=== PATIENT | male | born 1980 | race Caucasian/White ===

== ENCOUNTER 2021-04-24 08:12 | Outpatient (REF) | payer OTHER, SELFPAY ==
[2021-04-24 10:02] LABS: MANUAL DIFF FLAG NO
[2021-04-24 10:06] LABS: Basophils Percent Auto 0.6 % (0-2); Eosinophils Absolute Auto 0.1 X10*3/uL (0.0-0.4); Eosinophils Percent Auto 2.6 % (0-4); Hemoglobin 12.5 g/dl (14.0-18.0); Imm Gran Abs Auto 0.01 X10*3/uL (0.00-0.03); Imm Gran Pct Auto 0.2 % (0.0-0.4); Lymphocytes Absolute Auto 2.3 X10*3/uL (1.2-4.9); Lymphocytes Percent Auto 43.2 % (20-40); Mean Corpuscular HGB Conc 32.1 g/dl (31.0-36.0); Mean Corpuscular Hemoglobin 30.9 pg (27.0-33.0); Mean Corpuscular Volume 96.3 fL (80.0-98.0); Monocytes Absolute Auto 0.6 X10*3/uL (0.1-1.2); Monocytes Percent Auto 11.5 % (2-11); Neutrophils Absolute Auto 2.3 x10*3/uL (2.0-8.3); Neutrophils Percent Auto 41.9 % (45-73); Platelet Count 243 X10*3/uL (160-400); Red Blood Count 4.05 X10*6/uL (4.60-5.80); White Blood Count 5.4 X10*3/uL (4.8-10.8)
[2021-04-24 10:18] LABS: Alanine Aminotransferase 51 U/L (0-40); Albumin Level 4.5 g/dL (3.5-5.0); Alkaline Phosphatase 104 U/L (39-117); Anion Gap 15 (12-20); Aspartate Amino Transferase 96 U/L (5-37); Bilirubin Total 0.5 mg/dL (0.0-1.0); Blood Urea Nitrogen 12 mg/dL (9-16); Calcium 9.6 mg/dL (8.4-10.2); Carbon Dioxide 32 mmol/L (22-29); Chloride 97 mmol/L (96-108); Cholesterol 324 mg/dL; Estimated Glomerular Filt Rate > 60; Glucose Fasting 105 mg/dL (60-99); HDL Cholesterol 129 mg/dL; LDL Cholesterol Calculated 180 mg/dl; Sodium 140 mmol/L (135-145); Total Protein 7.4 g/dL (6.5-8.0); Triglycerides 75 mg/dL
== END 2021-04-24 08:13 | disposition home or self-care (01) ==
LOC: HO.10HDL 08:12
PROVIDERS: Visit Provider Internal Medicine
DX: G47.00 Insomnia, unspecified (principal); Z72.0 Tobacco use; Z82.5 Family history of asthma and other chronic lower respiratory diseases
CPT/HCPCS: 36415; 80053; 80061; 85025

== ENCOUNTER 2021-05-12 07:59 | Outpatient (REF) | payer OTHER, SELFPAY ==
[2021-05-12 10:56] LABS: HBsAGNum1 0.26 S/CO (0.00-0.99); Hepatitis B Surface Antigen Negative (Negative); ~HepC Num1 0.08 S/CO (0.00-0.79); ~Hepatitis C Antibody Nonreactive (Nonreactive)
[2021-05-12 10:59] LABS: HBS Num1 2.83 mIU/mL (0-7.99); ~Hepatitis B Surface Antibody NONREACTIVE (Nonreactive)
== END 2021-05-12 08:00 | disposition home or self-care (01) ==
LOC: HO.10HDL 07:59
PROVIDERS: Visit Provider Internal Medicine
DX: R79.89 Other specified abnormal findings of blood chemistry (principal)
CPT/HCPCS: 36415; 86706; 86803; 87340

== ENCOUNTER 2022-05-31 08:07 | Outpatient (REF) | payer OTHER, SELFPAY ==
[2022-05-31 10:40] LABS: MANUAL DIFF FLAG NO
[2022-05-31 10:44] LABS: Basophils Absolute Auto 0.1 X10*3/uL (0.0-0.2); Basophils Percent Auto 0.9 % (0-2); Eosinophils Absolute Auto 0.1 X10*3/uL (0.0-0.4); Hemoglobin 12.6 g/dl (14.0-18.0); Imm Gran Abs Auto 0.02 X10*3/uL (0.00-0.03); Imm Gran Pct Auto 0.4 % (0.0-0.4); Lymphocytes Absolute Auto 1.7 X10*3/uL (1.2-4.9); Lymphocytes Percent Auto 30.6 % (20-40); Mean Corpuscular HGB Conc 33.2 g/dl (31.0-36.0); Mean Corpuscular Hemoglobin 31.8 pg (27.0-33.0); Mean Platelet Volume 10.1 fL (9.4-12.4); Monocytes Absolute Auto 0.6 X10*3/uL (0.1-1.2); Monocytes Percent Auto 10.7 % (2-11); Neutrophils Absolute Auto 3.1 x10*3/uL (2.0-8.3); Neutrophils Percent Auto 55.4 % (45-73); Platelet Count 240 X10*3/uL (160-400); Red Blood Count 3.96 X10*6/uL (4.60-5.80); Red Cell Distribution Width 12.8 % (11.0-16.0); White Blood Count 5.5 X10*3/uL (4.8-10.8)
[2022-05-31 11:07] LABS: Alanine Aminotransferase 49 U/L (0-40); Albumin Level 4.4 g/dL (3.5-5.0); Alkaline Phosphatase 126 U/L (39-117); Anion Gap 12 (12-20); Aspartate Amino Transferase 85 U/L (5-37); Bilirubin Total 0.6 mg/dL (0.0-1.0); Blood Urea Nitrogen 12 mg/dL (9-16); Calcium 9.5 mg/dL (8.4-10.2); Carbon Dioxide 35 mmol/L (22-29); Chloride 97 mmol/L (96-108); Cholesterol 315 mg/dL; Estimated Glomerular Filt Rate > 60; Glucose Fasting 180 mg/dL (60-99); Potassium 4.2 mmol/L (3.3-5.1); Sodium 140 mmol/L (135-145); Total Protein 7.2 g/dL (6.5-8.0)
[2022-05-31 11:29] LABS: Vitamin B12 711 pg/mL (200-900)
== END 2022-05-31 08:08 | disposition home or self-care (01) ==
LOC: HO.10HDL 08:07
PROVIDERS: Visit Provider Internal Medicine
DX: Z00.00 Encounter for general adult medical examination without abnormal findings (principal)
CPT/HCPCS: 36415; 80053; 82465; 82607; 85025

== ENCOUNTER 2022-06-09 09:09 | Outpatient (REF) | payer OTHER, SELFPAY ==
[2022-06-09 11:12] LABS: Estimated Average Glucose 111 mg/dL; Hemoglobin A1c % 5.5 %
[2022-06-09 11:57] LABS: Alanine Aminotransferase 56 U/L (0-40); Albumin Level 4.5 g/dL (3.5-5.0); Alkaline Phosphatase 121 U/L (39-117); Anion Gap 15 (12-20); Aspartate Amino Transferase 111 U/L (5-37); Bilirubin Total 0.6 mg/dL (0.0-1.0); Blood Urea Nitrogen 11 mg/dL (9-16); Calcium 9.5 mg/dL (8.4-10.2); Carbon Dioxide 34 mmol/L (22-29); Chloride 97 mmol/L (96-108); Cholesterol 313 mg/dL; Estimated Glomerular Filt Rate > 60; Glucose Fasting 112 mg/dL (60-99); HDL Cholesterol 119 mg/dL; LDL Cholesterol Calculated 178 mg/dl; Potassium 4.2 mmol/L (3.3-5.1); Sodium 142 mmol/L (135-145); Total Protein 7.2 g/dL (6.5-8.0); Triglycerides 84 mg/dL
== END 2022-06-09 09:10 | disposition home or self-care (01) ==
LOC: HO.10HDL 09:09
PROVIDERS: Visit Provider Internal Medicine
DX: E78.00 Pure hypercholesterolemia, unspecified (principal); R73.9 Hyperglycemia, unspecified
CPT/HCPCS: 36415; 80053; 80061; 83036

== ENCOUNTER 2022-07-01 08:16 | Outpatient (REF) | payer OTHER, SELFPAY ==
--- NOTE | ~2022-07-01 | US_ITS ---
EXAMINATION: US ABDOMEN COMPLETE CLINICAL INFORMATION: Elevated liver enzymes. COMPARISON: None available. TECHNIQUE: Real-time imaging of the abdominal viscera. Technically difficult study secondary to body habitus. FINDINGS: PANCREAS: Largely obscured by overlapping bowel gas. ABDOMINAL AORTA: The proximal, mid, and distal segments are normal in caliber. INFERIOR VENA CAVA: Visualized portions are normal. LIVER: The liver is normal in size. The liver contour is normal. There is diffuse increased liver parenchymal echogenicity. No focal hepatic lesion. There is no intrahepatic biliary duct dilatation seen. GALLBLADDER: Normal. The gallbladder is physiologically distended without evidence of stones, sludge, polyps, wall thickening or pericholecystic fluid. COMMON BILE DUCT: Normal in caliber measuring 0.7 cm in diameter. RIGHT KIDNEY: Normal. No hydronephrosis. No renal calculi or focal parenchymal lesions. The kidney measures 10.8 cm in maximum dimension. LEFT KIDNEY: Normal. No hydronephrosis. No renal calculi or focal parenchymal lesions. The kidney measures 10.1 cm in maximum dimension. SPLEEN: Normal. The spleen measures 8.9 cm in maximum dimension. FREE FLUID: None. US/US abdomen complete IMPRESSION: 1. There is generalized increase in hepatic echotexture, consistent with fatty infiltration or hepatocellular disease. Please correlate clinically. No focal hepatic mass or intrahepatic biliary dilatation is seen. 2. Technically limited ultrasound examination of the pancreas.
== END 2022-07-01 08:17 | disposition home or self-care (01) ==
LOC: HO.US 08:16
PROVIDERS: PCP Internal Medicine; Visit Provider Internal Medicine
DX: R74.01 Elevation of levels of liver transaminase levels (principal)
CPT/HCPCS: 76700

== ENCOUNTER 2022-10-07 08:05 | Outpatient (REF) | payer OTHER, SELFPAY | END 2022-10-07 08:06 | disposition home or self-care (01) | LOC: HO.10HDL 08:05 | PROVIDERS: Visit Provider Internal Medicine | DX: I10 Essential (primary) hypertension (principal); R73.03 Prediabetes; R79.89 Other specified abnormal findings of blood chemistry | CPT/HCPCS: 36415; 80053; 83036; 85025 ==

== ENCOUNTER 2023-05-05 08:29 | Outpatient (REF) | payer OTHER, SELFPAY ==
[2023-05-05 14:17] LABS: MANUAL DIFF FLAG NO
[2023-05-05 14:20] LABS: Basophils Percent Auto 0.5 % (0-2); Eosinophils Absolute Auto 0.1 X10*3/uL (0.0-0.4); Eosinophils Percent Auto 2.3 % (0-4); Hematocrit 36.6 % (42.0-52.0); Hemoglobin 11.9 g/dl (14.0-18.0); Imm Gran Abs Auto 0.01 X10*3/uL (0.00-0.03); Imm Gran Pct Auto 0.3 % (0.0-0.4); Lymphocytes Absolute Auto 1.4 X10*3/uL (1.2-4.9); Lymphocytes Percent Auto 36.7 % (20-40); Mean Corpuscular HGB Conc 32.5 g/dl (31.0-36.0); Mean Corpuscular Hemoglobin 31.6 pg (27.0-33.0); Mean Corpuscular Volume 97.1 fL (80.0-98.0); Mean Platelet Volume 10.5 fL (9.4-12.4); Monocytes Absolute Auto 0.6 X10*3/uL (0.1-1.2); Monocytes Percent Auto 15.6 % (2-11); Neutrophils Absolute Auto 1.7 x10*3/uL (2.0-8.3); Neutrophils Percent Auto 44.6 % (45-73); Platelet Count 196 X10*3/uL (160-400); Red Blood Count 3.77 X10*6/uL (4.60-5.80); Red Cell Distribution Width 12.8 % (11.0-16.0); White Blood Count 3.9 X10*3/uL (4.8-10.8)
[2023-05-05 14:38] LABS: Alanine Aminotransferase 106 U/L (0-40); Albumin Level 4.4 g/dL (3.5-5.0); Alkaline Phosphatase 100 U/L (39-117); Anion Gap 14 (12-20); Aspartate Amino Transferase 140 U/L (5-37); Bilirubin Total 0.5 mg/dL (0.0-1.0); Blood Urea Nitrogen 12 mg/dL (9-16); Calcium 9.5 mg/dL (8.4-10.2); Carbon Dioxide 33 mmol/L (22-29); Chloride 98 mmol/L (96-108); Cholesterol 317 mg/dL (<200); Estimated Average Glucose 108 mg/dL; Estimated Glomerular Filt Rate > 60; Glucose Fasting 95 mg/dL (60-99); HDL Cholesterol 154 mg/dL (>40); Hemoglobin A1c % 5.4 % (<6.0); LDL Cholesterol Calculated 151 mg/dL (<100); Potassium 3.9 mmol/L (3.3-5.1); Sodium 141 mmol/L (135-145); Total Protein 7.6 g/dL (6.5-8.0); Triglycerides 63 mg/dL (<150)
[2023-05-05 14:43] LABS: Creatinine Urine 132.62 mg/dL; Microalbum/Creatinine Ratio Ur 12.8 ug/mg cr (<30)
== END 2023-05-05 08:30 | disposition home or self-care (01) ==
LOC: HO.CHCLDS 08:29
PROVIDERS: Visit Provider Internal Medicine
DX: I10 Essential (primary) hypertension (principal); E78.00 Pure hypercholesterolemia, unspecified; R73.03 Prediabetes; R79.89 Other specified abnormal findings of blood chemistry
CPT/HCPCS: 36415; 80053; 80061; 82043; 82570; 83036; 85025

== ENCOUNTER 2023-09-05 08:42 | Outpatient (REF) | payer OTHER, SELFPAY ==
[2023-09-05 14:53] LABS: MANUAL DIFF FLAG NO
[2023-09-05 14:57] LABS: Basophils Percent Auto 0.4 % (0-2); Eosinophils Absolute Auto 0.1 X10*3/uL (0.0-0.4); Eosinophils Percent Auto 2.2 % (0-4); Hemoglobin 11.5 g/dl (14.0-18.0); Imm Gran Abs Auto 0.01 X10*3/uL (0.00-0.03); Imm Gran Pct Auto 0.2 % (0.0-0.4); Lymphocytes Absolute Auto 1.4 X10*3/uL (1.2-4.9); Lymphocytes Percent Auto 31.5 % (20-40); Mean Corpuscular HGB Conc 33.8 g/dl (31.0-36.0); Mean Corpuscular Volume 97.4 fL (80.0-98.0); Mean Platelet Volume 9.9 fL (9.4-12.4); Monocytes Absolute Auto 0.5 X10*3/uL (0.1-1.2); Monocytes Percent Auto 11.5 % (2-11); Neutrophils Absolute Auto 2.4 x10*3/uL (2.0-8.3); Neutrophils Percent Auto 54.2 % (45-73); Platelet Count 247 X10*3/uL (160-400); Red Blood Count 3.49 X10*6/uL (4.60-5.80); Red Cell Distribution Width 13.2 % (11.0-16.0); White Blood Count 4.5 X10*3/uL (4.8-10.8)
[2023-09-05 15:18] LABS: Alanine Aminotransferase 20 U/L (0-40); Albumin Level 4.1 g/dL (3.5-5.0); Alkaline Phosphatase 87 U/L (39-117); Anion Gap 12 (12-20); Aspartate Amino Transferase 33 U/L (5-37); Bilirubin Total 0.4 mg/dL (0.0-1.0); Blood Urea Nitrogen 14 mg/dL (9-16); Calcium 9.5 mg/dL (8.4-10.2); Carbon Dioxide 33 mmol/L (22-29); Chloride 99 mmol/L (96-108); Estimated Glomerular Filt Rate > 60; Glucose Random 91 mg/dL (60-115); Potassium 4.1 mmol/L (3.3-5.1); Sodium 140 mmol/L (135-145); Total Protein 6.9 g/dL (6.5-8.0)
== END 2023-09-05 08:43 | disposition home or self-care (01) ==
LOC: HO.CHCLDS 08:42
PROVIDERS: Visit Provider Internal Medicine
DX: D64.9 Anemia, unspecified (principal); R79.89 Other specified abnormal findings of blood chemistry
CPT/HCPCS: 36415; 80053; 85025

== ENCOUNTER 2023-12-26 08:38 | Outpatient (REF) | payer OTHER, SELFPAY ==
[2023-12-26 15:21] LABS: MANUAL DIFF FLAG NO
[2023-12-26 15:28] LABS: Basophils Percent Auto 0.6 % (0-2); Eosinophils Absolute Auto 0.1 X10*3/uL (0.0-0.4); Hematocrit 34.4 % (42.0-52.0); Hemoglobin 11.4 g/dl (14.0-18.0); Imm Gran Abs Auto 0.02 X10*3/uL (0.00-0.03); Imm Gran Pct Auto 0.4 % (0.0-0.4); Lymphocytes Absolute Auto 1.8 X10*3/uL (1.2-4.9); Lymphocytes Percent Auto 36.5 % (20-40); Mean Corpuscular HGB Conc 33.1 g/dl (31.0-36.0); Mean Corpuscular Hemoglobin 31.6 pg (27.0-33.0); Mean Corpuscular Volume 95.3 fL (80.0-98.0); Mean Platelet Volume 10.3 fL (9.4-12.4); Monocytes Absolute Auto 0.4 X10*3/uL (0.1-1.2); Monocytes Percent Auto 8.4 % (2-11); Neutrophils Absolute Auto 2.6 x10*3/uL (2.0-8.3); Neutrophils Percent Auto 52.1 % (45-73); Platelet Count 331 X10*3/uL (160-400); Red Blood Count 3.61 X10*6/uL (4.60-5.80); Red Cell Distribution Width 13.4 % (11.0-16.0)
[2023-12-26 15:56] LABS: Alanine Aminotransferase 18 U/L (0-40); Albumin Level 4.1 g/dL (3.5-5.0); Alkaline Phosphatase 85 U/L (39-117); Anion Gap 14 (12-20); Aspartate Amino Transferase 33 U/L (5-37); Bilirubin Total 0.3 mg/dL (0.0-1.0); Blood Urea Nitrogen 14 mg/dL (9-16); Carbon Dioxide 28 mmol/L (22-29); Chloride 100 mmol/L (96-108); Cholesterol 231 mg/dL (<200); Estimated Glomerular Filt Rate > 60; Glucose Fasting 151 mg/dL (60-99); HDL Cholesterol 80 mg/dL (>40); LDL Cholesterol Calculated 119 mg/dL (<100); Potassium 3.4 mmol/L (3.3-5.1); Sodium 139 mmol/L (135-145); Total Protein 6.9 g/dL (6.5-8.0); Triglycerides 161 mg/dL (<150)
== END 2023-12-26 08:39 | disposition home or self-care (01) ==
LOC: HO.CHCLDS 08:38
PROVIDERS: Visit Provider Internal Medicine
DX: E78.00 Pure hypercholesterolemia, unspecified (principal); R79.89 Other specified abnormal findings of blood chemistry; D64.9 Anemia, unspecified
CPT/HCPCS: 36415; 80053; 80061; 85025

== ENCOUNTER 2024-05-30 02:55 | Emergency (ER) | payer OTHER, SELFPAY ==
[2024-05-30 02:59] VITALS: BP 140/100; PULSE 100; O2SAT 90
[2024-05-30 03:05] VITALS: BP 128/84; PULSE 100; RESP 18; TEMP 37.3; O2SAT 97
[2024-05-30 03:08] VITALS: BP 128/84; PULSE 100; RESP 20; TEMP 37.3; O2SAT 97; BMI 21.4
--- OUTSIDE RECORDS SUMMARY | 2024-05-30 03:34 | XMS_ITS | Continuity of Care Document ---
Author Organization [facility] ter Address [address] [place] [id number] Care Team Providers Care Child Protective Investigator Name Role Phone Chemo Zafar MD Primary Care Physician [phone] [id number] Date[facility]s): 05/16/24 - 05/16/[address] [address]- Discharge Disposition: A-D/C Walkout Attending Physician: Not on Staff, Attending MD Admitting Physician: Not on Staff, Admitting MD Referring Physician: Not on Staff, Referring MD Encounter Type: Disch ES Allergies, Adverse Reactions, Alerts No Known Allergies Immunizations Given and Recorded Vaccine Date Status Refusal Reason tetanus/diphtheria/pertussis, acel(Tdap) 1 12/07/21 Given 1Result Comment: [facility] [id number] Medications chlordiazePOXIDE 25 mg oral capsule See Instructions, PRN for anxiety, Taper with 25mg tablets (Maximum 300mg in 24 hours): ; Day 1-2: 1-2 tablets up to 4 times a day as needed for withdrawal symptoms; Day 3-4: 1 tablet up to 4 times aday; Day 5-6: 1 tablet up to 2 times a day; Day 7-8: 1 tablet at night,PRN:for anxiety, # 40 capsule, 0 Refills, Acute 05/22/24 12:00:00 PM EST, 05/15/24 5:15:00 AM EST, Capsule, [facility]/pharmacy #[id number], Partial fill upon patient request if the prescription is for a schedule II opioid drug., 178, cm, 05/14/24 2:45:00 EST, Height, 68, kg, 05/14/24 2:45:00 EST, Dry Weight Start Date: 05/15/24 Stop Date: 05/22/24 Status: Ordered Quantity: 40.0 Unit: capsule Repeat number: 1 chlordiazePOXIDE 25 mg oral capsule See Instructions, Taper with 25mg tablets (Maximum 300mg in 24 hours): ; Day 1- 2: 1-2 tablets up to4 times a day as needed for withdrawal symptoms; Day 3-4: 1 tablet up to 4 times a day; Day 5-6: 1 tablet up to 2 times a day; Day 7-8: 1 tablet at night, # 40 capsule, 0 Refills, Acute 05/22/24 12:01:00 AM EST, 05/15/24 10:11:00 AM EST, Capsule, [facility]/pharmacy #[id number], Partial fill upon patient request if the prescription is for a schedule II opioid drug., 178, cm, 05/14/24 2:45:00 EST, Height, 68, kg, 05/14/24 2:45:00 EST, Dry Weight Start Date: 05/15/24 Stop Date: 05/22/24 Status: Ordered Quantity: 40.0 Unit: capsule Repeat number: 1 chlordiazePOXIDE 25 mg oral capsule See Instructions, Taper??with 25mg tablets??(Maximum 300mg in 24 hours):?? Day 1-2: 1-2 tablets up to 4 times a day as needed for withdrawal symptoms Day 3-4: 1 tablet up to 4 times a day Day 5-6: 1 tablet up to 2 times a day Day 7-8: 1 tablet at night, # 40 tablet, 0 Refills, Acute 05/22/24 12:01:00 AM EST, 05/15/24 10:13:00 AM EST, Capsule, Partial fill upon patient request if the prescription isfor a schedule II opioid drug. Start Date: 05/15/24 Stop Date: 05/22/24 Status: Ordered Quantity: 40.0 Unit: tablet Repeat number: 1 chlordiazePOXIDE 25 mg oral capsule See Instructions, Taper??with 25mg tablets??(Maximum 300mg in 24 hours):?? Day 1-2: 1-2 tablets up to 4 times a day as needed for withdrawal symptoms Day 3-4: 1 tablet up to 4 times a day Day 5-6: 1 tablet up to 2 times a day Day 7-8: 1 tablet at night, # 40 each, 0 Refills, Acute 05/22/24 12:01:00 AM EST, 05/15/24 10:26:00 AM EST, Capsule, Partial fill upon patient request if the prescription is for a schedule II opioid drug. Start Date: 05/15/24 Stop Date: 05/22/24 Status: Ordered Quantity: 40.0 Unit: each Repeat number: 1 chlordiazePOXIDE 25 mg oral capsule See Instructions, Taper??with 25mg tablets??(Maximum 300mg in 24 hours) as needed for withdrawal symptoms:?? Day 1-2: 1-2 tablets up to 4 times a day Day 3-4: 1 tablet up to 4 times a day Day 5-6: 1 tablet up to 2 times a day Day 7-8: 1 tablet at night, # 40 each, 0 Refills, Acute 05/22/24 12:01:00 AM EST, 05/15/24 10:28:00 AM EST, Capsule, Partial fill upon patient request if the prescription is for a schedule II opioid drug. Start Date: 05/15/24 Stop Date: 05/22/24 Status: Ordered Quantity: 40.0 Unit: each Repeat number: 1 chlordiazePOXIDE 25 mg oral capsule 2 capsule = 50 mg, By Mouth, 4 times a day, PRN for anxiety, for 8 days, Taper with 25mg tablets (Maximum 300mg in 24 hours): ; Day 1-2: 1-2 tablets up to 4 times a day as needed for withdrawal symptoms; Day 3-4: 1 tablet up to 4 times a day; Day 5-6: 1 tablet up to 2 times a day; Day 7-8: 1 tabletat night, # 40 capsule, 0 Refills, Acute 05/23/24 10:35:00 AM EST, 05/15/24 10:35:00 AM EST, Capsule,[facility]/pharmacy #[id number], Partial fill upon patient request if the prescription is for a schedule II opioid drug., 178, cm, 05/14/24 2:45:00 EST, Height, 68, kg, 05/14/24 2:45:00 EST, Dry Weight Start Date: 05/15/24 Stop Date: 05/23/24 Status: Ordered Quantity: 40.0 Unit: capsule Repeat number: 1 Methadone By Mouth, 0 Refills, Maintenance, 06/06/16 9:22:59 PM EST Start Date: 06/06/16 Status: Ordered Repeat number: 1 Vital Signs Most recent to oldest [Reference Range]: 1 2 3 Height 178 cm (05/16/24 10:24 AM) Weight 67.5 kg (05/16/24 10:24 AM) Oxygen Saturation [94-100 %] 100 % (05/16/24 11:49 AM) 96 % (05/16/24 10:24 AM) Pulse Rate [55-90 bpm] 97 bpm *H* (05/16/24 11:49 AM) 102 bpm *H* (05/16/24 10:26 AM) 102 bpm *H* (05/16/24 10:24 AM) Body Mass Index [18.5-24.99 kg/m2] 21.3 kg/m2 (05/16/24 10:24 AM) Blood Pressure [90-138/55-84 mm Hg] 116/82mm Hg (05/16/24 11:49 AM) 137/92mm Hg (05/16/24 10:26 AM) 137/92mm Hg (05/16/24 10:24 AM) Respiratory Rate [16-30 br/min] 17 br/min (05/16/24 11:49 AM) 18 br/min (05/16/24 10:26 AM) 18 br/min (05/16/24 10:24 AM) Temperature [96.8-100.4 DegF] 97.9 DegF (05/16/24 11:49 AM) 97.8 DegF (05/16/24:26 AM) 97.8 DegF (05/16/24 10:24 AM) Mode of Delivery (Oxygen) Room air (05/16/24 11:49 AM) Room air (05/16/24 10:24 AM) Blood pressure sites Arm, right (05/16/24 11:49 AM) Arm, left (05/16/24 10:24 AM) Temperature Route Oral (05/16/24 11:49 AM) Oral (05/16/24 10:26 AM) Oral (05/16/24 10:24 AM) Dry Weight 67.5 kg (05/16/24 10:24 AM) Weight Obtained Via Patient/family state d (05/16/24 10:24 AM) Dry Weight Obtained Via Patient/family s tated (05/16/24 10:24 AM) Patient Care team information Care Team Personnel Name: Chemo Zafar MD Position: S Outreach Member Role: PCP Address: [address] [place] [address] [place] [address]- Telecom: Care Team Related Persons Name: MARGARET BLUE Insurance Providers Guarantor name: NA Health Plan Information #: 1 Payer: [employer] Member Number: [id number] Policy Number: NA Group Number: NA Health Plan Information #: 2 Payer: [employer] Member Number: [id number] Policy Number: NA Group Number: NA
--- OUTSIDE RECORDS SUMMARY | 2024-05-30 03:35 | XMS_ITS | Encounter Summary ---
Author Organization [facility] Address [address] [place] [id number] Care Team Providers Care Cigarette Carton Sealer Name Role Phone Alfredo Carias MD Primary Care Provider [phone] Reason for Visit * Reason Comments Alcohol Intoxication * Auth/Cert (Routine) Specialty Diagnoses / Procedures Referred By Contac t Referred To Contact Diagnoses Alcohol withdrawal (CMS/HCC) Acute urinary retention Acute pancreatitis, unspecified complication status, unspecified pancreatitis type Procedures . Luis Miguel Wells MD [address] [place] [address] Phone: tel: fax: [facility] [address] [place] [phone] Phone: tel: Referral ID Status Reason Start Date Expiration Date Visits Re quested Visits Authorized [id number] 1 1 Encounter Details Date Type Department Care Team (Latest Contact Info) Description 05/20/2024 12:27 PM EST - 05/25/2024 11:24 AM EST Hospital Encounter [facility] [address] [place] [phone] Luis Miguel Wells MD [address] [place] [address] Shubham Rojo MD [address] [place] [address] Acute pancreatitis, unspecified complication status, unspecified pancreatitis type (Primary Dx); Acute urinary retention Discharge Disposition: Left Against Medical Advice Social History Tobacco Use Types Packs/Day Years Used Date Smoking Tobacco: Every Day Cigarettes 0.5 0.2 Started: 2024 Smokeless Tobacco: Never Tobacco Cessation:Ready to Q uit: No; Counseling Given: Yes Interpersonal Safety Answer Date Record ed Physical Abuse 05/21/2024 Verbal Abuse 05/21/2024 Sex and Gender Information Value Date Recorded Sex Assigned at Male 05/20/2024 12:30 PM EST Legal Sex Male 4:44 AM EST Gender Identity Male 05/20/2024 12:30 PM EST Sexual Orientation Straight 05/20/2024 12 :30 PM EST documented as of this encounter Last Filed Vital Signs Vital Sign Reading Time Taken Comments Blood Pressure 127/88 05/25/2024 7:58 AM EST Pulse 89 05/25/2024 7:58 AM EST Temperature 36.9 ??C (98.4 ??F) 05/25/2024 7:58 AM ES T Respiratory Rate 16 05/25/2024 7:58 AM EST Oxygen Saturation 100% 05/25/2024 7:58 AM EST Inhaled Oxygen Concentration - - Weight 71 kg (156 lb 8 oz) 05/21/2024 6:00 AM ES T Height 155.4 cm (5' 1.2 ) 05/20/2024 12:39 PM ES T Body Mass Index 29.38 05/20/2024 12:39 PM EST documented in this encounter Functional Status * Are you deaf or do you have serious difficulty hearing? Answer Date of Assessment Author No 05/20/2024 5:49 PM EST Mead RN * Are you blind or do you have serious difficulty seeing, even when wearing glasses? Answer Date of Assessment Author No 05/20/2024 5:49 PM EST Mead RN * Do you have serious difficulty walking or climbing stairs? Answer Date of Assessment Author No 05/20/2024 5:49 PM EST Mead RN * Do you have serious difficulty dressing or bathing? Answer Date of Assessment Author No 05/20/2024 5:49 PM EST Mead RN * Because of a physical, mental, or emotional condition, do you have serious difficulty doing errandsalone such as visiting the doctor? Answer Date of Assessment Author No 05/20/2024 5:49 PM Hernadez RN documented as of this encounter Mental Status * Because of a physical, mental, or emotional condition, do you have serious difficulty concentrating, remembering, or making decisions? (5 years old or older) Answer Entry Date Author No 05/20/2024 5:49 PM Hernadez RN documented in this encounter Medications at Time of Discharge tamsulosin (FLOMAX) 0.4 mg 24 hr capsule Take 1 capsule (0.4 mg total) by mouth 1 (one) time each day for 10 days. Capsules should be taken 30 minutes following the same meal each day. 10 each 05/25/2024 5 documented as of this encounter Ordered Prescriptions Prescription Sig Dispense Quantity Refills Last Filled Start Date End Date tamsulosin (FLOMAX) 0.4 mg 24 hr capsule Take 1 capsule (0.4 mg total) by mouth 1 (one) time each day for 10 days. Capsules should be taken 30 minutes following the same meal each day. 10 each 05/25/2024 5 documented in this encounter Discharge Disposition Disposition Code Departure Means Destination Comment s Left Against Medical Advice documented in this encounter Progress Notes * Clay Chowdhury RN - 05/25/2024 11:17 AM EST Patient: Zack Constantino Birthdate: 1980 Date: 05/25/2024 Time: 11:18 AM EST Leaving the Hospital Against Medical Advice Chart #:[id number] Patient leaving AMA with FC in place, Yessy AGUILERA aware. Cameron MIRZA provided espinal care education, patient refusing leg bag. [facility] number provided to patient and instructed patient to call today fora f/u appt / void trial. Tamulosin script sent to his pharmacy. Patient signed out AMA and was escorted off unit. * Shanna Aguilera DO - 05/25/2024 10:46 AM EST Images from the original note were not included. Zack Proillard 1980 [id number] Author: Shanna Aguilera DO DOS: 05/25/2024 Requesting Service: Hospitalist Service Chief Complaint: Alcohol withdrawal (CMS/HCC) Reason for Consultation: Opioid use disorder and Alcohol use disorder Source of History: Patient and chart Subjective History of Present Illness: Zack Constantino is a 44 y.o. male with a history of alcohol use disorder admitted for managementof alcohol withdrawal. Last 24 hours, covering provider was called to bedside due to patient wanting to leave patient directed discharge. The virtual monitor revealed his mother providing him with alcohol overnight and being allowed mother to stay with patient for 1 hour/day and had to leave her belongings outside the room. Later the in the evening patient requested methadone and informed the team that he had been on it in the past. This morning he states he wants to go home and no longer wants a bed at [facility]. He states he has been on methadone for a history of opiate use disorder. He reports using intranasal heroin about 1 bundleper day in his 30s. He was introduced to opioids via friends. In his 20's he was drinking heavily on weekends. He has not used opioids in the last 5 years, but in the past 5 years his alcohol use has been worsening and increasing to daily use as noted previously. Allergies: No Known Allergies Home Medications: Prior to Admission medications Not on File Past Medical History: Past Medical History: Diagnosis Date Alcohol abuse with withdrawal (CMS/HCC) Alcohol related seizure (CMS/HCC) Anxiety Depression Tobacco use disorder 2024 current Transaminitis Past Surgical History: History reviewed. No pertinent surgical history. Family History: No family history on file. Social History: Social History Tobacco Use Smoking Status Every Day Current packs/day: 0.50 Average packs/day: 0.5 packs/day for 0.1 years (0.1 ttl pk-yrs) Types: Cigarettes Start date: 2024 Smokeless Tobacco Never Social History Substance and Sexual Activity Alcohol Use None Social History Substance and Sexual Activity Drug Use Not on file Objective Last Recorded Vitals: Blood pressure 127/88, pulse 89, temperature 36.9 ??C (98.4 ??F), temperature source Temporal, resp. rate 16, height 1.554 m (61.2 ), weight 71 kg (156 lb 8 oz), SpO2 100%. Physical Exam Gen: restless appearing HEENT: pupils normal, OP clear Musc: normal ROM Neuro: Alert and oriented, Pysch: +anxious mood Labs: Lab Results Component Value Date GLUCOSE 113 (H) 05/25/2024 CALCIUM 8.5 05/25/2024 NA 138 05/25/2024 K 3.7 05/25/2024 CO2 25 05/25/2024 CL 104 05/25/2024 BUN 8 05/25/2024 CREATININE 0.61 (L) 05/25/2024 Lab Results Component Value Date WBC 4.2 (L) 05/24/2024 HGB 10.6 (L) 05/24/2024 HCT 31.6 (L) 05/24/2024 MCV 94.0 05/24/2024 PLT 115 (L) 05/24/2024 Imaging: XR Chest 1 View Narrative: HISTORY: The patient is a 44-year-old male with fever. FINDINGS: Sitting AP portable radiograph of the chest, without previous for comparison, demonstrates old healed fractures of the left posterior fifth and sixth ribs and of the right posterior fifth, sixth, eighth, and ninth ribs. The cardiac and mediastinal contours are within normal limits. The lungs and costophrenic angles are clear. Impression: No acute pulmonary disease. Old healed bilateral rib fractures. Code 15139 -------- FINAL REPORT -------- Dictated By: Benji Springer Dictated Date: 05/22/2024 08:24 ET Assigned Physician: Benji Springer Reviewed and Electronically Signed By: Benji Springer Signed Date: 05/22/2024 08:26 ET Workstation ID: [id number] Transcribed By: Self Edit Transcribed Date: 05/22/2024 08:24 ET Meds: cefTRIAXone, 2 g, intravenous, q24h famotidine, 20 mg, oral, BID folic acid, 1 mg, oral, Daily magnesium oxide, 400 mg, oral, Nightly metroNIDAZOLE, 500 mg, intravenous, q8h multivitamin, 1 each, oral, Daily [Held by provider] naltrexone, 50 mg, oral, Daily tamsulosin, 0.4 mg, oral, Daily thiamine, 100 mg, oral, Daily traZODone, 50 mg, oral, Nightly PRN medications: acetaminophen, dextrose 50%, dextrose 50%, dextrose, dextrose, diphenhydrAMINE, glucagon injection, LORazepam, LORazepam OR LORazepam OR LORazepam, melatonin, ondansetron (ZOFRAN-ODT) disintegrating tablet OR ondansetron Assessment and Plan Zack Constantino is a 44 y.o. male with a history of alcohol and opioid use disorder admitted to the hospital for alcohol withdrawal. Alcohol use disorder Patient's was observed bringing the patient alcohol overnight He had been loaded with IM phenobarbital twice over 48 hours and the PO taper was discontinued due to a rash. Referrals for [facility] have been placed and has been accepted by [facility] -patient declines this bed Discussed the treatment of substance use disorders and encouraged patient to engage in a program ofrecovery. Patient made aware of risks and expressed understanding of risks. Unfortunately, it appears that patient is precontemplative at this time Patient was given oral naltrexone but now would like to start methadone for OUD As patient is self directing discharge advised patient that he can follow-up with his outpatient provider for JAYDEN. Injectable naltrexone would be indicated for AUD and OUD. Continue thiamine, folate and multivitamin. Opioid Use Disorder In remission Patient was given oral naltrexone but now would like to start methadone for OUD As patient is self directing discharge advised patient that he can follow-up with his outpatient provider/[facility] for MOUD. Injectable naltrexone would be indicated for AUD and OUD. Patient left prior to Narcan Rx Med to bed could be provided. Thank you for the interesting consultation. Please reach out with any questions or concerns. Principal Problem: Alcohol withdrawal ([facility]) Active Problems: Transaminitis Provider Attestation Electronically signed by Shanna Aguilera DO * Robert Saldaña - 05/25/2024 10:18 AM EST Images from the original note were not included. Business Representative Note Zack Constantino 1980 [id number] Author: Robert Saldaña DOS: 05/25/2024 Zack Constantino is a 44 y.o. male with a history of EtOH misuse. Mr. Constantino has decided to discharge to his Mothers home and not go to [facility]. I instructed Mr. Constantino on how to Self-Present to [facility] Programs going forward, if that is the route he wants to go. I also made sure Mr. Constantino has my information and information on support resources in and around the community. Referrals: None Required at this time Harm Reduction: None required at this time SIGNATURES: Robert Saldaña - Certified Business Representative * Robert Saldaña - 05/25/2024 8:37 AM EST Images from the original note were not included. Business Representative Note Zack Constantino 1980 [id number] Author: Robert Saldaña DOS: 05/25/2024 Zack Constantino is a 44 year old male with a history of EtOH misuse. [facility] Direct Nursing Line: SIGNATURES: Robert Saldaña - Certified Business Representative * Noa Wilson RN - 05/24/2024 11:56 PM EST Goals: To follow detox plan and control ETOH comsumption Identify possible barriers to meeting goals/advancing plan of care: ETOH abuse Stability of the patient: Moderately Stable - Low risk of patient condition declining or worsening End of Shift Summary: Patient is Aox4, VSS, Patient given night/sleep medications. Avensure in place and actively monitoring patient. Bed in lowest position, call segal in reach and bed alarm on. * Desi Brizuela NP - 05/24/2024 7:31 PM EST I was asked to speak with patient and patient's mother who was at bedside as patient wanted to leave AMA In short, patient was admitted for alcohol intoxication with high risk of withdrawal, alcoholic pancreatitis and acute urinary retention. Since admission patient was found to have norovirus and he continued to have issues with urinary retention. Patient was also found to be bacteremic as blood cultures obtained after a febrile episode were positive for anaerobic gram-negative bacilli. Patient has a virtual monitor at bedside as he was attempting to pull out his espinal catheter the other night. Apparently mother was caught attempting to give an alcoholic nip to patient during this hospitalization today. - Patient and mother were informed that alcohol and/or other substances are not allowed in the hospital - Mother reports that I will not do this again, I will be okay if I need to be searched so I can come back, he so anxious - Patient is reporting that he will not stay in the hospital if mother cannot visit. - Conversations were had with the housekeeper/laundry assistant nurse manager customer, primary RN and nurse manager customer and the decision was made to allow mother to come and visit however she can only visit 1 hour per day and she cannot bring her belongings in the room. If there are any further instances mother will be trespassedfor coming to the building. I did update patient regarding the new plan and mother visiting only 1 hour and he is agreeable to stay - Patient is asking for Methadone I am crawling out of my skin , he reports he was taking 90 mg before but cannot tell me where he was getting this from - I will give him Methadone 20mg o was going to order methadone for patient however he is prescribed naltrexone. - Addiction medicine reconsulted - He is on CIWA scale for now with Ativan protocol, the phenobarb taper was stopped due to the possibility of it being a phenobarb reaction * Sera Stafford MD - 05/24/2024 2:17 PM EST Zack Constantino is here for { Alcohol Intoxication Subjective Feels well, denies any complaints, rahs has improved. Review of Systems Review of Systems Constitutional: Negative. HENT: Negative. Respiratory: Negative. Cardiovascular: Negative. Gastrointestinal: Negative. Genitourinary: Negative. Musculoskeletal: Negative. Skin: Positive for rash. Neurological: Negative. Physical Examination: Vitals: Visit Vitals BP (!) 132/95 (BP Location: Right arm) Pulse 90 Temp 37.2 ??C (99 ??F) (Temporal) Resp 17 Physical Exam Vitals reviewed. Constitutional: Appearance: Normal appearance. HENT: Head: Normocephalic and atraumatic. Eyes: General: No scleral icterus. Cardiovascular: Rate and Rhythm: Normal rate and regular rhythm. Heart sounds: No murmur heard. No friction rub. No gallop. Pulmonary: Effort: Pulmonary effort is normal. No respiratory distress. Breath sounds: Normal breath sounds. No stridor. No wheezing, rhonchi or rales. Chest: Chest wall: No tenderness. Abdominal: General: Abdomen is flat. Bowel sounds are normal. There is no distension. Palpations: Abdomen is soft. There is no mass. Tenderness: There is no abdominal tenderness. There is no right CVA tenderness, left CVA tenderness, guarding or rebound. Hernia: No hernia is present. Skin: Findings: Erythema and rash present. No bruising. Comments: Rash on chest appears to have resolved, hyperemia on LE still present Neurological: General: No focal deficit present. Mental Status: He is alert and oriented to person, place, and time. Objective Recent Lab Results: Lab Results Component Value Date WBC 4.2 (L) 05/24/2024 RBC 3.40 (L) 05/24/2024 HGB 10.6 (L) 05/24/2024 HCT 31.6 (L) 05/24/2024 MCV 94.0 05/24/2024 MCHC 33.5 05/24/2024 RDW 14.2 05/24/2024 PLT 115 (L) 05/24/2024 MPV 10.6 05/24/2024 NRBC 0.0 05/24/2024 DIFF Lab Results Component Value Date LYMPHOPCT 12.3 05/24/2024 NEUTROABS 2.65 05/24/2024 LYMPHSABS 0.52 (L) 05/24/2024 MONOABS 0.72 05/24/2024 EOSABS 0.25 05/24/2024 BASOSABS 0.03 05/24/2024 IMMGRANABS 0.05 (H) 05/24/2024 RETIC No results found for: RETIC , RETICCTPCT Lab Results Component Value Date BLOODCX Culture in progress 05/21/2024 BLOODCX No growth at 2 days 05/21/2024 Recent Results (from the past week) Respiratory virus panel molecular study Collection Time: 05/21/24 10:17 AM Specimen: Nasopharynx; Swab Result Value Ref Range Adenovirus Detection by PCR Not Detected Not Detected Influenza A PCR Not Detected Not Detected Influenza B PCR Not Detected Not Detected Coronavirus 229E Not Detected Not Detected Coronavirus HKU1 Not Detected Not Detected Coronavirus OC43 Not Detected Not Detected Coronavirus NL63 Not Detected Not Detected Parainfluenza Virus 1 Not Detected Not Detected Parainfluenza Virus 2 Not Detected Not Detected Parainfluenza Virus 3 Not Detected Not Detected Parainfluenza Virus 4 Not Detected Not Detected RSV PCR Not Detected Not Detected Human Metapneumovirus A and B Not Detected Not Detected Rhinovirus/Enterovirus Not Detected Not Detected Bordetella pertussis Not Detected Not Detected Bordetella parapertussis Not Detected Not Detected Mycoplasma pneumo by PCR Not Detected Not Detected Chlamydia pneumoniae Not Detected Not Detected SARS COV-2 Not Detected Not Detected Culture blood Collection Time: 05/21/24 9:33 PM Specimen: Blood, Venous Result Value Ref Range Culture, Blood Culture in progress Gram Stain Result Anaerobic bottle Gram negative bacilli (AA) Culture blood Collection Time: 05/21/24 9:33 PM Specimen: Blood, Venous Result Value Ref Range Culture, Blood No growth at 2 days Gastrointestinal pathogens molecular study Collection Time: 05/24/24 8:54 AM Specimen: Rectum; Stool Result Value Ref Range Campylobacter Detection by PCR Not Detected Not Detected Plesiomonas shigelloides Detection by PCR Not Detected Not Detected Salmonella Detection by PCR Not Detected Not Detected Vibrio Detection by PCR Not Detected Not Detected Vibrio cholerae Detection by PCR Not Detected Not Detected Yersinia enterocolitica Detection by PCR Not Detected Not Detected Enteroaggregative E coli EAEC Detection by PCR Not Detected Not Detected Enteropathogenic E coli EPEC Detection Not Detected Not Detected Enterotoxigenic E coli ETEC LTST Detection Not Detected Not Detected Shiga-like toxin producing E coli STEC STX1 STX2 Det Not Detected Not Detected Shigella Enteroinvasive E coli EIEC Detection Not Detected Not Detected Cryptosporidium Detection by PCR Not Detected Not Detected Cyclospora cayetanensis Detection by PCR Not Detected Not Detected Entamoeba histolytica Detection by PCR Not Detected Not Detected Giardia lamblia Detection by PCR Not Detected Not Detected Adenovirus F 40 41 Detection by PCR Not Detected Not Detected Astrovirus Detection by PCR Not Detected Not Detected Norovirus GI GII Detection by PCR Detected (A) Not Detected Sapovirus Detection by PCR Not Detected Not Detected Rotavirus A Detection by PCR Not Detected Not Detected Recent Imaging Findings: XR Chest 1 View Result Date: 05/22/2024 Narrative: HISTORY: The patient is a 44-year-old male with fever. FINDINGS: Sitting AP portable radiograph of the chest, without previous for comparison, demonstrates old healed fractures of the leftposterior fifth and sixth ribs and of the right posterior fifth, sixth, eighth, and ninth ribs. Thecardiac and mediastinal contours are within normal limits. The lungs and costophrenic angles are clear. Impression: No acute pulmonary disease. Old healed bilateral rib fractures. Code 14798 -------- FINAL REPORT -------- Dictated By: Benji Springer Dictated Date: 05/22/2024 08:24 ET Assigned Physician: Benji Springer Reviewed and Electronically Signed By: Benji Springer Signed Date: 05/22/2024 08:26ET Workstation ID: [id number] Transcribed By: Self Edit Transcribed Date: 05/22/2024 08:[address] Abdomen Pelvis w Contrast Result Date: 05/20/2024 Narrative: INDICATION: Nausea/vomiting Exam: Contrast-enhanced CT abdomen and pelvis with multiplanar reformats. Comparison: None. Findings: CT abdomen: Lung bases reveal minimal bilateral dependent atelectasis. Liver reveals diffuse hypoattenuation/steatosis. No focal lesions or ductal dilatation are appreciated. Gallbladder appears unremarkable. Spleen appears unremarkable. Pancreas reveals multifocal calcifications primarily involving the pancreatic head, suggesting history of chronic pancreatitis. There appears to be trace stranding in the pancreatico duodenal groove (3; 69-76), raising concern for mild interstitial pancreatitis (?groove pancreatitis?). Pancreatic tail revealsa long segment of mild ductal dilatation with multiple small intraductal cystic appearing collections or lesions, with small individual cysts measuring up to 12 mm (measured on 3; 50), with segment of ductal dilatation and intraductal cysts extending over transverse distance of 5 cm (3; 55-49). Find ings suggest likely intraductal IPMN. Consider follow-up CT in 6 months, based on size criteria. Noother pancreatic lesions. Adrenal glands appear unremarkable. Kidneys reveal mild bilateral fullness of the collecting systems and ureters without urolithiasis, likely related to markedly distended urinary bladder. Urinary bladder measures up to 18.7 cm craniocaudad dimension (measured on 601; 66).No free intraperitoneal fluid or retroperitoneal masses or adenopathy. Abdominal aorta is normal caliber. There is however some trace fluid within right pericolic gutter common nonspecific. Bowel loops reveal no abnormal wall thickening or distention. CT pelvis: Distended urinary bladder as described above. Prostate gland and seminal vesicles are unremarkable. No pelvic masses, fluid or adenopathy. Osseous structures reveal no destructive osseous lesions. Impression: Impression: 1. Findings described above raising the possibility of mild interstitial pancreatitis, consider correlation with serum lipase. 2. Pancreatic ductal dilatation with intraluminal cystic foci described above. Consider six-month follow-up CT. 3. Mild fullness of the bilateral renal collecting systems and ureters is likely related to markedly distended urinary bladder. No urolithiasis appreciated. This document has been electronically signed by: Mariano Preston MD on 05/20/2024 16:39:41 Assessment/Plan: Zack Constantino is a 44 y.o. male who has a past medical history of Alcohol abuse with withdrawal ([facility]), Alcohol related seizure (CMS/HCC), Anxiety, Depression, Tobacco use disorder (2024), and Transaminitis.. The patient was admitted to the hospital on 05/20/2024 for alcohol withdrawal. The patient was also found to have acute on chronic pancreatitis. Over the course of his admission, he was noted to have erythematous rash on his lower extremities and so ID was consulted. He had a fever spike last on midnight on the 18. Has remained afebrile since then. He states that the rashes on his lower extremities as well as chest, states it is occasionally itchy. He states this is never happe zachery to him before.. The ID service has been consulted for management during this patient's hospitalstay. 1. Fever 2/2 GNR bacteremia in a patient with pancreatitis 2. Concern for febrile exanthem 3. Norovirus As been afebrile for over 48 hours Tested positive for Norovirus, it can cause a post viral inflammatory rash Blood C/S growing a GNR in anaerobic bottle, await ID Adding Flagyl and CTX Lyme neg, negative HIV negative, hepatitis negative, syphilis neg Should observe for improvement, if persists should consult with dermatology as outpatient for vasculitic causes of rashes Recommendations: Please start pt on CTX 2 g Q24 plus Flagyl (I have added CTX) Await ID of organism Observe rash, if worsens should consider Bx and OP Derm referral Isolation: contact Sean Miguel personally spent 35 minutes in this encounter. This included performing a detailed chart review, reviewing and independently interpreting labs ordered by other providers, performing a history and physical, counseling this patient/family, discussing the case with the primary team , coordinating his /her/their plan of care and performing complex medical decision making and placing orders. Please note that this note has been completed with the help of voice recognition dictation software, as such there may be certain words that may be substituted or written in error error based on the voice-recognition tool, please contact me to clarify if any confusion * WILLY Gomes - 05/24/2024 11:56 AM EST To whom it may concern, Zack Constantino was taught how to self-manage espinal catheter prior to discharge and was provided 1month worth of all supplies needed for catheter management. Thank you, Yessy Luna PA-C * Shanna Aguilera DO - 05/24/2024 11:36 AM EST Images from the original note were not included. Zack Constantino 1980 [id number] Author: Shanna Aguilera DO DOS: 05/24/2024 Requesting Service: Hospitalist Service Chief Complaint: Alcohol withdrawal ([facility]) Reason for Consultation: Alcohol use disorder Source of History: Patient and chart Subjective History of Present Illness: Zack Constantino is a 44 y.o. male with a history of alcohol use disorder admitted for managementof alcohol withdrawal. Patient reports that his rash has improved and is no longer itchy. Last 24 hours he was seen by urology for urinary retention. He has a Espinal catheter with a recommended voiding trial in 48 hours from 05/23 and is on tamsulosin. He still has a goal of going to a CSS when he isdischarged. public speaking coach and case management are working with him on his plan. Allergies: No Known Allergies Home Medications: Prior to Admission medications Not on File Past Medical History: Past Medical History: Diagnosis Date Alcohol abuse with withdrawal (CMS/HCC) Alcohol related seizure (CMS/HCC) Anxiety Depression Tobacco use disorder 2024 current Transaminitis Past Surgical History: History reviewed. No pertinent surgical history. Family History: No family history on file. Social History: Social History Tobacco Use Smoking Status Every Day Current packs/day: 0.50 Average packs/day: 0.5 packs/day for 0.1 years (0.1 ttl pk-yrs) Types: Cigarettes Start date: 2024 Smokeless Tobacco Never Social History Substance and Sexual Activity Alcohol Use None Social History Substance and Sexual Activity Drug Use Not on file Objective ROS: as above Last Recorded Vitals: Blood pressure (!) 132/95, pulse 90, temperature 37.2 ??C (99 ??F), temperature source Temporal, resp. rate 17, height 1.554 m (61.2 ), weight 71 kg (156 lb 8 oz), SpO2 100%. Physical Exam Gen: NAD HEENT: pupils normal, OP clear CV: RRR Pulm: CTA Musc: normal ROM Skin: No rashes or lesions Neuro: Alert and oriented, No tremor Pysch: +anxious mood Labs: Lab Results Component Value Date GLUCOSE 99 05/24/2024 CALCIUM 8.5 05/24/2024 NA 136 05/24/2024 K 3.9 05/24/2024 CO2 27 05/24/2024 CL 102 05/24/2024 BUN 7 05/24/2024 CREATININE 0.64 (L) 05/24/2024 Lab Results Component Value Date WBC 4.2 (L) 05/24/2024 HGB 10.6 (L) 05/24/2024 HCT 31.6 (L) 05/24/2024 MCV 94.0 05/24/2024 PLT 115 (L) 05/24/2024 Imaging: XR Chest 1 View Narrative: HISTORY: The patient is a 44-year-old male with fever. FINDINGS: Sitting AP portable radiograph of the chest, without previous for comparison, demonstrates old healed fractures of the left posterior fifth and sixth ribs and of the right posterior fifth, sixth, eighth, and ninth ribs. The cardiac and mediastinal contours are within normal limits. The lungs and costophrenic angles are clear. Impression: No acute pulmonary disease. Old healed bilateral rib fractures. Code 81862 -------- FINAL REPORT -------- Dictated By: Benji Springer Dictated Date: 05/22/2024 08:24 ET Assigned Physician: Benji Springer Reviewed and Electronically Signed By: Benji Springer Signed Date: 05/22/2024 08:26 ET Workstation ID: [id number] Transcribed By: Self Edit Transcribed Date: 05/22/2024 08:24 ET Meds: famotidine, 20 mg, oral, BID folic acid, 1 mg, oral, Daily magnesium oxide, 400 mg, oral, Nightly multivitamin, 1 each, oral, Daily tamsulosin, 0.4 mg, oral, Daily thiamine, 100 mg, oral, Daily PRN medications: acetaminophen, dextrose 50%, dextrose 50%, dextrose, dextrose, diphenhydrAMINE, glucagon injection, LORazepam, melatonin, ondansetron (ZOFRAN- ODT) disintegrating tablet OR ondansetron Assessment and Plan Zack Constantino is a 44 y.o. male with a history of alcohol use disorder readmitted to the hospital for alcohol withdrawal. Alcohol use disorder Symptoms improved after two loading doses of IM phenobarbital. No longer on a PO taper. Referrals for CSS have been placed and has been accepted by [facility] Continue thiamine, folate and multivitamin. Reviewed medications for alcohol use disorder (JAYDEN) Would like to start oral oral naltrexone Recommend 50 mg p.o. naltrexone daily with prescription to continue as outpatient public speaking coach and team will continue to follow and engage with patient. Thank you for the interesting consultation. Please reach out with any questions or concerns. Principal Problem: Alcohol withdrawal ([facility]) Active Problems: Transaminitis Provider Attestation Electronically signed by Shanna Aguilera DO * Robert Saldaña - 05/24/2024 11:17 AM EST Images from the original note were not included. Business Representative Note Zack Constantino 1980 [id number] Author: Robert Saldaña DOS: 05/24/2024 Zack Constantino is a 44 y.o. male with a history of EtOH Mr. Constantino has been accepted to [facility] at either their [place] or [place] location. His medical team and social work team are communicating with [facility] now and [facility] will provide transportation to their program. Referrals: [facility] Harm Reduction: None required at this time SIGNATURES: Robert Saldaña - Certified Business Representative * Robert Saldñaa - 05/24/2024 8:58 AM EST Images from the original note were not included. Business Representative Note Zack Constantino 1980 [id number] Author: Robert Saldaña DOS: 05/24/2024 Zcak Constantino is a 44 y.o. male with a history of EtOH misuse. Due to having a catheter still in place, [facility] has filled the bed that would have been for Mr. Constantino. Because of this, I explained to him how to proceed with the wait-lists and bed searches for all of there other programs I sent his referral to. If it should be that Mr. Constantino getsdischarged with a catheter still in place and/or before a bed is available at a [facility], I have asked Inspector Agricultural Commodities Elva Payne to consult and explain what a medical respite is and wether or not is the best option. Mr. Estrella Mother, Majo, also stated that he can go to her house for a little while until a bed at a [facility] opens up. Referrals: CSS Harm Reduction: None required at this time SIGNATURES: Robert Saldaña - Certified Business Representative * Robert Saldaña - 05/24/2024 7:49 AM EST Images from the original note were not included. Business Representative Note Zack Constantino 1980 [id number] Author: Robert Saldaña DOS: 05/24/2024 Zack Constantino is a 44 y.o. male with a history of EtOH misuse. Mr. Constantino is in the process of being reviewed by [facility], [facility]. He and I completed his referral and I submitted it 2 days ago on 05/22/24. Mr. Constantino then completed his phone intake withMoraima Abdullahi, [facility] [employer], yesterday, 05/23/24. All that is left, is for me to send documentation that Mr. Constantino does not need to use a straight catheter any longer and he will be accepted by [facility]. I have reached out to his medical team to see if Mr. Constantino no longer needs a cath and to ask if they could provide me the correct documentation. I will send to Moraima Abdullahi, [facility] [employer] [facility], once the medical team is able to provide such documentation. Referrals: [facility] Harm Reduction: None required at this time SIGNATURES: Robert Saldaña - Certified Business Representative * Noa Wilson RN - 05/24/2024 3:59 AM EST Goals: Manage withdrawal symptoms Identify possible barriers to meeting goals/advancing plan of care: compliance with ETOH consumption Stability of the patient: Moderately Stable - Low risk of patient condition declining or worsening End of Shift Summary: Patient is Aox4, VSS, Patient has been in bed for the night. Given night medications as scheduled. Patient is Anevsure in place for monitoring. Patient is having adequate urine output into espinal- documented in chart. Bed in lowest position, call segal in reach and bed alarm on. * CARRIE Sher - 05/23/2024 5:31 PM EST Medical record reviewed. Per flag football coach anticipate bed availability at the [facility] 05-24-24.Assigned social and political studies professor to assist as needed. ICC updated on proposed plan. * Robert Saldaña - 05/23/2024 10:02 AM EST Images from the original note were not included. Business Representative Note Zack Constantino 1980 [id number] Author: Robert Saldaña DOS: 05/23/2024 Zack Constantino is a 44 y.o. male with a history of EtOH misuse. [facility], [facility], has requested all of Mr. Constantino's updated notes, labs and meds and are looking to have a bed available for him tomorrow 05/24/2024. The educational psychology professor at [facility], Moraima Abdullahi, requested that I give Mr. Constantino her personal contact information so they can communicate directly going forward. I did just that. [facility] - [facility], [employer]: Moraima Abdullahi - Referrals: [facility] Harm Reduction: None required at this time SIGNATURES: Robert Saldaña - Certified Business Representative * Shanna Aguilera DO - 05/23/2024 9:29 AM EST Images from the original note were not included. Zack Constantino 1980 [id number] Author: Shanna Aguilera DO DOS: 05/23/2024 Requesting Service: Hospitalist Service Chief Complaint: Alcohol withdrawal (CMS/HCC) Reason for Consultation: Alcohol use disorder Source of History: Patient and chart Subjective History of Present Illness: Zack Constantino is a 44 y.o. male with a history of alcohol use disorder admitted for managementof alcohol withdrawal. He initially presented on 05/18/2024 and had a patient directed discharge at that time. He returned within 24 hours of receiving phenobarbital loading and received another course of phenobarbital loading this admission on 05/20/2024. In the last 24 hours he reported a rash. He states the rash is itchy at times and located over his trunk and lower extremities is unchanged fromprior exam. He hoping to go to a [facility] after he is medically discharged. Allergies: No Known Allergies Home Medications: Prior to Admission medications Not on File Past Medical History: Past Medical History: Diagnosis Date Alcohol abuse with withdrawal (CMS/HCC) Alcohol related seizure (CMS/HCC) Anxiety Depression Tobacco use disorder 2024 current Transaminitis Past Surgical History: History reviewed. No pertinent surgical history. Family History: No family history on file. Social History: Social History Tobacco Use Smoking Status Every Day Current packs/day: 0.50 Average packs/day: 0.5 packs/day for 0.1 years (0.1 ttl pk-yrs) Types: Cigarettes Start date: 2024 Smokeless Tobacco Never Social History Substance and Sexual Activity Alcohol Use None Social History Substance and Sexual Activity Drug Use Not on file Objective Review of Systems Constitutional: Negative for chills and fever. Genitourinary: Positive for difficulty urinating. Skin: Positive for rash. Neurological: Negative for tremors. Last Recorded Vitals: Blood pressure 126/85, pulse 93, temperature 37.1 ??C (98.8 ??F), resp. rate 16, height 1.554 m (61.2 ), weight 71 kg (156 lb 8 oz), SpO2 100%. Physical Exam Eyes: Extraocular Movements: Extraocular movements intact. Pupils: Pupils are equal, round, and reactive to light. Cardiovascular: Heart sounds: Normal heart sounds. Pulmonary: Breath sounds: Normal breath sounds. Musculoskeletal: Cervical back: Normal range of motion. Skin: Findings: Rash present. Comments: Erythematous maculopapular rash over torso and bilateral lower extremities. Neurological: Mental Status: He is alert. Psychiatric: Mood and Affect: Mood is anxious. Labs: Lab Results Component Value Date GLUCOSE 126 (H) 05/23/2024 CALCIUM 8.4 (L) 05/23/2024 NA 136 05/23/2024 K 3.2 (L) 05/23/2024 CO2 27 05/23/2024 CL 102 05/23/2024 BUN 4 (L) 05/23/2024 CREATININE 0.59 (L) 05/23/2024 Lab Results Component Value Date WBC 4.2 (L) 05/22/2024 HGB 10.7 (L) 05/22/2024 HCT 31.9 (L) 05/22/2024 MCV 92.2 05/22/2024 PLT 61 (L) 05/22/2024 Imaging: XR Chest 1 View Narrative: HISTORY: The patient is a 44-year-old male with fever. FINDINGS: Sitting AP portable radiograph of the chest, without previous for comparison, demonstrates old healed fractures of the left posterior fifth and sixth ribs and of the right posterior fifth, sixth, eighth, and ninth ribs. The cardiac and mediastinal contours are within normal limits. The lungs and costophrenic angles are clear. Impression: No acute pulmonary disease. Old healed bilateral rib fractures. Code 82213 -------- FINAL REPORT -------- Dictated By: Benji Springer Dictated Date: 05/22/2024 08:24 ET Assigned Physician: Benji Springer Reviewed and Electronically Signed By: Benji Springer Signed Date: 05/22/2024 08:26 ET Workstation ID: [id number] Transcribed By: Self Edit Transcribed Date: 05/22/2024 08:24 ET Meds: docusate sodium, 100 mg, oral, BID famotidine, 20 mg, oral, BID folic acid, 1 mg, oral, Daily magnesium sulfate, 2 g, intravenous, Once multivitamin, 1 each, oral, Daily PHENobarbitaL, 16.2 mg, oral, BID potassium chloride oral extended release, 20 mEq, oral, Once tamsulosin, 0.4 mg, oral, Daily thiamine, 100 mg, oral, Daily PRN medications: acetaminophen, dextrose 50%, dextrose 50%, dextrose, dextrose, diphenhydrAMINE, glucagon injection, LORazepam Assessment and Plan Zack Constantino is a 44 y.o. male with a history of alcohol use disorder readmitted to the hospital for alcohol withdrawal. Alcohol use disorder Patient has already received 2 loading doses of IM phenobarbital between the previous 2 admissions Given phenobarbital can cause a delayed delayed hypersensitivity reaction it would be reasonable todiscontinue the oral phenobarbital taper at this time Referrals for CSS have been placed and the team will follow-up on these referrals Continue thiamine, folate and multivitamin. Discussed treatment of alcohol use disorder and reviewed medications for alcohol use disorder (JAYDEN)-patient will consider options public speaking coach and team will continue to follow and engage with patient. Thank you for the interesting consultation. Please reach out with any questions or concerns. Principal Problem: Alcohol withdrawal ([facility]) Active Problems: Transaminitis Provider Attestation Electronically signed by Shanna Aguilera DO * Sher Baker RN - 05/23/2024 3:09 AM EST Goals: Identify possible barriers to meeting goals/advancing plan of care: . Stability of the patient: Moderately Stable - Low risk of patient condition declining or worsening End of Shift Summary: Pt A&O x4, Avyas placed in pt room for safety. Pt arrived to unit attempting to get out of bed with IUC and IV tubing being tugged on because pt was too far from devices. Pt. Educated about remaining in bed and using call segal, bed alarm remained active. Pt attempted to get out of bed two more times. Pt then stating he has 10/10 pain to his penis and wants espinal removed. This keno writer / runner educated pt multiple times of importance of the IUC and why it needs to remain in place at this time also offered pain medication. Pt refused only wanting espinal removed. Pt then began to self remove espinal causing bleeding. Provider was notified and approval to remove espinal was given. Pt up to the bathroom multiple times to attempt to urinate. Twice the pt had attempted to use toiletwater as his urine. When ask what was in the urinal pt confirmed it was toilet water. Education monty bladder scan was completed with a PVR of 241. Pt currently insisting on getting another espinal, educated there is no need at this time. Call segal within reach, Avasure remains in place care on going. * CARRIE Lester - 05/22/2024 1:35 PM EST Patient continues to require acute level hospital care. Barriers include ID consult, recurrent fevers. MARCEL: 05/23/24. marketing services coordinator will remain available to assess, support, and provide advocacy as indicated. * Robert Saldaña - 05/22/2024 12:08 PM EST Images from the original note were not included. Business Representative Note Zack Constantino 1980 [id number] Author: Robert Saldaña DOS: 05/22/2024 Zack Constantino is a 44 y.o. male with a history of EtOH misuse. I brought Mr. Constantino the list of CSS programs I sent his referral to and instructed on how to beplaced on/remain on the wiatlist. Referrals: [facility] Harm Reduction: None required at this time SIGNATURES: Robert Saldaña - Certified Business Representative * Cheng Ironuma - 05/22/2024 10:46 AM EST SPIRITUAL CARE Date/Time:05/22/24 at 10:46 AM EST Type of Visit: Initial Visit and Quality Officer Rounding Reason for Visit: Spiritual/Emotional Support and Spiritual Assessment Time Spent: 15 Minutes Location: Sacramental Encounters: Sacrament of Sick-Anointing: Anointed Spiritual Distress Assessment: Spiritual Distress Assessment at beginning of visit Meaning - Overall Life Balance: No evidence of unmet spiritual need Transcendence: No evidence of unmet spiritual need Values - Acknowledgement: No evidence of unmet spiritual need Values - Control: No evidence of unmet spiritual need Psycho-Social Identity: No evidence of unmet spiritual need SDAT Beginning of Visit Average Score: 0 Spiritual Distress Assessment at end of visit Meaning - Overall Life Balance: No evidence of unmet spiritual need Transcendence: No evidence of unmet spiritual need Values - Acknowledgement: No evidence of unmet spiritual need Values - Control: No evidence of unmet spiritual need Psycho-Social Identity: No evidence of unmet spiritual need SDAT End of Visit Average Score: 0 Spiritual Assessment/Distress Spiritual Care Assessment: Assessment: Zack, was awake, alert and resting in bed at the time of visit. Shared how fall happened at home. Awaiting mom's visit. Voiced being well cared for by caregivers. Happy with the progress and improvement. Gi church is Christianity, voiced desire to receive anointing of the sick. Prayed for recovery and good health. Thankful for the visit and support. Intervention: NE Spiritual Care Interventions : provided support, explored hope, listened empathically, and provided prayer Outcomes: expressed gratitude and expressed peace Plan of Care: Visit as needed *Reference: Spiritual Distress Assessment Tool: The SDAT is a clinical tool used by chaplains to identify unmet spiritual and emotional needs that can impact Goals of Care in the following categories: Spiritual Distress Assessment Legend Spiritual Needs Related Questions Meaning Are you having difficulties coping with what is happening to your now? Does your hospitalization have any repercussions on the way you live usually? Transcendence Do you have a particular church, gi, or spirituality? Is your church/spirituality/gi challenged by what is happening to you now? Values Do you think that the health professionals caring for you know you well enough? Do you feel that you are participating in the decisions made about your care? Psycho-Social Identity Do you have any worries or difficulties regarding your family or other persons close to you? Do you feel lonely? Do you have links to your gi community? SCALE 0= no evidence of unmet spiritual needs 1= some evidence of unmet spiritual needs 2= substantial evidence of unmet spiritual needs 3= evidence of severe unmet spiritual needs * Robert Saldaña - 05/22/2024 10:46 AM EST Images from the original note were not included. Business Representative Note Zack Constantino 1980 [id number] Author: Robert Saldaña DOS: 05/22/2024 Zack Constantino is a 44 y.o. male with a history of EtOH misuse. I utilized active listening and motivational interviewing during this initial contact to help establish a positive working rapport and to begin to build trust. I found Mr. Constantino to be engaging and forthright. He and I went over a bit of his usage history as well as his housing situation. (Mr. Constantino lives with his Mother, Majo, who was in the room with us, being very supportive and contributing where appropriate) Mr. Constantino asked about MAT's and CSS placement. I asked WILLY Nixon if he could consult about MAT's and I am submitting CSS referrals now. I will be utilizing the [facility] CSS list and will bring Mr. Constantino the names and numbers of all the places I send his referral to. I have instructed on how to call to be placed/remain on the wait list. If we are not able so get Mr. Constantino to a CSS directly from [facility], his Mother has agreed for him to go home to her house until a bed opens up. Referrals: CSS Harm Reduction: None required at this time SIGNATURES: Robert Saldaña - Certified Business Representative * CARRIE Lester - 05/21/2024 3:08 PM EST Admission: 05/21/24 1503 Initial Transition Plan Initial Transition Plan Home Back up Transition Plan Back up Transition plan Home Health Care Discharge Planning Living Arrangements Family members Type of Residence Private residence (2 level home with 3 [facility]) Assistive Devices None Support Systems Parent Medication Coverage Has Med Coverage Under Insurance Plan Yes Medication Affordability No concerns related to payment for meds Discharge Barriers Barriers to Discharge Plan Medically complex placement (diet advance, pheno taper, IV electrolytes, IVF, CIWA) Transportation Transportation at discharge Family MARCEL: 05/22/24 * Valorie Valladares RN - 05/20/2024 10:45 PM EST ED RN HANDOFF (All [place] Below Must Be Completed) Reason/Diagnosis for Admission: Alcohol withdrawal/ pancreatitis Type of Admission: [] Medsurg, [x] Telemetry Already in a Hospital Bed: [] Yes / [] No Room Considerations/Precautions (ex: fever, diarrhea, or any infectious concerns): [] Yes / [x] No Senior It Engineer: [x] Yes / [] No If YES, Cardiac Rhythm: [] NSR, [] SB, [x] ST, [] A-FIB, [] A-Flutter, [] Pacemaker, [] 1st Degree HB, [] 2nd Degree HB, [] 3rd Degree HB Reason for Senior It Engineer: VS: Visit Vitals BP 122/72 (BP Location: Left arm, Patient Position: Sitting) Pulse 103 Temp 36.7 ??C (98.1 ??F) (Oral) Resp 23 Ht 1.554 m (61.2 ) Wt 68 kg (150 lb) SpO2 96% BMI 28.16 kg/m?? BSA 1.67 m?? Current Mental Status: A/O x [x]4, []3, []2, []1 Current Ambulation Status: independent IV Access: [x] Yes / [] No Field IV present: [] Yes / [x] No Hx of Violence: [] Yes / [x] No / [] Unknown Fall Risk:[] Yes / [x] No Yellow Bracelet Applied [] Yes / [x] No Yellow Socks Applied [] Yes / [x] No Patient Belongings inventoried and BL completed: [x] Yes / [] No Patient belongings stored in the security closet: [] Yes (If Yes please supply Security bag #): [x] No Patient Medications stored in Pharmacy: [] Yes (If Yes please supply Medication Security bag #): [x] No ED Summary of Care: Pt to ED for c/o alcohol withdrawal, last drink around 0200 05/20. Hx alcohol withdrawal seizures. Lipase 1600s, Alcohol level 462. On CT pt was also found to have urinary retention of 1.5L, espinal placed. Phenobarb IM scheduled for midnight. Ice chips only. Submitted by and Phone Extension: REBECCA [id number] * WILLY Paulino - 05/20/2024 5:47 PM EST ED Course as of 05/20/24 2303 Sun May 20, 2024 1444 Patient's lipase elevated at 1643. LFTs up as well. Alcohol is 462, patient now admits to drinking vodka. He is quite unreliable. Abdomen and pelvis CT ordered. Patient signed out to Devon Lang PA-C at change of shift. [JH] 1510 Received patient in signout from previous provider pending CT abdomen pelvis, completion of workup, patient presents with EtOH level 462, was feeling nauseous and thought he might be withdrawingfrom alcohol initially lipase of 1643, abdominal pain. [YB] 1741 CT shows findings suggestive of interstitial pancreatitis when correlated with lipase of 1643,suspect patient does have pancreatitis. He has a CIWA of 2 currently, he is tremulous, history of withdrawal with seizure. He also has urinary retention unable to urinate with 1.5 L in the bladder, Espinal catheter was placed. UA is pending. Patient will be admitted to medical service at this time for acute pancreatitis, acute urinary retention, he is on withdrawal precautions, while he has no abdominal pain, he is not a reliable patient at this time due to his intoxication. [YB] ED Course User Index [JH] WILLY Bob [YB] WILLY Paulino Clinical Impressions as of 05/20/24 2303 Acute pancreatitis, unspecified complication status, unspecified pancreatitis type Acute urinary retention Data Unavailable No diagnosis found. Procedures Zack Proillard Cosigned by Daniel Zepeda MD at 05/20/2024 11:39 PM EST * Patty Quintero RN - 05/20/2024 12:37 PM EST Last drink 10 hours ago Patty Quintero RN 05/20/24 1237 * Patty Quintero RN - 05/20/2024 12:28 PM EST BIBA from home with complaints of alcohol withdrawals. Pt stated last drink was 6 days ago. Pt is very tremulous according to ems. documented in this encounter H&P Notes * Desi Brizuela NP - 05/20/2024 6:07 PM EST Images from the original note were not included. .. [facility] HISTORY [facility] PHYSICAL Please contact author [Desi Brizuela NP] via [employer]. Patient: Zack Constantino Admission Date/Time: 05/20/2024 12:27 PM : 1980 [44 y.o.] Patient's PCP: Alfredo Carias MD Attending Provider: Luis Miguel Guerrero* CHIEF COMPLAINT I came in because I thought I was withdrawing, but I feel better now HISTORY OF PRESENT ILLNESS This is a 44-year-old male with a past medical history significant for anxiety and depression, alcohol abuse and alcohol withdrawal seizures who presents to the emergency department today for an evaluation of nausea and concerns of withdrawing from alcohol. Patient reports that he started to feel tremulous. Patient is stating that his last alcoholic drink was yesterday. Patient reports that he normally drinks 10-12 nips of vodka daily. Of note, patient was admitted to this facility on 05/18/2024however left AMA. At current time, patient is pleasantly intoxicated, he is looking for his lost cat. CT abdomen pelvis with contrast:1. Findings described above raising the possibility of mild interstitial initial laboratory results: pancreatitis, consider correlation with serum lipase. 2. Pancreatic ductal dilatation with intraluminal cystic foci described above. Consider six-month follow-up CT. 3. Mild fullness of the bilateral renal collecting systems and ureters is likely related to markedly distended urinary bladder. No urolithiasis appreciated. CMP reveals random glucose 117, creatinine 0.6, transaminitis noted, AST/ALT 271/103, alk phos 140,lipase 1643, magnesium 1.8, H&H 12.5/36.2, ethanol level on arrival 462. Drug tox positive for barbiturates and benzodiazepines. In the emergency department the above was performed, af oley catheter was placed and patient received 4 mg IV ondansetron and 1L NS. The decision was made to admit patient for medical management Review of Systems A complete 10 point review of systems has been performed and if not noted in HPI is otherwise negative. MEDICAL HISTORY Past Medical History Past Medical History: Diagnosis Date ??? Alcohol abuse with withdrawal (CMS/HCC) ??? Alcohol related seizure (CMS/HCC) ??? Transaminitis Past Surgical History History reviewed. No pertinent surgical history. Social History Family History family history is not on file. Allergies has No Known Allergies. Home Medications No current facility-administered medications on file prior to encounter. No current outpatient medications on file prior to encounter. OBJECTIVE Vitals Visit Vitals BP 131/70 Pulse 81 Temp 36.7 ??C (98.1 ??F) (Oral) Resp 25 Temp (24hrs), Av.8 ??C (98.2 ??F), Min:36.7 ??C (98.1 ??F), Max:36.8 ??C (98.2 ??F) Body mass index is 28.16 kg/m??. No results found for: PTWT , PTHT Physical Examination General: Appears stated age, no respiratory distress, sleepy however easily arousable to verbal stimuli Skin: Clean, dry and intact, no open wounds or sores, bruises or abrasions Cardiac: Tachycardic, S1-S2 noted, no murmurs, rubs, gallops or clicks, no JVD or interstitial edema, no carotid bruits Respiratory: Lung sounds are CTAB, no expiratory wheezes, rales or rhonchi, no accessory respiratory muscles noted or evidence of nasal flaring. Abdomen: Soft, nontender, nondistended, bowel sounds active in all 4 quadrants, no abdominal guarding or Saxena sign. Extremities: No peripheral or pedal edema noted. No swelling, redness or tenderness noted to bilateral lower legs. Neuro: Alert and oriented x3, no motor or sensory deficits Psychiatric: Calm, cooperative, without agitation or restlessness. LAB RESULTS (most recent) HEMATOLOGY Lab Results Component Value Date WBC 4.1 (L) 05/20/2024 HGB 12.5 (L) 05/20/2024 HCT 36.2 (L) 05/20/2024 MCV 91.4 05/20/2024 PLT 55 (L) 05/20/2024 CHEMISTRY Lab Results Component Value Date GLUCOSE 117 (H) 05/20/2024 NA 138 05/20/2024 K 3.9 05/20/2024 CO2 29 05/20/2024 CL 100 05/20/2024 BUN 6 05/20/2024 CREATININE 0.60 (L) 05/20/2024 EGFR 124 05/20/2024 CALCIUM 8.4 (L) 05/20/2024 MG 1.8 (L) 05/20/2024 ANIONGAP 9 05/20/[address] Abdomen Pelvis w Contrast Final Result Impression: 1. Findings described above raising the possibility of mild interstitial pancreatitis, consider correlation with serum lipase. 2. Pancreatic ductal dilatation with intraluminal cystic foci described above. Consider six-month follow-up CT. 3. Mild fullness of the bilateral renal collecting systems and ureters is likely related to markedly distended urinary bladder. No urolithiasis appreciated. This document has been electronically signed by: Mariano Preston MD on 05/20/2024 16:39:41 ASSESSMENT & PLAN ACUTE MEDICAL ISSUES: Alcohol abuse with intoxication History of alcohol withdrawal seizures - Patient's alcohol level 462, patient is still currently intoxicated, he does carry a history of alcohol withdrawal seizures in the past. - Seizure precautions placed for now along with CIWA scale - Will start phenobarbital protocol at midnight - Thiamine, folic acid and multivitamin ordered - Consider addiction medicine consult Alcoholic pancreatitis - Patient is a limited historian secondary to intoxication however he is currently denying abdominal pain, lipase on admission was 1643 - IV fluids. N.p.o. for now except medications, ice chips and sips of water, if no vomitting will advance Transaminitis - Patient was noted to have elevated LFTs, AST/ALT 271/103, alk phos 140 - Secondary to longstanding alcohol abuse. Receiving IV fluids. Trend LFTs. Hypomagnesemia - Magnesium level 1.8. Will be replaced. Recheck in AM. Acute urinary retention - Patient was retaining urine in the ED and had a bladder scan of over 1 L. A Espinal catheter was placed, reportedly on initial insertion there was a large blood clot however after that urine was clear without further clots. - UA pending. OTHER: DVT Prophylaxis - Intermittent sequential boots for now. CODE STATUS: Full code Emergency contact is patient's mother Nirmala Constantino, Case and plan discussed with Dr. Luis Miguel Wells Please note that 75 minutes or greater was spent on performing a medically appropriate history and physical examination, review of laboratory and radiology data requiring a high level of medical decision making. Cosigned by Luis Miguel Wells MD at 05/22/2024 3:14 PM EST Associated attestation - Luis Miguel Wells MD - 05/22/2024 3:14 PM EST This is a split/shared visit with Desi Brizuela NP. I personally performed the medical decision making (MDM) for the care of this patient as documentedbelow 44 years old male with history of alcohol withdrawal presents to the hospital intoxicated requesting withdrawals. -On admission patient's alcohol level was high at 462. Lipase elevated however no significant abdominal pain. -Patient to be started on alcohol withdrawal treatment with phenobarbital, folate thiamine multivitamin IV fluid hydration addiction medicine consult. Luis Miguel Wells MD 05/22/24 3:12 PM EST documented in this encounter Consult Notes * Sera Stafford MD - 05/23/2024 11:46 AM ESTAssociated Order(s): IP CONSULT TO INFECTIOUS DISEASES Infectious Diseases Consult 05/23/24 No ref. provider found Alfredo Carias MD Reason for Consultation: Rash Source of history: chart review and the patient History Of Present Illness (includes Chief Complaint): Zack Constantino is a 44 y.o. male who has a past medical history of Alcohol abuse with withdrawal (CMS/HCC), Alcohol related seizure (CMS/HCC), Anxiety, Depression, Tobacco use disorder (2024), and Transaminitis.. The patient was admitted to the hospital on 05/20/2024 for alcohol withdrawal. The patient was also found to have acute on chronic pancreatitis. Over the course of his admission, he was noted to have erythematous rash on his lower extremities and so ID was consulted. He had a fever spike last on midnight on the . Has remained afebrile since then. He states that the rashes on his lower extremities as well as chest, states it is occasionally itchy. He states this is never happe zachery to him before.. The ID service has been consulted for management during this patient's hospitalstay. Past Medical History: Past Medical History: Diagnosis Date Alcohol abuse with withdrawal (CMS/HCC) Alcohol related seizure (CMS/HCC) Anxiety Depression Tobacco use disorder 2024 current Transaminitis Surgical History: History reviewed. No pertinent surgical history. Family History: No family history on file. Social History: Social History Tobacco Use Smoking status: Every Day Current packs/day: 0.50 Average packs/day: 0.5 packs/day for 0.1 years (0.1 ttl pk-yrs) Types: Cigarettes Start date: 2024 Smokeless tobacco: Never Allergies: Patient has no known allergies. Home Medications: Prior to Admission medications Not on File Current Medications: Current Facility-Administered Medications: acetaminophen (TYLENOL) tablet 650 mg, 650 mg, oral, q6h PRN, WILLY Casas, 650 mg at 05/22/242111 dextrose (D50W) 50% injection 12.5 g, 12.5 g, intravenous, q15 min PRN, Yessy Luna, PA dextrose (D50W) 50% injection 25 g, 25 g, intravenous, q15 min PRN, Yessy Luna, PA dextrose 15 gram/60 mL oral solution 15 g, 15 g, oral, q15 min PRN, Yessy L Isamart, PA dextrose 15 gram/60 mL oral solution 30 g, 30 g, oral, q15 min PRN, Yessy Luna PA diphenhydrAMINE (BENADRYL) injection 25 mg, 25 mg, intravenous, q6h PRN, Yessybao Luna, PA, 25 mg at 05/22/242116 docusate sodium (COLACE) capsule 100 mg, 100 mg, oral, BID, Yessy Caroline Pennt, PA, 100 mg at 05/23/24852 famotidine (PEPCID) tablet 20 mg, 20 mg, oral, BID, Yessy Caroline Luna, PA, 20 mg at 05/23/24852 folic acid (FOLVITE) tablet 1 mg, 1 mg, oral, Daily, Desi Brizuela, IRENE, 1 mg at 05/23/24852 Glucagon HCl (rDNA) injection 1 mg, 1 mg, intramuscular, Once PRN, WILLY Gomes LORazepam (ATIVAN) injection 2 mg, 2 mg, intravenous, q15 min PRN, Desi Brizuela NP multivitamin tablet 1 tablet, 1 each, oral, Daily, Desi Brizuela NP, 1 tablet at 05/23/24 08 tamsulosin (FLOMAX) 24 hr capsule 0.4 mg, 0.4 mg, oral, Daily, WILLY Gomes, 0.4 mg at 05/23/24 08 thiamine (VITAMIN B-1) tablet 100 mg, 100 mg, oral, Daily, Desi Brizuela NP, 100 mg at 05/23/24 0853 PRN medications: acetaminophen, dextrose 50%, dextrose 50%, dextrose, dextrose, diphenhydrAMINE, glucagon injection, LORazepam ROS: Review of Systems Constitutional: Negative. HENT: Negative. Respiratory: Negative. Cardiovascular: Negative. Gastrointestinal: Negative. Genitourinary: Negative. Musculoskeletal: Negative. Skin: Positive for rash. Neurological: Negative. Vital signs for last 24 hours: Temp: 37.1 ??C (98.8 ??F) (05/23 905) Heart Rate: 93 (05/23 812) Resp: 16 (05/23 812) BP: 126/85 (05/23 812) Intake/Output this shift: No intake/output data recorded. Physicial Exam Physical Exam Vitals reviewed. Constitutional: Appearance: Normal appearance. HENT: Head: Normocephalic and atraumatic. Eyes: General: No scleral icterus. Cardiovascular: Rate and Rhythm: Normal rate and regular rhythm. Heart sounds: No murmur heard. No friction rub. No gallop. Pulmonary: Effort: Pulmonary effort is normal. No respiratory distress. Breath sounds: Normal breath sounds. No stridor. No wheezing, rhonchi or rales. Chest: Chest wall: No tenderness. Abdominal: General: Abdomen is flat. There is no distension. Palpations: Abdomen is soft. There is no mass. Tenderness: There is no abdominal tenderness. There is no right CVA tenderness, left CVA tenderness, guarding or rebound. Hernia: No hernia is present. Skin: General: Skin is warm and dry. Findings: Erythema present. Comments: Symmetrical erythematous patch on bilateral lower extremities from above the thigh to below the knee Not raised Coalescing rash erythematous on the abdomen and chest Neurological: Mental Status: He is alert. Results: Lab No results displayed because visit has over 200 results. Lab Results Component Value Date BLOODCX No growth at 24 hours 05/21/2024 BLOODCX No growth at 24 hours 05/21/2024 Recent Results (from the past week) Respiratory virus panel molecular study Collection Time: 05/21/24 10:17 AM Specimen: Nasopharynx; Swab Result Value Ref Range Adenovirus Detection by PCR Not Detected Not Detected Influenza A PCR Not Detected Not Detected Influenza B PCR Not Detected Not Detected Coronavirus 229E Not Detected Not Detected Coronavirus HKU1 Not Detected Not Detected Coronavirus OC43 Not Detected Not Detected Coronavirus NL63 Not Detected Not Detected Parainfluenza Virus 1 Not Detected Not Detected Parainfluenza Virus 2 Not Detected Not Detected Parainfluenza Virus 3 Not Detected Not Detected Parainfluenza Virus 4 Not Detected Not Detected RSV PCR Not Detected Not Detected Human Metapneumovirus A and B Not Detected Not Detected Rhinovirus/Enterovirus Not Detected Not Detected Bordetella pertussis Not Detected Not Detected Bordetella parapertussis Not Detected Not Detected Mycoplasma pneumo by PCR Not Detected Not Detected Chlamydia pneumoniae Not Detected Not Detected SARS COV-2 Not Detected Not Detected Culture blood Collection Time: 05/21/24 9:33 PM Specimen: Blood, Venous Result Value Ref Range Culture, Blood No growth at 24 hours Culture blood Collection Time: 05/21/24 9:33 PM Specimen: Blood, Venous Result Value Ref Range Culture, Blood No growth at 24 hours Radiology: XR Chest 1 View Narrative: HISTORY: The patient is a 44-year-old male with fever. FINDINGS: Sitting AP portable radiograph of the chest, without previous for comparison, demonstrates old healed fractures of the left posterior fifth and sixth ribs and of the right posterior fifth, sixth, eighth, and ninth ribs. The cardiac and mediastinal contours are within normal limits. The lungs and costophrenic angles are clear. Impression: No acute pulmonary disease. Old healed bilateral rib fractures. Code 46775 -------- FINAL REPORT -------- Dictated By: Benji Springer Dictated Date: 05/22/2024 08:24 ET Assigned Physician: Benji Springer Reviewed and Electronically Signed By: Benji Springer Signed Date: 05/22/2024 08:26 ET Workstation ID: [id number] Transcribed By: Self Edit Transcribed Date: 05/22/2024 08:24 ET Assessment/Plan Zack Constantino is a 44 y.o. male who has a past medical history of Alcohol abuse with withdrawal (CMS/HCC), Alcohol related seizure (CMS/HCC), Anxiety, Depression, Tobacco use disorder (2024), and Transaminitis.. The patient was admitted to the hospital on 05/20/2024 for alcohol withdrawal. The patient was also found to have acute on chronic pancreatitis. Over the course of his admission, he was noted to have erythematous rash on his lower extremities and so ID was consulted. He had a fever spike last on midnight on the . Has remained afebrile since then. He states that the rashes on his lower extremities as well as chest, states it is occasionally itchy. He states this is never happe zachery to him before.. The ID service has been consulted for management during this patient's hospitalstay. 1. Fever in a patient with pancreatitis 2. Concern for febrile exanthem The fevers most likely explained by his acute pancreatitis He has not had a fever in over 24 hours, cultures are negative, he is not on any antibiotics The rash looks like hyperemia and large erythematous patches symmetrically over the lower extremities, I am not familiar with any viral exanthem the cause of the rash like this Lyme antibody checked, negative HIV negative, hepatitis negative Should observe for improvement, if persists should consult with dermatology as outpatient for vasculitic causes of rashes If this is some sort of unknown viral exanthem, treatment is largely supportive however this does not look like any rash that I have seen caused by the typical suspects I am also ordering a treponemal antibody Recommendations: Await treponemal antibody If rash persists, should get a biopsy to evaluate for underlying cause, could also benefit from outpatient dermatology referral I personally spent 75 minutes in this encounter. This included performing a detailed chart review, reviewing and independently interpreting labs and other tests ordered by other providers, performinga history and physical, counseling the patient/family, discussing the case with primary team , performing complex medical decision making, coordinating his/her/their plan of care and placing orders Communication: Thank you for the consult. Please do not hesitate to contact me via [employer] with issues or questions Please note that this note has been completed with the help of voice recognition dictation software, as such there may be certain words that may be substituted or written in error error based on the voice-recognition tool, please contact me to clarify if any confusion Sera Stafford MD * Marty Musa MD - 05/23/2024 10:50 AM ESTAssociated Order(s): IP CONSULT TO UROLOGY Urology Consultation Patient Name: Zack Constantino Patient Date: 05/23/24 Service: Urology Staffing Attending: Marty Musa MD Assessment / Plan Principal Problem: Alcohol withdrawal (CMS/HCC) Active Problems: Transaminitis Zack Constantino is a 44 y.o. male admitted on 05/20/2024 for SABINE with urinary retention. I recommend leaving espinal for at least 48hours given high volume retention. I recommend starting tamsulosin 0.4mg qd. - void trial in 48 hours - start tamsulosin 0.4mg qd Marty Musa MD [facility] [phone] Subjective CC: Patient Active Problem List Diagnosis Alcohol withdrawal (CMS/HCC) Transaminitis HPI Zack Constantino is a 44 y.o. male admitted on 05/20/2024 for alcohol withdrawal syndrome. CT showed a distended bladder with mild bl hydro. Patient also had symptoms of retention with urge to urinate with inability to void. Bladder scan read >1000cc. Patient denies any prior history of retention or urinary difficulties. Has never seen a urologist before. The espinal was removed and he again went into retention. Straight cath was attempted but was unsuccessful. So Espinal was replaced. There was a report of attempt of self- removal although patient does not recall. Unable to straight cath. I was able to place an 18Fr coude without any difficulty. Light yellow urine return. Review of Systems SEE HPI for additional pertinent findings. REVIEW OF SYSTEMS: CONST: Negative for fever, body aches and chills. HENT: Negative for neck pain/stiffness, headache, congestion, sore throat, swelling. EYES: Negative for discharge/pain or vision changes. RESP: Negative for cough/hemoptysis and shortness of breath. CV: Negative chest pain, difficulty breathing, palpitations. ABD: Negative pain, nausea, vomiting. : Negative increase frequency, dysuria, blood in urine or stool. MUSC: Negative for muscle aches, edema. SKIN: Negative rash, lesions/sores. NEURO: Negative headache, dizziness, weakness. Past Medical History Past Medical History: Diagnosis Date Alcohol abuse with withdrawal (CMS/HCC) Alcohol related seizure (CMS/HCC) Anxiety Depression Tobacco use disorder 2024 current Transaminitis Past Surgical History History reviewed. No pertinent surgical history. Family History No family history on file. Social History Social History Socioeconomic History Marital status: Single Spouse name: Not on file Number of children: Not on file Years of education: Not on file Highest education level: Not on file Occupational History Not on file Tobacco Use Smoking status: Every Day Current packs/day: 0.50 Average packs/day: 0.5 packs/day for 0.1 years (0.1 ttl pk-yrs) Types: Cigarettes Start date: 2024 Smokeless tobacco: Never Substance and Sexual Activity Alcohol use: Not on file Drug use: Not on file Sexual activity: Not on file Other Topics Concern Not on file Social History Narrative Not on file Objective Vitals Visit Vitals BP 126/85 Pulse 93 Temp 37.1 ??C (98.8 ??F) Resp 16 Ht 1.554 m (61.2 ) Wt 71 kg (156 lb 8 oz) SpO2 100% BMI 29.38 kg/m?? Smoking Status Every Day BSA 1.71 m?? Physical Exam General: No acute distress. Alert and oriented. HEENT: Normocephalic and atraumatic. Lungs: No labored breathing Cardiac: No LE edema Abdominal: Soft. Nontender. Nondistended. No suprapubic tenderness. No hernias noted. Genitourinary: No flank pain, bladder non-distended. Musculoskeletal: No gross deformities, no acute musculoskeletal pain on assessment and examination. Neurologic: All four extremities grossly intact without deficits. Psychiatric: Appropriate affect. I&O Intake/Output Summary (Last 24 hours) at 05/23/2024 1050 Last data filed at 05/23/2024 0600 Gross per 24 hour Intake -- Output 1600 ml Net -1600 ml Laboratory Studies Lab Results Component Value Date WBC 4.2 (L) 05/22/2024 HGB 10.7 (L) 05/22/2024 HCT 31.9 (L) 05/22/2024 MCV 92.2 05/22/2024 PLT 61 (L) 05/22/2024 Lab Results Component Value Date CREATININE 0.59 (L) 05/23/2024 Urinalysis Results from last 7 days Lab Units 05/20/24 1739 WBC UR HPF /HPF 0.4 SPEC GRAV U 1.015 PH U pH 6.5 BACTERIA UR HPF /HPF Negative BILIRUBIN U Negative NITRITE U Negative LEUKOCYTES U Negative UROBILINOGEN U mg/dL 1.0 KETONES U mg/dL Negative PROTEIN U mg/dL Negative Urine Culture No results found for: URINECX Imaging and Other Studies Imaging was independently reviewed by me. XR Chest 1 View Narrative: HISTORY: The patient is a 44-year-old male with fever. FINDINGS: Sitting AP portable radiograph of the chest, without previous for comparison, demonstrates old healed fractures of the left posterior fifth and sixth ribs and of the right posterior fifth, sixth, eighth, and ninth ribs. The cardiac and mediastinal contours are within normal limits. The lungs and costophrenic angles are clear. Impression: No acute pulmonary disease. Old healed bilateral rib fractures. Code 49506 -------- FINAL REPORT -------- Dictated By: Benji Springer Dictated Date: 05/22/2024 08:24 ET Assigned Physician: Benji Springer Reviewed and Electronically Signed By: Benji Springer Signed Date: 05/22/2024 08:26 ET Workstation ID: [id number] Transcribed By: Self Edit Transcribed Date: 05/22/2024 08:24 ET Medications docusate sodium, 100 mg, oral, BID famotidine, 20 mg, oral, BID folic acid, 1 mg, oral, Daily magnesium sulfate, 2 g, intravenous, Once multivitamin, 1 each, oral, Daily PHENobarbitaL, 16.2 mg, oral, BID potassium chloride oral extended release, 20 mEq, oral, Once tamsulosin, 0.4 mg, oral, Daily thiamine, 100 mg, oral, Daily PRN medications: acetaminophen, dextrose 50%, dextrose 50%, dextrose, dextrose, diphenhydrAMINE, glucagon injection, LORazepam All medications personally reviewed. Allergies No Known Allergies Marty Musa MD 05/23/2024 10:50 AM EST * WILLY Tay - 05/22/2024 11:59 AM ESTAssociated Order(s): IP CONSULT TO ADDICTION MEDICINE Images from the original note were not included. Zack Constantino 1980 [id number] Author: WILLY Tay DOS: 05/22/2024 Requesting Service: Hospitalist Service Chief Complaint: Alcohol withdrawal (CMS/HCC) Reason for Consultation: Alcohol use disorder Source of History: Patient and chart Subjective History of Present Illness: Zack Constantino is a 44 y.o. 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 History of withdrawal syndrome includes remote history of seizure No history of DTs or ICU level of care Has self presented to detox at [facility] on several occasions Most recent presentation however there is no bed availability and he returned back to the communityto continue drinking alcohol Motivated for abstinence from alcohol, would like to engage in recovery services Had the plan to leave the hospital, had to [facility] and then transition to [facility] 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 No pertinent surgical history. Family History: No family history on file. Social History: Social History Tobacco Use Smoking Status Every Day Current packs/day: 0.50 Average packs/day: 0.5 packs/day for 0.1 years (0.1 ttl pk-yrs) Types: Cigarettes Start date: 2024 Smokeless Tobacco Never Social History Substance and Sexual Activity Alcohol Use None Social History Substance and Sexual Activity Drug Use Not on file Review of Systems: As stated in HPI Objective Last Recorded Vitals: Blood pressure 101/72, pulse 85, temperature 37.2 ??C (98.9 ??F), temperature source Temporal, resp. rate 17, height 1.554 m (61.2 ), weight 71 kg (156 lb 8 oz), SpO2 98%. Physical Exam Sitting upright in bed Appears comfortable overall Subtle resting tremor identified Normal cardiac rate on telemetry monitoring No increased work of breathing Alert and oriented Conversive appropriately Imaging: XR Chest 1 View Narrative: HISTORY: The patient is a 44-year-old male with fever. FINDINGS: Sitting AP portable radiograph of the chest, without previous for comparison, demonstrates old healed fractures of the left posterior fifth and sixth ribs and of the right posterior fifth, sixth, eighth, and ninth ribs. The cardiac and mediastinal contours are within normal limits. The lungs and costophrenic angles are clear. Impression: No acute pulmonary disease. Old healed bilateral rib fractures. Code 95687 -------- FINAL REPORT -------- Dictated By: Benji Springer Dictated Date: 05/22/2024 08:24 ET Assigned Physician: Benji Springer Reviewed and Electronically Signed By: Benji Springer Signed Date: 05/22/2024 08:26 ET Workstation ID: [id number] Transcribed By: Self Edit Transcribed Date: 05/22/2024 08:24 ET Meds: docusate sodium, 100 mg, oral, BID famotidine, 20 mg, oral, BID folic acid, 1 mg, oral, Daily insulin lispro, 1-6 Units, subcutaneous, TID AC multivitamin, 1 each, oral, Daily PHENobarbitaL, 48.6 mg, oral, BID Followed by [START ON 05/23/2024] PHENobarbitaL, 16.2 mg, oral, BID sodium phosphate, 60 mmol, intravenous, Once thiamine, 100 mg, oral, Daily sodium chloride, 125 mL/hr, Last Rate: 125 mL/hr (05/22/24 0621) PRN medications: acetaminophen, dextrose 50%, dextrose 50%, dextrose, dextrose, diphenhydrAMINE, glucagon injection, LORazepam Assessment and Plan Zack Constantino is a 44 y.o. male with a history of alcohol use disorder among others presentingto the hospital for acute alcohol withdrawal syndrome Initially seen on 05/18/2024, ultimate left and patient directed discharge (AMA) at that time Returns in the last 24 hours and has received phenobarbital loading Ordered for 12 mg/kg ideal body weight Has tolerated phenobarbital loading historically well Very subtle resting tremor, otherwise no gross signs or symptoms to suggest persistent severe acutealcohol withdrawal syndrome Alcohol level significantly elevated at 462 on 05/20/2024 at 12:53 PM Transaminitis in the classic 2-1 AST to ALT ratio Motivated for abstinence from alcohol Was interested in attending [facility] detox center however will not be a candidate after completing phenobarbital loading here Wanted to attend [facility] however to transition to [facility] and remain engaged in recovery services/housing Will meet with flag football coach today, referrals will be placed for CSS Briefly discussed medications for abstinence, recognizes the use of acamprosate Reach out to us with any questions or concerns We will continue to follow closely Principal Problem: Alcohol withdrawal (CMS/[facility]) Active Problems: Transaminitis Provider Attestation documented in this encounter Plan of Treatment Not on file documented as of this encounter Procedures Procedure Name Priority Date/Time Associated Diagnosis Comments POCT GLUCOSE BLOOD Routine 05/25/2024 7: 59 AM EST PHOSPHORUS Routine 05/25/2024 6:36 AM EST MAGNESIUM Routine 05/25/2024 6:36 AM EST COMPREHENSIVE METABOLIC PANEL Routine 05/25/2024 6:36 AM EST EXTRA TUBES Routine 05/25/2024 6:33 AM EST LAVENDER - EDTA Routine 05/25/2024 6:33 AM EST ECG 12-LEAD Routine 05/24/2024 4:48 PM EST POCT GLUCOSE BLOOD Routine 05/24/2024 4: 20 PM EST POCT GLUCOSE BLOOD Routine 05/24/2024 11 :35 AM EST GASTROINTESTINAL PATHOGENS BY PCR Routine 05/24/2024 8:54 AM EST POCT GLUCOSE BLOOD Routine 05/24/2024 8: 12 AM EST MAGNESIUM Routine 05/24/2024 5:31 AM EST COMPREHENSIVE METABOLIC PANEL Routine 05/24/2024 5:31 AM EST CBC WITH AUTO DIFFERENTIAL Routine 05/24/2024 5:30 AM EST CBC AND DIFFERENTIAL Routine 05/24/2024 5:30 AM EST POCT GLUCOSE BLOOD Routine 05/23/2024 8: 55 PM EST POCT GLUCOSE BLOOD Routine 05/23/2024 4: 11 PM EST POCT GLUCOSE BLOOD Routine 05/23/2024 11 :13 AM EST POCT GLUCOSE BLOOD Routine 05/23/2024 8: 14 AM EST TREPONEMA PALLIDUM ANTIBODY WITH REFLEX TO RPR AND PARTICLE AGGLUTINATION Add-On 05/23/2024 5:46 AM EST BORRELIA BURGDORFERI ANTIBODY Add-On 05/23/2024 5:46 AM EST PHOSPHORUS Routine 05/23/2024 5:46 AM EST MAGNESIUM Routine 05/23/2024 5:46 AM EST COMPREHENSIVE METABOLIC PANEL Routine 05/23/2024 5:46 AM EST EXTRA TUBES Routine 05/23/2024 5:45 AM EST LAVENDER - EDTA Routine 05/23/2024 5:45 AM EST POCT GLUCOSE BLOOD Routine 05/22/2024 8: 15 PM EST POCT GLUCOSE BLOOD Routine 05/22/2024 3: 25 PM EST ECG 12-LEAD Routine 05/22/2024 1:37 PM EST POCT GLUCOSE BLOOD Routine 05/22/2024 11 :25 AM EST POCT GLUCOSE BLOOD Routine 05/22/2024 7: 53 AM EST XR CHEST 1 VIEW STAT 05/22/2024 7:38 AM EST HIV 1, 2 ANTIBODY, P24 ANTIGEN WITH REFLEX TO DIFFERENTIATION Add-On 05/22/2024 5:59 AM EST HEPATITIS PANEL, ACUTE WITH REFLEX TO CONFIRMATION Add-On 05/22/2024 5:59 AM EST CBC WITH AUTO DIFFERENTIAL Routine 05/22/2024 5:59 AM EST SEDIMENTATION RATE Add-On 05/22/2024 5: 59 AM EST CBC AND DIFFERENTIAL Routine 05/22/2024 5:59 AM EST PHOSPHORUS Routine 05/22/2024 5:59 AM EST MAGNESIUM Routine 05/22/2024 5:59 AM EST HEPATIC FUNCTION PANEL Routine 5:59 AM EST BASIC METABOLIC PANEL Routine 05/22/2024 5:59 AM EST ECG ANNOTATED 05/22/2024 POCT GLUCOSE BLOOD Routine 05/21/2024 10 :19 PM EST BLOOD CULTURE PATHOGENS BY PCR Routine 05/21/2024 9:33 PM EST CULTURE BLOOD STAT 05/21/2024 9:33 PM EST CULTURE BLOOD STAT 05/21/2024 9:33 PM EST LACTATE STAT 05/21/2024 9:33 PM EST POCT GLUCOSE BLOOD Routine 05/21/2024 8: 18 PM EST POTASSIUM Routine 05/21/2024 6:58 PM EST POCT GLUCOSE BLOOD Routine 05/21/2024 5: 03 PM EST ECG 12-LEAD Routine 05/21/2024 3:16 PM EST POTASSIUM Routine 05/21/2024 1:02 PM EST RESPIRATORY VIRUS PANEL MOLECULAR STUDY Routine 05/21/2024 10:17 AM EST CBC WITH AUTO DIFFERENTIAL Routine 05/21/2024 6:14 AM EST CBC AND DIFFERENTIAL Routine 05/21/2024 6:14 AM EST MAGNESIUM Routine 05/21/2024 6:14 AM EST HEMOGLOBIN A1C Add-On 05/21/2024 6:14 AM EST COMPREHENSIVE METABOLIC PANEL Routine 05/21/2024 6:14 AM EST ECG 12-LEAD Routine 05/20/2024 11:21 PM EST URINALYSIS WITH REFLEX MICROSCOPIC AND CULTURE STAT 05/20/2024 5:39 PM EST CHERRY URINE CULTURE TUBE STAT 05/20/19 5:39 PM EST DRUG ABUSE SCREEN 8A PANEL, URINE STAT 05/20/2024 5:39 PM EST BUPRENORPHINE SCREEN, URINE STAT 05/20/2024 5:39 PM EST METHADONE SCREEN, URINE STAT 05/20/19 5:39 PM EST PHENCYCLIDINE, URINE STAT 05/20/2024 5:39 PM EST URINALYSIS WITH REFLEX MICROSCOPIC AND CULTURE STAT 05/20/2024 5:[address] ABDOMEN PELVIS W CONTRAST STAT 05/20/2024 4:07 PM EST CBC WITH AUTO DIFFERENTIAL STAT 05/20/2024 12:53 PM EST CBC AND DIFFERENTIAL STAT 05/20/2024 12:53 PM EST MAGNESIUM STAT 05/20/2024 12:53 PM EST LIPASE STAT 05/20/2024 12:53 PM EST ETHANOL STAT 05/20/2024 12:53 PM EST COMPREHENSIVE METABOLIC PANEL STAT 05/20/2024 12:53 PM EST documented in this encounter Results * (ABNORMAL) POCT Glucose, blood (05/25/2024 7:59 AM EST) Glucose POCT 113(H) 70 - 100 mg/dL 05/25/2024 8:01 AM EST [facility] Blood Capillary blood specimen / Unknown 05/25/2024 7:59 AM EST 05/25/2024 8:03 AM EST Shubham Rojo MD LAB POINT OF CA RE TEST DOCKED DEVICE UNSOLICITED RESULTS Final Result Performing Organization Address [facility] Co de Phone Number [facility] [address] [place] [address], [place] [phone] * Phosphorus (05/25/2024 6:36 AM EST) Pathologist [facility] Phosphorus 3.0 2.5 - 4.5 mg/dL LAB CHEMISTRY METHOD 05/25/2024 8:23 AM EST [facility] Blood Venous blood specimen / Unknown Venipuncture / Unknown 05/25/2024 6:36 AM EST 05/25/2024 7:04 AM EST Yessy AGUILERA LAB BLOOD ORDERABLES Final Result Performing Organization Address [facility] de Phone Number [facility] [address] [place] [address], [place] [phone] * Magnesium (05/25/2024 6:36 AM EST) [facility] Magnesium 1.9 1.9 - 2.6 mg/dL LAB CHEMISTRY METHOD 05/25/2024 8:23 AM EST [facility] Blood Venous blood specimen / Unknown Venipuncture / Unknown 05/25/2024 6:36 AM EST 05/25/2024 7:04 AM EST Yessy AGUILERA LAB BLOOD ORDERABLES Final Result Performing Organization Address [facility] Co de Phone Number [facility] [address] [place] [address], [place] [phone] * (ABNORMAL) Comprehensive metabolic panel (05/25/2024 6:36 AM EST) Sodium 138 133 - 145 mmol/L LAB CHEMISTRY METHOD 05/25/2024 8:23 AM EST [facility] Potassium 3.7 3.5 - 5.5 mmol/L LAB CHEMISTRY METHOD 05/25/2024 8:23 AM [facility] Chloride 104 96 - 110 mmol/L LAB CHEMISTRY METHOD 05/25/2024 8:23 AM [facility] CO2 25 21 - 32 mmol/L LAB CHEMISTRY METHOD 05/25/2024 8:23 AM [facility] Anion Gap 9 3 - 11 LAB CHEMISTRY METHOD 05/25/2024 8:23 AM [facility] Glucose 110(H) 70 - 100 mg/dL LAB CHEMISTRY METHOD 05/25/2024 8:23 AM [facility] BUN 8 5 - 25 mg/dL LAB CHEMISTRY METHOD 05/25/2024 8:23 AM [facility] Creatinine 0.61(L) 0.70 - 1.30 mg/dL LAB CHEMISTRY METHOD 05/25/2024 8:23 AM [facility] eGFR 123 >=60 mL/min/1. 73m2 LAB CHEMISTRY METHOD 05/25/2024 8:23 AM [facility] Comment:Calculation based on the??Chronic Kidney Disease Epidemiology Collaboration (CKD-EPI) equation refit??without adjustment for race. BUN/Creatinine Ratio 13.1 LAB CHEMISTRY METHOD 05/25/2024 8:23 AM [facility] Calcium 8.5 8.5 - 10.5 mg/dL LAB CHEMISTRY METHOD 05/25/2024 8:23 AM [facility] AST (SGOT) 98(H) 10 - 42 unit/L LAB CHEMISTRY METHOD 05/25/2024 8:23 AM [facility] ALT (SGPT) 66(H) 10 - 60 unit/L LAB CHEMISTRY METHOD 05/25/2024 8:23 AM [facility] Alkaline Phosphatase 182(H) 42 - 121 unit/L LAB CHEMISTRY METHOD 05/25/2024 8:23 AM [facility] Total Protein 5.9(L) 6.0 - 8.0 g/dL LAB CHEMISTRY METHOD 05/25/2024 8:23 AM EST [facility] Albumin 2.9(L) 3.2 - 5.0 g/dL LAB CHEMISTRY METHOD 05/25/2024 8:23 AM [facility] Total Bilirubin 0.5 0.0 - 1.4 mg/dL LAB CHEMISTRY METHOD 05/25/2024 8:23 AM [facility] Blood Venous blood specimen / Unknown Venipuncture / Unknown 05/25/2024 6:36 AM EST 05/25/2024 7:04 AM EST Yessy AGUILERA LAB BLOOD ORDERABLES Final Result Performing Organization Address [facility]/ZIP Co de Phone Number [facility] [address] [place] [address], [place] [phone] * Lavender tube (05/25/2024 6:33 AM EST) Pathologist [facility] Extra Tube Hold for add-ons. 05/25/2024 9:01 AM EST [facility] Comment:Auto resulted. Blood Venous blood specimen / Unknown Venipuncture / Unknown 05/25/2024 6:33 AM EST 05/25/2024 7:09 AM EST Shubham Rojo MD LAB BLOOD ORDERABLES Fi nal Result [facility] [address] [place] [address], [place] [phone] * ECG 12 lead (05/24/2024 4:48 PM EST) Ventricular Rate ECG 100 BPM GEMUSE Atrial Rate 100 BPM GEMUSE P-R Interval 120 ms GEMUSE QRS Duration 86 ms GEMUSE Q-T Interval 340 ms GEMUSE QTc 438 ms GEMUSE P Wave [place] 67 degrees GEMUSE R [place] 45 degrees GEMUSE T [place] 57 degrees GEMUSE ECG Interpretation Normal sinus rhythm Normal ECG When compared with ECG of 22-MAY-2024 13:37, Non-specific change in ST segment in Inferior leads Confirmed by MD Uri, Conowingo ([id number]) on 05/24/2024 10:05:23 PM GEMUSE 05/24/2024 4:48 PM EST 05/24/2024 10:05 PM EST Yessy AGUILERA ECG ORDERABLES Final Resul t Performing Organization Address [facility]/ZIP Co de Phone Number GEMUSE * (ABNORMAL) POCT Glucose, blood (05/24/2024 4:20 PM EST) Glucose POCT 207(H) 70 - 100 mg/dL 05/24/2024 4:21 PM EST [facility] Blood Capillary blood specimen / Unknown 05/24/2024 4:20 PM EST 05/24/2024 4:22 PM EST Shubham Rojo MD LAB POINT OF CA RE TEST DOCKED DEVICE UNSOLICITED RESULTS Final Result Performing Organization Address [facility] de Phone Number [facility] [address] [place] [address], [place] [phone] * (ABNORMAL) POCT Glucose, blood (05/24/2024 11:35 AM EST) Glucose POCT 173(H) 70 - 100 mg/dL 05/24/2024 11:36 AM EST [facility] Blood Capillary blood specimen / Unknown 05/24/2024 11:35 AM EST 05/24/2024 11:39 AM EST Shubham Rojo MD LAB POINT OF CA RE TEST DOCKED DEVICE UNSOLICITED RESULTS Final Result Performing Organization Address City/[facility]/ZIP Co de Phone Number [facility] [address] [place] [address], [place] [phone] * (ABNORMAL) Gastrointestinal pathogens molecular study (05/24/2024 8:54 AM EST) Campylobacter Detection by PCR Not Detected Not Detected LAB MICROBIOLOGY METHOD 5 11:18 AM EST [facility] Plesiomonas shigelloides Detection by PCR Not Detected Not Detected LAB MICROBIOLOGY METHOD 5 11:18 AM EST [facility] Salmonella Detection by PCR Not Detected Not Detected LAB MICROBIOLOGY METHOD 5 11:18 AM [facility] Vibrio Detection by PCR Not Detected Not Detected LAB MICROBIOLOGY METHOD 5 11:18 AM [facility] Vibrio cholerae Detection by PCR Not Detected Not Detected LAB MICROBIOLOGY METHOD 5 11:18 AM [facility] Yersinia enterocolitica Detection by PCR Not Detected Not Detected LAB MICROBIOLOGY METHOD 5 11:18 AM [facility] Enteroaggregative E coli EAEC Detection by PCR Not Detected Not Detected LAB MICROBIOLOGY METHOD 5 11:18 AM [facility] Enteropathogenic E coli EPEC Detection Not Detected Not Detected LAB MICROBIOLOGY METHOD 5 11:18 AM [facility] Enterotoxigenic E coli ETEC LTST Detection Not Detected Not Detected LAB MICROBIOLOGY METHOD 5 11:18 AM [facility] Shiga-like toxin producing E coli STEC STX1 STX2 Det Not Detected Not Detected LAB MICROBIOLOGY METHOD 5 11:18 AM [facility] Shigella Enteroinvasive E coli EIEC Detection Not Detected Not Detected LAB MICROBIOLOGY METHOD 5 11:18 AM [facility] Cryptosporidium Detection by PCR Not Detected Not Detected LAB MICROBIOLOGY METHOD 5 11:18 AM [facility] Cyclospora cayetanensis Detection by PCR Not Detected Not Detected LAB MICROBIOLOGY METHOD 5 11:18 AM [facility] Entamoeba histolytica Detection by PCR Not Detected Not Detected LAB MICROBIOLOGY METHOD 5 11:18 AM [facility] Giardia lamblia Detection by PCR Not Detected Not Detected LAB MICROBIOLOGY METHOD 5 11:18 AM [facility] Adenovirus F 40 41 Detection by PCR Not Detected Not Detected LAB MICROBIOLOGY METHOD 5 11:18 AM [facility] Astrovirus Detection by PCR Not Detected Not Detected LAB MICROBIOLOGY METHOD 5 11:18 AM [facility] Norovirus GI GII Detection by PCR Detected(A ) Not Detected LAB MICROBIOLOGY METHOD 5 11:18 AM [facility] Sapovirus Detection by PCR Not Detected Not Detected LAB MICROBIOLOGY METHOD 5 11:18 AM [facility] Rotavirus A Detection by PCR Not Detected Not Detected LAB MICROBIOLOGY METHOD 5 11:18 AM [facility] Stool Rectum structure / Unknown Non-blood Collection / Unknown 05/24/2024 8:54 AM EST 05/24/2024 9:01 AM EST [facility] - 05/24/2024 11:18 AM EST PCR testing is much more sensitive than traditional techniques and allows for the detection of low numbers of stool pathogens. The clinical correlation of PCR results with the need for treatment and clinical outcomes has not been established. Therefore the results of PCR testing for stool pathogens must be taken into clinical context when making treatment decisions. This is a diagnostic test only, repeat testing for cure is not advised. You may consider infectious disease consult for additional guidance. ??Testing Performed by [employer] PCR us Shubham Rojo MD LAB MICROBIOLOGY - GENE RAL ORDERABLES Final Result [facility] [address] [place] [address], [place] [phone] * POCT Glucose, blood (05/24/2024 8:12 AM EST) [facility] Glucose POCT 99 70 - 100 mg/dL 05/24/2024 8:19 AM EST [facility] Blood Capillary blood specimen / Unknown 05/24/2024 8:12 AM EST 05/24/2024 8:20 AM EST Shubham Rojo MD LAB POINT OF CA RE TEST DOCKED DEVICE UNSOLICITED RESULTS Final Result [facility] [address] [place] [address], * (ABNORMAL) Magnesium (05/24/2024 5:31 AM EST) [facility] Magnesium 1.8(L) 1.9 - 2.6 mg/dL LAB CHEMISTRY METHOD 05/24/2024 7:10 AM EST [facility] Blood Venous blood specimen / Unknown Venipuncture / Unknown 05/24/2024 5:31 AM EST 05/24/2024 6:34 AM EST Yessy AGUILERA LAB BLOOD ORDERABLES Final Result [facility] [address] [place] [address], [place] [phone] * (ABNORMAL) Comprehensive metabolic panel (05/24/2024 5:31 AM EST) [facility] Sodium 136 133 - 145 mmol/L LAB CHEMISTRY METHOD 05/24/2024 7:14 AM EST [facility] Potassium 3.9 3.5 - 5.5 mmol/L LAB CHEMISTRY METHOD 05/24/2024 7:14 AM EST [facility] Chloride 102 96 - 110 mmol/L LAB CHEMISTRY METHOD 05/24/2024 7:14 AM [facility] CO2 27 21 - 32 mmol/L LAB CHEMISTRY METHOD 05/24/2024 7:14 AM [facility] Anion Gap 7 3 - 11 LAB CHEMISTRY METHOD 05/24/2024 7:14 AM [facility] Glucose 104(H) 70 - 100 mg/dL LAB CHEMISTRY METHOD 05/24/2024 7:14 AM [facility] BUN 7 5 - 25 mg/dL LAB CHEMISTRY METHOD 05/24/2024 7:14 AM [facility] Creatinine 0.64(L) 0.70 - 1.30 mg/dL LAB CHEMISTRY METHOD 05/24/2024 7:14 AM [facility] eGFR 121 >=60 mL/min/1. 73m2 LAB CHEMISTRY METHOD 05/24/2024 7:14 AM [facility] Comment:Calculation based on the??Chronic Kidney Disease Epidemiology Collaboration (CKD-EPI) equation refit??without adjustment for race. BUN/Creatinine Ratio 10.9 LAB CHEMISTRY METHOD 05/24/2024 7:14 AM [facility] Calcium 8.5 8.5 - 10.5 mg/dL LAB CHEMISTRY METHOD 05/24/2024 7:14 AM [facility] AST (SGOT) 73(H) 10 - 42 unit/L LAB CHEMISTRY METHOD 05/24/2024 7:14 AM [facility] ALT (SGPT) 62(H) 10 - 60 unit/L LAB CHEMISTRY METHOD 05/24/2024 7:14 AM [facility] Alkaline Phosphatase 162(H) 42 - 121 unit/L LAB CHEMISTRY METHOD 05/24/2024 7:14 AM [facility] Total Protein 5.8(L) 6.0 - 8.0 g/dL LAB CHEMISTRY METHOD 05/24/2024 7:14 AM [facility] Albumin 2.8(L) 3.2 - 5.0 g/dL LAB CHEMISTRY METHOD 05/24/2024 7:14 AM [facility] Total Bilirubin 0.4 0.0 - 1.4 mg/dL LAB CHEMISTRY METHOD 05/24/2024 7:14 AM [facility] Blood Venous blood specimen / Unknown Venipuncture / Unknown 05/24/2024 5:31 AM EST 05/24/2024 6:34 AM EST us Yessy AGUILERA LAB BLOOD ORDERABLES Final Result [facility] [address] [place] [address], [place] [phone] * (ABNORMAL) CBC auto differential (05/24/2024 5:30 AM EST) WBC 4.2(L) 4.8 - 10.8 K/mcL LAB HEMETOLOGY METHOD 05/24/2024 7:22 AM [facility] RBC 3.40(L) 4.50 - 5.50 M/mcL LAB HEMETOLOGY METHOD 05/24/2024 7:22 AM [facility] Hemoglobin 10.6(L) 13.5 - 17.5 g/dL LAB HEMETOLOGY METHOD 05/24/2024 7:22 AM [facility] Hematocrit 31.6(L) 42.0 - 54.0 % LAB HEMETOLOGY METHOD 05/24/2024 7:22 AM [facility] MCV 94.0 79.0 - 98.0 FL LAB HEMETOLOGY METHOD 05/24/2024 7:22 AM [facility] MCH 31.5 27.0 - 32.0 pcg LAB HEMETOLOGY METHOD 05/24/2024 7:22 AM [facility] MCHC 33.5 32.0 - 37.0 g/dL LAB HEMETOLOGY METHOD 05/24/2024 7:22 AM [facility] RDW 14.2 11.0 - 15.0 % LAB HEMETOLOGY METHOD 05/24/2024 7:22 AM [facility] Platelets 115(L) 130 - 400 K/mcL LAB HEMETOLOGY METHOD 05/24/2024 7:22 AM [facility] MPV 10.6 7.0 - 11.0 FL LAB HEMETOLOGY METHOD 05/24/2024 7:22 AM [facility] NRBC 0.0 <1.0 % LAB HEMETOLOGY METHOD 05/24/2024 7:22 AM [facility] NRBC Absolute 0.00 <0.10 K/mcL LAB HEMETOLOGY METHOD 05/24/2024 7:22 AM [facility] Neutrophils Relative 62.8 % LAB HEMETOLOGY METHOD 05/24/2024 7:22 AM [facility] Lymphocytes Relative 12.3 % LAB HEMETOLOGY METHOD 05/24/2024 7:22 AM [facility] Monocytes Relative 17.1 % LAB HEMETOLOGY METHOD 05/24/2024 7:22 AM [facility] Eosinophils Relative 5.9 % LAB HEMETOLOGY METHOD 05/24/2024 7:22 AM [facility] Basophils Relative 0.7 % LAB HEMETOLOGY METHOD 05/24/2024 7:22 AM [facility] Immature Granulocytes Relative 1.2 % LAB HEMETOLOGY METHOD 05/24/2024 7:22 AM [facility] Neutrophils Absolute 2.65 1.50 - 7.00 K/mcL LAB HEMETOLOGY METHOD 05/24/2024 7:22 AM [facility] Lymphocytes Absolute 0.52(L) 1.00 - 5.00 K/mcL LAB HEMETOLOGY METHOD 05/24/2024 7:22 AM EST [facility] Monocytes Absolute 0.72 0.20 - 1.00 K/[facility] LAB HEMETOLOGY METHOD 05/24/2024 7:22 AM EST [facility] Eosinophils Absolute 0.25 0.00 - 0.50 K/[facility] LAB HEMETOLOGY METHOD 05/24/2024 7:22 AM EST [facility] Basophils Absolute 0.03 0.00 - 0.20 K/[facility] LAB HEMETOLOGY METHOD 05/24/2024 7:22 AM EST [facility] Immature Granulocytes Absolute 0.05(H) 0.00 - 0.03 K/[facility] LAB HEMETOLOGY METHOD 05/24/2024 7:22 AM [facility] Blood Venous blood specimen / Unknown Venipuncture / Unknown 05/24/2024 5:30 AM EST 05/24/2024 6:34 AM EST Yessy AGUILERA LAB BLOOD ORDERABLES Final Result [facility] [address] [place] [address], [place] [phone] * (ABNORMAL) POCT Glucose, blood (05/23/2024 8:55 PM EST) Glucose POCT 105(H) 70 - 100 mg/dL 05/23/2024 8:55 PM EST [facility] Blood Capillary blood specimen / Unknown 05/23/2024 8:55 PM EST 05/23/2024 8:57 PM EST Shubham Rojo MD LAB POINT OF CA RE TEST DOCKED DEVICE UNSOLICITED RESULTS Final Result [facility] [address] [place] [address], [place] [phone] * (ABNORMAL) POCT Glucose, blood (05/23/2024 4:11 PM EST) Glucose POCT 132(H) 70 - 100 mg/dL 05/23/2024 4:12 PM EST [facility] Blood Capillary blood specimen / Unknown 05/23/2024 4:11 PM EST 05/23/2024 4:13 PM EST us Shubham Rojo MD LAB POINT OF DE RE TEST DOCKED DEVICE UNSOLICITED RESULTS Final Result [facility] [address] [place] [address], [place] [phone] * (ABNORMAL) POCT Glucose, blood (05/23/2024 11:13 AM EST) Glucose POCT 102(H) 70 - 100 mg/dL 05/23/2024 11:14 AM EST [facility] Blood Capillary blood specimen / Unknown 05/23/2024 11:13 AM EST 05/23/2024 11:15 AM EST us Shubham Rojo MD LAB POINT OF DE RE TEST DOCKED DEVICE UNSOLICITED RESULTS Final Result [facility] [address] [place] [address], [place] [phone] * (ABNORMAL) POCT Glucose, blood (05/23/2024 8:14 AM EST) Glucose POCT 126(H) 70 - 100 mg/dL 05/23/2024 8:17 AM EST [facility] Blood Capillary blood specimen / Unknown 05/23/2024 8:14 AM EST 05/23/2024 8:18 AM EST us Shubham Rojo MD LAB POINT OF DE RE TEST DOCKED DEVICE UNSOLICITED RESULTS Final Result Performing Organization Address [facility]/ZIP Co de Phone Number [facility] [address] [place] [address], [place] [phone] * Treponema pallidum antibody with reflex to RPR and particle agglutination (05/23/2024 5:46 AM EST) T. Pallidum Antibodies Negative Negative LAB CHEMISTRY METHOD 05/23/2024 6:26 PM EST [facility] Blood Venous blood specimen / Unknown Venipuncture / Unknown 05/23/2024 5:46 AM EST 05/23/2024 6:39 AM EST us Sera Stafford MD LAB BLOOD ORDERABLES Final Resul t Performing Organization Address [facility] Co de Phone Number [facility] [address] [place] [address], [place] [phone] * Borrelia burgdorferi antibody (05/23/2024 5:46 AM EST) Lyme Ab Negative Negative LAB CHEMISTRY METHOD 05/23/2024 2:21 PM EST [facility] Comment: No laboratory evidence of infection with B. burgdorferi (Lyme disease). Negative results may occur in patients recently infected (<=14 days) with B. burgdorferi. ??If recent infection is suspected, repeat testing on a new sample collected in 7-14 days is recommended. Blood Venous blood specimen / Unknown Venipuncture / Unknown 05/23/2024 5:46 AM EST 05/23/2024 6:39 AM EST us Sera Stafford MD LAB BLOOD ORDERABLES Final Resul t Performing Organization Address City/[facility]/ZIP Co de Phone Number [facility] [address] [place] [address], [place] [phone] * (ABNORMAL) Magnesium (05/23/2024 5:46 AM EST) Pathologist [facility] Magnesium 1.6(L) 1.9 - 2.6 mg/dL LAB CHEMISTRY METHOD 05/23/2024 7:25 AM EST [facility] Blood Venous blood specimen / Unknown Venipuncture / Unknown 05/23/2024 5:46 AM EST 05/23/2024 6:39 AM EST Yessy AGUILERA LAB BLOOD ORDERABLES Final Result Performing Organization Address City/[facility]/ZIP Co de Phone Number [facility] [address] [place] [address], [place] [phone] * Phosphorus (05/23/2024 5:46 AM EST) [facility] Phosphorus 4.1 2.5 - 4.5 mg/dL LAB CHEMISTRY METHOD 05/23/2024 7:40 AM EST [facility] Comment:Results verified by repeat testing Blood Venous blood specimen / Unknown Venipuncture / Unknown 05/23/2024 5:46 AM EST 05/23/2024 6:39 AM EST Yessy AGUILERA LAB BLOOD ORDERABLES Final Result Performing Organization Address [facility]/ZIP Co de Phone Number [facility] [address] [place] [address], [place] [phone] * (ABNORMAL) Comprehensive metabolic panel (05/23/2024 5:46 AM EST) [facility] Sodium 136 133 - 145 mmol/L LAB CHEMISTRY METHOD 05/23/2024 7:25 AM EST [facility] Potassium 3.2(L) 3.5 - 5.5 mmol/L LAB CHEMISTRY METHOD 05/23/2024 7:25 AM EST [facility] Chloride 102 96 - 110 mmol/L LAB CHEMISTRY METHOD 05/23/2024 7:25 AM EST [facility] CO2 27 21 - 32 mmol/L LAB CHEMISTRY METHOD 05/23/2024 7:25 AM [facility] Anion Gap 7 3 - 11 LAB CHEMISTRY METHOD 05/23/2024 7:25 AM [facility] Glucose 95 70 - 100 mg/dL LAB CHEMISTRY METHOD 05/23/2024 7:25 AM [facility] BUN 4(L) 5 - 25 mg/dL LAB CHEMISTRY METHOD 05/23/2024 7:25 AM [facility] Creatinine 0.59(L) 0.70 - 1.30 mg/dL LAB CHEMISTRY METHOD 05/23/2024 7:25 AM [facility] eGFR 124 >=60 mL/min/1. 73m2 LAB CHEMISTRY METHOD 05/23/2024 7:25 AM [facility] Comment:Calculation based on the??Chronic Kidney Disease Epidemiology Collaboration (CKD-EPI) equation refit??without adjustment for race. BUN/Creatinine Ratio 6.8 LAB CHEMISTRY METHOD 05/23/2024 7:25 AM [facility] Calcium 8.4(L) 8.5 - 10.5 mg/dL LAB CHEMISTRY METHOD 05/23/2024 7:25 AM [facility] AST (SGOT) 95(H) 10 - 42 unit/L LAB CHEMISTRY METHOD 05/23/2024 7:25 AM [facility] ALT (SGPT) 74(H) 10 - 60 unit/L LAB CHEMISTRY METHOD 05/23/2024 7:25 AM [facility] Alkaline Phosphatase 151(H) 42 - 121 unit/L LAB CHEMISTRY METHOD 05/23/2024 7:25 AM [facility] Total Protein 6.0 6.0 - 8.0 g/dL LAB CHEMISTRY METHOD 05/23/2024 7:25 AM [facility] Albumin 3.0(L) 3.2 - 5.0 g/dL LAB CHEMISTRY METHOD 05/23/2024 7:25 AM EST [facility] Total Bilirubin 0.5 0.0 - 1.4 mg/dL LAB CHEMISTRY METHOD 05/23/2024 7:25 AM EST [facility] Blood Venous blood specimen / Unknown Venipuncture / Unknown 05/23/2024 5:46 AM EST 05/23/2024 6:39 AM EST us Yessy AGUILERA LAB BLOOD ORDERABLES Final Result Performing Organization Address City/[facility]/ZIP Co de Phone Number [facility] [address] [place] [address], [place] [phone] * Lavender tube (05/23/2024 5:45 AM EST) Extra Tube Hold for add-ons. 05/23/2024 8:01 AM EST [facility] Comment:Auto resulted. Blood Venous blood specimen / Unknown 05/23/2024 5:45 AM EST 05/23/2024 6:40 AM EST us Shubham Rojo MD LAB BLOOD ORDERABLES Fi nal Result Performing Organization Address [facility] Co de Phone Number [facility] [address] [place] [address], [place] [phone] * (ABNORMAL) POCT Glucose, blood (05/22/2024 8:15 PM EST) Glucose POCT 173(H) 70 - 100 mg/dL 05/22/2024 8:17 PM EST [facility] Blood Capillary blood specimen / Unknown 05/22/2024 8:15 PM EST 05/22/2024 8:19 PM EST us Shubham Rojo MD LAB POINT OF CA RE TEST DOCKED DEVICE UNSOLICITED RESULTS Final Result Performing Organization Address City/[facility]/ZIP Co de Phone Number [facility] [address] [place] [address], [place] [phone] * (ABNORMAL) POCT Glucose, blood (05/22/2024 3:25 PM EST) Glucose POCT 161(H) 70 - 100 mg/dL 05/22/2024 3:26 PM EST [facility] Blood Capillary blood specimen / Unknown 05/22/2024 3:25 PM EST 05/22/2024 3:27 PM EST Shubham Rojo MD LAB POINT OF CA RE TEST DOCKED DEVICE UNSOLICITED RESULTS Final Result [facility] [address] [place] [address], [place] [phone] * ECG 12 lead (05/22/2024 1:37 PM EST) Ventricular Rate ECG 79 BPM GEMUSE Atrial Rate 79 BPM GEMUSE P-R Interval 128 ms GEMUSE QRS Duration 90 ms GEMUSE Q-T Interval 420 ms GEMUSE QTc 481 ms GEMUSE P Wave [place] 40 degrees GEMUSE R [place] 16 degrees GEMUSE T [place] 71 degrees GEMUSE ECG Interpretation Normal sinus rhythm Prolonged QT When compared with ECG of 21-MAY-2024 15:16, Ventricular rate has decreased Confirmed by YVONNE ALVAREZ ([id number]) on 05/23/2024 7:45:02 PM GEMUSE 05/22/2024 1:37 PM EST 05/23/2024 7:45 PM EST Yessy AGUILERA ECG ORDERABLES Final Resul t GEMUSE * (ABNORMAL) POCT Glucose, blood (05/22/2024 11:25 AM EST) Glucose POCT 168(H) 70 - 100 mg/dL 05/22/2024 11:26 AM EST [facility] Blood Capillary blood specimen / Unknown 05/22/2024 11:25 AM EST 05/22/2024 11:28 AM EST Shubham Rojo MD LAB POINT OF CA RE TEST DOCKED DEVICE UNSOLICITED RESULTS Final Result Performing Organization Address [facility]/ZIP Co de Phone Number [facility] [address] [place] [address], [place] [phone] * (ABNORMAL) POCT Glucose, blood (05/22/2024 7:53 AM EST) Glucose POCT 106(H) 70 - 100 mg/dL 05/22/2024 7:54 AM EST [facility] Blood Capillary blood specimen / Unknown 05/22/2024 7:53 AM EST 05/22/2024 7:55 AM EST Shubham Rojo MD LAB POINT OF CA RE TEST DOCKED DEVICE UNSOLICITED RESULTS Final Result Performing Organization Address [facility] de Phone Number [facility] [address] [place] [address], [place] [phone] * XR Chest 1 View (05/22/2024 7:38 AM EST) Anatomical Region Laterality Modality Body Radiographic Marah ging 05/22/2024 8:24 AM EST Impressions 05/22/2024 8:26 AM EST No acute pulmonary disease. Old healed bilateral rib fractures. Code 44654 -------- FINAL REPORT -------- Dictated By: Benji Springer Dictated Date: 05/22/2024 08:24 ET Assigned Physician: Benji Springer Reviewed and Electronically Signed By: Benji Springer Signed Date: 05/22/2024 08:26 ET Workstation ID: [id number] Transcribed By: Self Edit Transcribed Date: 05/22/2024 08:24 ET Narrative 05/22/2024 8:26 AM EST HISTORY: The patient is a 44-year-old male with fever. FINDINGS: Sitting AP portable radiograph of the chest, without previous for comparison, demonstrates old healed fractures of the left posterior fifth and sixth ribs and of the right posterior fifth, sixth, eighth, and ninth ribs. The cardiac and mediastinal contours are within normal limits. The lungs and costophrenic angles are clear. Procedure Note Benji Springer MD - 05/22/2024 HISTORY: The patient is a 44-year-old male with fever. FINDINGS: Sitting AP portable radiograph of the chest, without previousfor comparison, demonstrates old healed fractures of the left posteriorfifth and sixth ribs and of the right posterior fifth, sixth, eighth, andninth ribs. The cardiac and mediastinal contours are within normal limits.The lungs and costophrenic angles are clear. IMPRESSION: No acute pulmonary disease. Old healed bilateral rib fractures. Code 81505 -------- FINAL REPORT -------- Dictated By: Benji Springer Dictated Date: 05/22/2024 08:24 ET Assigned Physician: Benji Springer Reviewed and Electronically Signed By: Benji Springer Signed Date: 05/22/2024 08:26 ET Workstation ID: [id number] Transcribed By: Self Edit Transcribed Date: 05/22/2024 08:24 ET us Yessy AGUILERA IMG XR PROCEDURES Final Res ult * (ABNORMAL) Sedimentation rate (05/22/2024 5:59 AM EST) Pathologist [facility] Sed Rate 56(H) 0 - 15 mm/hr LAB HEMETOLOGY METHOD 05/22/2024 1:05 PM EST [facility] Blood Venous blood specimen / Unknown Venipuncture / Unknown 05/22/2024 5:59 AM EST 05/22/2024 7:04 AM EST us Yessy AGUILERA LAB BLOOD ORDERABLES Final Result [facility] [address] [place] [address], [place] [phone] * Hepatitis panel, acute with reflex to confirmation (05/22/2024 5:59 AM EST) Hepatitis B Surface Ag Negative Negative LAB CHEMISTRY METHOD 05/22/2024 1:46 PM EST [facility] Hepatitis A Antibody IgM Negative Negative LAB CHEMISTRY METHOD 05/22/2024 1:46 PM EST [facility] Hep B Core IgM Negative Negative LAB CHEMISTRY METHOD 05/22/2024 1:46 PM EST [facility] Hepatitis C Antibody Negative Negative LAB CHEMISTRY METHOD 05/22/2024 1:46 PM EST [facility] Blood Venous blood specimen / Unknown Venipuncture / Unknown 05/22/2024 5:59 AM EST 05/22/2024 7:04 AM EST Yessy AGUILERA LAB BLOOD ORDERABLES Final Result [facility] [address] [place] [address], [place] [phone] * HIV 1,2 antibody, p24 antigen with reflex to differentiation (05/22/2024 5:59 AM EST) Pathologist [facility] HIV Combo AB/AG Negative Negative LAB CHEMISTRY METHOD 05/22/2024 1:45 PM EST [facility] Blood Venous blood specimen / Unknown Venipuncture / Unknown 05/22/2024 5:59 AM EST 05/22/2024 7:04 AM EST Narrative [facility] - 05/22/2024 1:45 PM EST This assay is a 4th generation assay allowing for earlier detection of HIV infection by detecting the presence of the HIV-1 p24 antigen as well as the traditional antibodies to HIV type 1 (including group O) and type 2. ??Use of a 4th generation assay is the current CDC recommendation for HIV screening. us Yessy AGUILERA LAB BLOOD ORDERABLES Final Result [facility] [address] [place] [address], * (ABNORMAL) CBC auto differential (05/22/2024 5:59 AM EST) WBC 4.2(L) 4.8 - 10.8 K/mcL LAB HEMETOLOGY METHOD 05/22/2024 7:32 AM [facility] RBC 3.50(L) 4.50 - 5.50 M/mcL LAB HEMETOLOGY METHOD 05/22/2024 7:32 AM [facility] Hemoglobin 10.7(L) 13.5 - 17.5 g/dL LAB HEMETOLOGY METHOD 05/22/2024 7:32 AM [facility] Hematocrit 31.9(L) 42.0 - 54.0 % LAB HEMETOLOGY METHOD 05/22/2024 7:32 AM [facility] MCV 92.2 79.0 - 98.0 FL LAB HEMETOLOGY METHOD 05/22/2024 7:32 AM [facility] MCH 30.9 27.0 - 32.0 pcg LAB HEMETOLOGY METHOD 05/22/2024 7:32 AM [facility] MCHC 33.5 32.0 - 37.0 g/dL LAB HEMETOLOGY METHOD 05/22/2024 7:32 AM [facility] RDW 13.6 11.0 - 15.0 % LAB HEMETOLOGY METHOD 05/22/2024 7:32 AM [facility] Platelets 61(L) 130 - 400 K/mcL LAB HEMETOLOGY METHOD 05/22/2024 7:32 AM [facility] Comment:previously verified by slide MPV 11.5(H) 7.0 - 11.0 FL LAB HEMETOLOGY METHOD 05/22/2024 7:32 AM [facility] NRBC 0.5 <1.0 % LAB HEMETOLOGY METHOD 05/22/2024 7:32 AM [facility] NRBC Absolute 0.02 <0.10 K/mcL LAB HEMETOLOGY METHOD 05/22/2024 7:32 AM [facility] Neutrophils Relative 76.9 % LAB HEMETOLOGY METHOD 05/22/2024 7:32 AM [facility] Lymphocytes Relative 7.7 % LAB HEMETOLOGY METHOD 05/22/2024 7:32 AM [facility] Monocytes Relative 9.4 % LAB HEMETOLOGY METHOD 05/22/2024 7:32 AM [facility] Eosinophils Relative 4.8 % LAB HEMETOLOGY METHOD 05/22/2024 7:32 AM [facility] Basophils Relative 0.2 % LAB HEMETOLOGY METHOD 05/22/2024 7:32 AM [facility] Immature Granulocytes Relative 1.0 % LAB HEMETOLOGY METHOD 05/22/2024 7:32 AM [facility] Neutrophils Absolute 3.19 1.50 - 7.00 K/mcL LAB HEMETOLOGY METHOD 05/22/2024 7:32 AM [facility] Lymphocytes Absolute 0.32(L) 1.00 - 5.00 K/mcL LAB HEMETOLOGY METHOD 05/22/2024 7:32 AM [facility] Monocytes Absolute 0.39 0.20 - 1.00 K/mcL LAB HEMETOLOGY METHOD 05/22/2024 7:32 AM [facility] Eosinophils Absolute 0.20 0.00 - 0.50 K/mcL LAB HEMETOLOGY METHOD 05/22/2024 7:32 AM [facility] Basophils Absolute 0.01 0.00 - 0.20 K/mcL LAB HEMETOLOGY METHOD 05/22/2024 7:32 AM EST [facility] Immature Granulocytes Absolute 0.04(H) 0.00 - 0.03 K/mcL LAB HEMETOLOGY METHOD 05/22/2024 7:32 AM [facility] Blood Venous blood specimen / Unknown Venipuncture / Unknown 05/22/2024 5:59 AM EST 05/22/2024 7:04 AM EST Yessy AGUILERA LAB BLOOD ORDERABLES Final Result [facility] [address] [place] [address], [place] [phone] * (ABNORMAL) Hepatic function panel (05/22/2024 5:59 AM EST) Total Protein 5.9(L) 6.0 - 8.0 g/dL LAB CHEMISTRY METHOD 05/22/2024 8:03 AM [facility] Albumin 2.9(L) 3.2 - 5.0 g/dL LAB CHEMISTRY METHOD 05/22/2024 8:03 AM [facility] Total Bilirubin 0.5 0.0 - 1.4 mg/dL LAB CHEMISTRY METHOD 05/22/2024 8:03 AM [facility] Bilirubin, Direct 0.2 0.0 - 0.3 mg/dL LAB CHEMISTRY METHOD 05/22/2024 8:03 AM [facility] Bilirubin, Indirect 0.3 0.0 - 1.1 mg/dL LAB CHEMISTRY METHOD 05/22/2024 8:03 AM [facility] ALT (SGPT) 86(H) 10 - 60 unit/L LAB CHEMISTRY METHOD 05/22/2024 8:03 AM [facility] AST (SGOT) 175(H) 10 - 42 unit/L LAB CHEMISTRY METHOD 05/22/2024 8:03 AM EST [facility] Comment:Results verified by repeat testing Alkaline Phosphatase 160(H) 42 - 121 unit/L LAB CHEMISTRY METHOD 05/22/2024 8:03 AM EST [facility] Blood Venous blood specimen / Unknown Venipuncture / Unknown 05/22/2024 5:59 AM EST 05/22/2024 7:04 AM EST Yessy AGUILERA LAB BLOOD ORDERABLES Final Result Performing Organization Address [facility]/ZIP Co de Phone Number [facility] [address] [place] [address], [place] [phone] * (ABNORMAL) Phosphorus (05/22/2024 5:59 AM EST) Phosphorus 1.4(L) 2.5 - 4.5 mg/dL LAB CHEMISTRY METHOD 05/22/2024 7:44 AM EST [facility] Blood Venous blood specimen / Unknown Venipuncture / Unknown 05/22/2024 5:59 AM EST 05/22/2024 7:04 AM EST Yessy AGUILERA LAB BLOOD ORDERABLES Final Result Performing Organization Address City/[facility]/ZIP Co de Phone Number [facility] [address] [place] [address], [place] [phone] * (ABNORMAL) Magnesium (05/22/2024 5:59 AM EST) Magnesium 1.7(L) 1.9 - 2.6 mg/dL LAB CHEMISTRY METHOD 05/22/2024 7:44 AM EST [facility] Blood Venous blood specimen / Unknown Venipuncture / Unknown 05/22/2024 5:59 AM EST 05/22/2024 7:04 AM EST Yessy AGUILERA LAB BLOOD ORDERABLES Final Result [facility] [address] [place] [address], * (ABNORMAL) Basic metabolic panel (05/22/2024 5:59 AM EST) Sodium 134 133 - 145 mmol/L LAB CHEMISTRY METHOD 05/22/2024 7:47 AM [facility] Potassium 3.7 3.5 - 5.5 mmol/L LAB CHEMISTRY METHOD 05/22/2024 7:47 AM [facility] Chloride 101 96 - 110 mmol/L LAB CHEMISTRY METHOD 05/22/2024 7:47 AM [facility] CO2 25 21 - 32 mmol/L LAB CHEMISTRY METHOD 05/22/2024 7:47 AM [facility] Anion Gap 8 3 - 11 LAB CHEMISTRY METHOD 05/22/2024 7:47 AM [facility] Glucose 93 70 - 100 mg/dL LAB CHEMISTRY METHOD 05/22/2024 7:47 AM [facility] BUN 3(L) 5 - 25 mg/dL LAB CHEMISTRY METHOD 05/22/2024 7:47 AM [facility] Creatinine 0.62(L) 0.70 - 1.30 mg/dL LAB CHEMISTRY METHOD 05/22/2024 7:47 AM [facility] eGFR 122 >=60 mL/min/1. 73m2 LAB CHEMISTRY METHOD 05/22/2024 7:47 AM [facility] Comment:Calculation based on the??Chronic Kidney Disease Epidemiology Collaboration (CKD-EPI) equation refit??without adjustment for race. BUN/Creatinine Ratio 4.8 LAB CHEMISTRY METHOD 05/22/2024 7:47 AM [facility] Calcium 8.4(L) 8.5 - 10.5 mg/dL LAB CHEMISTRY METHOD 05/22/2024 7:47 AM [facility] Blood Venous blood specimen / Unknown Venipuncture / Unknown 05/22/2024 5:59 AM EST 05/22/2024 7:04 AM EST us Yessy AGUILERA LAB BLOOD ORDERABLES Final Result Performing Organization Address [facility]/ZIP Co de Phone Number [facility] [address] [place] [address], [place] [phone] * ECG-Annotated (05/22/2024) us Provider Onbase MD ECG ORDERABLES Final Result * (ABNORMAL) POCT Glucose, blood (05/21/2024 10:19 PM EST) [facility] Glucose POCT 227(H) 70 - 100 mg/dL 05/21/2024 10:26 PM EST [facility] Blood Capillary blood specimen / Unknown 05/21/2024 10:19 PM EST 05/21/2024 10:27 PM EST Shubham Rojo MD LAB POINT OF CA RE TEST DOCKED DEVICE UNSOLICITED RESULTS Final Result Performing Organization Address [facility] Co de Phone Number [facility] [address] [place] [address], [place] [phone] * Blood culture pathogens molecular study (05/21/2024 9:33 PM EST) Blood Venous blood specimen / Unknown Venipuncture / Unknown 05/21/2024 9:33 PM EST 05/21/2024 9:51 PM EST Narrative [facility] - 05/24/2024 3:25 PM EST No targets detected by multiplex PCR panel. Refer to culture. Desi Brizuela NP LAB MICROBIOLOGY - GENER AL ORDERABLES Final Result Performing Organization Address City/[facility]/ZIP Co de Phone Number [facility] [address] [place] [address], [place] [phone] * Culture blood (05/21/2024 9:33 PM EST) Culture, Blood No growth at 5 days LAB MICROBIOLOGY METHOD 05/26/2024 10:02 PM EST [facility] Blood Venous blood specimen / Unknown Venipuncture / Unknown 05/21/2024 9:33 PM EST 05/21/2024 9:51 PM EST us Dsei Brizuela NP LAB MICROBIOLOGY - GENER AL ORDERABLES Final Result Performing Organization Address [facility]/ZIP Co de Phone Number [facility] [address] [place] [address], [place] [phone] * (ABNORMAL) Culture blood (05/21/2024 9:33 PM EST) Culture, Blood Fusobacterium necrophorum(AA) LAB MICROBIOLOGY METHOD 05/27/2024 10:24 AM EST [facility] Comment: Anaerobic susceptibilty testing is not routinely performed, if further therapeutic inforamation is required, please consult an Infectious Disease Specialist. The organism value for this result has been updated. These results have been appended to the previously preliminary verified report. Gram Stain Result Anaerobic bottle Gram negative bacilli(AA) 05/27/2024 10:24 AM EST [facility] Comment:This is an appended report. These results have been appended to a previously preliminary verified report. Blood Venous blood specimen / Unknown Venipuncture / Unknown 05/21/2024 9:33 PM EST 05/21/2024 9:51 PM EST us Desi Brizuela NP LAB MICROBIOLOGY - GENER AL ORDERABLES Edited Result - Final Performing Organization Address City/[facility]/ZIP Co de Phone Number [facility] [address] [place] [address], [place] [phone] * Lactate (05/21/2024 9:33 PM EST) Lactate 1.5 0.4 - 2.0 mmol/L LAB CHEMISTRY METHOD 05/21/2024 10:16 PM EST [facility] Blood Venous blood specimen / Unknown Venipuncture / Unknown 05/21/2024 9:33 PM EST 05/21/2024 9:50 PM EST Desi Brizuela GLUE WHEEL OPERATOR LAB BLOOD ORDERABLES Fin al Result Performing Organization Address City/[facility]/ZIP Co de Phone Number [facility] [address] [place] [address], [place] [phone] * (ABNORMAL) POCT Glucose, blood (05/21/2024 8:18 PM EST) [facility] Glucose POCT 61(L) 70 - 100 mg/dL 05/21/2024 8:18 PM EST [facility] Blood Capillary blood specimen / Unknown 05/21/2024 8:18 PM EST 05/21/2024 8:20 PM EST Shubham Rojo MD LAB POINT OF CA RE TEST DOCKED DEVICE UNSOLICITED RESULTS Final Result Performing Organization Address City/[facility]/ZIP Co de Phone Number [facility] [address] [place] [address], [place] [phone] * (ABNORMAL) Potassium (05/21/2024 6:58 PM EST) Potassium 3.2(L) 3.5 - 5.5 mmol/L LAB CHEMISTRY METHOD 05/21/2024 7:31 PM EST [facility] Blood Venous blood specimen / Unknown Venipuncture / Unknown 05/21/2024 6:58 PM EST 05/21/2024 7:03 PM EST Yesys AGUILERA LAB BLOOD ORDERABLES Final Result Performing Organization Address [facility]/ZIP Co de Phone Number [facility] [address] [place] [address], [place] [phone] * (ABNORMAL) POCT Glucose, blood (05/21/2024 5:03 PM EST) [facility] Glucose POCT 199(H) 70 - 100 mg/dL 05/21/2024 5:04 PM EST [facility] POCT Comment RN Notified 05/21/2024 5:04 PM EST [facility] Blood Capillary blood specimen / Unknown 05/21/2024 5:03 PM EST 05/21/2024 5:05 PM EST Shubham Rojo MD LAB POINT OF CA RE TEST DOCKED DEVICE UNSOLICITED RESULTS Final Result Performing Organization Address [facility] Co de Phone Number [facility] [address] [place] [address], [place] [phone] * ECG 12 lead (05/21/2024 3:16 PM EST) [facility] Ventricular Rate ECG 98 BPM GEMUSE Atrial Rate 98 BPM GEMUSE P-R Interval 122 ms GEMUSE QRS Duration 84 ms GEMUSE Q-T Interval 454 ms GEMUSE QTc 579 ms GEMUSE P Wave [place] 56 degrees GEMUSE R [place] 25 degrees GEMUSE T [place] 32 degrees GEMUSE ECG Interpretation Critical Test Result: Long QTc Normal sinus rhythm Nonspecific ST abnormality Prolonged QT Abnormal ECG When compared with ECG of 20-MAY-2024 23:21, Nonspecific T wave abnormality, improved in Lateral leads Confirmed by Bob RAZA JOHN ([id number]) on 05/22/2024 7:42:37 AM GEMUSE 05/21/2024 3:16 PM EST 05/22/2024 7:42 AM EST Yessy AGUILERA ECG ORDERABLES Final Resul t GEMUSE * (ABNORMAL) Potassium (05/21/2024 1:02 PM EST) [facility] Potassium 2.8(LL) 3.5 - 5.5 mmol/L LAB CHEMISTRY METHOD 05/21/2024 1:39 PM EST [facility] Blood Venous blood specimen / Unknown Venipuncture / Unknown 05/21/2024 1:02 PM EST 05/21/2024 1:07 PM EST us Yessy Caroline AGUILERA LAB BLOOD ORDERABLES Final Result [facility] [address] [place] [address], [place] [phone] * Respiratory virus panel molecular study (05/21/2024 10:17 AM EST) [facility] Adenovirus Detection by PCR Not Detected Not Detected LAB MICROBIOLOGY METHOD 05/21/2024 11:45 AM [facility] Influenza A PCR Not Detected Not Detected LAB MICROBIOLOGY METHOD 05/21/2024 11:45 AM [facility] Influenza B PCR Not Detected Not Detected LAB MICROBIOLOGY METHOD 05/21/2024 11:45 AM [facility] Coronavirus 229E Not Detected Not Detected LAB MICROBIOLOGY METHOD 05/21/2024 11:45 AM EST [facility] Coronavirus HKU1 Not Detected Not Detected LAB MICROBIOLOGY METHOD 05/21/2024 11:45 AM EST [facility] Coronavirus OC43 Not Detected Not Detected LAB MICROBIOLOGY METHOD 05/21/2024 11:45 AM [facility] Coronavirus NL63 Not Detected Not Detected LAB MICROBIOLOGY METHOD 05/21/2024 11:45 AM [facility] Parainfluenza Virus 1 Not Detected Not Detected LAB MICROBIOLOGY METHOD 05/21/2024 11:45 AM [facility] Parainfluenza Virus 2 Not Detected Not Detected LAB MICROBIOLOGY METHOD 05/21/2024 11:45 AM [facility] Parainfluenza Virus 3 Not Detected Not Detected LAB MICROBIOLOGY METHOD 05/21/2024 11:45 AM [facility] Parainfluenza Virus 4 Not Detected Not Detected LAB MICROBIOLOGY METHOD 05/21/2024 11:45 AM [facility] RSV PCR Not Detected Not Detected LAB MICROBIOLOGY METHOD 05/21/2024 11:45 AM [facility] Human Metapneumovirus A and B Not Detected Not Detected LAB MICROBIOLOGY METHOD 05/21/2024 11:45 AM [facility] Rhinovirus/Entero virus Not Detected Not Detected LAB MICROBIOLOGY METHOD 05/21/2024 11:45 AM [facility] Bordetella pertussis Not Detected Not Detected LAB MICROBIOLOGY METHOD 05/21/2024 11:45 AM [facility] Bordetella parapertussis Not Detected Not Detected LAB MICROBIOLOGY METHOD 05/21/2024 11:45 AM [facility] Mycoplasma pneumo by PCR Not Detected Not Detected LAB MICROBIOLOGY METHOD 05/21/2024 11:45 AM [facility] Chlamydia pneumoniae Not Detected Not Detected LAB MICROBIOLOGY METHOD 05/21/2024 11:45 AM [facility] SARS COV-2 Not Detected Not Detected LAB MICROBIOLOGY METHOD 05/21/2024 11:45 AM [facility] Swab Nasopharyngeal structure / Unknown Non-blood Collection / Unknown 05/21/2024 10:17 AM EST 05/21/2024 10:49 AM [facility] - 05/21/2024 11:45 AM EST Testing was performed using the [employer] Respiratory Pathogen PCR Assay. All results must be correlated with the clinical findings. Results should not be used as the sole basis for diagnosis. False Negative results may occur from the presence of sequence variants in the region targeted by the assay or the presence of inhibitors. Results may be affected by concurrent antiviral/antimicrobial therapy or levels of organisms that are below the limit of detection. Yessy AGUILERA LAB MICROBIOLOGY - GENERAL ORDERABLES Final Result Performing Organization Address [facility]/ZIP Co de Phone Number [facility] [address] [place] [address], [place] [phone] * Hemoglobin A1c (05/21/2024 6:14 AM EST) [facility] Hemoglobin A1C 6.2 <6.5 % LAB CHEMISTRY METHOD 05/21/2024 9:17 PM EST [facility] Mean Bld Glu Estim. 131 mg/dL LAB CHEMISTRY METHOD 05/21/2024 9:17 PM [facility] Blood Venous blood specimen / Unknown Venipuncture / Unknown 05/21/2024 6:14 AM EST 05/21/2024 6:32 AM EST Yessy AGUILERA LAB BLOOD ORDERABLES Final Result Performing Organization Address [facility]/ZIP Co de Phone Number [facility] [address] [place] [address], [place] [phone] * (ABNORMAL) CBC auto differential (05/21/2024 6:14 AM EST) [facility] WBC 3.8(L) 4.8 - 10.8 K/mcL LAB HEMETOLOGY METHOD 05/21/2024 7:36 AM EST [facility] RBC 3.00(L) 4.50 - 5.50 M/mcL LAB HEMETOLOGY METHOD 05/21/2024 7:36 AM EST [facility] Hemoglobin 9.3(L) 13.5 - 17.5 g/dL LAB HEMETOLOGY METHOD 05/21/2024 7:36 AM EST [facility] Hematocrit 27.0(L) 42.0 - 54.0 % LAB HEMETOLOGY METHOD 05/21/2024 7:36 AM [facility] MCV 90.9 79.0 - 98.0 FL LAB HEMETOLOGY METHOD 05/21/2024 7:36 AM [facility] MCH 31.3 27.0 - 32.0 pcg LAB HEMETOLOGY METHOD 05/21/2024 7:36 AM [facility] MCHC 34.4 32.0 - 37.0 g/dL LAB HEMETOLOGY METHOD 05/21/2024 7:36 AM [facility] RDW 13.7 11.0 - 15.0 % LAB HEMETOLOGY METHOD 05/21/2024 7:36 AM [facility] Platelets 57(L) 130 - 400 K/mcL LAB HEMETOLOGY METHOD 05/21/2024 7:36 AM [facility] Comment:previously verified by slide MPV 11.1(H) 7.0 - 11.0 FL LAB HEMETOLOGY METHOD 05/21/2024 7:36 AM [facility] NRBC 0.5 <1.0 % LAB HEMETOLOGY METHOD 05/21/2024 7:36 AM [facility] NRBC Absolute 0.02 <0.10 K/mcL LAB HEMETOLOGY METHOD 05/21/2024 7:36 AM [facility] Neutrophils Relative 76.2 % LAB HEMETOLOGY METHOD 05/21/2024 7:36 AM [facility] Lymphocytes Relative 9.9 % LAB HEMETOLOGY METHOD 05/21/2024 7:36 AM [facility] Monocytes Relative 10.7 % LAB HEMETOLOGY METHOD 05/21/2024 7:36 AM [facility] Eosinophils Relative 1.6 % LAB HEMETOLOGY METHOD 05/21/2024 7:36 AM [facility] Basophils Relative 0.3 % LAB HEMETOLOGY METHOD 05/21/2024 7:36 AM EST [facility] Immature Granulocytes Relative 1.3 % LAB HEMETOLOGY METHOD 05/21/2024 7:36 AM [facility] Neutrophils Absolute 2.92 1.50 - 7.00 K/mcL LAB HEMETOLOGY METHOD 05/21/2024 7:36 AM EST [facility] Lymphocytes Absolute 0.38(L) 1.00 - 5.00 K/mcL LAB HEMETOLOGY METHOD 05/21/2024 7:36 AM EST [facility] Monocytes Absolute 0.41 0.20 - 1.00 K/mcL LAB HEMETOLOGY METHOD 05/21/2024 7:36 AM [facility] Eosinophils Absolute 0.06 0.00 - 0.50 K/mcL LAB HEMETOLOGY METHOD 05/21/2024 7:36 AM EST [facility] Basophils Absolute 0.01 0.00 - 0.20 K/mcL LAB HEMETOLOGY METHOD 05/21/2024 7:36 AM [facility] Immature Granulocytes Absolute 0.05(H) 0.00 - 0.03 K/mcL LAB HEMETOLOGY METHOD 05/21/2024 7:36 AM [facility] Blood Venous blood specimen / Unknown Venipuncture / Unknown 05/21/2024 6:14 AM EST 05/21/2024 6:32 AM EST us Desi Brizuela NP LAB BLOOD ORDERABLES Fin al Result [facility] [address] [place] [address], * (ABNORMAL) Comprehensive metabolic panel (05/21/2024 6:14 AM EST) Pathologist [facility] Sodium 139 133 - 145 mmol/L LAB CHEMISTRY METHOD 05/21/2024 7:21 AM [facility] Potassium 2.9(LL) 3.5 - 5.5 mmol/L LAB CHEMISTRY METHOD 05/21/2024 7:21 AM [facility] Chloride 101 96 - 110 mmol/L LAB CHEMISTRY METHOD 05/21/2024 7:21 AM [facility] CO2 28 21 - 32 mmol/L LAB CHEMISTRY METHOD 05/21/2024 7:21 AM [facility] Anion Gap 10 3 - 11 LAB CHEMISTRY METHOD 05/21/2024 7:21 AM [facility] Glucose 107(H) 70 - 100 mg/dL LAB CHEMISTRY METHOD 05/21/2024 7:21 AM [facility] BUN 7 5 - 25 mg/dL LAB CHEMISTRY METHOD 05/21/2024 7:21 AM [facility] Creatinine 0.68(L) 0.70 - 1.30 mg/dL LAB CHEMISTRY METHOD 05/21/2024 7:21 AM [facility] eGFR 119 >=60 mL/min/1. 73m2 LAB CHEMISTRY METHOD 05/21/2024 7:21 AM [facility] Comment:Calculation based on the??Chronic Kidney Disease Epidemiology Collaboration (CKD-EPI) equation refit??without adjustment for race. BUN/Creatinine Ratio 10.3 LAB CHEMISTRY METHOD 05/21/2024 7:21 AM [facility] Calcium 7.8(L) 8.5 - 10.5 mg/dL LAB CHEMISTRY METHOD 05/21/2024 7:21 AM [facility] AST (SGOT) 376(H) 10 - 42 unit/L LAB CHEMISTRY METHOD 05/21/2024 7:21 AM [facility] ALT (SGPT) 103(H) 10 - 60 unit/L LAB CHEMISTRY METHOD 05/21/2024 7:21 AM [facility] Alkaline Phosphatase 143(H) 42 - 121 unit/L LAB CHEMISTRY METHOD 05/21/2024 7:21 AM [facility] Total Protein 5.3(L) 6.0 - 8.0 g/dL LAB CHEMISTRY METHOD 05/21/2024 7:21 AM [facility] Albumin 2.8(L) 3.2 - 5.0 g/dL LAB CHEMISTRY METHOD 05/21/2024 7:21 AM [facility] Total Bilirubin 0.6 0.0 - 1.4 mg/dL LAB CHEMISTRY METHOD 05/21/2024 7:21 AM [facility] Blood Venous blood specimen / Unknown Venipuncture / Unknown 05/21/2024 6:14 AM EST 05/21/2024 6:31 AM EST Desi Brizuela NP LAB BLOOD ORDERABLES Fin al Result Performing Organization Address [facility]/ZIP Co de Phone Number [facility] [address] [place] [address], [place] [phone] * (ABNORMAL) Magnesium (05/21/2024 6:14 AM EST) [facility] Magnesium 1.2(L) 1.9 - 2.6 mg/dL LAB CHEMISTRY METHOD 05/21/2024 7:15 AM [facility] Blood Venous blood specimen / Unknown Venipuncture / Unknown 05/21/2024 6:14 AM EST 05/21/2024 6:31 AM EST Desi Brizuela GLUE WHEEL OPERATOR LAB BLOOD ORDERABLES Fin al Result [facility] [address] [place] [address], [place] [phone] * ECG 12 lead (05/20/2024 11:21 PM EST) Ventricular Rate ECG 107 BPM GEMUSE Atrial Rate 107 BPM GEMUSE P-R Interval 116 ms GEMUSE QRS Duration 90 ms GEMUSE Q-T Interval 436 ms GEMUSE QTc 582 ms GEMUSE P Wave [place] 57 degrees GEMUSE R [place] 7 degrees GEMUSE T [place] 3 degrees GEMUSE ECG Interpretation Critical Test Result: Long QTc Sinus tachycardia Nonspecific ST and T wave abnormality Prolonged QT Abnormal ECG When compared with ECG of 18-MAY-2024 09:08, No significant change was found Confirmed by Bob LE JAMES ([id number]) on 05/21/2024 2:14:22 PM GEMUSE 05/20/2024 11:2 1 PM EST 05/21/2024 2:14 PM EST Desi Brizuela GLUE WHEEL OPERATOR ECG ORDERABLES Final Re sult GEMUSE * Cherry urine culture tube (05/20/2024 5:39 PM EST) [facility] Extra Tube Hold for add-ons. 05/20/2024 9:01 PM EST [facility] Comment:Auto resulted. Urine Urine specimen obtained by clean catch procedure / Unknown Non-blood Collection / Unknown 05/20/2024 5:39 PM EST 05/20/2024 7:16 PM EST Viri AGUILERA LAB URINE ORDERABLES Final Resul t Performing Organization Address City/[facility]/ZIP Co de Phone Number [facility] [address] [place] [address], [place] [phone] * (ABNORMAL) Urinalysis with reflex microscopic and culture (05/20/2024 5:39 PM EST) [facility] Specific [place] Urine 1.015 1.003 - 1.030 LAB URINALYSIS - AUTOMATED METHOD 05/20/2024 7:50 PM [facility] pH, Urine 6.5 5.0 - 8.0 pH LAB URINALYSIS - AUTOMATED METHOD 05/20/2024 7:50 PM [facility] Leukocytes, Urine Negative Negative LAB URINALYSIS - AUTOMATED METHOD 05/20/2024 7:50 PM [facility] Nitrite, Urine Negative Negative LAB URINALYSIS - AUTOMATED METHOD 05/20/2024 7:50 PM [facility] Protein, Urine Negative <=Trace mg/dL LAB URINALYSIS - AUTOMATED METHOD 05/20/2024 7:50 PM [facility] Glucose, Urine 500(A) Negative mg/dL LAB URINALYSIS - AUTOMATED METHOD 05/20/2024 7:50 PM [facility] Ketones, Urine Negative Negative mg/dL LAB URINALYSIS - AUTOMATED METHOD 05/20/2024 7:50 PM [facility] Urobilinogen , Urine 1.0 0.2 - 1.0 mg/dL LAB URINALYSIS - AUTOMATED METHOD 05/20/2024 7:50 PM [facility] Bilirubin, Urine Negative Negative LAB URINALYSIS - AUTOMATED METHOD 05/20/2024 7:50 PM [facility] Blood, Urine Moderate(A) Negative LAB URINALYSIS - AUTOMATED METHOD 05/20/2024 7:50 PM [facility] RBC, Urine 53.3(H) 0 - 4 /HPF LAB URINALYSIS - AUTOMATED METHOD 05/20/2024 7:50 PM [facility] WBC, Urine 0.4 0 - 4 /HPF LAB URINALYSIS - AUTOMATED METHOD 05/20/2024 7:50 PM [facility] Squamous Epithelial, Urine 13 0 - 60 /LPF LAB URINALYSIS - AUTOMATED METHOD 05/20/2024 7:50 PM [facility] Crystals, Urine Light Amorphous Urate crystals. /LPF 05/20/2024 7:50 PM [facility] Bacteria, Urine Negative Negative /HPF LAB URINALYSIS - AUTOMATED METHOD 05/20/2024 7:50 PM [facility] Hyaline Casts, Urine 0.0 0 - 3 /LPF LAB URINALYSIS - AUTOMATED METHOD 05/20/2024 7:50 PM EST [facility] Urine Urine specimen obtained by clean catch procedure / Unknown Non-blood Collection / Unknown 05/20/2024 5:39 PM EST 05/20/2024 7:16 PM EST Viri AGUILERA LAB URINE ORDERABLES Final Resul t Performing Organization Address [facility] Co de Phone Number [facility] [address] [place] [address], [place] [phone] * Methadone, urine (05/20/2024 5:39 PM EST) Methadone Screen, Urine Negative Negative LAB CHEMISTRY METHOD 05/20/2024 7:50 PM EST [facility] Comment: Assay cutoff 300 ng/mL Semi-quantitative assay for screening purposes only. Unconfirmed screening result should not be used for non-medical purposes. *ALTERNATE METHOD CONFIRMATION DONE UPON REQUEST ONLY* Urine Urine specimen obtained by clean catch procedure / Unknown Non-blood Collection / Unknown 05/20/2024 5:39 PM EST 05/20/2024 7:16 PM EST Adair French MD LAB URINE ORDERABLES Final Result Performing Organization Address [facility]/ZIP Co de Phone Number [facility] [address] [place] [address], [place] [phone] * Phencyclidine, urine (05/20/2024 5:39 PM EST) PCP Scrn, Ur Negative Negative LAB CHEMISTRY METHOD 05/20/2024 7:46 PM EST [facility] Comment: Assay cutoff 25 ng/mL Semi-quantitative assay for screening purposes only. Unconfirmed screening result should not be used for non-medical purposes. *ALTERNATE METHOD CONFIRMATION DONE UPON REQUEST ONLY* Urine Urine specimen obtained by clean catch procedure / Unknown Non-blood Collection / Unknown 05/20/2024 5:39 PM EST 05/20/2024 7:16 PM EST Adair French MD LAB URINE ORDERABLES Final Result Performing Organization Address [facility]/ZIP Co de Phone Number [facility] [address] [place] [address], [place] [phone] * Buprenorphine screen, urine (05/20/2024 5:39 PM EST) Buprenorphine Screen Urine Negative Negative LAB CHEMISTRY METHOD 05/20/2024 7:46 PM EST [facility] Urine Urine specimen obtained by clean catch procedure / Unknown Non-blood Collection / Unknown 05/20/2024 5:39 PM EST 05/20/2024 7:16 PM EST Narrative [facility] - 05/20/2024 7:46 PM EST Assay cutoff 5 ng/mL Semi-quantitative assay for screening purposes only. Unconfirmed screening result should not be used for non-medical purposes. *ALTERNATE METHOD CONFIRMATION DONE UPON REQUEST ONLY* Adair French MD LAB URINE ORDERABLES Final Result Performing Organization Address [facility]/ZIP Co de Phone Number [facility] [address] [place] [address], [place] [phone] * (ABNORMAL) Drug abuse screen 8a panel, urine (05/20/2024 5:39 PM EST) Pathologist [facility] Amphetamine Screen, Ur Negative Negative LAB CHEMISTRY METHOD 5 7:46 PM EST [facility] Comment:Certain OTC medicati ons containing ephedrine, phenylephrine, pseudoephedrine and phenylpropanolamine can cause false positive results. Barbiturate Screen, Ur Positive(A ) Negative LAB CHEMISTRY METHOD 5 7:46 PM EST [facility] Benzodiazepine Screen, Ur Negative Negative LAB CHEMISTRY METHOD 5 7:46 PM EST [facility] Cocaine Screen, Ur Negative Negative LAB CHEMISTRY METHOD 5 7:46 PM EST [facility] Opiate Screen, Ur Negative Negative LAB CHEMISTRY METHOD 5 7:46 PM [facility] Cannabinoid (THC) Screen, Ur Negative Negative LAB CHEMISTRY METHOD 5 7:46 PM EST [facility] Comment:Specimens from patie nts taking pantoprazole sodium (Protonix) have been shown to produce false positive results. Oxycodone Screen, Ur Negative Negative LAB CHEMISTRY METHOD 5 7:46 PM EST [facility] Fentanyl, Ur Negative Negative LAB CHEMISTRY METHOD 5 7:46 PM [facility] Urine Urine specimen obtained by clean catch procedure / Unknown Non-blood Collection / Unknown 05/20/2024 5:39 PM EST 05/20/2024 7:16 PM EST [facility] - 05/20/2024 7:46 PM EST Assay cutoffs: Amphetamines ? 1000 ng/mL Barbiturates ?200 ng/mL Benzodiazepines ?? 200 ng/mL Cocaine ? 300 ng/mL Fentanyl ?1 ng/mL Opiates ? 300 ng/mL Oxycodone ? 100 ng/mL THC ?50 ng/mL Semi-quantitative assay for screening purposes only. Unconfirmed screening result should not be used for non-medical purposes. *ALTERNATE METHOD CONFIRMATION DONE UPON REQUEST ONLY* us Adair French MD LAB URINE ORDERABLES Final Result [facility] [address] [place] [address], * CT Abdomen Pelvis w Contrast (05/20/2024 4:07 PM EST) Anatomical Region Laterality Modality Body Computed Tomogra phy 05/20/2024 4:39 PM EST Impressions 05/20/2024 4:39 PM EST Impression: 1. Findings described above raising the possibility of mild interstitial pancreatitis, consider correlation with serum lipase. 2. Pancreatic ductal dilatation with intraluminal cystic foci described above. Consider six-month follow-up CT. 3. Mild fullness of the bilateral renal collecting systems and ureters is likely related to markedly distended urinary bladder. No urolithiasis appreciated. This document has been electronically signed by: Mariano Preston MD on 05/20/2024 16:39:41 Narrative 05/20/2024 4:39 PM EST INDICATION: Nausea/vomiting Exam: Contrast-enhanced CT abdomen and pelvis with multiplanar reformats. Comparison: None. Findings: CT abdomen: Lung bases reveal minimal bilateral dependent atelectasis. Liver reveals diffuse hypoattenuation/steatosis. No focal lesions or ductal dilatation are appreciated. Gallbladder appears unremarkable. Spleen appears unremarkable. Pancreas reveals multifocal calcifications primarily involving the pancreatic head, suggesting history of chronic pancreatitis. There appears to be trace stranding in the pancreatico duodenal groove (3; 69-76), raising concern for mild interstitial pancreatitis (?groove pancreatitis?). Pancreatic tail reveals a long segment of mild ductal dilatation with multiple small intraductal cystic appearing collections or lesions, with small individual cysts measuring up to 12 mm (measured on 3; 50), with segment of ductal dilatation and intraductal cysts extending over transverse distance of 5 cm (3; 55-49). Findings suggest likely intraductal IPMN. Consider follow-up CT in 6 months, based on size criteria. No other pancreatic lesions. Adrenal glands appear unremarkable. Kidneys reveal mild bilateral fullness of the collecting systems and ureters without urolithiasis, likely related to markedly distended urinary bladder. Urinary bladder measures up to 18.7 cm craniocaudad dimension (measured on 601; 66). No free intraperitoneal fluid or retroperitoneal masses or adenopathy. Abdominal aorta is normal caliber. There is however some trace fluid within right pericolic gutter common nonspecific. Bowel loops reveal no abnormal wall thickening or distention. CT pelvis: Distended urinary bladder as described above. Prostate gland and seminal vesicles are unremarkable. No pelvic masses, fluid or adenopathy. Osseous structures reveal no destructive osseous lesions. Procedure Note Mariano Preston MD - 05/20/2024 INDICATION: Nausea/vomiting Exam: Contrast-enhanced CT abdomen and pelvis with multiplanarreformats. Comparison: None. Findings: CT abdomen: Lung bases reveal minimal bilateral dependent atelectasis. Liver reveals diffuse hypoattenuation/steatosis. No focal lesions or ductal dilatation are appreciated. Gallbladder appears unremarkable. Spleen appears unremarkable. Pancreas reveals multifocal calcifications primarily involving the pancreatic head, suggesting history of chronic pancreatitis. Thereappears to be trace stranding in the pancreatico duodenal groove (3; 69-76), raising concern for mild interstitial pancreatitis (?groove pancreatitis?). Pancreatic tail reveals a long segment of mild ductal dilatation with multiple small intraductal cystic appearing collectionsor lesions, with small individual cysts measuring up to 12 mm (measured on3; 50), with segment of ductal dilatation and intraductal cysts extending over transverse distance of 5 cm (3; 55-49). Findings suggest likely intraductal IPMN. Consider follow-up CT in 6 months, based on size criteria. No other pancreatic lesions. Adrenal glands appearunremarkable. Kidneys reveal mild bilateral fullness of the collecting systems and ureters without urolithiasis, likely related to markedly distendedurinary bladder. Urinary bladder measures up to 18.7 cm craniocaudad dimension (measured on 601; 66). No free intraperitoneal fluid or retroperitoneal masses or adenopathy. Abdominal aorta is normal caliber. There is however some trace fluid within right pericolic gutter common nonspecific. Bowel loops reveal no abnormal wall thickening or distention. CT pelvis: Distended urinary bladder as described above. Prostate gland and seminal vesicles are unremarkable. No pelvic masses, fluid or adenopathy. Osseous structures reveal no destructive osseous lesions. IMPRESSION: Impression: 1. Findings described above raising the possibility of mild interstitial pancreatitis, consider correlation with serum lipase. 2. Pancreatic ductal dilatation with intraluminal cystic foci described above. Consider six-month follow-up CT. 3. Mild fullness of the bilateral renal collecting systems and uretersis likely related to markedly distended urinary bladder. No urolithiasis appreciated. This document has been electronically signed by: Mariano Preston MD on 05/20/2024 16:39:[address] PROCEDURES Final Resul t * (ABNORMAL) CBC auto differential (05/20/2024 12:53 PM EST) WBC 4.1(L) 4.8 - 10.8 K/mcL LAB HEMETOLOGY METHOD 05/20/2024 3:14 PM [facility] RBC 4.00(L) 4.50 - 5.50 M/mcL LAB HEMETOLOGY METHOD 05/20/2024 3:14 PM [facility] Hemoglobin 12.5(L) 13.5 - 17.5 g/dL LAB HEMETOLOGY METHOD 05/20/2024 3:14 PM [facility] Hematocrit 36.2(L) 42.0 - 54.0 % LAB HEMETOLOGY METHOD 05/20/2024 3:14 PM [facility] MCV 91.4 79.0 - 98.0 FL LAB HEMETOLOGY METHOD 05/20/2024 3:14 PM [facility] MCH 31.6 27.0 - 32.0 pcg LAB HEMETOLOGY METHOD 05/20/2024 3:14 PM [facility] MCHC 34.5 32.0 - 37.0 g/dL LAB HEMETOLOGY METHOD 05/20/2024 3:14 PM [facility] RDW 13.4 11.0 - 15.0 % LAB HEMETOLOGY METHOD 05/20/2024 3:14 PM [facility] Platelets 55(L) 130 - 400 K/mcL LAB HEMETOLOGY METHOD 05/20/2024 3:14 PM [facility] Comment:reviewed by slide MPV 11.0 7.0 - 11.0 FL LAB HEMETOLOGY METHOD 05/20/2024 3:14 PM [facility] NRBC 0.0 <1.0 % LAB HEMETOLOGY METHOD 05/20/2024 3:14 PM [facility] NRBC Absolute 0.00 <0.10 K/mcL LAB HEMETOLOGY METHOD 05/20/2024 3:14 PM [facility] Neutrophils Relative 66.7 % LAB HEMETOLOGY METHOD 05/20/2024 3:14 PM [facility] Lymphocytes Relative 18.0 % LAB HEMETOLOGY METHOD 05/20/2024 3:14 PM [facility] Monocytes Relative 11.2 % LAB HEMETOLOGY METHOD 05/20/2024 3:14 PM [facility] Eosinophils Relative 2.4 % LAB HEMETOLOGY METHOD 05/20/2024 3:14 PM [facility] Basophils Relative 1.0 % LAB HEMETOLOGY METHOD 05/20/2024 3:14 PM [facility] Immature Granulocytes Relative 0.7 % LAB HEMETOLOGY METHOD 05/20/2024 3:14 PM [facility] Neutrophils Absolute 2.75 1.50 - 7.00 K/mcL LAB HEMETOLOGY METHOD 05/20/2024 3:14 PM [facility] Lymphocytes Absolute 0.74(L) 1.00 - 5.00 K/mcL LAB HEMETOLOGY METHOD 05/20/2024 3:14 PM [facility] Monocytes Absolute 0.46 0.20 - 1.00 K/mcL LAB HEMETOLOGY METHOD 05/20/2024 3:14 PM [facility] Eosinophils Absolute 0.10 0.00 - 0.50 K/mcL LAB HEMETOLOGY METHOD 05/20/2024 3:14 PM [facility] Basophils Absolute 0.04 0.00 - 0.20 K/mcL LAB HEMETOLOGY METHOD 05/20/2024 3:14 PM [facility] Immature Granulocytes Absolute 0.03 0.00 - 0.03 K/mcL LAB HEMETOLOGY METHOD 05/20/2024 3:14 PM EST [facility] Blood Venous blood specimen / Unknown Venipuncture / Unknown 05/20/2024 12:53 PM EST 05/20/2024 1:30 PM EST us Adair French MD LAB BLOOD ORDERABLES Final Result [facility] [address] [place] [address], [place] [phone] * (ABNORMAL) Comprehensive metabolic panel (05/20/2024 12:53 PM EST) Sodium 138 133 - 145 mmol/L LAB CHEMISTRY METHOD 05/20/2024 2:28 PM [facility] Potassium 3.9 3.5 - 5.5 mmol/L LAB CHEMISTRY METHOD 05/20/2024 2:28 PM [facility] Comment:Hemolysis present Chloride 100 96 - 110 mmol/L LAB CHEMISTRY METHOD 05/20/2024 2:28 PM [facility] CO2 29 21 - 32 mmol/L LAB CHEMISTRY METHOD 05/20/2024 2:28 PM [facility] Comment:Results verified by repeat testing Anion Gap 9 3 - 11 LAB CHEMISTRY METHOD 05/20/2024 2:28 PM [facility] Glucose 117(H) 70 - 100 mg/dL LAB CHEMISTRY METHOD 05/20/2024 2:28 PM [facility] BUN 6 5 - 25 mg/dL LAB CHEMISTRY METHOD 05/20/2024 2:28 PM [facility] Comment:Results verified by repeat testing Creatinine 0.60(L) 0.70 - 1.30 mg/dL LAB CHEMISTRY METHOD 05/20/2024 2:28 PM [facility] eGFR 124 >=60 mL/min/1. 73m2 LAB CHEMISTRY METHOD 05/20/2024 2:28 PM [facility] Comment:Calculation based on the??Chronic Kidney Disease Epidemiology Collaboration (CKD-EPI) equation refit??without adjustment for race. BUN/Creatinine Ratio 10.0 LAB CHEMISTRY METHOD 05/20/2024 2:28 PM [facility] Calcium 8.4(L) 8.5 - 10.5 mg/dL LAB CHEMISTRY METHOD 05/20/2024 2:28 PM [facility] AST (SGOT) 271(H) 10 - 42 unit/L LAB CHEMISTRY METHOD 05/20/2024 2:28 PM [facility] Comment:Hemolysis present ALT (SGPT) 103(H) 10 - 60 unit/L LAB CHEMISTRY METHOD 05/20/2024 2:28 PM [facility] Alkaline Phosphatase 140(H) 42 - 121 unit/L LAB CHEMISTRY METHOD 05/20/2024 2:28 PM [facility] Total Protein 6.5 6.0 - 8.0 g/dL LAB CHEMISTRY METHOD 05/20/2024 2:28 PM [facility] Albumin 3.3 3.2 - 5.0 g/dL LAB CHEMISTRY METHOD 05/20/2024 2:28 PM [facility] Total Bilirubin 0.6 0.0 - 1.4 mg/dL LAB CHEMISTRY METHOD 05/20/2024 2:28 PM [facility] Blood Venous blood specimen / Unknown Venipuncture / Unknown 05/20/2024 12:53 PM EST 05/20/2024 1:30 PM EST us Adair French MD LAB BLOOD ORDERABLES Final Result [facility] [address] [place] [address], * (ABNORMAL) Lipase (05/20/2024 12:53 PM EST) Lipase 1,643(H) 13 - 75 unit/L LAB CHEMISTRY METHOD 05/20/2024 2:11 PM EST [facility] Blood Venous blood specimen / Unknown Venipuncture / Unknown 05/20/2024 12:53 PM EST 05/20/2024 1:30 PM EST Adair French MD LAB BLOOD ORDERABLES Final Result Performing Organization Address [facility]/ZIP Co de Phone Number [facility] [address] [place] [address], [place] [phone] * (ABNORMAL) Magnesium (05/20/2024 12:53 PM EST) Magnesium 1.8(L) 1.9 - 2.6 mg/dL LAB CHEMISTRY METHOD 05/20/2024 2:11 PM EST [facility] Comment:Hemolysis present Blood Venous blood specimen / Unknown Venipuncture / Unknown 05/20/2024 12:53 PM EST 05/20/2024 1:30 PM EST Adair French MD LAB BLOOD ORDERABLES Final Result Performing Organization Address [facility] Co de Phone Number [facility] [address] [place] [address], [place] [phone] * (ABNORMAL) Ethanol (05/20/2024 12:53 PM EST) Ethanol Level 462(H) 0 - 10 mg/dL LAB CHEMISTRY METHOD 05/20/2024 2:28 PM EST [facility] Blood Venous blood specimen / Unknown Venipuncture / Unknown 05/20/2024 12:53 PM EST 05/20/2024 1:30 PM EST us Adair French MD LAB BLOOD ORDERABLES Final Result [facility] [address] [place] [address], [place] [phone] documented in this encounter Visit Diagnoses Diagnosis Alcohol withdrawal (CMS/HCC)- Primary Alcohol withdrawal Acute pancreatitis, unspecified complication status, unspecified pancreatitis type Acute urinary retention Transaminitis Nonspecific elevation of levels of transaminase or lactic acid dehydrogenase (LDH) documented in this encounter Admitting Diagnoses Diagnosis Alcohol withdrawal (CMS/HCC) Alcohol withdrawal documented in this encounter Administered Medications Inactive Administered Medications - up to 3 most recent administrations Medication Order MAR Action Action Date Dose Rate Site acetaminophen (TYLENOL) tablet 650 mg 650 mg, oral, Every 6 hours PRN, mild pain, headaches, fever - temperature GREATER than 38 C (100.4 F), Starting on Tue05/21/24 at 0457 Given 05/22/2024 9:12 PM EST 650 mg Given 05/22/2024 9:04 AM EST 650 mg Given 05/21/2024 8:31 PM EST 650 mg cefTRIAXone (ROCEPHIN) 2 g in sterile water 20 mL IV syringe 2 g, intravenous, at 400 mL/hr, Administer over 3 Minutes, Every 24 hours, First dose on Julia 05/24/24 at 1500, For 14 days, Do not administer simultaneously with any calcium containing solutions via a Y-site in any patient., Indication: Bacteremia Given 05/24/2024 3:37 PM EST 2 g 400 mL/hr dextrose (D50W) 50% injection 12.5 g 12.5 g, intravenous, Every 15 min PRN, low blood sugar, moderate hypoglycemia *Patient is Unconscious, NPO, unable to swallow: BG 54 - 69 mg/dl*, Starting on Tue05/21/24 at 1632 dextrose (D50W) 50% injection 25 g 25 g, intravenous, Every 15 min PRN, low blood sugar, severe hypoglycemia *Patient is Unconscious, NPO, unable to swallow: BG LESS than 54 mg/dL*, Starting on Tue05/21/24 at 1632 dextrose 15 gram/60 mL oral solution 15 g 15 g, oral, Every 15 min PRN, low blood sugar, hypoglycemia *Patient conscious AND able to drink and swallow safely*, Starting on Tue05/21/24 at 1632 dextrose 15 gram/60 mL oral solution 30 g 30 g, oral, Every 15 min PRN, low blood sugar, hypoglycemia *Patient conscious AND able to drink and swallow safely*, Starting on Tue05/21/24 at 1632 diphenhydrAMINE (BENADRYL) injection 25 mg 25 mg, intravenous, Every 6 hours PRN, itching, Starting on Tue05/21/24 at 1620 Given 05/24/2024 8:30 AM EST 25 mg Given 05/22/2024 9:17 PM EST 25 mg Given 05/22/2024 3:43 AM EST 25 mg docusate sodium (COLACE) capsule 100 mg 100 mg, oral, 2 times daily, First dose on Tue05/21/24 at 2100 Given 05/23/2024 8:53 AM EST 100 mg Given 05/22/2024 9:13 PM EST 100 mg Given 05/22/2024 9:04 AM EST 100 mg famotidine (PEPCID) tablet 20 mg 20 mg, oral, 2 times daily, First dose on Tue05/21/24 at 2100 Given 05/25/2024 9:54 AM EST 20 mg Given 05/24/2024 8:42 PM EST 20 mg Given 05/24/2024 8:30 AM EST 20 mg folic acid (FOLVITE) tablet 1 mg 1 mg, oral, Daily, First dose on Tue05/21/24 at 0900 Given 05/25/2024 9:54 AM EST 1 mg Given 05/24/2024 8:30 AM EST 1 mg Given 05/23/2024 8:53 AM EST 1 mg Glucagon HCl (rDNA) injection 1 mg 1 mg, intramuscular, Once as needed, low blood sugar, severe hypoglycemia, Starting on Tue05/21/24 at 1632, For 1 dose insulin lispro injection 1-6 Units 1-6 Units, subcutaneous, 3 times daily before meals, First dose on Tue05/21/24 at 1700, Indication: Total Daily Dose (TDD) LESS than 40 units Correction Scale: Low Dose Administer with meal and/or mealtime dose of insulin to correct high blood glucose If mealtime insulin dose not given (e.g. patient NPO or not eating), still administer correction factor for high blood glucose Given 05/22/2024 11:59 AM EST 1 Units Left Lower Abdomen Given 05/21/2024 5:24 PM EST 1 Units Le ft Upper Abdomen iopamidoL (ISOVUE-370) 370 mg iodine /mL (76 %) injection 100 mL 100 mL, intravenous, Once in imaging, Starting on Tue05/20/24 at 1601, For 1 dose Given 05/20/2024 4:04 PM EST 90 mL LORazepam (ATIVAN) injection 2 mg 2 mg, intravenous, Every 15 min PRN, seizures, Status epilepticus, Starting on Tue05/20/24 at 1805, Prior to IV use, lorazepam injection should be DILUTED with an equal volume of compatible solution; Rate of administration should NOT exceed 2 mg/min. LORazepam (ATIVAN) tablet 2 mg 2 mg, oral, Every 1 hour PRN, CIWA-Ar 10-18, Starting on Tue05/24/24 at 1749, Re-assess CIWA-Ar in 1 hour Hold dose and notify provider for BP LESS than 90/60, RR LESS than 10 per minute, marked somnolence, pooling of secretions, intoxicated symptoms (ataxia, slurred speech.) Notify provider if 12 mg is given within 4 hours. LORazepam (ATIVAN) tablet 3 mg 3 mg, oral, Every 1 hour PRN, CIWA-Ar GREATER than or EQUAL to 19 WITHOUT evidence of seizure OR hallucinations, Starting on Tue05/24/24 at 1749, Re-assess CIWA-Ar in 1 hour Hold dose and notify provider for BP LESS than 90/60, RR LESS than 10 per minute, marked somnolence, pooling of secretions, intoxicated symptoms (ataxia, slurred speech.) Notify provider if 12 mg is given within 4 hours. LORazepam (ATIVAN) tablet 4 mg 4 mg, oral, Every 1 hour PRN, CIWA-Ar GREATER than or EQUAL to 19 AND seizure OR hallucination, Starting on Julia 05/24/24 at 1749, Notify provider Re-assess CIWA-Ar in 1 hour Hold dose and notify provider for BP LESS than 90/60, RR LESS than 10 per minute, marked somnolence, pooling of secretions, intoxicated symptoms (ataxia, slurred speech.) Notify provider if 12 mg is given within 4 hours. magnesium oxide (MAG-OX) tablet 400 mg 400 mg, oral, Nightly, First dose on Tue05/23/24 at 2100 Given 05/24/2024 8:42 PM EST 400 mg Given 05/23/2024 9:19 PM EST 400 mg magnesium sulfate 2 gram/50 mL (4 %) IVPB 2 g 2 g, intravenous, at 25 mL/hr, Administer over 2 Hours, Every 2 hours, First dose on Tue05/21/24 at 0815, For 2 doses New Bag 05/21/2024 10:18 AM EST 2 g 25 mL/hr New Bag 05/21/2024 8:23 AM EST 2 g 25 mL/hr magnesium sulfate 2 gram/50 mL (4 %) IVPB 2 g 2 g, intravenous, at 25 mL/hr, Administer over 2 Hours, Once, On Tue05/22/24 at 0815, For 1 dose New Bag 05/22/2024 9:04 AM EST 2 g 25 mL/hr magnesium sulfate 2 gram/50 mL (4 %) IVPB 2 g 2 g, intravenous, at 25 mL/hr, Administer over 2 Hours, Once, On Tue05/23/24 at 0815, For 1 dose New Bag 05/23/2024 8:54 AM EST 2 g 25 mL/hr magnesium sulfate 2 gram/50 mL (4 %) IVPB 2 g 2 g, intravenous, at 25 mL/hr, Administer over 2 Hours, Once, On Tue05/24/24 at 0800, For 1 dose New Bag 05/24/2024 8:29 AM EST 2 g 25 mL/hr melatonin tablet 3 mg 3 mg, oral, Nightly PRN, sleep, Starting on Tue05/23/24 at 2106 Given 05/24/2024 11:41 PM EST 3 mg Given 05/23/2024 9:19 PM EST 3 mg melatonin tablet 3 mg 3 mg, oral, Once, On Tue05/24/24 at 0315, For 1 dose Given 05/24/2024 3:31 AM EST 3 mg metroNIDAZOLE (FLAGYL) IVPB 500 mg 500 mg, intravenous, at 100 mL/hr, Administer over 60 Minutes, Every 8 hours, First dose on Tue05/24/24 at 1430, For 7 days, premix bag, Indication: Bacteremia New Bag 05/25/2024 5:41 AM EST 500 mg 100 mL/h r New Bag 05/24/2024 10:39 PM EST 500 mg 100 mL/hr New Bag 05/24/2024 3:37 PM EST 500 mg 100 mL/hr multivitamin tablet 1 tablet 1 tablet (1 each), oral, Daily, First dose on Tue05/21/24 at 0900 Given 05/25/2024 9:54 AM EST 1 tablet Given 05/24/2024 8:30 AM EST 1 tablet Given 05/23/2024 8:53 AM EST 1 tablet naltrexone (DEPADE) tablet 50 mg 50 mg, oral, Daily, First dose on Tue05/24/24 at 1500, On hold since Tue05/25/2024 at 0721 until manually unheld Given 05/24/2024 3:38 PM EST 50 mg ondansetron (PF) (ZOFRAN) injection 4 mg 4 mg, intravenous, Once, On Tue05/20/24 at 1316, For 1 dose Given 05/20/2024 1:32 PM EST 4 mg ondansetron (PF) (ZOFRAN) injection 4 mg 4 mg, intravenous, Every 8 hours PRN, vomiting, nausea, Starting on Tue05/23/24 at 2328, -ONLY give IV if patient is unable to take orally. -If inadequate response within 30 minutes, proceed to next-line agent or contact provider if no further options ordered. ondansetron ODT (ZOFRAN-ODT) disintegrating tablet 4 mg 4 mg, oral, Every 8 hours PRN, vomiting, nausea, Starting on Tue05/23/24 at 2328, -Give IV if patient is unable to take orally. -If inadequate response within 30 minutes, proceed to next-line agent or contact provider if no further options ordered. For ODT tablets: -Do not remove from blister pack until just before administering. -Patient should allow tablet to dissolve on tongue. Given 05/24/2024 12:35 AM EST 4 mg PHENobarbital injection 210.6 mg 210.6 mg (rounded from 211.2 mg = 4 mg/kg ? 52.8 kg Leslie weight), intramuscular, Every 3 hours, First dose on Tue05/21/24 at 0000, For 3 doses Given 05/21/2024 5:20 AM EST 210.6 mg Right Deltoid Given 05/21/2024 2:45 AM EST 210.6 mg Le ft Deltoid Given 05/20/2024 11:17 PM EST 210.6 mg L eft Deltoid PHENobarbitaL tablet 48.6 mg 48.6 mg, oral, 2 times daily, First dose on Tue05/21/24 at 2100, For 4 doses Given 05/23/2024 8:53 AM EST 48.6 mg Given 05/22/2024 9:13 PM EST 48.6 mg Given 05/22/2024 9:04 AM EST 48.6 mg potassium chloride (KLOR-CON M20) CR tablet 20 mEq 20 mEq, oral, Once, On Tue05/21/24 at 2215, For 1 dose, Tablet may be swallowed whole (do not crush/chew/suck on) OR broken in half and each half swallowed separately OR dissolved (whole tablet) in ~4 ounces of water (allow ~2 minutes to dissolve, stir well and administer immediately). Given 05/21/2024 10:20 PM EST 20 mEq potassium chloride (KLOR-CON M20) CR tablet 20 mEq 20 mEq, oral, Once, On Tue05/22/24 at 0815, For 1 dose, Tablet may be swallowed whole (do not crush/chew/suck on) OR broken in half and each half swallowed separately OR dissolved (whole tablet) in ~4 ounces of water (allow ~2 minutes to dissolve, stir well and administer immediately). Given 05/22/2024 9:04 AM EST 20 mEq potassium chloride (KLOR-CON M20) CR tablet 20 mEq 20 mEq, oral, Once, On Tue05/23/24 at 1015, For 1 dose, Tablet may be swallowed whole (do not crush/chew/suck on) OR broken in half and each half swallowed separately OR dissolved (whole tablet) in ~4 ounces of water (allow ~2 minutes to dissolve, stir well and administer immediately). Given 05/23/2024 11:23 AM EST 20 mEq potassium chloride (KLOR-CON M20) CR tablet 40 mEq 40 mEq, oral, Once, On Tue05/21/24 at 2015, For 1 dose, Tablet may be swallowed whole (do not crush/chew/suck on) OR broken in half and each half swallowed separately OR dissolved (whole tablet) in ~4 ounces of water (allow ~2 minutes to dissolve, stir well and administer immediately). Given 05/21/2024 8:30 PM EST 40 mEq potassium chloride (KLOR-CON M20) CR tablet 40 mEq 40 mEq, oral, Once, On Tue05/23/24 at 0815, For 1 dose, Tablet may be swallowed whole (do not crush/chew/suck on) OR broken in half and each half swallowed separately OR dissolved (whole tablet) in ~4 ounces of water (allow ~2 minutes to dissolve, stir well and administer immediately). Given 05/23/2024 8:54 AM EST 40 mEq potassium chloride (KLOR-CON) packet 40 mEq 40 mEq, oral, Once, On Tue05/21/24 at 1400, For 1 dose, Dissolve each packet in 4 ounces of water = 5 mEq per 1 oz fluid. Given 05/21/2024 1:47 PM EST 40 mEq potassium chloride (KLOR-CON) packet 40 mEq 40 mEq, oral, Once, On Tue05/21/24 at 1600, For 1 dose, Dissolve each packet in 4 ounces of water = 5 mEq per 1 oz fluid. Given 05/21/2024 3:23 PM EST 40 mEq sodium chloride 0.9 % bolus 1,000 mL 1,000 mL, intravenous, at 2,000 mL/hr, Administer over 30 Minutes, Once, On Tue05/20/24 at 1316, For 1 dose New Bag 05/20/2024 1:32 PM EST 1,000 mL 2000 mL/hr sodium chloride 0.9 % flush 10 mL 10 mL, intravenous, Once, On Tue05/20/24 at 1603, For 1 dose Given 05/20/2024 4:04 PM EST 10 mL sodium chloride 0.9 % infusion 150 mL/hr, intravenous, Continuous, Starting on Tue05/20/24 at 1805, For 24 hours New Bag 05/21/2024 5:23 AM EST 150 mL/hr 150 mL/hr New Bag 05/20/2024 11:32 PM EST 150 mL/hr 150 mL/hr New Bag 05/20/2024 6:08 PM EST 150 mL/hr 150 mL/hr sodium chloride 0.9 % infusion 75 mL/hr, intravenous, Continuous, Starting on Tue05/21/24 at 2100, For 1 day 11 hours Rate/Dose Change 05/22/2024 2:30 PM EST 75 mL/hr 75 mL/hr New 05/22/2024 6:21 AM EST 125 mL/hr 125 mL/hr 05/21/2024 10:21 PM EST 125 mL/hr 125 mL/hr sodium chloride 0.9 % with KCl 40 mEq/L infusion 150 mL/hr, intravenous, Continuous, Starting on Tue05/21/24 at 0815, For 12 hours 05/21/2024 4:47 PM EST 150 mL/hr 150 mL/hr 05/21/2024 8:23 AM EST 150 mL/hr 150 mL/hr sodium phosphates 60 mmol in sodium chloride 0.9 % 500 mL IVPB 60 mmol, intravenous, at 83.3 mL/hr, Administer over 6 Hours, Once, On Tue05/22/24 at 0815, For 1 dose 05/22/2024 11:59 AM EST 60 mmol 83.3 mL/hr tamsulosin (FLOMAX) 24 hr capsule 0.4 mg 0.4 mg, oral, Daily, First dose on Tue05/22/24 at 1830, For oral administration: capsules should be swallowed whole (Do not crush, chew, or open). For tube administration: open capsule and administer with water (granules should NOT be crushed). Given 05/25/2024 9:54 AM EST 0.4 mg Given 05/24/2024 8:30 AM EST 0.4 mg Given 05/23/2024 8:53 AM EST 0.4 mg thiamine (VITAMIN B-1) tablet 100 mg 100 mg, oral, Daily, First dose on Tue05/21/24 at 0900 Given 05/25/2024 9:54 AM EST 100 mg Given 05/24/2024 8:30 AM EST 100 mg Given 05/23/2024 8:53 AM EST 100 mg traZODone (DESYREL) tablet 50 mg 50 mg, oral, Nightly, First dose on Tue05/24/24 at 2100 Given 05/24/2024 8:42 PM EST 50 mg documented in this encounter Active and Recently Administered Medications Times are shown in EST. Scheduled Medication Order 05/23/2024 05/24/2024 05/25/2024 cefTRIAXone (ROCEPHIN) 2 g in sterile water 20 mL IV syringe 2 g, intravenous, at 400 mL/hr, Administer over 3 Minutes, Every 24 hours, First dose on Tue05/24/24 at 1500, For 14 days, Do not administer simultaneously with any calcium containing solutions via a Y-site in any patient., Indication: Bacteremia 1537 (Given - Provider: Lara Torres RN) docusate sodium (COLACE) capsule 100 mg (CANCELED) 100 mg, oral, 2 times daily, First dose on Tue05/21/24 at 2100 0853 (Given - Provider: Sarah Ludwig RN) famotidine (PEPCID) tablet 20 mg 20 mg, oral, 2 times daily, First dose on Tue05/21/24 at 2100 0853 (Given - Provider: Sarah Ludwig RN)211 (Given - Provider: Janeth Wright, REBECCA) 0830 (Given - Provider: Lara Torres RN)2041 (Given - Provider: Noa Wilson RN) 0954 (Given - Provider: Yessi Cadet, REBECCA) folic acid (FOLVITE) tablet 1 mg 1 mg, oral, Daily, First dose on Tue05/21/24 at 0900 0853 (Given - Provider: Sarah Ludwig RN) 0830 (Given - Provider: Lara Torres RN) 0954 (Given - Provider: Yessi Cadet, REBECCA) magnesium oxide (MAG-OX) tablet 400 mg 400 mg, oral, Nightly, First dose on Tue05/23/24 at 2100 2119 (Given - Provider: Janeth Wright RN) 2041 (Given - Provider: Noa Wilson RN) magnesium sulfate 2 gram/50 mL (4 %) IVPB 2 g (COMPLETED) 2 g, intravenous, at 25 mL/hr, Administer over 2 Hours, Once, On Tue05/23/24 at 0815, For 1 dose 0854 (New Bag - Provider: Sarah Ludwig RN)1054 (Stopped - Provider: Sarah Ludwig RN) magnesium sulfate 2 gram/50 mL (4 %) IVPB 2 g (COMPLETED) 2 g, intravenous, at 25 mL/hr, Administer over 2 Hours, Once, On Julia 05/24/24 at 0800, For 1 dose 0829 (New Bag - Provider: Lara Torres, REBECCA)1026 (Stopped - Provider: Lara Torres RN) melatonin tablet 3 mg (COMPLETED) 3 mg, oral, Once, On Julia 05/24/24 at 0315, For 1 dose 0331 (Given - Provider: Noa Wilson, RN) metroNIDAZOLE (FLAGYL) IVPB 500 mg 500 mg, intravenous, at 100 mL/hr, Administer over 60 Minutes, Every 8 hours, First dose on Julia 05/24/24 at 1430, For 7 days, premix bag, Indication: Bacteremia 1537 (New Bag - Provider: Lara Torres RN)1632 (Stopped - Provider: Lara Torres RN)2239 (New Bag - Provider: Noa Wilson, RN) 0005 (Stopped - Provider: Noa Wilson, RN)0541 (New Bag - Provider: Janeth Wright RN)0654 (Stopped - Provider: Noa Wilson RN) multivitamin tablet 1 tablet 1 tablet (1 each), oral, Daily, First dose on Tue05/21/24 at 0900 0853 (Given - Provider: Sarah Ludwig RN) 0830 (Given - Provider: Lara Torres RN) 0954 (Given - Provider: Yessi Cadet, REBECCA) naltrexone (DEPADE) tablet 50 mg 50 mg, oral, Daily, First dose on Tue05/24/24 at 1500, On hold since Tue05/25/2024 at 0721 until manually unheld 1538 (Given - Provider: Lara Torres RN) 0721 (Held by provider - Provider: WILLY Gomes - Reason: Other)0900 (Not Given - Provider: Yessi Cadet, REBECCA - Reason: See Provider Order)1329 (Unheld by provider - Provider: Automatic Discharge Provider) PHENobarbitaL tablet 48.6 mg (COMPLETED)(Linked Group 1) 48.6 mg, oral, 2 times daily, First dose on Tue05/21/24 at 2100, For 4 doses 0853 (Given - Provider: Sarah Ludwig RN) potassium chloride (KLOR-CON M20) CR tablet 20 mEq (COMPLETED)(Linked Group 2) 20 mEq, oral, Once, On Tue05/23/24 at 1015, For 1 dose, Tablet may be swallowed whole (do not crush/chew/suck on) OR broken in half and each half swallowed separately OR dissolved (whole tablet) in ~4 ounces of water (allow ~2 minutes to dissolve, stir well and administer immediately). 1123 (Given - Provider: Sarah Ludwig RN) potassium chloride (KLOR-CON M20) CR tablet 40 mEq (COMPLETED)(Linked Group 2) 40 mEq, oral, Once, On Tue05/23/24 at 0815, For 1 dose, Tablet may be swallowed whole (do not crush/chew/suck on) OR broken in half and each half swallowed separately OR dissolved (whole tablet) in ~4 ounces of water (allow ~2 minutes to dissolve, stir well and administer immediately). 0854 (Given - Provider: Sarah Ludwig RN) tamsulosin (FLOMAX) 24 hr capsule 0.4 mg 0.4 mg, oral, Daily, First dose on Tue05/22/24 at 1830, For oral administration: capsules should be swallowed whole (Do not crush, chew, or open). For tube administration: open capsule and administer with water (granules should NOT be crushed). 0853 (Given - Provider: Sarah Ludwig RN) 0830 (Given - Provider: Lara Torres RN) 0954 (Given - Provider: Yessi Cadet, REBECCA) thiamine (VITAMIN B-1) tablet 100 mg 100 mg, oral, Daily, First dose on Tue05/21/24 at 0900 0853 (Given - Provider: Sarah Ludwig RN) 0830 (Given - Provider: Lara Torres RN) 0954 (Given - Provider: Yessi Cadet, REBECCA) traZODone (DESYREL) tablet 50 mg 50 mg, oral, Nightly, First dose on Julia 05/24/24 at 2100 2042 (Given - Provider: Noa Wilson RN) PRN Medication Order 05/23/2024 05/24/2024 05/25/2024 acetaminophen (TYLENOL) tablet 650 mg 650 mg, oral, Every 6 hours PRN, mild pain, headaches, fever - temperature GREATER than 38 C (100.4 F), Starting on Tue05/21/24 at 0457 dextrose (D50W) 50% injection 12.5 g 12.5 g, intravenous, Every 15 min PRN, low blood sugar, moderate hypoglycemia *Patient is Unconscious, NPO, unable to swallow: BG 54 - 69 mg/dl*, Starting on Tue05/21/24 at 1632 dextrose (D50W) 50% injection 25 g 25 g, intravenous, Every 15 min PRN, low blood sugar, severe hypoglycemia *Patient is Unconscious, NPO, unable to swallow: BG LESS than 54 mg/dL*, Starting on Tue05/21/24 at 1632 dextrose 15 gram/60 mL oral solution 15 g 15 g, oral, Every 15 min PRN, low blood sugar, hypoglycemia *Patient conscious AND able to drink and swallow safely*, Starting on Tue05/21/24 at 1632 dextrose 15 gram/60 mL oral solution 30 g 30 g, oral, Every 15 min PRN, low blood sugar, hypoglycemia *Patient conscious AND able to drink and swallow safely*, Starting on Tue05/21/24 at 1632 diphenhydrAMINE (BENADRYL) injection 25 mg 25 mg, intravenous, Every 6 hours PRN, itching, Starting on Tue05/21/24 at 1620 0830 (Given - Provider: Lara Torres RN) Glucagon HCl (rDNA) injection 1 mg 1 mg, intramuscular, Once as needed, low blood sugar, severe hypoglycemia, Starting on Tue05/21/24 at 1632, For 1 dose LORazepam (ATIVAN) injection 2 mg 2 mg, intravenous, Every 15 min PRN, seizures, Status epilepticus, Starting on Tue05/20/24 at 1805, Prior to IV use, lorazepam injection should be DILUTED with an equal volume of compatible solution; Rate of administration should NOT exceed 2 mg/min. LORazepam (ATIVAN) tablet 2 mg(Linked Group 3) 2 mg, oral, Every 1 hour PRN, CIWA-Ar 10-18, Starting on Julia 05/24/24 at 1749, Re-assess CIWA-Ar in 1 hour Hold dose and notify provider for BP LESS than 90/60, RR LESS than 10 per minute, marked somnolence, pooling of secretions, intoxicated symptoms (ataxia, slurred speech.) Notify provider if 12 mg is given within 4 hours. LORazepam (ATIVAN) tablet 3 mg(Linked Group 3) 3 mg, oral, Every 1 hour PRN, CIWA-Ar GREATER than or EQUAL to 19 WITHOUT evidence of seizure OR hallucinations, Starting on Julia 05/24/24 at 1749, Re-assess CIWA-Ar in 1 hour Hold dose and notify provider for BP LESS than 90/60, RR LESS than 10 per minute, marked somnolence, pooling of secretions, intoxicated symptoms (ataxia, slurred speech.) Notify provider if 12 mg is given within 4 hours. LORazepam (ATIVAN) tablet 4 mg(Linked Group 3) 4 mg, oral, Every 1 hour PRN, CIWA-Ar GREATER than or EQUAL to 19 AND seizure OR hallucination, Starting on Julia 05/24/24 at 1749, Notify provider Re-assess CIWA-Ar in 1 hour Hold dose and notify provider for BP LESS than 90/60, RR LESS than 10 per minute, marked somnolence, pooling of secretions, intoxicated symptoms (ataxia, slurred speech.) Notify provider if 12 mg is given within 4 hours. melatonin tablet 3 mg 3 mg, oral, Nightly PRN, sleep, Starting on Tue05/23/24 at 2106 2119 (Given - Provider: Janeth Wright RN) 2341 (Given - Provider: Noa Wilson RN) ondansetron (PF) (ZOFRAN) injection 4 mg(Linked Group 4) 4 mg, intravenous, Every 8 hours PRN, vomiting, nausea, Starting on Tue05/23/24 at 2328, -ONLY give IV if patient is unable to take orally. -If inadequate response within 30 minutes, proceed to next-line agent or contact provider if no further options ordered. 0035 (See Alternative - Provider: Noa Wilson, REBECCA) ondansetron ODT (ZOFRAN-ODT) disintegrating tablet 4 mg(Linked Group 4) 4 mg, oral, Every 8 hours PRN, vomiting, nausea, Starting on Tue05/23/24 at 2328, -Give IV if patient is unable to take orally. -If inadequate response within 30 minutes, proceed to next-line agent or contact provider if no further options ordered. For ODT tablets: -Do not remove from blister pack until just before administering. -Patient should allow tablet to dissolve on tongue. 0035 (Given - Provider: Noa Wilson RN) Linked Groups Order Group 1: PHENobarbital injection 210.6 mg (COMPLETED) 210.6 mg (rounded from 211.2 mg = 4 mg/kg ? 52.8 kg Leslie weight), intramuscular, Every 3 hours, First dose on Tue05/21/24 at 0000, For 3 doses Followed by PHENobarbitaL tablet 48.6 mg (COMPLETED)Jump to med 48.6 mg, oral, 2 times daily, First dose on Tue05/21/24 at 2100, For 4 doses Followed by PHENobarbitaL tablet 16.2 mg (CANCELED) 16.2 mg, oral, 2 times daily, First dose on Tue05/23/24 at 2100, For 4 doses Group 2: potassium chloride (KLOR-CON M20) CR tablet 40 mEq (COMPLETED)Jump to med 40 mEq, oral, Once, On Tue05/23/24 at 0815, For 1 dose, Tablet may be swallowed whole (do not crush/chew/suck on) OR broken in half and each half swallowed separately OR dissolved (whole tablet) in ~4 ounces of water (allow ~2 minutes to dissolve, stir well and administer immediately). Followed by potassium chloride (KLOR-CON M20) CR tablet 20 mEq (COMPLETED)Jump to med 20 mEq, oral, Once, On Tue05/23/24 at 1015, For 1 dose, Tablet may be swallowed whole (do not crush/chew/suck on) OR broken in half and each half swallowed separately OR dissolved (whole tablet) in ~4 ounces of water (allow ~2 minutes to dissolve, stir well and administer immediately). Group 3: LORazepam (ATIVAN) tablet 2 mgJump to med 2 mg, oral, Every 1 hour PRN, CIWA-Ar 10-18, Starting on Julia 05/24/24 at 1749, Re-assess CIWA-Ar in 1 hour Hold dose and notify provider for BP LESS than 90/60, RR LESS than 10 per minute, marked somnolence, pooling of secretions, intoxicated symptoms (ataxia, slurred speech.) Notify provider if 12 mg is given within 4 hours. Or LORazepam (ATIVAN) tablet 3 mgJump to med 3 mg, oral, Every 1 hour PRN, CIWA-Ar GREATER than or EQUAL to 19 WITHOUT evidence of seizure OR hallucinations, Starting on Julia 05/24/24 at 1749, Re-assess CIWA-Ar in 1 hour Hold dose and notify provider for BP LESS than 90/60, RR LESS than 10 per minute, marked somnolence, pooling of secretions, intoxicated symptoms (ataxia, slurred speech.) Notify provider if 12 mg is given within 4 hours. Or LORazepam (ATIVAN) tablet 4 mgJump to med 4 mg, oral, Every 1 hour PRN, CIWA-Ar GREATER than or EQUAL to 19 AND seizure OR hallucination, Starting on Julia 05/24/24 at 1749, Notify provider Re-assess CIWA- Ar in 1 hour Hold dose and notify provider for BP LESS than 90/60, RR LESS than 10 per minute, marked somnolence, pooling of secretions, intoxicated symptoms (ataxia, slurred speech.) Notify provider if 12 mg is given within 4 hours. Group 4: ondansetron ODT (ZOFRAN-ODT) disintegrating tablet 4 mgJump to med 4 mg, oral, Every 8 hours PRN, vomiting, nausea, Starting on Tue05/23/24 at 2328, -Give IV if patient is unable to take orally. -If inadequate response within 30 minutes, proceed to next-line agent or contact provider if no further options ordered. For ODT tablets: -Do not remove from blister pack until just before administering. -Patient should allow tablet to dissolve on tongue. Or ondansetron (PF) (ZOFRAN) injection 4 mgJump to med 4 mg, intravenous, Every 8 hours PRN, vomiting, nausea, Starting on Tue05/23/24 at 2328, -ONLY give IV if patient is unable to take orally. -If inadequate response within 30 minutes, proceed to next-line agent or contact provider if no further options ordered. documented in this encounter Orders Medications Ordered That Lee ht Not Have Been Administered Count Last Ordered Date First Ordered Date LORazepam (ATIVAN) tablet 1 mg 1 05/24/2024 LORazepam (ATIVAN) tablet 2 mg 1 05/24/2024 LORazepam (ATIVAN) tablet 3 mg 1 05/24/2024 LORazepam (ATIVAN) tablet 4 mg 1 05/24/2024 methadone (METHADOSE) disper sible tablet 20 mg 1 05/24/2024 naltrexone (DEPADE) tablet 50 mg 1 05/24/19 ondansetron (PF) (ZOFRAN) injection 4 mg 1 05/23/2024 dextrose (D50W) 50% injection 12.5 g 1 05/05 dextrose (D50W) 50% injection 25 g 1 2024 dextrose 15 gram/60 mL oral solution 15 g 1 05/21/2024 dextrose 15 gram/60 mL oral solution 30 g 1 05/21/2024 Glucagon HCl (rDNA) injection 1 mg 1 2024 LORazepam (ATIVAN) injection 2 mg 1 PHENobarbitaL tablet 16.2 mg 1 05/20/2024 Nursing Count Last Ordered Date First Orde red Date INSERT INDWELLING CATHETER 1 05/20/2024 Consult Count Last Ordered Date First Orde red Date IP CONSULT TO UROLOGY 1 05/23/2024 IP CONSULT TO INFECTIOUS DISEASES 1 025 IP CONSULT TO ADDICTION MEDICINE 1 05/21/19 25 IP CONSULT TO SOCIAL WORK 1 05/21/2024 Admission Count Last Ordered Date First Orde red Date ADMIT TO INPATIENT 1 05/20/2024 Transfer Count Last Ordered Date First Orde red Date TRANSFER PATIENT TO NEW UNIT 1 05/22/2024 ED TO FLOOR BED REQUEST 1 05/20/2024 documented in this encounter Additional Health Concerns Infection Onset Date Last Indicated Resolved Time Gastrointestinal Rule-Out 05/18/2024 05/24/2024 11:18 AM EST Respiratory Rule-Out 05/21/2024 05/21/2024 025 11:45 AM EST COVID-19 Rule-Out 05/21/2024 05/21/2024 05/21/2024 11:45 AM EST Norovirus 05/24/2024 05/24/2024 documented as of this encounter 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
--- OUTSIDE RECORDS SUMMARY | 2024-05-30 03:35 | XMS_ITS | Clinical Summary ---
Author Organization [facility] Address [address] [place] [address] Phone Care Team Providers Care Car Park Attendant Name Role Phone Alfredo Carias MD Primary Care Provider [phone] Allergies No known active allergies Medications tamsulosin (FLOMAX) 0.4 mg 24 hr capsule Take 1 capsule (0.4 mg total) by mouth 1 (one) time each day for 10 days. Capsules should be taken 30 minutes following the same meal each day. 10 each 06/05/19 Active Active Problems Problem Noted Date Diagnosed Date Alcohol withdrawal 05/18/2024 Transaminitis Encounters Date Type Department Care Team Description 05/29/2024 3:08 AM EST - 05/29/2024 5:22 AM EST Emergency [facility] Emergency [address] [place] [id number] Timmy Sarkar MD Alcoholic intoxication without complication (CMS/HCC) (Primary Dx); Alcohol-induced acute pancreatitis without infection or necrosis Discharge Disposition: Home or Self Care 05/20/2024 12:27 PM EST - 05/25/2024 11:24 AM EST Hospital Encounter [facility] Urology Unit [address] [place] [phone] Luis Miguel Wells MD Seralathan, Manikandan, MD Acute pancreatitis, unspecified complication status, unspecified pancreatitis type (Primary Dx); Acute urinary retention Discharge Disposition: Left Against Medical Advice 05/18/2024 12:25 AM EST - 05/18/2024 11:35 AM EST Hospital Encounter [facility] Emergency [address] [place] [address] Caryn Valencia MD Ishtiaq, MD Bunny Monteiro Yar M, MD Alcohol withdrawal syndrome without complication (CMS/HCC) (Primary Dx); Dehydration; Hypomagnesemia Discharge Disposition: Left Against Medical Advice from Last 3 Months Medical History Medical History Date Comments Alcohol abuse with withdrawal (CMS/HCC) Alcohol related seizure (CMS/HCC) Transaminitis Anxiety Depression Tobacco use disorder 2024 current Social History Tobacco Use Types Packs/Day Years [...] Orientation Straight 05/20/2024 12 :30 PM EST Obstetrics History Last Filed Vital Signs Vital Sign Reading Time Taken Comments Blood Pressure 106/58 05/29/2024 3:50 AM EST Pulse 105 05/29/2024 3:50 AM EST Temperature 37.2 ??C (99 ??F) 05/29/2024 3:18 AM EST Respiratory Rate 22 05/29/2024 3:18 AM EST Oxygen Saturation 98% 05/29/2024 3:18 AM EST Inhaled Oxygen Concentration - - Weight 68 kg (150 lb) 05/29/2024 3:19 AM EST Height 177.8 cm (5' 10 ) 05/29/2024 3:19 AM EST Body Mass Index 21.52 05/29/2024 3:19 AM EST Plan of Treatment Health Maintenance Due Date Last Done Comments Hepatitis A Vaccines (1 of 2 - Risk 2-dose series) 2001 Hepatitis B Vaccines (1 of 3 - 19+ 3-dose series) 2001 Pneumococcal Vaccine: Pediatrics (0 to 5 Years) and At-Risk Patients (6 to 64 Years) (1 of 2 - PCV) 2001 COVID-19 Vaccine (2023-2 5 season) 2023 01/14/2022, 05/01/2021, 04/09/2021 Influenza Vaccine (#1) 2023 Cholesterol Screening (Lipid Panel) 05/18/2024 Depression Screening 05/18/2024 Social Influencers of Health Screening 05/18/2024 DTaP,Tdap,and Td Vaccines (3 - Td or Tdap) 12/08/2031 12/07/2021, 11/16/2000 HIV Screening Completed 05/22/2024 Hepatitis C Screening Completed 05/22/2024 HIB Vaccines Aged Out No longer eligi ble based on patient's age to complete this topic HPV Vaccines Aged Out No longer eligi ble based on patient's age to complete this topic IPV Vaccines Aged Out No longer eligi ble based on patient's age to complete this topic MMR Vaccines Aged Out No longer eligi ble based on patient's age to complete this topic Meningococcal ACWY Vaccine Aged Out N o longer eligible based on patient's age to complete this topic Meningococcal B Vacine Aged Out No lo nger eligible based on patient's age to complete this topic RSV Immunization Patients Under 20 months Aged Out No longer eligible b ased on patient's age to complete this topic Varicella Vaccines Aged Out No longer eligible based on patient's age to complete this topic Procedures Procedure Name Priority Date/Time Associated Diagnosis Comments CHERRY URINE CULTURE TUBE STAT 05/29/19 4:11 AM EST URINALYSIS WITH REFLEX MICROSCOPIC AND CULTURE STAT 05/29/2024 4:11 AM EST URINALYSIS WITH REFLEX MICROSCOPIC AND CULTURE STAT 05/29/2024 4:11 AM EST DRUG ABUSE SCREEN 8A PANEL, URINE STAT 05/29/2024 4:11 AM EST MANUAL DIFFERENTIAL - SYSMEX WAM STAT 05/29/2024 3:50 AM EST CBC WITH AUTO DIFFERENTIAL STAT 05/29/2024 3:50 AM EST ETHANOL STAT 05/29/2024 3:50 AM EST LIPASE STAT 05/29/2024 3:50 AM EST COMPREHENSIVE METABOLIC PANEL STAT 05/29/2024 3:50 AM EST CBC AND DIFFERENTIAL STAT 05/29/2024 3:50 AM EST ECG 12-LEAD STAT 05/29/2024 3:37 AM EST POCT GLUCOSE BLOOD Routine 05/25/2024 7: 59 AM EST PHOSPHORUS Routine 05/25/2024 6:36 AM EST MAGNESIUM Routine 05/25/2024 6:36 AM EST COMPREHENSIVE METABOLIC PANEL Routine 05/25/2024 6:36 AM EST LAVENDER - EDTA Routine 05/25/2024 6:33 AM EST EXTRA TUBES Routine 05/25/2024 6:33 AM EST ECG 12-LEAD [...] BURGDORFERI ANTIBODY Add-On 05/23/2024 5:46 AM EST MAGNESIUM Routine 05/23/2024 5:46 AM EST PHOSPHORUS Routine 05/23/2024 5:46 AM EST COMPREHENSIVE METABOLIC PANEL Routine 05/23/2024 5:46 AM EST LAVENDER - EDTA Routine 05/23/2024 5:45 AM EST EXTRA TUBES Routine 05/23/2024 5:45 AM EST POCT GLUCOSE BLOOD Routine 05/22/2024 8: 15 PM EST POCT GLUCOSE BLOOD Routine 05/22/2024 3: 25 PM EST ECG 12-LEAD Routine 05/22/2024 1:37 PM EST POCT GLUCOSE BLOOD Routine 05/22/2024 11 :25 AM EST POCT GLUCOSE BLOOD Routine 05/22/2024 7: 53 AM EST XR CHEST 1 VIEW STAT 05/22/2024 7:38 AM EST SEDIMENTATION RATE Add-On 05/22/2024 5: 59 AM EST HEPATITIS PANEL, ACUTE WITH REFLEX TO CONFIRMATION Add-On 05/22/2024 5:59 AM EST HIV 1, 2 ANTIBODY, P24 ANTIGEN WITH REFLEX TO DIFFERENTIATION Add-On 05/22/2024 5:59 AM EST CBC WITH AUTO DIFFERENTIAL Routine 05/22/2024 5:59 AM EST HEPATIC FUNCTION PANEL Routine 5:59 AM EST PHOSPHORUS Routine 05/22/2024 5:59 AM EST MAGNESIUM Routine 05/22/2024 5:59 AM EST BASIC METABOLIC PANEL Routine 05/22/2024 5:59 AM EST CBC AND DIFFERENTIAL Routine 05/22/2024 5:59 AM EST ECG ANNOTATED 05/22/2024 POCT GLUCOSE BLOOD Routine 05/21/2024 10 :19 PM EST LACTATE STAT 05/21/2024 9:33 PM EST BLOOD CULTURE PATHOGENS BY PCR Routine 05/21/2024 9:33 PM EST CULTURE BLOOD STAT 05/21/2024 9:33 PM EST CULTURE BLOOD STAT 05/21/2024 9:33 PM EST POCT GLUCOSE BLOOD Routine 05/21/2024 8: 18 PM EST POTASSIUM Routine 05/21/2024 6:58 PM EST POCT GLUCOSE BLOOD Routine 05/21/2024 5: 03 PM EST ECG 12-LEAD Routine 05/21/2024 3:16 PM EST POTASSIUM Routine 05/21/2024 1:02 PM EST RESPIRATORY VIRUS PANEL MOLECULAR STUDY Routine 05/21/2024 10:17 AM EST HEMOGLOBIN A1C Add-On 05/21/2024 6:14 AM EST CBC WITH AUTO DIFFERENTIAL Routine 05/21/2024 6:14 AM EST CBC AND DIFFERENTIAL Routine 05/21/2024 6:14 AM EST COMPREHENSIVE METABOLIC PANEL Routine 05/21/2024 6:14 AM EST MAGNESIUM Routine 05/21/2024 6:14 AM EST ECG 12-LEAD Routine 05/20/2024 11:21 PM EST CHERRY URINE CULTURE TUBE STAT 05/20/19 25 5:39 PM EST URINALYSIS WITH REFLEX MICROSCOPIC AND CULTURE STAT 05/20/2024 5:39 PM EST URINALYSIS WITH REFLEX MICROSCOPIC AND CULTURE STAT 05/20/2024 5:39 PM EST METHADONE SCREEN, URINE STAT 05/20/19 25 5:39 PM EST PHENCYCLIDINE, URINE STAT 05/20/2024 5:39 PM EST BUPRENORPHINE SCREEN, URINE STAT 05/20/2024 5:39 PM EST DRUG ABUSE SCREEN 8A PANEL, URINE STAT 05/20/2024 5:[address] ABDOMEN PELVIS W CONTRAST STAT 05/20/2024 4:07 PM EST CBC WITH AUTO DIFFERENTIAL STAT 05/20/2024 12:53 PM EST CBC AND DIFFERENTIAL STAT 05/20/2024 12:53 PM EST COMPREHENSIVE METABOLIC PANEL STAT 05/20/2024 12:53 PM EST LIPASE STAT 05/20/2024 12:53 PM EST MAGNESIUM STAT 05/20/2024 12:53 PM EST ETHANOL STAT 05/20/2024 12:53 PM EST CBC WITH AUTO DIFFERENTIAL Routine 05/18/2024 10:42 AM EST COMPREHENSIVE METABOLIC PANEL Routine 05/18/2024 10:42 AM EST MAGNESIUM Routine 05/18/2024 10:42 AM EST CBC AND DIFFERENTIAL Routine 05/18/2024 10:42 AM EST DRUG ABUSE SCREEN 8A PANEL, URINE Routine 05/18/2024 9:21 AM EST ECG 12-LEAD STAT 05/18/2024 9:08 AM EST VENOUS BLOOD GAS STAT 05/18/2024 6:51 AM EST BETA HYDROXYBUTYRATE Add-On 05/18/2024 4:12 AM EST ETHANOL Add-On 05/18/2024 4:12 AM EST MAGNESIUM STAT 05/18/2024 4:12 AM EST COMPREHENSIVE METABOLIC PANEL STAT 05/18/2024 4:12 AM EST CBC WITH AUTO DIFFERENTIAL STAT 05/18/2024 3:30 AM EST CBC AND DIFFERENTIAL STAT 05/18/2024 3:30 AM EST from Last 3 Months Results * (ABNORMAL) Urinalysis with reflex microscopic and culture (05/29/2024 4:11 AM [facility]) Only the most recent of2 resultswithin the time period is included. Specific [place] Urine 1.014 1.003 - 1.030 LAB URINALYSIS - AUTOMATED METHOD 05/29/2024 5:32 AM [facility] pH, Urine 6.0 5.0 - 8.0 pH LAB URINALYSIS - AUTOMATED METHOD 05/29/2024 5:32 AM [facility] Leukocytes, Urine Moderate(A) Negative LAB URINALYSIS - AUTOMATED METHOD 05/29/2024 5:32 AM [facility] Nitrite, Urine Negative Negative LAB URINALYSIS - AUTOMATED METHOD 05/29/2024 5:32 AM [facility] Protein, Urine 30(A) <=Trace mg/dL LAB URINALYSIS - AUTOMATED METHOD 05/29/2024 5:32 AM [facility] Glucose, Urine 100(A) Negative mg/dL LAB URINALYSIS - AUTOMATED METHOD 05/29/2024 5:32 AM [facility] Ketones, Urine Negative Negative mg/dL LAB URINALYSIS - AUTOMATED METHOD 05/29/2024 5:32 AM [facility] Urobilinogen , Urine 0.2 0.2 - 1.0 mg/dL LAB URINALYSIS - AUTOMATED METHOD 05/29/2024 5:32 AM [facility] Bilirubin, Urine Negative Negative LAB URINALYSIS - AUTOMATED METHOD 05/29/2024 5:32 AM [facility] Blood, Urine Large(A) Negative LAB URINALYSIS - AUTOMATED METHOD 05/29/2024 5:32 AM [facility] RBC, Urine 130(H) 0 - 4 /HPF LAB URINALYSIS - AUTOMATED METHOD 05/29/2024 5:32 AM [facility] WBC, Urine 46.6(H) 0 - 4 /HPF LAB URINALYSIS - AUTOMATED METHOD 05/29/2024 5:32 AM [facility] Squamous Epithelial, Urine 3 0 - 60 /LPF LAB URINALYSIS - AUTOMATED METHOD 05/29/2024 5:32 AM [facility] Crystals, Urine Moderate calcium oxalate /LPF LAB URINALYSIS - AUTOMATED METHOD 05/29/2024 5:32 AM [facility] Bacteria, Urine Moderate(A) Negative /HPF LAB URINALYSIS - AUTOMATED METHOD 05/29/2024 5:32 AM [facility] Hyaline Casts, Urine 1.6 0 - 3 /LPF LAB URINALYSIS - AUTOMATED METHOD 05/29/2024 5:32 AM [facility] Urine Urine specimen obtained by clean catch procedure / Unknown Non-blood Collection / Unknown 05/29/2024 4:11 AM EST 05/29/2024 5:02 AM EST us Timmy Sarkar MD LAB URINE ORDERABLES Edited Res ult - Final Performing Organization Address City/[facility]/ZIP Co de Phone Number [facility] [address] [place] [address], [place] [phone] * Cherry urine culture tube (05/29/2024 4:11 AM EST) Only the most recent of2 resultswithin the time period is included. Extra Tube Hold for add-ons. 05/29/2024 7:01 AM [facility] Comment:Auto resulted. Urine Urine specimen obtained by clean catch procedure / Unknown Non-blood Collection / Unknown 05/29/2024 4:11 AM EST 05/29/2024 5:01 AM EST us Timmy Sarkar MD LAB URINE ORDERABLES Final Resu lt Performing Organization Address [facility]/ZIP Co de Phone Number [facility] [address] [place] [address], [place] [phone] * (ABNORMAL) Drug abuse screen 8a panel, urine (05/29/2024 4:11 AM EST) Only the most recent of3 resultswithin the time period is included. Amphetamine Screen, Ur Negative Negative LAB CHEMISTRY METHOD 5 5:37 AM [facility] Comment:Certain OTC medicati ons containing ephedrine, phenylephrine, pseudoephedrine and phenylpropanolamine can cause false positive results. Barbiturate Screen, Ur Positive(A ) Negative LAB CHEMISTRY METHOD 5 5:37 AM [facility] Benzodiazepine Screen, Ur Negative Negative LAB CHEMISTRY METHOD 5 5:37 AM [facility] Cocaine Screen, Ur Negative Negative LAB CHEMISTRY METHOD 5 5:37 AM [facility] Opiate Screen, Ur Negative Negative LAB CHEMISTRY METHOD 5 5:37 AM [facility] Cannabinoid (THC) Screen, Ur Negative Negative LAB CHEMISTRY METHOD 5 5:37 AM [facility] Comment:Specimens from patie nts taking pantoprazole sodium (Protonix) have been shown to produce false positive results. Oxycodone Screen, Ur Negative Negative LAB CHEMISTRY METHOD 5 5:37 AM [facility] Fentanyl, Ur Negative Negative LAB CHEMISTRY METHOD 5 5:37 AM [facility] Urine Urine specimen obtained by clean catch procedure / Unknown Non-blood Collection / Unknown 05/29/2024 4:11 AM EST 05/29/2024 5:01 AM EST [facility] - 05/29/2024 5:37 AM EST Assay cutoffs: Amphetamines ? 1000 ng/mL Barbiturates ?200 ng/mL Benzodiazepines ?? 200 ng/mL Cocaine ? 300 ng/mL Fentanyl ?1 ng/mL Opiates ? 300 ng/mL Oxycodone ? 100 ng/mL THC ?50 ng/mL Semi-quantitative assay for screening purposes only. Unconfirmed screening result should not be used for non-medical purposes. *ALTERNATE METHOD CONFIRMATION DONE UPON REQUEST ONLY* Timmy Sarkar MD LAB URINE ORDERABLES Final Resu lt [facility] [address] [place] [address], [place] [phone] * (ABNORMAL) Manual differential (05/29/2024 3:50 AM EST) Neutrophils % 64.0 % LAB HEMETOLOGY METHOD 05/29/2024 4:38 AM [facility] Lymphocytes % 18.0 % LAB HEMETOLOGY METHOD 05/29/2024 4:38 AM [facility] Monocytes % 13.0 % LAB HEMETOLOGY METHOD 05/29/2024 4:38 AM [facility] Eosinophils % 2.0 % LAB HEMETOLOGY METHOD 05/29/2024 4:38 AM [facility] Basophils % 3.0 % LAB HEMETOLOGY METHOD 05/29/2024 4:38 AM [facility] Neutrophils Absolute Manual 3.01 1.50 - 7.00 K/mcL LAB HEMETOLOGY METHOD 05/29/2024 4:38 AM [facility] Lymphocytes Absolute 0.85(L) 1.00 - 5.00 K/mcL LAB HEMETOLOGY METHOD 05/29/2024 4:38 AM [facility] Monocytes Absolute Manual 0.61 0.20 - 1.00 K/mcL LAB HEMETOLOGY METHOD 05/29/2024 4:38 AM [facility] Eosinophils Absolute Manual 0.09 0.00 - 0.50 K/mcL LAB HEMETOLOGY METHOD 05/29/2024 4:38 AM EST [facility] Basophils Absolute Manual 0.14 0.00 - 0.20 K/mcL LAB HEMETOLOGY METHOD 05/29/2024 4:38 AM EST [facility] Rbc Morphology Consistent with indices Consistent with indices, Normal for [place] LAB HEMETOLOGY METHOD 05/29/2024 4:38 AM EST [facility] Platelet Morphology - WAM Normal Normal LAB HEMETOLOGY METHOD 05/29/2024 4:38 AM [facility] Blood Venous blood specimen / Unknown Venipuncture / Unknown 05/29/2024 3:50 AM EST 05/29/2024 4:02 AM EST us Timmy Sarkar MD LAB BLOOD ORDERABLES Final Resu lt [facility] [address] [place] [address], [place] [phone] * (ABNORMAL) CBC auto differential (05/29/2024 3:50 AM EST) Only the most recent of7 resultswithin the time period is included. WBC 4.7(L) 4.8 - 10.8 K/mcL LAB HEMETOLOGY METHOD 05/29/2024 4:38 AM EST [facility] RBC 3.20(L) 4.50 - 5.50 M/mcL LAB HEMETOLOGY METHOD 05/29/2024 4:38 AM [facility] Hemoglobin 9.9(L) 13.5 - 17.5 g/dL LAB HEMETOLOGY METHOD 05/29/2024 4:38 AM [facility] Hematocrit 30.2(L) 42.0 - 54.0 % LAB HEMETOLOGY METHOD 05/29/2024 4:38 AM EST [facility] MCV 95.3 79.0 - 98.0 FL LAB HEMETOLOGY METHOD 05/29/2024 4:38 AM EST [facility] MCH 31.2 27.0 - 32.0 pcg LAB HEMETOLOGY METHOD 05/29/2024 4:38 AM EST [facility] MCHC 32.8 32.0 - 37.0 g/dL LAB HEMETOLOGY METHOD 05/29/2024 4:38 AM EST [facility] RDW 14.9 11.0 - 15.0 % LAB HEMETOLOGY METHOD 05/29/2024 4:38 AM [facility] Platelets 423(H) 130 - 400 K/mcL LAB HEMETOLOGY METHOD 05/29/2024 4:38 AM EST [facility] MPV 8.7 7.0 - 11.0 FL LAB HEMETOLOGY METHOD 05/29/2024 4:38 AM [facility] NRBC 0.0 <1.0 % LAB HEMETOLOGY METHOD 05/29/2024 4:38 AM [facility] NRBC Absolute 0.00 <0.10 K/mcL LAB HEMETOLOGY METHOD 05/29/2024 4:38 AM [facility] Blood Venous blood specimen / Unknown Venipuncture / Unknown 05/29/2024 3:50 AM EST 05/29/2024 4:02 AM EST us Timmy Sarkar MD LAB BLOOD ORDERABLES Final Resu lt [facility] [address] [place] [address], * (ABNORMAL) Lipase (05/29/2024 3:50 AM EST) Only the most recent of2 resultswithin the time period is included. Lipase 942(H) 13 - 75 unit/L LAB CHEMISTRY METHOD 05/29/2024 4:41 AM EST [facility] Blood Venous blood specimen / Unknown Venipuncture / Unknown 05/29/2024 3:50 AM EST 05/29/2024 4:02 AM EST us Timmy Sarkar MD LAB BLOOD ORDERABLES Final Resu lt Performing Organization Address City/[facility]/ZIP Co de Phone Number [facility] [address] [place] [address], [place] [phone] * (ABNORMAL) Ethanol (05/29/2024 3:50 AM EST) Only the most recent of3 resultswithin the time period is included. Ethanol Level 345(H) 0 - 10 mg/dL LAB CHEMISTRY METHOD 05/29/2024 4:50 AM EST [facility] Blood Venous blood specimen / Unknown Venipuncture / Unknown 05/29/2024 3:50 AM EST 05/29/2024 4:02 AM EST us Timmy Sarkar MD LAB BLOOD ORDERABLES Final Resu lt Performing Organization Address [facility] Co de Phone Number [facility] [address] [place] [address], [place] [phone] * (ABNORMAL) Comprehensive metabolic panel (05/29/2024 3:50 AM EST) Only the most recent of8 resultswithin the time period is included. Sodium 142 133 - 145 mmol/L LAB CHEMISTRY METHOD 05/29/2024 4:41 AM EST [facility] Potassium 3.7 3.5 - 5.5 mmol/L LAB CHEMISTRY METHOD 05/29/2024 4:41 AM EST [facility] Chloride 111(H) 96 - 110 mmol/L LAB CHEMISTRY METHOD 05/29/2024 4:41 AM EST [facility] CO2 21 21 - 32 mmol/L LAB CHEMISTRY METHOD 05/29/2024 4:41 AM [facility] Anion Gap 10 3 - 11 LAB CHEMISTRY METHOD 05/29/2024 4:41 AM [facility] Glucose 127(H) 70 - 100 mg/dL LAB CHEMISTRY METHOD 05/29/2024 4:41 AM [facility] BUN 7 5 - 25 mg/dL LAB CHEMISTRY METHOD 05/29/2024 4:41 AM [facility] Creatinine 0.64(L) 0.70 - 1.30 mg/dL LAB CHEMISTRY METHOD 05/29/2024 4:41 AM [facility] eGFR 121 >=60 mL/min/1. 73m2 LAB CHEMISTRY METHOD 05/29/2024 4:41 AM [facility] Comment:Calculation based on the??Chronic Kidney Disease Epidemiology Collaboration (CKD-EPI) equation refit??without adjustment for race. BUN/Creatinine Ratio 10.9 LAB CHEMISTRY METHOD 05/29/2024 4:41 AM [facility] Calcium 7.6(L) 8.5 - 10.5 mg/dL LAB CHEMISTRY METHOD 05/29/2024 4:41 AM [facility] AST (SGOT) 186(H) 10 - 42 unit/L LAB CHEMISTRY METHOD 05/29/2024 4:41 AM [facility] ALT (SGPT) 85(H) 10 - 60 unit/L LAB CHEMISTRY METHOD 05/29/2024 4:41 AM [facility] Alkaline Phosphatase 190(H) 42 - 121 unit/L LAB CHEMISTRY METHOD 05/29/2024 4:41 AM [facility] Total Protein 5.9(L) 6.0 - 8.0 g/dL LAB CHEMISTRY METHOD 05/29/2024 4:41 AM [facility] Albumin 2.6(L) 3.2 - 5.0 g/dL LAB CHEMISTRY METHOD 05/29/2024 4:41 AM [facility] Total Bilirubin 0.1 0.0 - 1.4 mg/dL LAB CHEMISTRY METHOD 05/29/2024 4:41 AM EST [facility] Blood Venous blood specimen / Unknown Venipuncture / Unknown 05/29/2024 3:50 AM EST 05/29/2024 4:02 AM EST Timmy Sarkar MD LAB BLOOD ORDERABLES Final Resu lt Performing Organization Address City/[facility]/ZIP Co de Phone Number [facility] [address] [place] [address], [place] [phone] * ECG 12 lead (05/29/2024 3:37 AM EST) Only the most recent of6 resultswithin the time period is included. Ventricular Rate ECG 106 BPM GEMUSE Atrial Rate 106 BPM GEMUSE P-R Interval 122 ms GEMUSE QRS Duration 96 ms GEMUSE Q-T Interval 348 ms GEMUSE QTc 462 ms GEMUSE P Wave [place] 34 degrees GEMUSE R [place] 17 degrees GEMUSE T [place] 54 degrees GEMUSE ECG Interpretation Sinus tachycardia Otherwise normal ECG When compared with ECG of 24-MAY-2024 16:48, No significant change was found Confirmed by MD Uri, [place] ([id number]) on 05/29/2024 5:28:57 PM GEMUSE 05/29/2024 3:37 AM EST 05/29/2024 5:28 PM EST Timmy Sarkar MD ECG ORDERABLES Final Result Performing Organization Address [facility] Co de Phone Number GEMUSE * (ABNORMAL) POCT Glucose, blood (05/25/2024 7:59 AM EST) Only the most recent of15 resultswithin the time period is included. Glucose POCT 113(H) 70 - 100 mg/dL 05/25/2024 8:01 AM EST [facility] Blood Capillary blood specimen / Unknown 05/25/2024 7:59 AM EST 05/25/2024 8:03 AM EST Shubham Rojo MD LAB POINT OF CA RE TEST DOCKED DEVICE UNSOLICITED RESULTS Final Result Performing Organization Address City/[facility]/ZIP Co de Phone Number [facility] [address] [place] [address], [place] [phone] * Phosphorus (05/25/2024 6:36 AM EST) Only the most recent of3 resultswithin the time period is included. Phosphorus 3.0 2.5 - 4.5 mg/dL LAB CHEMISTRY METHOD 05/25/2024 8:23 AM EST [facility] Blood Venous blood specimen / Unknown Venipuncture / Unknown 05/25/2024 6:36 AM EST 05/25/2024 7:04 AM EST Yessy AGUILERA LAB BLOOD ORDERABLES Final Result Performing Organization Address [facility]/ZIP Co de Phone Number [facility] [address] [place] [address], [place] [phone] * Magnesium (05/25/2024 6:36 AM EST) Only the most recent of8 resultswithin the time period is included. Magnesium 1.9 1.9 - 2.6 mg/dL LAB CHEMISTRY METHOD 05/25/2024 8:23 AM EST [facility] Blood Venous blood specimen / Unknown Venipuncture / Unknown 05/25/2024 6:36 AM EST 05/25/2024 7:04 AM EST Yessy AGUILERA LAB BLOOD ORDERABLES Final Result Performing Organization Address [facility]/ZIP Co de Phone Number [facility] [address] [place] [address], [place] [phone] * Lavender tube (05/25/2024 6:33 AM EST) Only the most recent of2 resultswithin the time period is included. Pathologist [facility] Extra Tube Hold for add-ons. 05/25/2024 9:01 AM [facility] Comment:Auto resulted. Blood Venous blood specimen / Unknown Venipuncture / Unknown 05/25/2024 6:33 AM EST 05/25/2024 7:09 AM EST Shubham Rojo MD LAB BLOOD ORDERABLES Fi nal Result [facility] [address] [place] [address], * (ABNORMAL) Gastrointestinal pathogens molecular study (05/24/2024 8:54 AM EST) [facility] Campylobacter Detection by PCR Not Detected Not Detected LAB MICROBIOLOGY METHOD 5 11:18 AM [facility] Plesiomonas shigelloides Detection by PCR Not Detected Not Detected LAB MICROBIOLOGY METHOD 5 11:18 AM [facility] Salmonella Detection by PCR Not Detected Not Detected LAB MICROBIOLOGY METHOD 5 11:18 AM [facility] Vibrio Detection by PCR Not Detected Not Detected LAB MICROBIOLOGY METHOD 5 11:18 AM [facility] Vibrio cholerae Detection by PCR Not Detected Not Detected LAB MICROBIOLOGY METHOD 5 11:18 AM [facility] Yersinia enterocolitica Detection by PCR Not Detected Not Detected LAB MICROBIOLOGY METHOD 5 11:18 AM [facility] Enteroaggregative E coli EAEC Detection by PCR Not Detected Not Detected LAB MICROBIOLOGY METHOD 5 11:18 AM [facility] Enteropathogenic E coli EPEC Detection Not Detected Not Detected LAB MICROBIOLOGY METHOD 5 11:18 AM [facility] Enterotoxigenic E coli ETEC LTST Detection Not Detected Not Detected LAB MICROBIOLOGY METHOD 5 11:18 AM [facility] Shiga-like toxin producing E coli STEC STX1 STX2 Det Not Detected Not Detected LAB MICROBIOLOGY METHOD 5 11:18 AM [facility] Shigella Enteroinvasive E coli EIEC Detection Not Detected Not Detected LAB MICROBIOLOGY METHOD 5 11:18 AM [facility] Cryptosporidium Detection by PCR Not Detected Not Detected LAB MICROBIOLOGY METHOD 5 11:18 AM [facility] Cyclospora cayetanensis Detection by PCR Not Detected Not Detected LAB MICROBIOLOGY METHOD 5 11:18 AM [facility] Entamoeba histolytica Detection by PCR Not Detected Not Detected LAB MICROBIOLOGY METHOD 5 11:18 AM [facility] Giardia lamblia Detection by PCR Not Detected Not Detected LAB MICROBIOLOGY METHOD 5 11:18 AM [facility] Adenovirus F 40 41 Detection by PCR Not Detected Not Detected LAB MICROBIOLOGY METHOD 5 11:18 AM [facility] Astrovirus Detection by PCR Not Detected Not Detected LAB MICROBIOLOGY METHOD 5 11:18 AM [facility] Norovirus GI GII Detection by PCR Detected(A ) Not Detected LAB MICROBIOLOGY METHOD 5 11:18 AM [facility] Sapovirus Detection by PCR Not Detected Not Detected LAB MICROBIOLOGY METHOD 5 11:18 AM [facility] Rotavirus A Detection by PCR Not Detected Not Detected LAB MICROBIOLOGY METHOD 5 11:18 AM [facility] Stool Rectum structure / Unknown Non-blood Collection / Unknown 05/24/2024 8:54 AM EST 05/24/2024 9:01 AM [facility]OSPITAL LAB - 05/24/2024 11:18 AM EST PCR [...] additional guidance. ??Testing Performed by MULTIPLEXED PCR Shubham Rojo MD LAB MICROBIOLOGY - GENE RAL ORDERABLES Final Result Performing Organization Address [facility]/ZIP Co de Phone Number [facility] [address] [place] [address], * Treponema pallidum antibody with reflex to RPR and particle agglutination (05/23/2024 5:46 AM EST) T. Pallidum Antibodies Negative Negative LAB CHEMISTRY METHOD 05/23/2024 6:26 PM EST [facility] Blood Venous blood specimen / Unknown Venipuncture / Unknown 05/23/2024 5:46 AM EST 05/23/2024 6:39 AM EST Sera Stafford MD LAB BLOOD ORDERABLES Final Resul t Performing Organization Address [facility]/ZIP Co de Phone Number [facility] [address] [place] [address], [place] [phone] * Borrelia burgdorferi antibody (05/23/2024 5:46 AM EST) Lyme Ab Negative Negative LAB CHEMISTRY METHOD 05/23/2024 2:21 PM EST [facility] Comment: No laboratory evidence of [...] MD LAB BLOOD ORDERABLES Final Resul t [facility] [address] [place] [address], [place] [phone] * XR Chest 1 View (05/22/2024 7:38 AM EST) Anatomical Region Laterality Modality Body Radiographic Marah ging 05/22/2024 8:24 AM EST Impressions 05/22/2024 8:26 AM EST No acute pulmonary disease. Old healed bilateral rib fractures. Code 19842 -------- FINAL REPORT -------- Dictated By: Benji Springer Dictated Date: 05/22/2024 08:24 ET Assigned Physician: eBnji Springer Reviewed and Electronically Signed By: Benji Springer Signed Date: 05/22/2024 08:26 ET Workstation ID: [id number] Transcribed By: Self Edit Transcribed Date: 05/22/2024 [...] disease. Old healed bilateral rib fractures. Code 25494 -------- FINAL REPORT -------- Dictated By: Benji Springer Dictated Date: 05/22/2024 08:24 ET Assigned Physician: Benji Springer Reviewed and Electronically Signed By: Benji Springer Signed Date: 05/22/2024 08:26 ET Workstation ID: [id number] Transcribed By: Self Edit Transcribed Date: 05/22/2024 08:24 ET Yessy AGUILERA IMG XR PROCEDURES Final Res ult * HIV 1,2 antibody, p24 antigen with reflex to differentiation (05/22/2024 5:59 AM EST) Pathologist [facility] HIV Combo AB/AG Negative Negative LAB CHEMISTRY METHOD 05/22/2024 1:45 PM EST [facility] Blood Venous blood specimen / Unknown Venipuncture / Unknown 05/22/2024 5:59 AM EST 05/22/2024 7:04 AM EST Narrative [facility] - 05/22/2024 1:45 PM EST This assay is a 4th generation assay allowing for earlier detection of HIV infection by detecting the presence of the HIV-1 p24 antigen as well as the traditional antibodies to HIV type 1 (including group O) and type 2. ??Use of a 4th generation assay is the current CDC recommendation for HIV screening. Yessy AGUILERA LAB BLOOD ORDERABLES Final Result [facility] [address] [place] [address], [place] [phone] * Hepatitis panel, acute with reflex to confirmation (05/22/2024 5:59 AM EST) Hepatitis B Surface Ag Negative Negative LAB CHEMISTRY METHOD 05/22/2024 1:46 PM EST [facility] Hepatitis A Antibody IgM Negative Negative LAB CHEMISTRY METHOD 05/22/2024 1:46 PM EST [facility] Hep B Core IgM Negative Negative LAB CHEMISTRY METHOD 05/22/2024 1:46 PM EST [facility] Hepatitis C Antibody Negative Negative LAB CHEMISTRY METHOD 05/22/2024 1:46 PM [facility] Blood Venous blood specimen / Unknown Venipuncture / Unknown 05/22/2024 5:59 AM EST 05/22/2024 7:04 AM EST Yessy AGUILERA LAB BLOOD ORDERABLES Final Result Performing Organization Address [facility]/ZIP Co de Phone Number [facility] [address] [place] [address], [place] [phone] * (ABNORMAL) Sedimentation rate (05/22/2024 5:59 AM EST) Sed Rate 56(H) 0 - 15 mm/hr LAB HEMETOLOGY METHOD 05/22/2024 1:05 PM [facility] Blood Venous blood specimen / Unknown Venipuncture / Unknown 05/22/2024 5:59 AM EST 05/22/2024 7:04 AM EST Yessy AGUILERA LAB BLOOD ORDERABLES Final Result Performing Organization Address [facility]/ZIP Co de Phone Number [facility] [address] [place] [address], [place] [phone] * (ABNORMAL) Hepatic function panel (05/22/2024 5:59 AM EST) Total Protein 5.9(L) 6.0 - 8.0 g/dL LAB CHEMISTRY METHOD 05/22/2024 8:03 AM EST [facility] Albumin 2.9(L) 3.2 - 5.0 g/dL LAB CHEMISTRY METHOD 05/22/2024 8:03 AM [facility] Total Bilirubin 0.5 0.0 - 1.4 mg/dL LAB CHEMISTRY METHOD 05/22/2024 8:03 AM [facility] Bilirubin, Direct 0.2 0.0 - 0.3 mg/dL LAB CHEMISTRY METHOD 05/22/2024 8:03 AM [facility] Bilirubin, Indirect 0.3 0.0 - 1.1 mg/dL LAB CHEMISTRY METHOD 05/22/2024 8:03 AM [facility] ALT (SGPT) 86(H) 10 - 60 unit/L LAB CHEMISTRY METHOD 05/22/2024 8:03 AM [facility] AST (SGOT) 175(H) 10 - 42 unit/L LAB CHEMISTRY METHOD 05/22/2024 8:03 AM [facility] Comment:Results verified by repeat testing Alkaline Phosphatase 160(H) 42 - 121 unit/L LAB CHEMISTRY METHOD 05/22/2024 8:03 AM [facility] Blood Venous blood specimen / Unknown Venipuncture / Unknown 05/22/2024 5:59 AM EST 05/22/2024 7:04 AM EST us Yessy AGUILERA LAB BLOOD ORDERABLES Final Result [facility] [address] [place] [address], [place] [phone] * (ABNORMAL) Basic metabolic panel (05/22/2024 5:59 AM EST) Sodium 134 133 - 145 mmol/L LAB CHEMISTRY METHOD 05/22/2024 7:47 AM [facility] Potassium 3.7 3.5 - 5.5 mmol/L LAB CHEMISTRY METHOD 05/22/2024 7:47 AM [facility] Chloride 101 96 - 110 mmol/L LAB CHEMISTRY METHOD 05/22/2024 7:47 AM [facility] CO2 25 21 - 32 mmol/L LAB CHEMISTRY METHOD 05/22/2024 7:47 AM [facility] Anion Gap 8 3 - 11 LAB CHEMISTRY METHOD 05/22/2024 7:47 AM [facility] Glucose 93 70 - 100 mg/dL LAB CHEMISTRY METHOD 05/22/2024 7:47 AM [facility] BUN 3(L) 5 - 25 mg/dL LAB CHEMISTRY METHOD 05/22/2024 7:47 AM [facility] Creatinine 0.62(L) 0.70 - 1.30 mg/dL LAB CHEMISTRY METHOD 05/22/2024 7:47 AM [facility] eGFR 122 >=60 mL/min/1. 73m2 LAB CHEMISTRY METHOD 05/22/2024 7:47 AM [facility] Comment:Calculation based on the??Chronic Kidney Disease Epidemiology Collaboration (CKD-EPI) equation refit??without adjustment for race. BUN/Creatinine Ratio 4.8 LAB CHEMISTRY METHOD 05/22/2024 7:47 AM [facility] Calcium 8.4(L) 8.5 - 10.5 mg/dL LAB CHEMISTRY METHOD 05/22/2024 7:47 AM [facility] Blood Venous blood specimen / Unknown Venipuncture / Unknown 05/22/2024 5:59 AM EST 05/22/2024 7:04 AM EST Yessy AGUILERA LAB BLOOD ORDERABLES Final Result [facility] [address] [place] [address], * ECG-Annotated (05/22/2024) us Provider Onbase MD ECG ORDERABLES Final Result * Blood culture pathogens molecular study (05/21/2024 9:33 PM EST) Blood Venous blood specimen / Unknown Venipuncture / Unknown 05/21/2024 9:33 PM EST 05/21/2024 9:51 PM EST Narrative [facility] - 05/24/2024 3:25 PM EST No targets detected by multiplex PCR panel. Refer to culture. Desi Brizuela NP LAB MICROBIOLOGY - GENER AL ORDERABLES Final Result Performing Organization Address [facility]/ZIP Co de Phone Number [facility] [address] [place] [address], [place] [phone] * Culture blood (05/21/2024 9:33 PM EST) Only the most recent of2 resultswithin the time period is included. Culture, Blood No growth at 5 days LAB MICROBIOLOGY METHOD 05/26/2024 10:02 PM EST [facility] Blood Venous blood specimen / Unknown Venipuncture / Unknown 05/21/2024 9:33 PM EST 05/21/2024 9:51 PM EST Desi Brizuela NP LAB MICROBIOLOGY - GENER AL ORDERABLES Final Result Performing Organization Address [facility] Co de Phone Number [facility] [address] [place] [address], [place] [phone] * Lactate (05/21/2024 9:33 PM EST) Pathologist [facility] Lactate 1.5 0.4 - 2.0 mmol/L LAB CHEMISTRY METHOD 05/21/2024 10:16 PM EST [facility] Blood Venous blood specimen / Unknown Venipuncture / Unknown 05/21/2024 9:33 PM EST 05/21/2024 9:50 PM EST Desi Brizuela NP LAB BLOOD ORDERABLES Fin al Result Performing Organization Address [facility]/ZIP Co de Phone Number [facility] [address] [place] [address], [place] [phone] * (ABNORMAL) Potassium (05/21/2024 6:58 PM EST) Only the most recent of2 resultswithin the time period is included. [facility] Potassium 3.2(L) 3.5 - 5.5 mmol/L LAB CHEMISTRY METHOD 05/21/2024 7:31 PM EST [facility] Blood Venous blood specimen / Unknown Venipuncture / Unknown 05/21/2024 6:58 PM EST 05/21/2024 7:03 PM EST us Yessy AGUILERA LAB BLOOD ORDERABLES Final Result [facility] [address] [place] [address], [place] [phone] * Respiratory virus panel molecular study (05/21/2024 10:17 AM EST) [facility] Adenovirus Detection by PCR Not Detected Not Detected LAB MICROBIOLOGY METHOD 05/21/2024 11:45 AM EST [facility] Influenza A PCR Not Detected Not Detected LAB MICROBIOLOGY METHOD 05/21/2024 11:45 AM [facility] Influenza B PCR Not Detected Not Detected LAB MICROBIOLOGY METHOD 05/21/2024 11:45 AM [facility] Coronavirus 229E Not Detected Not Detected LAB MICROBIOLOGY METHOD 05/21/2024 11:45 AM [facility] Coronavirus HKU1 Not Detected Not Detected LAB MICROBIOLOGY METHOD 05/21/2024 11:45 AM EST [facility] Coronavirus OC43 Not Detected Not Detected LAB MICROBIOLOGY METHOD 05/21/2024 11:45 AM [facility] Coronavirus NL63 Not Detected Not Detected LAB MICROBIOLOGY METHOD 05/21/2024 11:45 AM [facility] Parainfluenza Virus 1 Not Detected Not Detected LAB MICROBIOLOGY METHOD 05/21/2024 11:45 AM [facility] Parainfluenza Virus 2 Not Detected Not Detected LAB MICROBIOLOGY METHOD 05/21/2024 11:45 AM [facility] Parainfluenza Virus 3 Not Detected Not Detected LAB MICROBIOLOGY METHOD 05/21/2024 11:45 AM [facility] Parainfluenza Virus 4 Not Detected Not Detected LAB MICROBIOLOGY METHOD 05/21/2024 11:45 AM [facility] RSV PCR Not Detected Not Detected LAB MICROBIOLOGY METHOD 05/21/2024 11:45 AM [facility] Human Metapneumovirus A and B Not Detected Not Detected LAB MICROBIOLOGY METHOD 05/21/2024 11:45 AM [facility] Rhinovirus/Entero virus Not Detected Not Detected LAB MICROBIOLOGY METHOD 05/21/2024 11:45 AM [facility] Bordetella pertussis Not Detected Not Detected LAB MICROBIOLOGY METHOD 05/21/2024 11:45 AM [facility] Bordetella parapertussis Not Detected Not Detected LAB MICROBIOLOGY METHOD 05/21/2024 11:45 AM [facility] Mycoplasma pneumo by PCR Not Detected Not Detected LAB MICROBIOLOGY METHOD 05/21/2024 11:45 AM [facility] Chlamydia pneumoniae Not Detected Not Detected LAB MICROBIOLOGY METHOD 05/21/2024 11:45 AM [facility] SARS COV-2 Not Detected Not Detected LAB MICROBIOLOGY METHOD 05/21/2024 11:45 AM [facility] Swab Nasopharyngeal structure / Unknown Non-blood Collection / Unknown 05/21/2024 10:17 AM EST 05/21/2024 10:49 AM [facility] - 05/21/2024 11:45 AM EST Testing was performed using the [employer] Respiratory Pathogen PCR Assay. All results must [...] GENERAL ORDERABLES Final Result Performing Organization Address City/[facility]/ZIP Co de Phone Number [facility] [address] [place] [address], [place] [phone] * Hemoglobin A1c (05/21/2024 6:14 AM EST) [facility] Hemoglobin A1C 6.2 <6.5 % LAB CHEMISTRY METHOD 05/21/2024 9:17 PM EST [facility] Mean Bld Glu Estim. 131 mg/dL LAB CHEMISTRY METHOD 05/21/2024 9:17 PM EST [facility] Blood Venous blood specimen / Unknown Venipuncture / Unknown 05/21/2024 6:14 AM EST 05/21/2024 6:32 AM EST Yessy AGUILERA LAB BLOOD ORDERABLES Final Result Performing Organization Address [facility] Co de Phone Number [facility] [address] [place] [address], [place] [phone] * Buprenorphine screen, urine (05/20/2024 5:39 PM EST) [facility] Buprenorphine Screen Urine Negative Negative LAB CHEMISTRY METHOD 05/20/2024 7:46 PM EST [facility] Urine Urine specimen obtained by clean catch procedure / Unknown Non-blood Collection / Unknown 05/20/2024 5:39 PM EST 05/20/2024 7:16 PM EST Narrative [facility] - 05/20/2024 7:46 PM EST Assay cutoff 5 ng/mL Semi-quantitative assay for screening purposes only. Unconfirmed screening result should not be used for non-medical purposes. *ALTERNATE METHOD CONFIRMATION DONE UPON REQUEST ONLY* Adair French MD LAB URINE ORDERABLES Final Result Performing Organization Address [facility] de Phone Number [facility] [address] [place] [address], [place] [phone] * Methadone, urine (05/20/2024 5:39 PM EST) Methadone Screen, Urine Negative Negative LAB CHEMISTRY METHOD 05/20/2024 7:50 PM EST [facility] Comment: Assay cutoff 300 ng/mL Semi-quantitative assay for screening purposes only. Unconfirmed screening result should not be used for non-medical purposes. *ALTERNATE METHOD CONFIRMATION DONE UPON REQUEST ONLY* Urine Urine specimen obtained by clean catch procedure / Unknown Non-blood Collection / Unknown 05/20/2024 5:39 PM EST 05/20/2024 7:16 PM EST us Adair French MD LAB URINE ORDERABLES Final Result Performing Organization Address [facility] Phone Number [facility] [address] [place] [address], [place] [phone] * Phencyclidine, urine (05/20/2024 5:39 PM EST) PCP Scrn, Ur Negative Negative LAB CHEMISTRY METHOD 05/20/2024 7:46 PM EST [facility] Comment: Assay cutoff 25 ng/mL Semi-quantitative assay for screening purposes only. Unconfirmed screening result should not be used for non-medical purposes. *ALTERNATE METHOD CONFIRMATION DONE UPON REQUEST ONLY* Urine Urine specimen obtained by clean catch procedure / Unknown Non-blood Collection / Unknown 05/20/2024 5:39 PM EST 05/20/2024 7:16 PM EST us Adair French MD LAB URINE ORDERABLES Final Result Performing Organization Address [facility] Co de Phone Number [facility] [address] [place] [address], [place] [phone] * CT Abdomen Pelvis w Contrast (05/20/2024 [...] Preston MD on 05/20/2024 16:39:[address] PROCEDURES Final Resul t * (ABNORMAL) Venous blood gas (05/18/2024 6:51 AM EST) pH, Richard 7.34 7.32 - 7.42 pH 05/18/2024 7:01 AM [facility] pCO2, Richard 36(L) 41 - 51 mmHg 05/18/2024 7:01 AM [facility] pO2, Richard 38 25 - 40 mmHg 05/18/2024 7:01 AM [facility] HCO3, Venous 19.7(L) 22.0 - 26.0 mmol/L 05/18/2024 7:01 AM [facility] O2 Sat, Richard 62.8 % 05/18/2024 7:01 AM [facility] Base Excess, Richard -5.7(L) -2.0 - 2.0 mmol/L 05/18/2024 7:01 AM [facility] Blood Venous blood specimen / Unknown Venipuncture / Unknown 05/18/2024 6:51 AM EST 05/18/2024 6:58 AM EST Caryn Valencia MD LAB BLOOD ORDERABLES Fin al Result [facility] [address] [place] [address], * (ABNORMAL) Beta hydroxybutyrate (05/18/2024 4:12 AM EST) Pathologist [facility] Beta-Hydroxyb utyrate 38.3(H) 0.2 - 2.8 mg/dL LAB CHEMISTRY METHOD 05/18/2024 7:00 AM [facility] Blood Venous blood specimen / Unknown Venipuncture / Unknown 05/18/2024 4:12 AM EST 05/18/2024 5:41 AM EST us Caryn Valencia MD LAB BLOOD ORDERABLES Fin al Result [facility] [address] [place] [address], from Last 3 Months Additional Health Concerns Infection Onset Date Last Indicated Norovirus 05/24/2024 05/24/2024 Insurance [facility] [employer] PLAN Advance Directives * Full Code - Confirmed (Latest Code Status on File) Date Activated Date Inactivated Comments 05/20/2024 6:04 PM 05/25/2024 1:[address] atus was ascertained in the following way: Code status discussion: discussion with patient To update the patient's code status, place a code status order. Do not modify or discontinue any currently active code status orders. * Full Code - Default Date Activated Date Inactivated Comments 05/18/2024 5:34 AM 05/18/2024 1:40 PM This is orde r is used when code status has not been discussed with the patient, or code status is otherwise unknown/unconfirmed To update the patient's code status, place a code status order. Do not modify or discontinue any currently active code status orders. Care Teams Car Park Attendant Relationship Specialty Start Date End Date Alfredo Carias MD [address] PCP - General Internal Medicine 02/01/14
--- OUTSIDE RECORDS SUMMARY | 2024-05-30 03:35 | XMS_ITS | Continuity of Care Document ---
Author Organization [facility] ter Address [address] [place] [id number]- Care Team Providers Care Development Geologist Name Role Phone Chemo Zafar MD Primary Care Physician Encounter [facility] Date(s): 05/28/24 - 05/28/[address] [address]- Discharge Disposition: A-D/C Walkout Attending Physician: Not on Staff, Attending MD Admitting Physician: Not on Staff, Admitting MD Referring Physician: Not on Staff, Referring MD Encounter Type: Disch ES Allergies, Adverse Reactions, Alerts No Known Allergies Immunizations Given and Recorded Vaccine Date Status Refusal Reason tetanus/diphtheria/pertussis, acel(Tdap) 1 12/07/21 Given 1Result Comment: [facility] 98011-202-02 Medications Methadone By Mouth, 0 Refills, Maintenance, 06/06/16 9:22:59 PM EST Start Date: 06/06/16 Status: Ordered Repeat number: 1 Vital Signs Most recent to oldest [Reference Range]: 1 Height 178 cm (05/28/24 6:38 AM) Weight 68 kg (05/28/24 6:38 AM) Oxygen Saturation [94-100 %] 99 % (05/28/24 6:38 AM) Pulse Rate [55-90 bpm] 115 bpm *H* (05/28/24 6:38 AM) Body Mass Index [18.5-24.99 kg/m2] 21.46 kg/m2 (05/28/24 6:38 AM) Blood Pressure [90-138/55-84 mm Hg] 112/ 68mm Hg (05/28/24 6:38 AM) Respiratory Rate [16-30 br/min] 17 br/mi n (05/28/24 6:38 AM) Temperature [96.8-100.4 DegF] 98.3 DegF (05/28/24 6:38 AM) Mode of Delivery (Oxygen) Room air (05/28/24 6:38 AM) Blood pressure sites Arm, left (05/28/24 6:38 AM) Temperature Route Oral (05/28/24 6:38 AM) Dry Weight 68 kg (05/28/24 6:38 AM) Weight Obtained Via Patient/family state d (05/28/24 6:38 AM) Dry Weight Obtained Via Patient/family s tated (05/28/24 6:38 AM) Patient Care team information Care Team Personnel Name: Chemo Zafar MD Position: [facility] Outreach Member Role: PCP Address: [address] [place] [address] Chemo [place]afar [place], [place] [address] Telecom: Care Team Related Persons Name: MARGARET BLUE Insurance Providers Guarantor name: [employer] Plan Information #: 1 Payer: [employer] Member Number: [id number] Policy Number: NA Group Number: [employer] Plan Information #: 2 Payer: [employer] Member Number: [id number] Policy Number: NA Group Number: NA
--- OUTSIDE RECORDS SUMMARY | 2024-05-30 03:35 | XMS_ITS | Continuity of Care Document ---
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 Alcohol abuse with withdrawal(Final) - 05/14/24 Discharge Disposition: A-D/C Home Attending Physician: Lilian Bartholomew MD Admitting Physician: Lilian Bartholomew MD Referring Physician: Not on Staff, Referring MD Encounter Type: Disch ES Allergies, Adverse Reactions, Alerts No Known Allergies Immunizations Given and Recorded Vaccine Date Status Refusal Reason tetanus/diphtheria/pertussis, acel(Tdap) 1 12/07/21 Given 1Result Comment: [facility] [id number] Medications chlordiazePOXIDE 25 mg oral capsule See [...] PM EST, 05/15/24 5:15:00 AM EST, Capsule, [id number], Partial fill upon patient request if [...] AM EST, 05/15/24 10:11:00 AM EST, Capsule, [id number], Partial fill upon patient request [...] 10:35:00 AM EST, 05/15/24 10:35:00 AM EST, Capsule,[id number], Partial fill upon patient request if the prescription is for a schedule II opioid drug., 178, cm, 05/14/24 2:45:00 EST, Height, 68, kg, 05/14/24 2:45:00 EST, Dry Weight Start Date: 05/15/24 Stop Date: 05/23/24 Status: Ordered Quantity: 40.0 Unit: capsule Repeat number: 1 Methadone By Mouth, 0 Refills, Maintenance, 06/06/16 9:22:59 PM EST Start Date: 06/06/16 Status: Ordered Repeat number: 1 Results Radiology Reports * Exam Date Time Procedure Performing Provider Status 05/15/24 1:04 AM Chest Portable Ernesto Sierra (Ve rified) Notes: (Chest Portable) Reason For Exam: Shortness of Breath RESULT: Chest Portable Chest Portable Reason: Shortness of Breath; Clinical Question(s): Aspiration COMPARISON: Chest radiograph 05/14/2024 FINDINGS: LINES AND TUBES: None. LUNGS AND PLEURA: Clear lungs. Normal pulmonary vascularity. No pleural effusion. No pneumothorax. HEART, MEDIASTINUM AND DANDRE: Heart is normal in size. Normal mediastinal and hilar contour. BONES AND SOFT TISSUES: No acute abnormality. Multiple bilateral healed rib fractures unchanged. IMPRESSION: No acute cardiopulmonary process. I have personally reviewed the images and I agree with this report. WSN: [id number] Ordering Physician: Jean Bustamante Dictated By: Jocy Pina DO Dictated Date/Time: 05/15/24 9:16 am Reviewed By: Maverick Dove MD, V Signed By: Maverick Dove MD, V Signed Date/Time: 05/15/24 9:21 am Transcribed By: GUMARO Transcribed Date/Time: 05/15/24 7:44 am * Exam Date Time Procedure Performing Provider Status 05/14/24 10:[address] Head/Brain W/O Contrast Leo Tian (Verified) Notes: (CT Head/Brain W/O Contrast) Reason For Exam: Fell at home, couldn't get up, altered;Trauma RESULT: CT Head/Brain W/O Contrast CT Head/Brain W/O Contrast INDICATION: Hx of Present Illness: coming in from home for ETOH withdrawal, PT endorses drinking entire bottle rubbing alcohol, tachycardia, shaking; Reason: Trauma; Fell at home, couldn't get up, altered; Clinical Question(s): Hematoma; Order Comment: TECHNIQUE: Noncontrast head CT using axial technique and reconstructed in axial and coronal planes.Iterative reconstruction techniques are used to optimize dose and image quality. CTDIvol Head: 45.70 mGy, DLP Head: 1160 mGy*cm. COMPARISON: 05/11/2024 FINDINGS: Bindery Production Manager view findings, lines and tubes: None. BRAIN AND EXTRA-AXIAL SPACES: No parenchymal hemorrhage, midline shift, or mass effect. Cherry-white matter differentiation is wellpreserved. No acute infarct. Ventricles, sulci, and basilar cisterns are normal. Mild low-density white matter changes. No subarachnoid hemorrhage. No subdural or epidural collection. CALVARIUM, SKULL BASE, AND SOFT TISSUES: No fractures or suspicious bony lesions. The paranasal sinuses and mastoid air cells are clear. Visualized orbits and globes are intact. The extracranial soft tissues are unremarkable. IMPRESSION: No acute intracranial pathology. WSN: [id number] Ordering Physician: Jean Bustamante Dictated By: Marianne Rosales MD Dictated Date/Time: 05/14/24 10:17 p Reviewed By: Marianne Rosales MD Signed By: Marianne Rosales MD Signed Date/Time: 05/14/24 10:17 pm Transcribed By: GUMARO Transcribed Date/Time: 05/14/24 10:13 pm Vital Signs Most recent to oldest [Reference Range]: 1 2 3 Oxygen Saturation [94-100 %] 98 % (05/15/24 5:30 AM) 97 % (05/15/24 3:22 AM) 97 % (05/14/24 11: PM) Pulse Rate [55-90 bpm] 85 bpm (05/15/24 5:30 AM) 90 bpm (05/15/24 3:22 AM) 84 bpm (05/14/24 11: PM) Blood Pressure [90-138/55-84 mm Hg] 134/82mm Hg (05/15/24 5:30 AM) 128/79mm Hg (05/15/24 3:22 AM) 114/78mm Hg (05/14/24 11: PM) Respiratory Rate [16-30 br/min] 18 br/min (05/15/24 5:30 AM) 18 br/min (05/15/24 3:22 AM) 19 br/min (05/14/24 11:28 PM) Temperature [96.8-100.4 DegF] 99.0 DegF (05/14/24 11:28 PM) 99.9 DegF (05/14/24 9:02 PM) Mode of Delivery (Oxygen) Room air (05/15/24 5:30 AM) Room air (05/15/24 3:22 AM) Room air (05/14/24 11:28 PM) Blood pressure sites Arm, left (05/14/24 9:02 PM) Temperature Route Oral (05/14/24 11:28 PM) Oral (05/14/24 9:02 PM) EKG study * Event Display: EKG Authored Date: Note * Linwood Brown DO: PERFORM Event Display: Patient Education Leaflets Authored Date: Outpatient Psychiatric and Social Resources ?? 263 Outpatient Psychiatric and Social Resources Help Lines ?? [facility] Help Line (BHHL): ??Call or text [phone] for free, confidential support 25/10. The HL can provide clinical assessment, guidance, and connection to treatment. ?? Suicide and Crisis Lifeline: ??Call, text, or chat 581 25/10. Veterans can press 1, and the German line is available by pressing 2. ?? [facility] Helpline: ??Call or text for emotional support from trained volunteers. ?? [employer]: for information for members. National Hull on Mental Illness ([place]): [place] Substance Use Helpline: Parental Stress Line: for 24-hour support ? Emergency Services Mobile Crisis Team: [place] on [phone] ? National Suicide Prevention Lifeline: German Language: Deaf and Hard of Hearin1-360.982.8710 Veterans: Disaster Distress: ? Healing Abuse Working for Change: 2-738-501-939 24-Hour Hotline The [employer] (LGBTQ): SafeLink(Domestic Violence): ?Community Behavioral Centers ?? [facility] Human Development???s [facility] ([facility]) ??[facility] Crisis Services (Available ) [address] [place] [address] ?? [facility] ([facility]) ??? [place] ??[facility] Crisis Services (Available ) [address] [place] [address] ?? [facility] ([facility]) ??? [place] ??[facility] Crisis Services(Available ) [address] [place] [address] ?? Clinical Support Options [facility] ??[address] [place] [address] ?? Clinical Support Options [facility] ??? [place] ??[facility] Clinic and Crisis Services (Available ) [address] [place] [address] ?? [facility] ([facility]) ??[facility] Crisis Services (Available ) [address] [place] [address] ?? Community Mental Health Centers ?? [facility] ??Several clinics for children with virtual therapy available. Once patients are established with therapy, they can be referred to psychiatry at the clinic. Parents can refer their child by calling [phone]. Adults can call for outpatient mental health. ? [facility] ??[facility] has clinics in [place] and [place], [place]. Once patients are established with therapy they can be referred to psychiatry at the clinic. Referrals can be made for patients by calling [phone]. Children/adults coming from the hospital will be given priority. ?? [facility] ??Clinics in [facility], [place], [place], and [place]. All ages can be referred by calling [phone] ext [phone]. Psychiatry services are available once established with a therapist. ?? [facility] ??[facility] has locations in [facility], [place], and [facility]. They have individual therapy services and once you are established with therapy you can be referred to psychiatry at the clinic. Referrals can be made by calling [phone] ?? [facility] ??Clinics in [place], [place], [place] and [place] with therapy services for adults and kids, with psychiatry once someone has been established in therapy. Referrals can be madeby phone at [phone]. ?? [facility] ??[facility] has two urgent outpatient clinics ??? [address] and [address] [facility] in [facility]. They are open for walk ins 9-Tuesday-Tuesday. You will be assigned a therapist and after 4 sessions they will assign a psychiatric provider. ?? [facility] ??[facility] has affiliated with ???[facility]?? and many of their lines now say ???[facility] [facility]. The [place], [place] office is located at - [address], [place] [address] but you have to call the Intake Line for [facility] and get on their waiting list first. Intake line # is ??? . ?? Partial Hospitalization Programs (PHP) (walk in) ?? [facility] ??[address] [place] [address] Phone: (referral lines) ?? [facility] ??[address] [place] [address] Phone: ?? Homeless Resources ?? [facility] ??[address], Middle Floor, [place] [address] [facility], Phone: , ?? [facility] - [place], [place] ??[address] [place] [address] Phone: ?? [facility] ([place], [place], & [place]) ??[address] [place] [address] Phone: ?? Clinical & Support Options ??[address], [place] [address] Phone: ?? [place] [facility] ??[address] [place] [address] Phone: ?? [facility] ??[address] [place] [address] Phone: ?? [facility] ??[address] ([place] [address])[place], [place] Phone: ?? [facility] (women) ?? Homelessness Services ??[address] [place] [address] ?? Domestic Violence ?? [facility] ?? Domestic Violence [facility] & 24 Hour Hotline Program Office ??[address] [place] [address] Hotline Espa??ol ?? [facility] ?? Community Domestic Violence Services ??[address] [place] [address] ?? [facility] ?? Young Parent Programs ??[place] ?? [facility] ??[address], [place] [address] Phone: [phone] (9 AM to 5 PM, Tuesday to Tuesday ?? Substance Use - Detox Centers ?? Detoxes Not all of these detoxes may take your insurance. Please call ahead to check. You can also call your insurance company directly to see which detox centers would be covered. ?? [facility] [address] [place], [place] ?[facility] [address] [place] [address] ?[facility] [address] [place], [place] ? Marty [address] [phone]?[facility] [address] [place], [place] [phone]?[facility] [address] [place], [place] ?[facility] [address] [place], [place] ?[facility] [address] [place], [place] [phone]?[facility] [address] [place], [place] [phone]?[facility] [address] [place], [place] ?[address] [phone]?[facility] [address] [place], [place] [phone]?[address] ?[place] [address] [place], [place] ?[facility] [place] [facility] [address] [place], [place] ?[facility] [address] [place], [place] [phone]?[facility] [address] [place], [place] [phone] ?[facility] [address] [place], [place] ?[place] [address] [place], [place] [phone]?[facility] ([facility]) [address] [place], [place] [phone] ??[facility] [address] [place], [place] [phone]? * Linwood Brown DO: PERFORM Event Display: Patient Education Leaflets Authored Date: [id number] Chlordiazepoxide ?? [id number] Chlordiazepoxide Brand Name(s): A-poxide??, Chlordiazachel??, H-James??, Librelease??, Libritabs??, Librium??, Lygen??, Mitran??, Poxi??, Librax?? (as a combination product containing Clidinium, Chlordiazepoxide), Limbitrol?? (as a combination product containing Amitriptyline, Chlordiazepoxide), Menrium?? (as a combination product containing Chlordiazepoxide, Esterified Estrogens); also available generically ?? IMPORTANT WARNING: Chlordiazepoxide may increase the risk of serious or life-threatening breathing problems, sedation,or coma if used along with certain medications. Tell your doctor if you are taking or plan to take certain opiate medications for cough such as codeine (in Triacin-C, in Tuzistra XR) or hydrocodone (in Anexsia, in [place], in Zyfrel) or for pain such as codeine (in Fiorinal), fentanyl (Actiq, Duragesic, Subsys, others), hydromorphone (Dilaudid, Exalgo), meperidine (Demerol), methadone (Dolophine, Methadose), morphine (Astramorph, Duramorph PF, Casie), oxycodone (in Oxycet, in Percocet, in Roxicet, others), and tramadol (Conzip, Ultram, in Ultracet). Your doctor may need to change the dosages of your medications and will monitor you carefully. If you take chlordiazepoxide with any of these medications and you develop any of the following symptoms, call your doctor immediately or seek emergency medical care immediately: unusual dizziness, lightheadedness, extreme sleepiness, slowed or difficult breathing, or unresponsiveness. Be sure that your caregiver or family members know which symptoms may be serious so they can call the doctor or emergency medical care if you are unable to seek treatment on your own. Chlordiazepoxide may be habit forming. Do not take a larger dose, take it more often, or for a longer time than your doctor tells you to. Tell your doctor if you have ever drunk large amounts of alcohol, if you use or have ever used street drugs, or have overused prescription medications. Do not drink alcohol or use street drugs during your treatment. Drinking alcohol or using street drugs duringyour treatment with chlordiazepoxide also increases the risk that you will experience these serious, life-threatening side effects. Also tell your doctor if you have or have ever had depression or another mental illness. Chlordiazepoxide may cause a physical dependence (a condition in which unpleasant physical symptomsoccur if a medication is suddenly stopped or taken in smaller doses), especially if you take it forseveral days to several weeks. Do not stop taking this medication or take fewer doses without talking to your doctor. Stopping chlordiazepoxide suddenly can worsen your condition and cause withdrawalsymptoms that may last for several weeks to more than 12 months. Your doctor probably will decreaseyour chlordiazepoxide dose gradually. Call your doctor or get emergency medical treatment if you experience any of the following symptoms: unusual movements; ringing in your ears; anxiety; memory problems; difficulty concentrating; sleep problems; seizures; shaking; muscle twitching; changes in mental health; depression; burning or prickling feeling in hands, arms, legs or feet; seeing or hearingthings that others do not see or hear; thoughts of harming or killing yourself or others; overexcitement; or losing touch with reality. WHY is this medicine prescribed? Chlordiazepoxide is used to relieve anxiety and to control agitation caused by alcohol withdrawal. Chlordiazepoxide is in a class of medications called benzodiazepines. It works by decreasing abnormal electrical activity in the brain. HOW should this medicine be used? Chlordiazepoxide comes as a tablet and capsule to take by mouth. It usually is taken one to four times a day with or without food. Follow the directions on your prescription label carefully, and ask your doctor or pharmacist to explain any part you do not understand. Take chlordiazepoxide exactly as directed. Are there OTHER USES for this medicine? Chlordiazepoxide is also used to treat irritable bowel syndrome. Talk to your doctor about the possible risks of using this medication for your condition. This medication is sometimes prescribed for other uses; ask your doctor or pharmacist for more information. What SPECIAL PRECAUTIONS should I follow? Before taking chlordiazepoxide, ??? tell your doctor and pharmacist if you are allergic to chlordiazepoxide, alprazolam (Xanax), clonazepam (Klonopin), clorazepate (Gen-Xene, Tranxene), diazepam (Diastat, Valium), estazolam, flurazepam, lorazepam (Ativan), oxazepam, temazepam (Restoril), triazolam (Halcion), any other medications, or any of the ingredients in tablets and capsules. Ask your pharmacist for a list of the ingredients. ??? tell your doctor and pharmacist what prescription and nonprescription medications, vitamins,nutritional supplements, and herbal products you are taking or plan to take while taking chlordiazepoxide. Your doctor may need to change the doses of your medications or monitor you carefully for side effects. ??? tell your doctor if you have or have ever had glaucoma; seizures; or lung, heart, orliver disease. ??? tell your doctor if you are , plan to become , or are . If you become while taking chlordiazepoxide, call your doctor immediately. ??? talk toyour doctor about the risks and benefits of taking chlordiazepoxide if you are 65 years of age or older. Older adults should not usually take chlordiazepoxide because it is not as safe or effective as other medication(s) that can be used to treat the same condition. ??? if you are having surgery, including dental surgery, tell the doctor or dentist that you are taking chlordiazepoxide. ??? you should know that this medication may make you drowsy. Do not drive a car or operate machinery until you know how this medication affects you. What should I do IF I FORGET to take a dose? If you take several doses per day and miss a dose, skip the missed dose and continue your regular dosing schedule. Do not take a double dose to make up for a missed one. What SIDE EFFECTS can this medicine cause? Chlordiazepoxide may cause side effects. Tell your doctor if any of these symptoms are severe or donot go away: ??? drowsiness ??? dizziness ??? tiredness ??? weakness ??? dry mouth ??? diarrhea ??? upset stomach ??? changes in appetite Tell your doctor if any of these symptoms are severe or do not go away: ??? restlessness or excitement ??? constipation ??? difficulty urinating ??? frequent urination ???blurred vision ??? changes in sex drive or ability Some side effects can be serious. If you experience any of the following symptoms or those listed in the IMPORTANT WARNING section, call your doctor immediately or get emergency medical help: ??? shuffling walk ??? persistent, fine tremor or inability to sit still ??? fever ??? difficulty breathing or swallowing ??? severe skin rash ??? yellowing of the skin or eyes ??? irregular heartbeat If you experience a serious side effect, you or your doctor may send a report to the Food and Drug Administration's (FDA) MedWatch Adverse Event Reporting program online (https://www.fda.gov/Safety/MedWatch) or by phone ( ). What should I know about STORAGE and DISPOSAL of this medication? Keep this medication in the container it came in, tightly closed, and out of reach of children. Store it at room temperature and away from excess heat and moisture (not in the bathroom). It is important to keep all medication out of sight and reach of children as many containers (such as weekly pill minders and those for eye drops, creams, patches, and inhalers) are not child-resistant and young children can open them easily. To protect young children from poisoning, always lock safety caps and immediately place the medication in a safe location ??? one that is up and away and out of their sight and reach. https://www.upandaway.org Unneeded medications should be disposed of in special ways to ensure that pets, children, and otherpeople cannot consume them. However, you should not flush this medication down the toilet. Instead,the best way to dispose of your medication is through a medicine take-back program. Talk to your pharmacist or contact your local garbage/recycling department to learn about take-back programs in your community. See the FDA's Safe Disposal of Medicines website (https://goo.gl/c4Rm4p) for more information if you do not have access to a take-back program. What should I do in case of OVERDOSE? In case of overdose, call the poison control helpline at . Information is also available online at https://www.poisonhelp.org/help. If the victim has collapsed, had a seizure, has trouble breathing, or can't be awakened, immediately call emergency services at 911. What OTHER INFORMATION should I know? Keep all appointments with your doctor. Chlordiazepoxide can cause false results when using the Gravindex test. Do not let anyone else take your medication. Ask your pharmacist any questions you have about refilling your prescription. It is important for you to keep a written list of all of the prescription and nonprescription (mssc-agd-gylimvh) medicines you are taking, as well as any products such as vitamins, minerals, or otherdietary supplements. You should bring this list with you each time you visit a doctor or if you areadmitted to a hospital. It is also important information to carry with you in case of emergencies. This report on medications is for your information only, and is not considered individual patient advice. Because of the changing nature of drug information, please consult your physician or pharmacist about specific clinical use. The [place] [employer] represents that the information provided hereunder was formulated with a reasonable standard of care, and in conformity with professional standards in the field. The [place] [employer] makes no representations or warranties, express or implied, including, but not limited to, any implied warranty of merchantability and/or fitness for a particular purpose, with respect to such information and specifically disclaims all such warranties. Users are advised that decisions regarding drug therapy are complex medical decisions requiring the independent, informed decision of an appropriate health child caregiver, and the information is provided for informational purposes only. The entire monograph for a drug should be reviewed for a thorough understanding of the drug's actions, uses and side effects. The [place] [employer] does not endorse or recommend the use of any drug.The information is not a substitute for medical care. AHFS?? Patient Medication Information???. ?? Copyright, 2023. The [place] [employer]armacists??, [address], [address], [place], [place]. All Rights Reserved. Duplication for commercial use must be authorized by [facility]. AHFS?? Patient Medication Information???. ?? Copyright, 2024 ?? Patient Care team information Care Team Personnel Name: Chemo Zafar MD Position: [facility] Outreach Member Role: PCP Address: [address] [place] [address] [place] [address]- Telecom: Care Team Related Persons Name: MARGARET BLUE Insurance Providers Guarantor name: WANDER Health Plan Information #: 1 Payer: [employer] Member Number: [id number] Policy Number: NA Group Number: [id number] Health Plan Information #: 2 Payer: [employer] Member Number: [id number] Policy Number: NA Group Number: [id number]
--- OUTSIDE RECORDS SUMMARY | 2024-05-30 03:35 | XMS_ITS | Continuity of Care Document ---
Author Organization [facility] ter Address [address] [place] [id number]- Care Team Providers Care Court Administrator Name Role Phone Chemo Zafar MD Primary Care Physician Encounter [facility] Date(s): 05/14/24 - 05/14/[address] [address]- Encounter Diagnosis Alcohol use with withdrawal(Final) - 05/14/24 Discharge Disposition: A-D/C AMA Attending Physician: Adrian Keys DO Admitting Physician: Adrian Keys DO Referring Physician: Not on Staff, Referring MD Encounter Type: Disch ES Allergies, Adverse Reactions, Alerts No Known Allergies Immunizations Given and Recorded Vaccine Date Status Refusal Reason tetanus/diphtheria/pertussis, acel(Tdap) 1 12/07/21 Given 1Result Comment: [facility] 10244-095-04 Medications Methadone By Mouth, 0 Refills, Maintenance, 06/06/16 9:22:59 PM EST Start Date: 06/06/16 Status: Ordered Repeat number: 1 Vital Signs Most recent to oldest [Reference Range]: 1 2 Oxygen Saturation [94-100 %] 98 % (05/14/24 3:05 PM) Pulse Rate [55-90 bpm] 133 bpm *H* (05/14/24 3:05 PM) Blood Pressure [90-138/55-84 mm Hg] 144/ 81mm Hg *H* (05/14/24 3:05 PM) Respiratory Rate [16-30 br/min] 19 br/mi n (05/14/24 3:05 PM) Temperature [96.8-100.4 DegF] 98.1 DegF (05/14/24 3:05 PM) 98.1 DegF (05/14/24 3:05 PM) Mode of Delivery (Oxygen) Room air (05/14/24 3:05 PM) Blood pressure sites Arm, left (05/14/24 3:05 PM) Temperature Route Oral (05/14/24 3:05 PM) Oral (05/14/24 3:05 PM) Patient Care team information Care Team Personnel Name: Chemo Zafar MD [facility] Outreach Member Role: PCP Address: [address] [place] [address] Nima Zafar MD [place], [place] [address] Telecom: Care Team Related Persons Name: MARGARET BLUE Insurance Providers Guarantor name: WANDER Health Plan Information #: 1 Payer: [employer] Member Number: [id number] Policy Number: NA Group Number: [id number] Health Plan Information #: 2 Payer: [employer] Member Number: [id number] Policy Number: NA Group Number: NA
--- OUTSIDE RECORDS SUMMARY | 2024-05-30 03:35 | XMS_ITS | Encounter Summary ---
Author Organization [facility] Address [address] [place] [id number] Care Team Providers Care Senior Biostatistician/Group Leader Name Role Phone Alfredo Carias MD Primary Care Provider [phone] Reason for Visit * Reason Comments Alcohol Intoxication LAST DRINK APPROX 2 200 * Auth/Cert (Routine) Specialty Diagnoses / Procedures Referred By Contac t Referred To Contact Diagnoses Alcohol withdrawal (CMS/HCC) Procedures . Cayetano Lazo MD [address] [place] [id number] Phone: tel: fax: [facility] Emergency [address] [place] [address] Phone: tel: Referral ID Status Reason Start Date Expiration Date Visits Re quested Visits Authorized [id number] 1 1 Encounter Details Date Type Department Care Team (Latest Contact Info) Description 05/18/2024 12:25 AM EST - 05/18/2024 11:35 AM EST Hospital Encounter [facility] Emergency [address] [place] [address] Caryn Valencia MD [address] [place] [phone] Cayetano Lazo MD [address] [place] [phone] Yumiko Hoskins MD [address] [place] [phone] Alcohol withdrawal syndrome without complication (CMS/HCC) (Primary Dx); Dehydration; Hypomagnesemia Discharge Disposition: Left Against Medical Advice Social History Tobacco Use Types Packs/Day Years Used Date Smoking Tobacco: Never Assessed Sex and Gender Information Value Date Recorded Sex Assigned at Male 05/20/2024 12:30 PM EST Legal Sex Male 4:44 AM EST Gender Identity Male 05/20/2024 12:30 PM EST Sexual Orientation Straight 05/20/2024 12 :30 PM EST documented as of this encounter Last Filed Vital Signs Vital Sign Reading Time Taken Comments Blood Pressure 141/91 05/18/2024 8:45 AM EST Pulse 109 05/18/2024 8:45 AM EST Temperature 36.8 ??C (98.2 ??F) 05/18/2024 12:[address] Respiratory Rate 20 05/18/2024 8:22 AM EST Oxygen Saturation 95% 05/18/2024 8:22 AM EST Inhaled Oxygen Concentration - - Weight 68 kg (150 lb) 05/18/2024 12:30 AM EST Height 167.6 cm (5' 6 ) 05/18/2024 12:30 AM EST Body Mass Index 24.21 05/18/2024 12:30 AM EST documented in this encounter Discharge Summaries * Yumiko Hoskins MD - 05/18/2024 11:35 AM EST Was informed by the nurse that patient wanted to leave AGAINST MEDICAL ADVICE. Patient was seen andexamined at bedside, patient is alert and oriented x3, was explained in great detail the risks of refusing medical treatment and departing AGAINST MEDICAL ADVICE. Patient verbalized understanding of the risks of leaving. Patient was adamant to leave even after understanding the risks of leaving AMA. Patient signed out AMA. documented in this encounter Discharge Disposition Disposition Code Departure Means Destination Comment s Left Against Medical Advice documented in this encounter Progress Notes * Yumiko Hoskins MD - 05/18/2024 11:35 AM EST [facility] Provider Response Note PATIENT: NATALIO BLUE : 1980 ADMIT DATE: 05/18/2024 5:34 AM DISCH DATE: 05/18/2024 11:35 AM RESPONDING PROVIDER #: [id number] PROVIDER RESPONSE TEXT: Provider disagrees with the query because it is not applicable to the patient or not a valid query. QUERY TEXT: QUERY: Please clarify a diagnosis, if any indicated by the patient?s lab findings and pertinent medical history: The following clinical indicators are noted in the documentation regarding this patient: Admitted for/Risk Factors: ?Patient is a 44 y.o. male with no significant past medical history except history of alcohol use disorder coming to the hospital for alcohol detox? per H&P Labs: 05/18/24 Hematocrit (%) 31.6L Hemoglobin (g/dL) 10.1L C: [phone] The patient's clinical indicators include: Options provided: -- Anemia due to/in/with chronic disease -- Chronic anemia, unknown/other etiology -- Other - I will add my own diagnosis -- Disagree - Not applicable / Not valid Query created by: Mata Vidales on 05/18/2024 7:36 AM PROVIDER RESPONSE TEXT: Patient has Thrombocytopenia QUERY TEXT: QUERY: Please provide a diagnosis, if known, related to the information provided: The following clinical indicators are noted in the documentation regarding this patient: Admitted for/Risk Factors: ?Patient is a 44 y.o. male with no significant past medical history except history of alcohol use disorder coming to the hospital for alcohol detox? per H&P Labs: 05/18/24 Platelets (K/mcL) 61L C: [phone] The patient's clinical indicators include: Options provided: -- Thrombocytopenia -- Other - I will add my own diagnosis -- Disagree - Not applicable / Not valid Query created by: Mata Vidales on 05/18/2024 7:36 AM Electronically signed by: YUMIKO HOSKINS MD 05/18/2024 1:50 PM * Robert Saldaña - 05/18/2024 6:49 AM EST Images from the original note were not included. Stewardesses Teacher Note Natalio Blue 1980 [id number] Author: Robert Saldaña DOS: 05/18/2024 Natalio Blue is a 44 y.o. male with a history of EtOH misuse. I utilized active listening and motivational interviewing during this initial contact to help establish a positive working rapport and to begin to build trust. Mr. Blue was shaking quite drastically from alcohol withdrawal but he was still engaged in our conversation and I believe he was beingforthright. He stated to me that he has been drinking up to 10 nips a day since he was 17 years old. (For approx. 25 years) He also stated that he has had 1 documented seizure from alcohol withdrawal. I will continue to work with Mr. Blue while he is the hospital and help him create and execute a Recovery Support Plan. Referrals: None Required at this time Harm Reduction: None required at this time SIGNATURES: Robert Saldaña - Certified Stewardesses Teacher * Lashaun Han RN - 05/18/2024 12:29 AM EST PT BIBA. C/O N/V & WEAKNESS. REPORTS 10 NIPS QD & WITHDRAWAL SYMTPOMS. * Caryn Valencia MD - 05/18/2024 12:18 AM EST Emergency Medicine Note Patient Name: Natalio Blue Initial Evaluation: 05/18/2024 : 1980 Patient's PCP: Alfredo Carias MD Emergency Physician: Caryn Valencia MD History of Present Illness Chief Complaint: Chief Complaint Patient presents with Alcohol Intoxication LAST DRINK APPROX 2200 HPI: 44-year-old male with history of alcohol use disorder presenting with alcohol withdrawal. Patient reports his last drink was about 10 hours prior to arrival. States he uses approximately 12 vodka nips daily and tends to get shaky if he stops drinking. No history of alcohol withdrawal seizure. Admits that he does want to quit today. Describes some vomiting today but denies fever or diarrhea. Denies other illicit substance use. No SI. ROS: I have performed a ROS with the pertinent positives and negatives documented in the history ofpresent illness. Previous History History reviewed. No pertinent past medical history. History reviewed. No pertinent surgical history. No family history on file. has No Known Allergies. No current facility-administered medications on file prior to encounter. No current outpatient medications on file prior to encounter. Physical Exam ED Triage Vitals Temp Heart Rate Resp BP 05/18/242905/18/242905/18/242905/18/2429 36.8 ??C (98.2 ??F) 106 20 129/81 SpO2 Temp Source Heart Rate Source Patient Position 05/18/242905/18/242905/18/242905/18/2429 98 % Oral Monitor Sitting BP Location FiO2 (%) 05/18/24 0243 -- Right arm GENERAL: Ill-Appearing, appears uncomfortable. SKIN: Normal skin color for ethnicity, warm, dry, no rashes noted. HEENT: Normocephalic, atraumatic, no stridor, dry mucous membranes, dentition intact, EOMI. NECK: Soft, supple, full ROM, midline structures nontender, no step-offs, no deformities, no lymphadenopathy. CHEST: Heart regular tachycardia, no murmurs, symmetric chest rise and fall. PULMONARY: Clear to auscultation bilaterally, diminished at the bases, no labored breathing, no wheezes/rhales/rhonchi. ABDOMINAL: Soft, nondistended, nontender, positive bowel sounds in all quadrants. : Deferred. MUSCULOSKELETAL: Normal tone, full range of motion, no deformities, no peripheral edema. NEURO: Alert and oriented x3, CN II through XII intact, equal strength and sensation bilateral upper and lower extremities, no focal neurologic deficits, resting tremor, no asterixis. PSYCHIATRIC: Flat affect, fluid speech, good eye contact and appropriate demeanor. Results Labs Reviewed COMPREHENSIVE METABOLIC PANEL - Abnormal Result Value Sodium 135 Potassium 3.8 Chloride 104 CO2 8 (*) Anion Gap 23 (*) Glucose 114 (*) BUN 13 Creatinine 0.24 (*) eGFR 163 BUN/Creatinine Ratio 54.2 Calcium 6.3 (*) AST (SGOT) 104 (*) ALT (SGPT) 37 Alkaline Phosphatase 40 (*) Total Protein 2.4 (*) Albumin 1.3 (*) Total Bilirubin 0.3 MAGNESIUM - Abnormal Magnesium 0.5 (*) CBC WITH AUTO DIFFERENTIAL - Abnormal WBC 5.7 RBC 3.20 (*) Hemoglobin 10.1 (*) Hematocrit 31.6 (*) MCV 98.1 (*) MCH 31.4 MCHC 32.0 RDW 13.7 Platelets 61 (*) MPV 10.7 NRBC 0.0 NRBC Absolute 0.00 Neutrophils Relative 87.3 Lymphocytes Relative 6.0 Monocytes Relative 5.7 Eosinophils Relative 0.0 Basophils Relative 0.5 Immature Granulocytes Relative 0.5 Neutrophils Absolute 4.93 Lymphocytes Absolute 0.34 (*) Monocytes Absolute 0.32 Eosinophils Absolute 0.00 Basophils Absolute 0.03 Immature Granulocytes Absolute 0.03 ETHANOL - Abnormal Ethanol Level 181 (*) BETA HYDROXYBUTYRATE - Abnormal Beta-Hydroxybutyrate 38.3 (*) VENOUS BLOOD GAS - Abnormal pH, Richard 7.34 pCO2, Richard 36 (*) pO2, Richard 38 HCO3, Venous 19.7 (*) O2 Sat, Richard 62.8 Base Excess, Richard -5.7 (*) CBC AND DIFFERENTIAL Narrative: The following orders were created for panel order CBC and differential. Procedure Abnormality Status --------- ------ CBC auto differential[[id number]] Abnormal Final result Please view results for these tests on the individual orders. CBC AND DIFFERENTIAL Narrative: The following orders were created for panel order CBC and differential. Procedure Abnormality Status --------- ------ CBC auto differential[[id number]] Please view results for these tests on the individual orders. MAGNESIUM COMPREHENSIVE METABOLIC PANEL CBC WITH AUTO DIFFERENTIAL DRUG ABUSE SCREEN 8A PANEL, URINE Abnormal Labs Reviewed COMPREHENSIVE METABOLIC PANEL - Abnormal; Notable for the following components: Result Value CO2 8 (*) Anion Gap 23 (*) Glucose 114 (*) Creatinine 0.24 (*) Calcium 6.3 (*) AST (SGOT) 104 (*) Alkaline Phosphatase 40 (*) Total Protein 2.4 (*) Albumin 1.3 (*) All other components within normal limits MAGNESIUM - Abnormal; Notable for the following components: Magnesium 0.5 (*) All other components within normal limits CBC WITH AUTO DIFFERENTIAL - Abnormal; Notable for the following components: RBC 3.20 (*) Hemoglobin 10.1 (*) Hematocrit 31.6 (*) MCV 98.1 (*) Platelets 61 (*) Lymphocytes Absolute 0.34 (*) All other components within normal limits ETHANOL - Abnormal; Notable for the following components: Ethanol Level 181 (*) All other components within normal limits BETA HYDROXYBUTYRATE - Abnormal; Notable for the following components: Beta-Hydroxybutyrate 38.3 (*) All other components within normal limits VENOUS BLOOD GAS - Abnormal; Notable for the following components: pCO2, Richard 36 (*) HCO3, Venous 19.7 (*) Base Excess, Richard -5.7 (*) All other components within normal limits No orders to display I have discussed the incidental/abnormal imaging and/or lab abnormalities with the patient and haveinstructed them the need for further evaluation and workup with their primary care doctor. I have provided the patient with a paper copy of the abnormality. The laboratory results, imaging results and other diagnostic exam results were reviewed in the EMR. EKG Interpretation Critical Care Time None ? Medical Decision Making 44-year-old male presenting with vomiting, alcohol withdrawal. Differential diagnosis includes electrolyte abnormality, renal dysfunction, viral syndrome, alcohol use disorder and withdrawal, among many others. He initially presented with a CIWA score of 3 which quickly escalated to 8 or 9. He was started on the phenobarbital protocol and will be admitted to hospitalist for further care and evaluation. Of note, his initial magnesium level came back at 0.5. This was repleted with 2 g IV. He alsoreceived 2 L of IV fluid. Does appear to be rather ketotic, suspect alcoholic ketosis/starvation ketosis. He has no diabetic history. Very low suspicion for DKA though euglycemic DKA is certainly a p ossibility. Patient will be admitted for further care and evaluation. Medications sodium chloride 0.9 % infusion (100 mL/hr intravenous Restarted 05/18/24824) enoxaparin (LOVENOX) injection 40 mg (40 mg subcutaneous Given 05/18/24824) LORazepam (ATIVAN) injection 2 mg (has no administration in time range) Or LORazepam (ATIVAN) injection 3 mg (has no administration in time range) Or LORazepam (ATIVAN) injection 4 mg (has no administration in time range) multivitamin minerals-iron (THERA-M) 1 tablet (1 tablet oral Given 05/18/24824) folic acid (FOLVITE) tablet 1 mg (1 mg oral Given 05/18/24824) thiamine (VITAMIN B-1) tablet 100 mg (100 mg oral Given 05/18/24824) magnesium sulfate 2 gram/50 mL (4 %) IVPB 2 g (2 g intravenous New Bag 05/18/24 0659) lactated Ringer's bolus 1,000 mL (0 mL intravenous Stopped 05/18/24 0154) ondansetron (PF) (ZOFRAN) injection 4 mg (4 mg intravenous Given 05/18/24 0057) lactated Ringer's bolus 1,000 mL (0 mL intravenous Stopped 05/18/24 0446) LORazepam (ATIVAN) injection 2 mg (2 mg intravenous Given 05/18/24 0412) Clinical Impressions as of 05/18/24832 Alcohol withdrawal syndrome without complication (CMS/HCC) Dehydration Hypomagnesemia Procedures Procedures Diagnosis 1. Alcohol withdrawal syndrome without complication (CMS/HCC) 2. Dehydration 3. Hypomagnesemia Disposition Admit to Inpatient ED Prescriptions None Physician Attestation Caryn Valencia MD 05/18/24404 Caryn Valencia MD 05/18/24832 documented in this encounter H&P Notes * Cayetano Lazo MD - 05/18/2024 5:55 AM EST Admitting MD: Cayetano Lazo MD PCP: Alfredo Carias MD Code Status: Full Code - Default HPI : Patient is a 44 y.o. male with no significant past medical history except history of alcohol use disorder coming to the hospital for alcohol detox. Patient stated that his last drink was PM yesterday. Patient denies any abdominal pain at this time. He initially came in for nausea and vomiting which appears to have improved as of now. He denies any chest pain or shortness of breath. In the hospital, the patient was tachycardic and tachypneic. Laboratory workup for BMP and magnesium pending. Patient is awake and alert and oriented. Past Medical History: Past Surgical History: History reviewed. No pertinent past medical history. History reviewed. No pertinent surgical history. Family History Social History: No family history on file. Social History Socioeconomic History Marital status: Single Spouse name: Not on file Number of children: Not on file Years of education: Not on file Highest education level: Not on file Occupational History Not on file Tobacco Use Smoking status: Not on file Smokeless tobacco: Not on file Substance and Sexual Activity Alcohol use: Not on file Drug use: Not on file Sexual activity: Not on file Other Topics Concern Not on file Social History Narrative Not on file Allergies: No Known Allergies Medications: No current outpatient medications Review of Systems: Review of Systems A complete 14 point review of symptoms was done and is negative except as mentioned in the note above. Vitals: Vitals: 05/18/24 0245 BP: (!) 110/92 Pulse: (!) 125 Resp: Temp: SpO2: Physical Exam: Constitutional: General: Not in acute distress. Appearance: Normal appearance. Not ill-appearing. HENT: Head: Normocephalic and atraumatic. Right Ear: External ear normal. Left Ear: External ear normal. Nose: Nose normal. Eyes: Extraocular Movements: Extraocular movements intact. Cardiovascular: Rate and Rhythm: Elevated heart rate. Heart sounds: Normal heart sounds. No murmur heard. No friction rub. No gallop. Pulmonary: Effort: Pulmonary effort is normal. No respiratory distress. Breath sounds: Normal breath sounds. No stridor. No wheezing or rales. Abdominal: General: Abdomen is flat. There is no distension. Palpations: Abdomen is soft. There is no mass. Tenderness: There is no abdominal tenderness. Musculoskeletal: General: No swelling or deformity. Normal range of motion. Cervical back: Normal range of motion. Right lower leg: No edema. Left lower leg: No edema. Skin: General: Skin is warm and dry. Neurological: General: No focal deficit present. Mental Status: Alert and oriented to person, place, and time. Mental status is at baseline. Psychiatric: Mood and Affect: Mood normal. Behavior: Behavior normal. Labs: Labs Reviewed CBC WITH AUTO DIFFERENTIAL - Abnormal Result Value WBC 5.7 RBC 3.20 (*) Hemoglobin 10.1 (*) Hematocrit 31.6 (*) MCV 98.1 (*) MCH 31.4 MCHC 32.0 RDW 13.7 Platelets 61 (*) MPV 10.7 NRBC 0.0 NRBC Absolute 0.00 Neutrophils Relative 87.3 Lymphocytes Relative 6.0 Monocytes Relative 5.7 Eosinophils Relative 0.0 Basophils Relative 0.5 Immature Granulocytes Relative 0.5 Neutrophils Absolute 4.93 Lymphocytes Absolute 0.34 (*) Monocytes Absolute 0.32 Eosinophils Absolute 0.00 Basophils Absolute 0.03 Immature Granulocytes Absolute 0.03 CBC AND DIFFERENTIAL Narrative: The following orders were created for panel order CBC and differential. Procedure Abnormality Status --------- ------ CBC auto differential[[id number]] Abnormal Final result Please view results for these tests on the individual orders. COMPREHENSIVE METABOLIC PANEL MAGNESIUM CBC AND DIFFERENTIAL Narrative: The following orders were created for panel order CBC and differential. Procedure Abnormality Status --------- ------ CBC auto differential[[id number]] Please view results for these tests on the individual orders. MAGNESIUM COMPREHENSIVE METABOLIC PANEL CBC WITH AUTO DIFFERENTIAL ETHANOL DRUG ABUSE SCREEN 8A PANEL, URINE Imaging: No orders to display Problem List: Patient Active Problem List Diagnosis Date Noted Date Diagnosed Alcohol withdrawal ([facility]) 05/18/2024 Assessment / Plan: 44-year-old male being admitted to the hospital for alcohol withdrawals. His last drink was at around 10 PM yesterday. CIWA protocol with Ativan use. Multi vitamin, thiamine and folic acid. Will check ethanol levels. Will check urinary drug screen. Replace electrolytes as needed IV fluid for hydration. Cardiac telemetry. Zofran for nausea and vomiting. Will check EKG for Qtc. Med Rec/Ambulation/BPCI: Medication reconciliation Completed: Yes Source of Medication Reconciliation: Patient. He states he takes no medications. Ulcer Prophylaxis: None. DVT Prophylaxis: Lovenox. Bowel Regimen: None. Narvaez Catheter: None. Diet/Feeding: Regular diet. Analgesia: None. Telemetry: Ordered. Fluids: Ordered. Additional records from previous providers were reviewed in detail. Case was discussed with cook fruit as well. I spent greater than 80 minutes caring for this patient today with greater than 50% of the time spent in direct [id number] care/counseling/coordination with staff counsel, consultants, and reviewing patient chart. Cayetano Lazo MD [facility] Hospitalist, 7am-7pm Available thru tiger text After 7pm, please tiger text cross coverage 05/18/2024 5:59 AM EST documented in this encounter Plan of Treatment Scheduled Orders Name Type Priority Associated Diagnoses Order Schedule Gastrointestinal pathogens molecular study Microbiology Routine Once f or 1 Occurrences starting 05/18/2024 until 05/18/2024 documented as of this encounter Procedures Procedure Name Priority Date/Time Associated Diagnosis Comments CBC WITH AUTO DIFFERENTIAL Routine 05/18/2024 10:42 AM EST CBC AND DIFFERENTIAL Routine 05/18/2024 10:42 AM EST MAGNESIUM Routine 05/18/2024 10:42 AM EST COMPREHENSIVE METABOLIC PANEL Routine 05/18/2024 10:42 AM EST DRUG ABUSE SCREEN 8A PANEL, URINE Routine 05/18/2024 9:21 AM EST ECG 12-LEAD STAT 05/18/2024 9:08 AM EST VENOUS BLOOD GAS STAT 05/18/2024 6:51 AM EST BETA HYDROXYBUTYRATE Add-On 05/18/2024 4:12 AM EST MAGNESIUM STAT 05/18/2024 4:12 AM EST ETHANOL Add-On 05/18/2024 4:12 AM EST COMPREHENSIVE METABOLIC PANEL STAT 05/18/2024 4:12 AM EST CBC WITH AUTO DIFFERENTIAL STAT 05/18/2024 3:30 AM EST CBC AND DIFFERENTIAL STAT 05/18/2024 3:30 AM EST documented in this encounter Results * (ABNORMAL) CBC auto differential (05/18/2024 10:42 AM EST) WBC 4.4(L) 4.8 - 10.8 K/mcL LAB HEMETOLOGY METHOD 05/18/2024 11:01 AM [facility] RBC 3.30(L) 4.50 - 5.50 M/mcL LAB HEMETOLOGY METHOD 05/18/2024 11:01 AM [facility] Hemoglobin 10.2(L) 13.5 - 17.5 g/dL LAB HEMETOLOGY METHOD 05/18/2024 11:01 AM [facility] Hematocrit 30.3(L) 42.0 - 54.0 % LAB HEMETOLOGY METHOD 05/18/2024 11:01 AM [facility] MCV 93.2 79.0 - 98.0 FL LAB HEMETOLOGY METHOD 05/18/2024 11:01 AM [facility] MCH 31.4 27.0 - 32.0 pcg LAB HEMETOLOGY METHOD 05/18/2024 11:01 AM [facility] MCHC 33.7 32.0 - 37.0 g/dL LAB HEMETOLOGY METHOD 05/18/2024 11:01 AM [facility] RDW 13.4 11.0 - 15.0 % LAB HEMETOLOGY METHOD 05/18/2024 11:01 AM [facility] Platelets 62(L) 130 - 400 K/mcL LAB HEMETOLOGY METHOD 05/18/2024 11:01 AM [facility] Comment:previously verified by slide MPV 10.3 7.0 - 11.0 FL LAB HEMETOLOGY METHOD 05/18/2024 11:01 AM [facility] NRBC 0.0 <1.0 % LAB HEMETOLOGY METHOD 05/18/2024 11:01 AM [facility] NRBC Absolute 0.00 <0.10 K/mcL LAB HEMETOLOGY METHOD 05/18/2024 11:01 AM [facility] Neutrophils Relative 85.3 % LAB HEMETOLOGY METHOD 05/18/2024 11:01 AM [facility] Lymphocytes Relative 7.3 % LAB HEMETOLOGY METHOD 05/18/2024 11:01 AM [facility] Monocytes Relative 6.2 % LAB HEMETOLOGY METHOD 05/18/2024 11:01 AM [facility] Eosinophils Relative 0.0 % LAB HEMETOLOGY METHOD 05/18/2024 11:01 AM [facility] Basophils Relative 0.5 % LAB HEMETOLOGY METHOD 05/18/2024 11:01 AM [facility] Immature Granulocytes Relative 0.7 % LAB HEMETOLOGY METHOD 05/18/2024 11:01 AM [facility] Neutrophils Absolute 3.74 1.50 - 7.00 K/mcL LAB HEMETOLOGY METHOD 05/18/2024 11:01 AM [facility] Lymphocytes Absolute 0.32(L) 1.00 - 5.00 K/mcL LAB HEMETOLOGY METHOD 05/18/2024 11:01 AM [facility] Monocytes Absolute 0.27 0.20 - 1.00 K/mcL LAB HEMETOLOGY METHOD 05/18/2024 11:01 AM [facility] Eosinophils Absolute 0.00 0.00 - 0.50 K/mcL LAB HEMETOLOGY METHOD 05/18/2024 11:01 AM [facility] Basophils Absolute 0.02 0.00 - 0.20 K/mcL LAB HEMETOLOGY METHOD 05/18/2024 11:01 AM [facility] Immature Granulocytes Absolute 0.03 0.00 - 0.03 K/mcL LAB HEMETOLOGY METHOD 05/18/2024 11:01 AM [facility] Blood Venous blood specimen / Unknown Venipuncture / Unknown 05/18/2024 10:42 AM EST 05/18/2024 10:52 AM EST us Cayetano Lazo MD LAB BLOOD ORDERABLES Final Res ult [facility] [address] [place] [address], * (ABNORMAL) Comprehensive metabolic panel (05/18/2024 10:42 AM EST) Sodium 132(L) 133 - 145 mmol/L LAB CHEMISTRY METHOD 05/18/2024 11:40 AM [facility] Potassium 3.4(L) 3.5 - 5.5 mmol/L LAB CHEMISTRY METHOD 05/18/2024 11:40 AM [facility] Chloride 100 96 - 110 mmol/L LAB CHEMISTRY METHOD 05/18/2024 11:40 AM [facility] CO2 20(L) 21 - 32 mmol/L LAB CHEMISTRY METHOD 05/18/2024 11:40 AM [facility] Anion Gap 12(H) 3 - 11 LAB CHEMISTRY METHOD 05/18/2024 11:40 AM [facility] Glucose 499(HH) 70 - 100 mg/dL LAB CHEMISTRY METHOD 05/18/2024 11:40 AM [facility] BUN 22 5 - 25 mg/dL LAB CHEMISTRY METHOD 05/18/2024 11:40 AM [facility] Creatinine 1.18 0.70 - 1.30 mg/dL LAB CHEMISTRY METHOD 05/18/2024 11:40 AM [facility] eGFR 79 >=60 mL/min/1. 73m2 LAB CHEMISTRY METHOD 05/18/2024 11:40 AM [facility] Comment:Calculation based on the??Chronic Kidney Disease Epidemiology Collaboration (CKD-EPI) equation refit??without adjustment for race. BUN/Creatinine Ratio 18.6 LAB CHEMISTRY METHOD 05/18/2024 11:40 AM [facility] Calcium 7.6(L) 8.5 - 10.5 mg/dL LAB CHEMISTRY METHOD 05/18/2024 11:40 AM [facility] AST (SGOT) 280(H) 10 - 42 unit/L LAB CHEMISTRY METHOD 05/18/2024 11:40 AM [facility] ALT (SGPT) 96(H) 10 - 60 unit/L LAB CHEMISTRY METHOD 05/18/2024 11:40 AM [facility] Alkaline Phosphatase 99 42 - 121 unit/L LAB CHEMISTRY METHOD 05/18/2024 11:40 AM [facility] Total Protein 5.6(L) 6.0 - 8.0 g/dL LAB CHEMISTRY METHOD 05/18/2024 11:40 AM [facility] Albumin 3.1(L) 3.2 - 5.0 g/dL LAB CHEMISTRY METHOD 05/18/2024 11:40 AM [facility] Total Bilirubin 0.7 0.0 - 1.4 mg/dL LAB CHEMISTRY METHOD 05/18/2024 11:40 AM [facility] Blood Venous blood specimen / Unknown Venipuncture / Unknown 05/18/2024 10:42 AM EST 05/18/2024 10:52 AM EST [facility] - 05/18/2024 11:40 AM EST Spoke with nurse about results, chose to release because patient unable to be redrawn us Cayetano Lazo MD LAB BLOOD ORDERABLES Final Res ult [facility] [address] [place] [address], * Magnesium (05/18/2024 10:42 AM EST) Magnesium 2.2 1.9 - 2.6 mg/dL LAB CHEMISTRY METHOD 05/18/2024 11:38 AM [facility] Blood Venous blood specimen / Unknown Venipuncture / Unknown 05/18/2024 10:42 AM EST 05/18/2024 10:52 AM EST us Cayetano Lazo MD LAB BLOOD ORDERABLES Final Res ult [facility] [address] [place] [address], * (ABNORMAL) Drug abuse screen 8a panel, urine (05/18/2024 9:21 AM EST) Pathologist [facility] Amphetamine Screen, Ur Negative Negative LAB CHEMISTRY METHOD 5 9:36 AM [facility] Comment:Certain OTC medicati ons containing ephedrine, phenylephrine, pseudoephedrine and phenylpropanolamine can cause false positive results. Barbiturate Screen, Ur Positive(A ) Negative LAB CHEMISTRY METHOD 5 9:36 AM [facility] Benzodiazepine Screen, Ur Positive(A ) Negative LAB CHEMISTRY METHOD 5 9:36 AM [facility] Cocaine Screen, Ur Negative Negative LAB CHEMISTRY METHOD 5 9:36 AM [facility] Opiate Screen, Ur Negative Negative LAB CHEMISTRY METHOD 5 9:36 AM [facility] Cannabinoid (THC) Screen, Ur Negative Negative LAB CHEMISTRY METHOD 5 9:36 AM [facility] Comment:Specimens from patie nts taking pantoprazole sodium (Protonix) have been shown to produce false positive results. Oxycodone Screen, Ur Negative Negative LAB CHEMISTRY METHOD 5 9:36 AM [facility] Fentanyl, Ur Negative Negative LAB CHEMISTRY METHOD 9:36 AM EST [facility] Urine Urine specimen obtained by clean catch procedure / Unknown Non-blood Collection / Unknown 05/18/2024 9:21 AM EST 05/18/2024 9:23 AM EST [facility]arrative [facility] - 05/18/2024 9:36 AM EST Assay cutoffs: Amphetamines ? 1000 ng/mL Barbiturates ?200 ng/mL Benzodiazepines ?? 200 ng/mL Cocaine ? 300 ng/mL Fentanyl ?1 ng/mL Opiates ? 300 ng/mL Oxycodone ? 100 ng/mL THC ?50 ng/mL Semi-quantitative assay for screening purposes only. Unconfirmed screening result should not be used for non-medical purposes. *ALTERNATE METHOD CONFIRMATION DONE UPON REQUEST ONLY* us Cayetano Lazo MD LAB URINE ORDERABLES Final Res ult [facility] [place] ([facility]) [facility] [address] [place] [address], [place] [phone] * ECG 12 lead (05/18/2024 9:08 AM EST) Ventricular Rate ECG 139 BPM GEMUSE Atrial Rate 139 BPM GEMUSE P-R Interval 140 ms GEMUSE QRS Duration 88 ms GEMUSE Q-T Interval 328 ms GEMUSE QTc 499 ms GEMUSE P Wave [place] 67 degrees GEMUSE R [place] 22 degrees GEMUSE T [place] 51 degrees GEMUSE ECG Interpretation Sinus tachycardia Nonspecific ST and T wave abnormality Abnormal ECG When compared with ECG of 11-NOV-2018 00:11, Vent. rate has increased BY ??[address] now depressed in Anterior leads Nonspecific T wave abnormality now evident in Inferior leads T wave inversion now evident in Lateral leads Confirmed by EDDIE ERICKSON ([id number]) on 05/20/2024 3:19:13 PM GEMUSE 05/18/2024 9:08 AM EST 05/20/2024 3:19 PM EST Cayetano Lazo MD ECG ORDERABLES Final Result GEMUSE * (ABNORMAL) Venous blood gas (05/18/2024 6:51 AM EST) pH, Richard 7.34 7.32 - 7.42 pH 05/18/2024 7:01 AM [facility] pCO2, Richard 36(L) 41 - 51 mmHg 05/18/2024 7:01 AM [facility] pO2, Richard 38 25 - 40 mmHg 05/18/2024 7:01 AM [facility] HCO3, Venous 19.7(L) 22.0 - 26.0 mmol/L 05/18/2024 7:01 AM [facility] O2 Sat, Richard 62.8 % 05/18/2024 7:01 AM [facility] Base Excess, Richard -5.7(L) -2.0 - 2.0 mmol/L 05/18/2024 7:01 AM [facility] Blood Venous blood specimen / Unknown Venipuncture / Unknown 05/18/2024 6:51 AM EST 05/18/2024 6:58 AM EST us Caryn Valencia MD LAB BLOOD ORDERABLES Fin al Result [facility] [address] [place] [address], * (ABNORMAL) Beta hydroxybutyrate (05/18/2024 4:12 AM EST) Beta-Hydroxyb utyrate 38.3(H) 0.2 - 2.8 mg/dL LAB CHEMISTRY METHOD 05/18/2024 7:00 AM EST [facility] Blood Venous blood specimen / Unknown Venipuncture / Unknown 05/18/2024 4:12 AM EST 05/18/2024 5:41 AM EST Caryn Valencia MD LAB BLOOD ORDERABLES Fin al Result Performing Organization Address [facility] de Phone Number [facility] [address] [place] [address], [place] [phone] * (ABNORMAL) Ethanol (05/18/2024 4:12 AM EST) Ethanol Level 181(H) 0 - 10 mg/dL LAB CHEMISTRY METHOD 05/18/2024 6:42 AM EST [facility] Blood Venous blood specimen / Unknown Venipuncture / Unknown 05/18/2024 4:12 AM EST 05/18/2024 5:41 AM EST Cayetano Lazo MD LAB BLOOD ORDERABLES Final Res ult Performing Organization Address [facility] de Phone Number [facility] [address] [place] [address], [place] [phone] * (ABNORMAL) Magnesium (05/18/2024 4:12 AM EST) Magnesium 0.5(LL) 1.9 - 2.6 mg/dL LAB CHEMISTRY METHOD 05/18/2024 6:35 AM EST [facility] Blood Venous blood specimen / Unknown Venipuncture / Unknown 05/18/2024 4:12 AM EST 05/18/2024 5:41 AM EST Caryn Valencia MD LAB BLOOD ORDERABLES Fin al Result Performing Organization Address City/[facility]/ZIP Co de Phone Number [facility] [address] [place] [address], * (ABNORMAL) Comprehensive metabolic panel (05/18/2024 4:12 AM EST) Sodium 135 133 - 145 mmol/L LAB CHEMISTRY METHOD 05/18/2024 6:34 AM [facility] Potassium 3.8 3.5 - 5.5 mmol/L LAB CHEMISTRY METHOD 05/18/2024 6:34 AM [facility] Chloride 104 96 - 110 mmol/L LAB CHEMISTRY METHOD 05/18/2024 6:34 AM [facility] CO2 8(LL) 21 - 32 mmol/L LAB CHEMISTRY METHOD 05/18/2024 6:34 AM [facility] Anion Gap 23(H) 3 - 11 LAB CHEMISTRY METHOD 05/18/2024 6:34 AM [facility] Glucose 114(H) 70 - 100 mg/dL LAB CHEMISTRY METHOD 05/18/2024 6:34 AM [facility] BUN 13 5 - 25 mg/dL LAB CHEMISTRY METHOD 05/18/2024 6:34 AM [facility] Creatinine 0.24(L) 0.70 - 1.30 mg/dL LAB CHEMISTRY METHOD 05/18/2024 6:34 AM [facility] eGFR 163 >=60 mL/min/1. 73m2 LAB CHEMISTRY METHOD 05/18/2024 6:34 AM [facility] Comment:Calculation based on the??Chronic Kidney Disease Epidemiology Collaboration (CKD-EPI) equation refit??without adjustment for race. BUN/Creatinine Ratio 54.2 LAB CHEMISTRY METHOD 05/18/2024 6:34 AM [facility] Calcium 6.3(L) 8.5 - 10.5 mg/dL LAB CHEMISTRY METHOD 05/18/2024 6:34 AM [facility] AST (SGOT) 104(H) 10 - 42 unit/L LAB CHEMISTRY METHOD 05/18/2024 6:34 AM [facility] ALT (SGPT) 37 10 - 60 unit/L LAB CHEMISTRY METHOD 05/18/2024 6:34 AM [facility] Alkaline Phosphatase 40(L) 42 - 121 unit/L LAB CHEMISTRY METHOD 05/18/2024 6:34 AM [facility] Total Protein 2.4(L) 6.0 - 8.0 g/dL LAB CHEMISTRY METHOD 05/18/2024 6:34 AM [facility] Albumin 1.3(L) 3.2 - 5.0 g/dL LAB CHEMISTRY METHOD 05/18/2024 6:34 AM [facility] Total Bilirubin 0.3 0.0 - 1.4 mg/dL LAB CHEMISTRY METHOD 05/18/2024 6:34 AM [facility] Blood Venous blood specimen / Unknown Venipuncture / Unknown 05/18/2024 4:12 AM EST 05/18/2024 5:41 AM EST us Caryn Valencia MD LAB BLOOD ORDERABLES Fin al Result [facility] [address] [place] [address], * (ABNORMAL) CBC auto differential (05/18/2024 3:30 AM EST) WBC 5.7 4.8 - 10.8 K/mcL LAB HEMETOLOGY METHOD 05/18/2024 4:07 AM [facility] RBC 3.20(L) 4.50 - 5.50 M/mcL LAB HEMETOLOGY METHOD 05/18/2024 4:07 AM [facility] Hemoglobin 10.1(L) 13.5 - 17.5 g/dL LAB HEMETOLOGY METHOD 05/18/2024 4:07 AM [facility] Hematocrit 31.6(L) 42.0 - 54.0 % LAB HEMETOLOGY METHOD 05/18/2024 4:07 AM [facility] MCV 98.1(H) 79.0 - 98.0 FL LAB HEMETOLOGY METHOD 05/18/2024 4:07 AM [facility] MCH 31.4 27.0 - 32.0 pcg LAB HEMETOLOGY METHOD 05/18/2024 4:07 AM [facility] MCHC 32.0 32.0 - 37.0 g/dL LAB HEMETOLOGY METHOD 05/18/2024 4:07 AM [facility] RDW 13.7 11.0 - 15.0 % LAB HEMETOLOGY METHOD 05/18/2024 4:07 AM [facility] Platelets 61(L) 130 - 400 K/mcL LAB HEMETOLOGY METHOD 05/18/2024 4:07 AM [facility] Comment:reviewed by slide MPV 10.7 7.0 - 11.0 FL LAB HEMETOLOGY METHOD 05/18/2024 4:07 AM [facility] NRBC 0.0 <1.0 % LAB HEMETOLOGY METHOD 05/18/2024 4:07 AM [facility] NRBC Absolute 0.00 <0.10 K/mcL LAB HEMETOLOGY METHOD 05/18/2024 4:07 AM [facility] Neutrophils Relative 87.3 % LAB HEMETOLOGY METHOD 05/18/2024 4:07 AM [facility] Lymphocytes Relative 6.0 % LAB HEMETOLOGY METHOD 05/18/2024 4:07 AM [facility] Monocytes Relative 5.7 % LAB HEMETOLOGY METHOD 05/18/2024 4:07 AM [facility] Eosinophils Relative 0.0 % LAB HEMETOLOGY METHOD 05/18/2024 4:07 AM [facility] Basophils Relative 0.5 % LAB HEMETOLOGY METHOD 05/18/2024 4:07 AM EST [facility] Immature Granulocytes Relative 0.5 % LAB HEMETOLOGY METHOD 05/18/2024 4:07 AM [facility] Neutrophils Absolute 4.93 1.50 - 7.00 K/mcL LAB HEMETOLOGY METHOD 05/18/2024 4:07 AM [facility] Lymphocytes Absolute 0.34(L) 1.00 - 5.00 K/mcL LAB HEMETOLOGY METHOD 05/18/2024 4:07 AM [facility] Monocytes Absolute 0.32 0.20 - 1.00 K/mcL LAB HEMETOLOGY METHOD 05/18/2024 4:07 AM [facility] Eosinophils Absolute 0.00 0.00 - 0.50 K/mcL LAB HEMETOLOGY METHOD 05/18/2024 4:07 AM [facility] Basophils Absolute 0.03 0.00 - 0.20 K/mcL LAB HEMETOLOGY METHOD 05/18/2024 4:07 AM [facility] Immature Granulocytes Absolute 0.03 0.00 - 0.03 K/mcL LAB HEMETOLOGY METHOD 05/18/2024 4:07 AM [facility] Blood Venous blood specimen / Unknown Venipuncture / Unknown 05/18/2024 3:30 AM EST 05/18/2024 3:35 AM EST us Caryn Valencia MD LAB BLOOD ORDERABLES Fin al Result [facility] [address] [place] [address], documented in this encounter Visit Diagnoses Diagnosis Alcohol withdrawal (CMS/HCC)- Primary Alcohol withdrawal Alcohol withdrawal syndrome without complication (CMS/HCC) Dehydration Hypomagnesemia Disorders of magnesium metabolism documented in this encounter Admitting Diagnoses Diagnosis Alcohol withdrawal (CMS/HCC) Alcohol withdrawal documented in this encounter Administered Medications Inactive Administered Medications - up to 3 most recent administrations Medication Order MAR Action Action Date Dose Rate Site enoxaparin (LOVENOX) injection 40 mg 40 mg, subcutaneous, Daily, First dose on Tue05/18/24 at 0900, Indication: VTE/PE Prophylaxis Given 05/18/2024 8:25 AM EST 40 mg Right Lower Abdomen folic acid (FOLVITE) tablet 1 mg 1 mg, oral, Daily, First dose on Tue05/18/24 at 0900 Given 05/18/2024 8:25 AM EST 1 mg lactated Ringer's bolus 1,000 mL 1,000 mL, intravenous, at 1,000 mL/hr, Administer over 1 Hours, Once, On Tue05/18/24 at 0051, For 1 dose New Bag 05/18/2024 12:57 AM EST 1,000 mL 1000 mL/hr lactated Ringer's bolus 1,000 mL 1,000 mL, intravenous, at 1,000 mL/hr, Administer over 1 Hours, Once, On Tue05/18/24 at 0327, For 1 dose New Bag 05/18/2024 3:41 AM EST 1,000 mL 1000 mL/hr lactated Ringer's infusion 125 mL/hr, intravenous, Continuous, Starting on Tue05/18/24 at 0922 New Bag 05/18/2024 9:52 AM EST 125 mL/hr 125 mL/hr loperamide (IMODIUM) capsule 2 mg 2 mg, oral, 4 times daily PRN, diarrhea, Starting on Tue05/18/24 at 0922 Given 05/18/2024 9:52 AM EST 2 mg LORazepam (ATIVAN) injection 2 mg 2 mg, intravenous, Every 1 hour PRN, CIWA-Ar 10-18, Starting on Tue05/18/24 at 0554, Re-assess CIWA-Ar in 1 hour Hold dose and notify provider for BP LESS than 90/60, RR LESS than 10 per minute, marked somnolence, pooling of secretions, intoxicated symptoms (ataxia, slurred speech.) Notify provider if 12 mg is given within 4 hours. Prior to IV use, lorazepam injection should be DILUTED with an equal volume of compatible solution; Rate of administration should NOT exceed 2 mg/min. Given 05/18/2024 9:52 AM EST 2 mg LORazepam (ATIVAN) injection 2 mg 2 mg, intravenous, Once, On Tue05/18/24 at 0359, For 1 dose, Prior to IV use, lorazepam injection should be DILUTED with an equal volume of compatible solution; Rate of administration should NOT exceed 2 mg/min. Given 05/18/2024 4:12 AM EST 2 mg LORazepam (ATIVAN) injection 3 mg 3 mg, intravenous, Every 1 hour PRN, CIWA-Ar GREATER than or EQUAL to 19 WITHOUT evidence of seizure OR hallucinations, Starting on Tue05/18/24 at 0554, Re-assess CIWA-Ar in 1 hour Hold dose and notify provider for BP LESS than 90/60, RR LESS than 10 per minute, marked somnolence, pooling of secretions, intoxicated symptoms (ataxia, slurred speech.) Notify provider if 12 mg is given within 4 hours. Prior to IV use, lorazepam injection should be DILUTED with an equal volume of compatible solution; Rate of administration should NOT exceed 2 mg/min. LORazepam (ATIVAN) injection 4 mg 4 mg, intravenous, Every 1 hour PRN, CIWA-Ar GREATER than or EQUAL to 19 AND seizure OR hallucination, Starting on Tue05/18/24 at 0554, Notify provider Re-assess CIWA-Ar in 1 hour Hold dose and notify provider for BP LESS than 90/60, RR LESS than 10 per minute, marked somnolence, pooling of secretions, intoxicated symptoms (ataxia, slurred speech.) Notify provider if 12 mg is given within 4 hours. Prior to IV use, lorazepam injection should be DILUTED with an equal volume of compatible solution; Rate of administration should NOT exceed 2 mg/min. magnesium sulfate 2 gram/50 mL (4 %) IVPB 2 g 2 g, intravenous, at 25 mL/hr, Administer over 2 Hours, Once, On Tue05/18/24 at 0639, For 1 dose New Bag 05/18/2024 6:59 AM EST 2 g 25 mL/hr multivitamin minerals-iron (THERA-M) 1 tablet 1 tablet (1 each), oral, Daily, First dose on Tue05/18/24 at 0900 Given 05/18/2024 8:25 AM EST 1 tablet ondansetron (PF) (ZOFRAN) injection 4 mg 4 mg, intravenous, Every 6 hours PRN, nausea, vomiting, Starting on Tue05/18/24 at 0834 ondansetron (PF) (ZOFRAN) injection 4 mg 4 mg, intravenous, Once, On Tue05/18/24 at 0053, For 1 dose Given 05/18/2024 12:57 AM EST 4 mg PHENobarbital injection 254.8 mg 254.8 mg (rounded from 255.2 mg = 4 mg/kg ? 63.8 kg [place] weight), intramuscular, Every 3 hours, First dose on Tue05/18/24 at 0245, For 3 doses Given 05/18/2024 5:53 AM EST 254.8 mg Left Deltoid Given 05/18/2024 2:51 AM EST 254.8 mg Ri ght Deltoid sodium chloride 0.9 % infusion 100 mL/hr, intravenous, Continuous, Starting on Tue05/18/24 at 0555 Restarted 05/18/2024 8:25 AM EST 100 mL/hr 100 mL/hr New Bag 05/18/2024 6:04 AM EST 100 mL/hr 100 mL/hr thiamine (VITAMIN B-1) tablet 100 mg 100 mg, oral, Daily, First dose on Tue05/18/24 at 0900 Given 05/18/2024 8:25 AM EST 100 mg documented in this encounter Active and Recently Administered Medications Times are shown in EST. Scheduled Medication Order 2024 05/17/2024 05/18/2024 enoxaparin (LOVENOX) injection 40 mg 40 mg, subcutaneous, Daily, First dose on Tue05/18/24 at 0900, Indication: VTE/PE Prophylaxis 0825 (Given - Provid er: Tawana Nunez RN) folic acid (FOLVITE) tablet 1 mg 1 mg, oral, Daily, First dose on Tue05/18/24 at 0900 0825 (Given - Provid er: Tawana Nunez RN) lactated Ringer's bolus 1,000 mL (COMPLETED) 1,000 mL, intravenous, at 1,000 mL/hr, Administer over 1 Hours, Once, On Tue05/18/24 at 0051, For 1 dose 0057 (New Bag - Prov ider: Lashaun Han RN)0154 (Stopped - Provider: Lashaun Han RN) lactated Ringer's bolus 1,000 mL (COMPLETED) 1,000 mL, intravenous, at 1,000 mL/hr, Administer over 1 Hours, Once, On Tue05/18/24 at 0327, For 1 dose 0341 (New Bag - Prov ider: Lashaun Han RN)0446 (Stopped - Provider: Lashaun Han RN) LORazepam (ATIVAN) injection 2 mg (COMPLETED) 2 mg, intravenous, Once, On Tue05/18/24 at 0359, For 1 dose, Prior to IV use, lorazepam injection should be DILUTED with an equal volume of compatible solution; Rate of administration should NOT exceed 2 mg/min. 0412 (Given - Provid er: Lashaun Han RN) magnesium sulfate 2 gram/50 mL (4 %) IVPB 2 g (COMPLETED) 2 g, intravenous, at 25 mL/hr, Administer over 2 Hours, Once, On Tue05/18/24 at 0639, For 1 dose 0659 (New Bag - Prov ider: Brittani Morse RN)0913 (Stopped - Provider: Tawana Nunez RN) multivitamin minerals-iron (THERA-M) 1 tablet 1 tablet (1 each), oral, Daily, First dose on Tue05/18/24 at 0900 0825 (Given - Provid er: Tawana Nunez RN) ondansetron (PF) (ZOFRAN) injection 4 mg (COMPLETED) 4 mg, intravenous, Once, On Tue05/18/24 at 0053, For 1 dose 0057 (Given - Provid er: Lashaun Han RN) PHENobarbital injection 254.8 mg (CANCELED) 254.8 mg (rounded from 255.2 mg = 4 mg/kg ? 63.8 kg [place] weight), intramuscular, Every 3 hours, First dose on Tue05/18/24 at 0245, For 3 doses 0251 (Given - Provid er: Lashaun Han RN)0553 (Given - Provider: Lashaun Han RN) thiamine (VITAMIN B-1) tablet 100 mg 100 mg, oral, Daily, First dose on Tue05/18/24 at 0900 0825 (Given - Provid er: Tawana Nunez RN) Continuous Medication Order 2024 05/17/2024 05/18/2024 lactated Ringer's infusion 125 mL/hr, intravenous, Continuous, Starting on Tue05/18/24 at 0922 0952 (New Bag - Prov ider: Tawana Nunez RN)1132 (Stopped - Provider: Tawana Nunez RN) sodium chloride 0.9 % infusion (CANCELED) 100 mL/hr, intravenous, Continuous, Starting on Tue05/18/24 at 0555 0604 (New Bag - Prov ider: Lashaun Han RN)0825 (Restarted - Provider: Tawana Nunez RN)0943 (Stopped - Provider: Tawana Nunez RN) PRN Medication Order 2024 05/17/2024 05/18/2024 loperamide (IMODIUM) capsule 2 mg 2 mg, oral, 4 times daily PRN, diarrhea, Starting on Tue05/18/24 at 0922 0952 (Given - Provid er: Tawana Nunez RN) LORazepam (ATIVAN) injection 2 mg(Linked Group 1) 2 mg, intravenous, Every 1 hour PRN, CIWA-Ar 10-18, Starting on Tue05/18/24 at 0554, Re-assess CIWA-Ar in 1 hour Hold dose and notify provider for BP LESS than 90/60, RR LESS than 10 per minute, marked somnolence, pooling of secretions, intoxicated symptoms (ataxia, slurred speech.) Notify provider if 12 mg is given within 4 hours. Prior to IV use, lorazepam injection should be DILUTED with an equal volume of compatible solution; Rate of administration should NOT exceed 2 mg/min. 0952 (Given - Provid er: Tawana Nunez RN) LORazepam (ATIVAN) injection 3 mg(Linked Group 1) 3 mg, intravenous, Every 1 hour PRN, CIWA-Ar GREATER than or EQUAL to 19 WITHOUT evidence of seizure OR hallucinations, Starting on Tue05/18/24 at 0554, Re-assess CIWA-Ar in 1 hour Hold dose and notify provider for BP LESS than 90/60, RR LESS than 10 per minute, marked somnolence, pooling of secretions, intoxicated symptoms (ataxia, slurred speech.) Notify provider if 12 mg is given within 4 hours. Prior to IV use, lorazepam injection should be DILUTED with an equal volume of compatible solution; Rate of administration should NOT exceed 2 mg/min. 0952 (See Alternativ e - Provider: Tawana Nunez RN) LORazepam (ATIVAN) injection 4 mg(Linked Group 1) 4 mg, intravenous, Every 1 hour PRN, CIWA-Ar GREATER than or EQUAL to 19 AND seizure OR hallucination, Starting on Tue05/18/24 at 0554, Notify provider Re-assess CIWA-Ar in 1 hour Hold dose and notify provider for BP LESS than 90/60, RR LESS than 10 per minute, marked somnolence, pooling of secretions, intoxicated symptoms (ataxia, slurred speech.) Notify provider if 12 mg is given within 4 hours. Prior to IV use, lorazepam injection should be DILUTED with an equal volume of compatible solution; Rate of administration should NOT exceed 2 mg/min. 0952 (See Alternativ e - Provider: Tawana Nunez RN) ondansetron (PF) (ZOFRAN) injection 4 mg 4 mg, intravenous, Every 6 hours PRN, nausea, vomiting, Starting on Tue05/18/24 at 0834 Linked Groups Order Group 1: LORazepam (ATIVAN) injection 2 mgJump to med 2 mg, intravenous, Every 1 hour PRN, CIWA-Ar 10-18, Starting on Tue05/18/24 at 0554, Re-assess CIWA-Ar in 1 hour Hold dose and notify provider for BP LESS than 90/60, RR LESS than 10 per minute, marked somnolence, pooling of secretions, intoxicated symptoms (ataxia, slurred speech.) Notify provider if 12 mg is given within 4 hours. Prior to IV use, lorazepam injection should be DILUTED with an equal volume of compatible solution; Rate of administration should NOT exceed 2 mg/min. Or LORazepam (ATIVAN) injection 3 mgJump to med 3 mg, intravenous, Every 1 hour PRN, CIWA-Ar GREATER than or EQUAL to 19 WITHOUT evidence of seizure OR hallucinations, Starting on Tue05/18/24 at 0554, Re- assess CIWA-Ar in 1 hour Hold dose and notify provider for BP LESS than 90/60, RR LESS than 10 per minute, marked somnolence, pooling of secretions, intoxicated symptoms (ataxia, slurred speech.) Notify provider if 12 mg is given within 4 hours. Prior to IV use, lorazepam injection should be DILUTED with an equal volume of compatible solution; Rate of administration should NOT exceed 2 mg/min. Or LORazepam (ATIVAN) injection 4 mgJump to med 4 mg, intravenous, Every 1 hour PRN, CIWA-Ar GREATER than or EQUAL to 19 AND seizure OR hallucination, Starting on Tue05/18/24 at 0554, Notify provider Re-assess CIWA-Ar in 1 hour Hold dose and notify provider for BP LESS than 90/60, RR LESS than 10 per minute, marked somnolence, pooling of secretions, intoxicated symptoms (ataxia, slurred speech.) Notify provider if 12 mg is given within 4 hours. Prior to IV use, lorazepam injection should be DILUTED with an equal volume of compatible solution; Rate of administration should NOT exceed 2 mg/min. documented in this encounter Orders Medications Ordered That Lee ht Not Have Been Administered Count Last Ordered Date First Ordered Date LORazepam (ATIVAN) injection 3 mg 1 025 LORazepam (ATIVAN) injection 4 mg 1 025 ondansetron (PF) (ZOFRAN) injection 4 mg 1 05/18/2024 Admission Count Last Ordered Date First Orde red Date ADMIT TO INPATIENT ADMITTING REQ 1 05/18/19 Transfer Count Last Ordered Date First Orde red Date ED TO FLOOR BED REQUEST 1 05/18/2024 documented in this encounter Additional Health Concerns Infection Onset Date Last Indicated Resolved Time Gastrointestinal Rule-Out 05/18/2024 05/24/2024 11:18 AM EST documented as of this encounter Care Teams Senior Biostatistician/Group Leader Relationship Specialty Start Date End Date Alfredo Carias MD [address] [place] [address] PCP - General Internal Medicine 02/01/14 documented as of this encounter
--- OUTSIDE RECORDS SUMMARY | 2024-05-30 03:35 | XMS_ITS | Continuity of Care Document ---
Author Organization [facility] ter Address [address] [place] [id number]- Care Team Providers Care Investigative Analyst Name Role Phone Chemo Zafar MD Primary Care Physician Encounter [facility] ACCT R [id number] Date(s): 05/11/24 - 05/11/[address] [address]- Encounter Diagnosis Alcohol intoxication(Final) - 05/11/24 Polysubstance use disorder(Final) - 05/11/24 Nausea(Final) - 05/11/24 Fall(Final) - 05/11/24 Discharge Disposition: A-D/C Home Attending Physician: Kaykay Shepherd DO Admitting Physician: Kaykay Shepherd DO Referring Physician: Not on Staff, Referring MD Encounter Type: Disch ES Allergies, Adverse Reactions, Alerts No Known Allergies Immunizations Given and Recorded Vaccine Date Status Refusal Reason tetanus/diphtheria/pertussis, acel(Tdap) 1 12/07/21 Given 1Result Comment: [facility] [id number] Medications Methadone By Mouth, 0 Refills, Maintenance, 06/06/16 9:22:59 PM EST Start Date: 06/06/16 Status: Ordered Repeat number: 1 Results Radiology Reports * Exam Date Time Procedure Performing Provider Status 05/11/24 3:[address] Head/Brain W/O Contrast Kelton Negrete ; Radu (Verified) Notes: (CT Head/Brain W/O Contrast) Reason For Exam: Trauma RESULT: CT Head/Brain W/O Contrast CT Head/Brain W/O Contrast CLINICAL INDICATION: Hx of Present Illness: I didnt get into detox so I went home and drank, I dontfeel good; Reason: Trauma; Clinical Question(s): Hematoma; Order Comment:. PRIOR EXAMS: 06/06/2016. TECHNIQUE: Head CT was performed without intravenous contrast, using axial technique and reconstructed in axial and coronal plane. Iterative reconstruction techniques are used to optimize dose and image quality. FINDINGS: BRAIN: There is no infarct. There is no intracerebral hemorrhage. There is no mass. VENTRICLES, SULCI, AND CISTERNS: The ventricles and sulci are symmetrical and normal. WHITE MATTER: No white matter abnormality. EXTRA AXIAL SPACES: There is no abnormal epidural, subdural, or subarachnoid blood or fluid. SKULL: There is no skull fracture.. PARANASAL SINUSES: Clear. TEMPORAL BONES: The mastoid air cells are clear, as are the middle ear cavities. IMPRESSION: 1. No intracranial abnormality. 2. No skull fracture. WSN: [id number] Ordering Physician: Miguelina Vick Dictated By: Cole Young MD Dictated Date/Time: 05/11/24 3:48 pm Reviewed By: Cole Young MD Signed By: Cole Young MD Signed Date/Time: 05/11/24 3:48 pm Transcribed By: GUMARO Transcribed Date/Time: 05/11/24 3:46 pm Vital Signs Most recent to oldest [Reference Range]: 1 2 3 Oxygen Saturation [94-100 %] 95 % (05/11/24 5:41 PM) 96 % (05/11/24 4:38 PM) 94 % (05/11/24 1:39 PM) Pulse Rate [55-90 bpm] 99 bpm *H* (05/11/24 5:41 PM) 95 bpm *H* (05/11/24 4:38 PM) 97 bpm *H* (05/11/24 1:39 PM) Blood Pressure [90-138/55-84 mm Hg] 128/91mm Hg (05/11/24 5:41 PM) 126/88mm Hg (05/11/24 4:38 PM) 151/107mm Hg *H* (05/11/24 1:39 PM) Respiratory Rate [16-30 br/min] 20 br/min (05/11/24 5:41 PM) 20 br/min (05/11/24 4:38 PM) 20 br/min (05/11/24 1:39 PM) Temperature [96.8-100.4 DegF] 99.7 DegF (05/11/24 5:41 PM) 98.8 DegF (05/11/24 1:39 PM) Mode of Delivery (Oxygen) Room air (05/11/24 5:41 PM) Room air (05/11/24 4:38 PM) Room air (05/11/24 1:39 PM) Blood pressure sites Arm, right (05/11/24 5:41 PM) Arm, right (05/11/24 4:38 PM) Arm, right (05/11/24 1:39 PM) Temperature Route Oral (05/11/24 5:41 PM) Oral (05/11/24 1:39 PM) EKG study * Event Display: ECG 12-Lead Authored Date: Please click on pdf link to open report * Event Display: ECG 12-Lead Authored Date: Ventricular Rate: 97 BPM Atrial Rate: 97 BPM P-R Interval: 124 ms QRS Duration: 94 ms Q-T Interval: 376 ms QTC Calculation(Bazett): 477 ms P [place]: 43 degrees R [place]: 13 degrees T [place]: 81 degrees Normal sinus rhythm Nonspecific ST and T wave abnormality Abnormal ECG When compared with ECG of 10-May-2024 08:40, ST now depressed in Lateral leads Nonspecific T wave abnormality now evident in Lateral leads Confirmed by PALMIRA COX ([id number]) on 05/11/2024 4:11:49 PM Walker: PALMIRA COX Note * Nicanor SHERIFF, Miguelina Diaz: PERFORM Event Display: Patient Education Leaflets Authored Date: [id number] [facility] - Substance Abuse Resources ?? 151 If you need Substance Abuse Resources: ?? [facility] [phone] ?? [facility] [phone] ?? [facility] [phone] ?? [facility] [phone] ?? [facility] [phone] ?? [facility] [place] [phone] ?? [facility] [phone] ?? [facility] [phone] ?? [facility] [place] [phone] ?? [facility] [phone] ?? [facility] [phone] ?? [facility] [phone] ?? [facility] [phone] ?? [facility] [phone] ?? [facility] [place] [phone] ?? [facility] (13-17 yo) [place] [phone] ?? [facility] [place] [phone] ? Partial Hospitalization ??? Outpatient therapy for adults and families with substance abuse problems [address] [place] [address] ? Support Services ? [facility] - Outpatient therapy /support for recovery / transitional housing & shelters? [address] [facility] [phone] ? [facility] - women's AA group/street outreach program/health access assistance? [address] [facility] [phone] ? [facility] - AA program to maintain sobriety/ [place]-support for families of alcoholics/[place]-support for children of same [phone] ? [facility] - recovery support services/sober social Opportunities [address] [place] [address] ? Patient Care team information Care Team Personnel Name: Chemo Zafar MD Position: [facility] Outreach Member Role: PCP Address: [address] [place] [address] [place] [address]- Telecom: Care Team Related Persons Name: MARGARET BLUE Insurance Providers Guarantor name: WANDER Health Plan Information #: 1 Payer: [employer] Member Number: [id number] Policy Number: NA Group Number: [id number] Health Plan Information #: 2 Payer: [employer] Member Number: [id number] Policy Number: NA Group Number: NA
--- OUTSIDE RECORDS SUMMARY | 2024-05-30 03:35 | XMS_ITS | Encounter Summary ---
Author Organization [facility] Address [address] [place] [address] Care Team Providers Care Accelerator Systems Director Name Role Phone Alfredo Carias MD Primary Care Provider Reason for Visit * Reason Comments Abdominal Pain Dx with norovirus on . Encounter Details Date Type Department Care Team (Late st Contact Info) Description 05/29/2024 3:08 AM EST - 05/29/2024 5:22 AM EST Emergency [facility] [address] [place] [phone] Timmy Sarkar MD [address] [place] [address] Alcoholic intoxication without complication (CMS/HCC) (Primary Dx); Alcohol-induced acute pancreatitis without infection or necrosis Discharge Disposition: Home or Self Care Social History Tobacco Use Types Packs/Day Years Used Date Smoking Tobacco: Every Day Cigarettes 0.5 0.2 Started: 2024 Smokeless Tobacco: Never Interpersonal Safety Answer Date Record ed Physical [...] Mass Index 21.52 05/29/2024 3:19 AM EST documented in this encounter Functional Status [...] No 05/20/2024 5:49 PM EST Mead RN documented as of this encounter Mental Status * Because of a physical, mental, or emotional condition, do you have serious difficulty concentrating, remembering, or making decisions? (5 years old or older) Answer Entry Date Author No 05/20/2024 5:49 PM Hernadez RN documented in this encounter Discharge Instructions * Discharge Instructions* Timmy Sarkar MD - 05/29/2024 5:02 AM EST Your lipase is elevated, this is secondary to your continued alcohol usage. You need to stop drinking. Alternate Tylenol and ibuprofen as needed for pain relief -Take 600 mg of ibuprofen every 6 hours (do not exceed 2400 mg in 24 hrs) -Take 1000 mg of Tylenol every 6 hours (do not exceed 4000 mg in 24 hrs) -Stack these on top of each other as discussed (ie: Ibuprofen at 9 AM, Tylenol at noon, ibuprofen at 3 PM, Tylenol at 6 PM, etc) Follow up with your primary provider. Call tomorrow for an appointment. Return to Emergency Department if your symptoms worsen, don't improve, or any other concerns. Get well soon! Thank you for coming to the [facility] Emergency Department today. Our entire team works together to provide you with the best care possible. Examination and treatment you received in the emergency department has been rendered on an EMERGENCY basis only. It is not intended to be a substitute for or an effort to provide complete medical care. You should follow-up with your primary care provider. Please report to your physician any new or remaining problems, because it is impossible to recognize and treat all elements of injury or illness in a single emergency department visit. In the event that you're unable to obtain a followup appointment in a timely fashion, OR you are not getting any better, OR you are getting worse, OR you develop any symptoms of concern, please return here immediately for further evaluation. The emergency department is open 24 hours a day, 7 days aweek. Your discharge report is based on information that was available when you were in the emergency department. * Attachments The following attachments cannot be sent through Care Everywhere. * Pancreatitis (Estonian) * Alcohol Use Disorder: General Info (Estonian) documented in this encounter Medications at Time of Discharge tamsulosin (FLOMAX) 0.4 mg 24 hr capsule Take 1 capsule (0.4 mg total) by mouth 1 (one) time each day for 10 days. Capsules should be taken 30 minutes following the same meal each day. 10 each 05/25/2024 documented as of this encounter Discharge Disposition Disposition Code Departure Means Destination Comment s Home or Self Care documented in this encounter Progress Notes * Yessy Delatorre RN - 05/29/2024 5:07 AM EST Pt reports improvement in sx, denies abd pain, n/v. Pt reports sometimes I just get really dehydrated and then I drink a lot of juice and it makes me feel better. Pt states I'm leaving. This RN requested Dr Sarkar to bedside. Dr Sarkar to bedside, informs pt of his lab results including ethanollevel and informs pt that if he wants to leave, he can be discharged if he can ambulate steadily and has a sober ride home. Pt called his mother and asked her to pick him up. * Danielle Ballard - 05/29/2024 5:02 AM EST PT tolerating PO and had 4oz of cranberry juice and 8oz of apple juice. Denies nausea at this time and is no longer endorsing ABD pain. REBECCA Ballard 05/29/24 0504 * Yessy Delatorre RN - 05/29/2024 3:57 AM EST This RN informed pt that for UA sample, catheter should be removed and replaced for cleanest UA sample. Pt reports I don't even want it. Pt refuses to allow for replacement of catheter if current catheter is removed. Additionally, pt requesting catheter be removed at this time. 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 Per Dr. Sarkar, do not remove espinal catheter at this time however OK to obtain urine sample from current espinal catheter. * Yessy Delatorre RN - 05/29/2024 3:08 AM EST Pt arrives from home via EMS with reports of abd pain, n/v, shakiness with concern for ETOH withdrawal. Pt drinks a sleeve of nips/day with last sleeve of nips around midnight. Pt positive for norovirus on . 20L forearm, 1L NS by EMS and 4mg IV zofran. * Timmy Sarkar MD - 05/29/2024 2:59 AM EST Emergency Medicine Note Patient Name: Zack Constantino Initial Evaluation: 05/29/2024 : 1980 Patient's PCP: Alfredo Carias MD Emergency Physician: Timmy Sarkar MD History of Present Illness Chief Complaint: Chief Complaint Patient presents with Abdominal Pain Dx with norovirus on . HPI: 44-year-old male, history of alcohol abuse, presents with abdominal pain associate with nauseaand vomiting. Patient states he is concerned that he might be having alcohol withdrawal. He reportsthat his last alcoholic beverage was 4 hours prior to arrival, he drank an entire sleeve of nips, this is his baseline alcohol intake daily. He reports having mild diffuse abdominal pain associated with nausea and vomiting. States he is currently infected with norovirus, he was diagnosed with this on . Patient received IV Zofran and IV fluids via EMS. ROS: I have performed a ROS with the pertinent positives and negatives documented in the history ofpresent illness. Previous History Past Medical History: Diagnosis Date Alcohol abuse with withdrawal (CMS/HCC) Alcohol related seizure (CMS/HCC) Anxiety Depression Tobacco use disorder 2024 current Transaminitis No past surgical history on file. Social History Tobacco Use Smoking status: Every Day Current packs/day: 0.50 Average packs/day: 0.5 packs/day for 0.2 years (0.1 ttl pk-yrs) Types: Cigarettes Start date: 2024 Smokeless tobacco: Never No family history on file. has No Known Allergies. No current facility-administered medications on file prior to encounter. Current Outpatient Medications on File Prior to Encounter Medication Sig Dispense Refill tamsulosin (FLOMAX) 0.4 mg 24 hr capsule Take 1 capsule (0.4 mg total) by mouth 1 (one) time each day for 10 days. Capsules should be taken 30 minutes following the same meal each day. 10 each 0 Physical Exam ED Triage Vitals [05/29/24 0318] Temp Heart Rate Resp BP 37.2 ??C (99 ??F) 105 22 106/58 SpO2 Temp Source Heart Rate Source Patient Position 98 % Oral Monitor Lying BP Location FiO2 (%) Left arm -- General: Well-appearing, well nourished, in no acute distress HEENT: PERRL, EOMI, external ears and nose appear unremarkable, airway is patent Neck: Supple, full range of motion Chest: Clear to auscultation; no evidence of respiratory distress Circulatory: RRR, extremities well perfused Abdomen: Non-distended, mild diffuse tenderness, no rebound, no guarding, no Gottlieb Meredith, no [place] Extremities: Normal ROM, No edema Skin: Warm and dry Neuro: Alert and oriented, no focal deficits Results Labs Reviewed COMPREHENSIVE METABOLIC PANEL - Abnormal Result Value Sodium 142 Potassium 3.7 Chloride 111 (*) CO2 21 Anion Gap 10 Glucose 127 (*) BUN 7 Creatinine 0.64 (*) eGFR 121 BUN/Creatinine Ratio 10.9 Calcium 7.6 (*) AST (SGOT) 186 (*) ALT (SGPT) 85 (*) Alkaline Phosphatase 190 (*) Total Protein 5.9 (*) Albumin 2.6 (*) Total Bilirubin 0.1 LIPASE - Abnormal Lipase 942 (*) ETHANOL - Abnormal Ethanol Level 345 (*) CBC WITH AUTO DIFFERENTIAL - Abnormal WBC 4.7 (*) RBC 3.20 (*) Hemoglobin 9.9 (*) Hematocrit 30.2 (*) MCV 95.3 MCH 31.2 MCHC 32.8 RDW 14.9 Platelets 423 (*) MPV 8.7 NRBC 0.0 NRBC Absolute 0.00 MANUAL DIFFERENTIAL - INSTRUMENT DIFFERENTIAL - Abnormal Neutrophils % 64.0 Lymphocytes % 18.0 Monocytes % 13.0 Eosinophils % 2.0 Basophils % 3.0 Neutrophils Absolute Manual 3.01 Lymphocytes Absolute 0.85 (*) Monocytes Absolute Manual 0.61 Eosinophils Absolute Manual 0.09 Basophils Absolute Manual 0.14 Rbc Morphology Consistent with indices Platelet Morphology - WAM Normal CBC AND DIFFERENTIAL Narrative: The following orders were created for panel order CBC and differential. Procedure Abnormality Status --------- ------ CBC auto differential[[id number]] Abnormal Final result Please view results for these tests on the individual orders. DRUG ABUSE SCREEN 8A PANEL, URINE URINALYSIS WITH REFLEX MICROSCOPIC AND CULTURE Narrative: The following orders were created for panel order Urinalysis with reflex microscopic and culture. Procedure Abnormality Status --------- ------ Urinalysis with reflex ...[[id number]] In process Cherry urine culture tube[[id number]] In process Please view results for these tests on the individual orders. URINALYSIS WITH REFLEX MICROSCOPIC AND CULTURE Abnormal Labs Reviewed COMPREHENSIVE METABOLIC PANEL - Abnormal; Notable for the following components: Result Value Chloride 111 (*) Glucose 127 (*) Creatinine 0.64 (*) Calcium 7.6 (*) AST (SGOT) 186 (*) ALT (SGPT) 85 (*) Alkaline Phosphatase 190 (*) Total Protein 5.9 (*) Albumin 2.6 (*) All other components within normal limits LIPASE - Abnormal; Notable for the following components: Lipase 942 (*) All other components within normal limits ETHANOL - Abnormal; Notable for the following components: Ethanol Level 345 (*) All other components within normal limits CBC WITH AUTO DIFFERENTIAL - Abnormal; Notable for the following components: WBC 4.7 (*) RBC 3.20 (*) Hemoglobin 9.9 (*) Hematocrit 30.2 (*) Platelets 423 (*) All other components within normal limits MANUAL DIFFERENTIAL - INSTRUMENT DIFFERENTIAL - Abnormal; Notable for the following components: Lymphocytes Absolute 0.85 (*) All other components within normal limits [...] Care Time None ? Medical Decision Making Medications - No data to display Clinical Impressions as of 05/29/24 0512 Alcoholic intoxication without complication (CMS/HCC) Alcohol-induced acute pancreatitis without infection or necrosis 44-year-old male, history of alcohol abuse, presents with diffuse abdominal pain associated with nausea and vomiting. Patient has a history of pancreatitis. Potential etiology of this patient's symptoms include but not limited to pancreatitis, hepatitis, cholecystitis, pericolic, alcoholic gastritis, norovirus. His history and physical exam is suggestive of either norovirus or recurrent pancreatitis. He has no significant tenderness on physical exam, with norovirus is more likely. Screening labs, IV fluids, symptomatic relief are all pending at this time. Patient's lipase is elevated in the 900s. His alcohol level is 345. He has no signs or symptoms of alcohol withdrawal. All of his LFTs are slightly elevated, this is consistent with his alcohol abuse. Patient is requesting discharge home. He had a successful ambulation trial in the emergency department, he is answering questions appropriately. His mother is coming to the hospital to pick him up. Patient will be discharged into the care of his mother. Procedures Procedures Diagnosis 1. Alcoholic intoxication without complication (CMS/HCC) 2. Alcohol-induced acute pancreatitis without infection or necrosis Disposition Discharge ED Prescriptions None Physician Attestation Timmy Sarkar MD 05/29/24 0512 documented in this encounter Plan of Treatment Pending Results Name Type Priority Associated Diagnoses Date /Time Culture urine Microbiology STAT 4:11 AM EST Scheduled Orders Name Type Priority Associated Diagnoses Orde r Schedule Culture urine Microbiology Routine Once for 1 Occurrences starting 05/29/2024 until 05/29/2024 documented as of this encounter Procedures Procedure Name Priority Date/Time Associated Diagnosis Comments URINALYSIS WITH REFLEX MICROSCOPIC AND CULTURE STAT 05/29/2024 4:11 AM EST CHERRY URINE CULTURE TUBE STAT 05/29/2024 4:11 AM EST DRUG ABUSE SCREEN 8A PANEL, URINE STAT 05/29/2024 4:11 AM EST URINALYSIS WITH REFLEX MICROSCOPIC AND CULTURE STAT 05/29/2024 4:11 AM EST MANUAL DIFFERENTIAL - SYSMEX WAM STAT 05/29/2024 3:50 AM EST CBC WITH AUTO DIFFERENTIAL STAT 05/29/2024 3:50 AM EST CBC AND DIFFERENTIAL STAT 05/29/2024 3:50 AM EST LIPASE STAT 05/29/2024 3:50 AM EST ETHANOL STAT 05/29/2024 3:50 AM EST COMPREHENSIVE METABOLIC PANEL STAT 05/29/2024 3:50 AM EST ECG 12-LEAD STAT 05/29/2024 3:37 AM EST documented in this encounter Results * Cherry urine culture tube (05/29/2024 4:11 AM EST) Pathologist [facility] Extra Tube Hold for add-ons. 05/29/2024 7:01 AM [facility] Comment:Auto resulted. Urine Urine specimen obtained by clean catch procedure / Unknown Non-blood Collection / Unknown 05/29/2024 4:11 AM EST 05/29/2024 5:01 AM EST Timmy Sarkar MD LAB URINE ORDERABLES Final Resu lt [facility] [address] [place] [address], [place] [phone] * (ABNORMAL) Urinalysis with reflex microscopic and culture (05/29/2024 4:11 AM EST) Pathologist [facility] Specific [place] Urine 1.014 1.003 - 1.030 LAB URINALYSIS - AUTOMATED METHOD 05/29/2024 5:32 AM [facility] pH, Urine 6.0 5.0 - 8.0 pH LAB URINALYSIS - AUTOMATED METHOD 05/29/2024 5:32 AM [facility] Leukocytes, Urine Moderate(A) Negative LAB URINALYSIS - AUTOMATED METHOD 05/29/2024 5:32 AM [facility] Nitrite, Urine Negative Negative LAB URINALYSIS - AUTOMATED METHOD 05/29/2024 5:32 AM [facility] Protein, Urine 30(A) <=Trace mg/dL LAB URINALYSIS - AUTOMATED METHOD 05/29/2024 5:32 AM [facility] Glucose, Urine 100(A) Negative mg/dL LAB URINALYSIS - AUTOMATED METHOD 05/29/2024 5:32 AM [facility] Ketones, Urine Negative Negative mg/dL LAB URINALYSIS - AUTOMATED METHOD 05/29/2024 5:32 AM [facility] Urobilinogen , Urine 0.2 0.2 - 1.0 mg/dL LAB URINALYSIS - AUTOMATED METHOD 05/29/2024 5:32 AM [facility] Bilirubin, Urine Negative Negative LAB URINALYSIS - AUTOMATED METHOD 05/29/2024 5:32 AM [facility] Blood, Urine Large(A) Negative LAB URINALYSIS - AUTOMATED METHOD 05/29/2024 5:32 AM [facility] RBC, Urine 130(H) 0 - 4 /HPF LAB URINALYSIS - AUTOMATED METHOD 05/29/2024 5:32 AM [facility] WBC, Urine 46.6(H) 0 - 4 /HPF LAB URINALYSIS - AUTOMATED METHOD 05/29/2024 5:32 AM [facility] Squamous Epithelial, Urine 3 0 - 60 /LPF LAB URINALYSIS - AUTOMATED METHOD 05/29/2024 5:32 AM [facility] Crystals, Urine Moderate calcium oxalate /LPF LAB URINALYSIS - AUTOMATED METHOD 05/29/2024 5:32 AM [facility] Bacteria, Urine Moderate(A) Negative /HPF LAB URINALYSIS - AUTOMATED METHOD 05/29/2024 5:32 AM [facility] Hyaline Casts, Urine 1.6 0 - 3 /LPF LAB URINALYSIS - AUTOMATED METHOD 05/29/2024 5:32 AM [facility] Urine Urine specimen obtained by clean catch procedure / Unknown Non-blood Collection / Unknown 05/29/2024 4:11 AM EST 05/29/2024 5:02 AM EST us Timmy Sarkar MD LAB URINE ORDERABLES Edited Res ult - Final [facility] [address] [place] [address], [place] [phone] * (ABNORMAL) Drug abuse screen 8a panel, urine (05/29/2024 4:11 AM EST) [facility] Signature Amphetamine Screen, Ur Negative Negative LAB CHEMISTRY METHOD 5 5:37 AM [facility] Comment:Certain OTC medicati ons containing ephedrine, phenylephrine, pseudoephedrine and phenylpropanolamine can cause false positive results. Barbiturate Screen, Ur Positive(A ) Negative LAB CHEMISTRY METHOD 5 5:37 AM [facility] Benzodiazepine Screen, Ur Negative Negative LAB CHEMISTRY METHOD 5 5:37 AM [facility] Cocaine Screen, Ur Negative Negative LAB CHEMISTRY METHOD 5 5:37 AM [facility] Opiate Screen, Ur Negative Negative LAB CHEMISTRY METHOD 5 5:37 AM [facility] Cannabinoid (THC) Screen, Ur Negative Negative LAB CHEMISTRY METHOD 5 5:37 AM [facility] Comment:Specimens from patie nts taking pantoprazole sodium (Protonix) have been shown to produce false positive results. Oxycodone Screen, Ur Negative Negative LAB CHEMISTRY METHOD 5 5:37 AM [facility] Fentanyl, Ur Negative Negative LAB CHEMISTRY METHOD 5 5:37 AM [facility] Urine Urine specimen obtained by clean catch procedure / Unknown Non-blood Collection / Unknown 05/29/2024 4:11 AM EST 05/29/2024 5:01 AM EST [facility] - 05/29/2024 5:37 AM EST [...] MD LAB URINE ORDERABLES Final Resu lt [facility] [address] [place] [address], * (ABNORMAL) Manual differential (05/29/2024 3:50 AM EST) Neutrophils % 64.0 % LAB HEMETOLOGY METHOD 05/29/2024 4:38 AM [facility] Lymphocytes % 18.0 % LAB HEMETOLOGY METHOD 05/29/2024 4:38 AM [facility] Monocytes % 13.0 % LAB HEMETOLOGY METHOD 05/29/2024 4:38 AM [facility] Eosinophils % 2.0 % LAB HEMETOLOGY METHOD 05/29/2024 4:38 AM [facility] Basophils % 3.0 % LAB HEMETOLOGY METHOD 05/29/2024 4:38 AM [facility] Neutrophils Absolute Manual 3.01 1.50 - 7.00 K/mcL LAB HEMETOLOGY METHOD 05/29/2024 4:38 AM [facility] Lymphocytes Absolute 0.85(L) 1.00 - 5.00 K/mcL LAB HEMETOLOGY METHOD 05/29/2024 4:38 AM [facility] Monocytes Absolute Manual 0.61 0.20 - 1.00 K/mcL LAB HEMETOLOGY METHOD 05/29/2024 4:38 AM [facility] Eosinophils Absolute Manual 0.09 0.00 - 0.50 K/mcL LAB HEMETOLOGY METHOD 05/29/2024 4:38 AM [facility] Basophils Absolute Manual 0.14 0.00 - 0.20 K/mcL LAB HEMETOLOGY METHOD 05/29/2024 4:38 AM EST [facility] Rbc Morphology Consistent with indices Consistent with indices, Normal for [place] LAB HEMETOLOGY METHOD 05/29/2024 4:38 AM EST [facility] Platelet Morphology - WAM Normal Normal LAB HEMETOLOGY METHOD 05/29/2024 4:38 AM EST [facility] Blood Venous blood specimen / Unknown Venipuncture / Unknown 05/29/2024 3:50 AM EST 05/29/2024 4:02 AM EST Timmy Sarkar MD LAB BLOOD ORDERABLES Final Resu lt [facility] [address] [place] [address], * (ABNORMAL) CBC auto differential (05/29/2024 3:50 AM EST) WBC 4.7(L) 4.8 - 10.8 K/mcL LAB HEMETOLOGY METHOD 05/29/2024 4:38 AM [facility] RBC 3.20(L) 4.50 - 5.50 M/mcL LAB HEMETOLOGY METHOD 05/29/2024 4:38 AM [facility] Hemoglobin 9.9(L) 13.5 - 17.5 g/dL LAB HEMETOLOGY METHOD 05/29/2024 4:38 AM [facility] Hematocrit 30.2(L) 42.0 - 54.0 % LAB HEMETOLOGY METHOD 05/29/2024 4:38 AM [facility] MCV 95.3 79.0 - 98.0 FL LAB HEMETOLOGY METHOD 05/29/2024 4:38 AM [facility] MCH 31.2 27.0 - 32.0 pcg LAB HEMETOLOGY METHOD 05/29/2024 4:38 AM EST [facility] MCHC 32.8 32.0 - 37.0 g/dL LAB HEMETOLOGY METHOD 05/29/2024 4:38 AM EST [facility] RDW 14.9 11.0 - 15.0 % LAB HEMETOLOGY METHOD 05/29/2024 4:38 AM EST [facility] Platelets 423(H) 130 - 400 K/mcL LAB HEMETOLOGY METHOD 05/29/2024 4:38 AM EST [facility] MPV 8.7 7.0 - 11.0 FL LAB HEMETOLOGY METHOD 05/29/2024 4:38 AM EST [facility] NRBC 0.0 <1.0 % LAB HEMETOLOGY METHOD 05/29/2024 4:38 AM EST [facility] NRBC Absolute 0.00 <0.10 K/mcL LAB HEMETOLOGY METHOD 05/29/2024 4:38 AM EST [facility] Blood Venous blood specimen / Unknown Venipuncture / Unknown 05/29/2024 3:50 AM EST 05/29/2024 4:02 AM EST us Timmy Sarkar MD LAB BLOOD ORDERABLES Final Resu lt [facility] [address] [place] [address], * (ABNORMAL) Ethanol (05/29/2024 3:50 AM EST) Ethanol Level 345(H) 0 - 10 mg/dL LAB CHEMISTRY METHOD 05/29/2024 4:50 AM EST [facility] Blood Venous blood specimen / Unknown Venipuncture / Unknown 05/29/2024 3:50 AM EST 05/29/2024 4:02 AM EST us Timmy Sarkar MD LAB BLOOD ORDERABLES Final Resu lt Performing Organization Address City/[facility]/ZIP Co de Phone Number [facility] [address] [place] [address], [place] [phone] * (ABNORMAL) Lipase (05/29/2024 3:50 AM EST) Lipase 942(H) 13 - 75 unit/L LAB CHEMISTRY METHOD 05/29/2024 4:41 AM [facility] Blood Venous blood specimen / Unknown Venipuncture / Unknown 05/29/2024 3:50 AM EST 05/29/2024 4:02 AM EST us Timmy Sarkar MD LAB BLOOD ORDERABLES Final Resu lt Performing Organization Address [facility]/ZIP Co de Phone Number [facility] [address] [place] [address], [place] [phone] * (ABNORMAL) Comprehensive metabolic panel (05/29/2024 3:50 AM EST) Pathologist [facility] Sodium 142 133 - 145 mmol/L LAB CHEMISTRY METHOD 05/29/2024 4:41 AM [facility] Potassium 3.7 3.5 - 5.5 mmol/L LAB CHEMISTRY METHOD 05/29/2024 4:41 AM [facility] Chloride 111(H) 96 - 110 mmol/L LAB CHEMISTRY METHOD 05/29/2024 4:41 AM [facility] CO2 21 21 - 32 mmol/L LAB CHEMISTRY METHOD 05/29/2024 4:41 AM [facility] Anion Gap 10 3 - 11 LAB CHEMISTRY METHOD 05/29/2024 4:41 AM [facility] Glucose 127(H) 70 - 100 mg/dL LAB CHEMISTRY METHOD 05/29/2024 4:41 AM [facility] BUN 7 5 - 25 mg/dL LAB CHEMISTRY METHOD 05/29/2024 4:41 AM [facility] Creatinine 0.64(L) 0.70 - 1.30 mg/dL LAB CHEMISTRY METHOD 05/29/2024 4:41 AM [facility] eGFR 121 >=60 mL/min/1. 73m2 LAB CHEMISTRY METHOD 05/29/2024 4:41 AM [facility] Comment:Calculation based on the??Chronic Kidney Disease Epidemiology Collaboration (CKD-EPI) equation refit??without adjustment for race. BUN/Creatinine Ratio 10.9 LAB CHEMISTRY METHOD 05/29/2024 4:41 AM [facility] Calcium 7.6(L) 8.5 - 10.5 mg/dL LAB CHEMISTRY METHOD 05/29/2024 4:41 AM [facility] AST (SGOT) 186(H) 10 - 42 unit/L LAB CHEMISTRY METHOD 05/29/2024 4:41 AM [facility] ALT (SGPT) 85(H) 10 - 60 unit/L LAB CHEMISTRY METHOD 05/29/2024 4:41 AM [facility] Alkaline Phosphatase 190(H) 42 - 121 unit/L LAB CHEMISTRY METHOD 05/29/2024 4:41 AM [facility] Total Protein 5.9(L) 6.0 - 8.0 g/dL LAB CHEMISTRY METHOD 05/29/2024 4:41 AM [facility] Albumin 2.6(L) 3.2 - 5.0 g/dL LAB CHEMISTRY METHOD 05/29/2024 4:41 AM [facility] Total Bilirubin 0.1 0.0 - 1.4 mg/dL LAB CHEMISTRY METHOD 05/29/2024 4:41 AM [facility] Blood Venous blood specimen / Unknown Venipuncture / Unknown 05/29/2024 3:50 AM EST 05/29/2024 4:02 AM EST us Scot A Millay MD LAB BLOOD ORDERABLES Final Resu lt Performing Organization Address City/[facility]/ZIP Co de Phone Number [facility] [address] [place] [address], [place] [phone] * ECG 12 lead (05/29/2024 3:37 AM EST) Ventricular Rate ECG 106 BPM GEMUSE Atrial Rate 106 BPM GEMUSE P-R Interval 122 ms GEMUSE QRS Duration 96 ms GEMUSE Q-T Interval 348 ms GEMUSE QTc 462 ms GEMUSE P Wave [place] 34 degrees GEMUSE R [place] 17 degrees GEMUSE T [place] 54 degrees GEMUSE ECG Interpretation Sinus tachycardia Otherwise normal ECG When compared with ECG of 24-MAY-2024 16:48, No significant change was found Confirmed by MD Uri, [place] ([id number]) on 05/29/2024 5:28:57 PM GEMUSE 05/29/2024 3:37 AM EST 05/29/2024 5:28 PM EST Timmy Sarkar MD ECG ORDERABLES Final Result Performing Organization Address [facility]/ZIP Co de Phone Number RAAD documented in this encounter Visit Diagnoses Diagnosis Alcoholic intoxication without complication (CMS/HCC)- Primary Alcohol-induced acute pancreatitis without infection or necrosis documented in this encounter Additional Health Concerns Infection Onset Date Last Indicated Resolved Time Norovirus 05/24/2024 05/24/2024 documented as of this encounter Care Teams Accelerator Systems Director Relationship Specialty Start Date End Date Alfredo Carias MD [address] PCP - General Internal Medicine 02/01/14 documented as of this encounter
--- OUTSIDE RECORDS SUMMARY | 2024-05-30 03:35 | XMS_ITS | Continuity of Care Document ---
Author Organization [facility] ter Address [address] [place] [address]- Care Team Providers Care Draw In Hand Name Role Phone Chemo Zafar MD Primary Care Physician Encounter [facility] [id number] Date(s): 05/10/24 - 05/10/[address] [address]- Encounter Diagnosis Alcohol use with withdrawal(Final) - 05/10/24 Hypokalemia(Final) - 05/10/24 Lactic acidosis(Final) - 05/10/24 Transaminitis(Final) - 05/10/24 Discharge Disposition: A-D/C Home Attending Physician: Evangelist Orr MD Admitting Physician: Evangelist Orr MD Referring Physician: Not on Staff, Referring MD Encounter Type: Disch ES Allergies, Adverse Reactions, Alerts No Known Allergies Immunizations Given and Recorded Vaccine Date Status Refusal Reason tetanus/diphtheria/pertussis, acel(Tdap) 1 12/07/21 Given 1Result Comment: [facility] [id number] Medications Methadone By Mouth, 0 Refills, Maintenance, 06/06/16 9:22:59 PM EST Start Date: 06/06/16 Status: Ordered Repeat number: 1 Methadone Tablet 30 mg, Tablet, By Mouth, Once, STAT, 05/10/24 10:01:00 AM EST, Stop date 05/10/24 10:09:32 AM EST Start Date: 05/10/24 Stop Date: 05/10/24 Status: Completed Repeat number: 1 Methadone Tablet 10 mg, Tablet, By Mouth, Once, STAT, 05/10/24 10:43:00 AM EST, Stop date 05/10/24 10:49:44 AM EST Start Date: 05/10/24 Stop Date: 05/10/24 Status: Completed Repeat number: 1 Vital Signs Most recent to oldest [Reference Range]: 1 2 3 Height 178 cm (05/10/24 7:52 AM) 178 cm (05/10/24 7:43 AM) Weight 68.7 kg (05/10/24 7:52 AM) 68.7 kg (05/10/24 7:43 AM) Oxygen Saturation [94-100 %] 100 % (05/10/24 10:39 AM) 98 % (05/10/24 7:57 AM) 98 % (05/10/24 7:43 AM) Pulse Rate [55-90 bpm] 96 bpm *H* (05/10/24 10:39 AM) 96 bpm *H* (05/10/24 8:42 AM) 102 bpm *H* (05/10/24 7:57 AM) Body Mass Index [18.5-24.99 kg/m2] 21.68 kg/m2 (05/10/24 7:43 AM) Blood Pressure [90-138/55-84 mm Hg] 134/78mm Hg (05/10/24 10:39 AM) 132/78mm Hg (05/10/24 8:42 AM) 127/88mm Hg (05/10/24 7:57 AM) Respiratory Rate [16-30 br/min] 23 br/min (05/10/24 10:45 AM) 19 br/min (05/10/24 10:39 AM) 16 br/min (05/10/24 10:07 AM) Temperature [96.8-100.4 DegF] 97.8 DegF (05/10/24 7:57 AM) 97.7 DegF (05/10/24 7:43 AM) Mode of Delivery (Oxygen) Room air (05/10/24 10:39 AM) Room air (05/10/24 7:57 AM) Room air (05/10/24 7:43 AM) Blood pressure sites Arm, right (05/10/24 10:39 AM) Arm, right (05/10/24 7:57 AM) Arm, right (05/10/24 7:43 AM) Temperature Route Oral (05/10/24 7:57 AM) Oral (05/10/24 7:43 AM) Dry Weight 68.7 kg (05/10/24 7:52 AM) 68.7 kg (05/10/24 7:43 AM) Weight Obtained Via Standing scale (05/10/24 7:52 AM) Standing scale (05/10/24 7:43 AM) Dry Weight Obtained Via Standing scale (05/10/24 7:43 AM) EKG study * Event Display: ECG 12-Lead Authored Date: Please click on pdf link to open report * Event Display: ECG 12-Lead Authored Date: Ventricular Rate: 89 BPM Atrial Rate: 89 BPM P-R Interval: 132 ms QRS Duration: 94 ms Q-T Interval: 396 ms QTC Calculation(Bazett): 481 ms P [place]: 36 degrees R [place]: 21 degrees T [place]: 50 degrees Normal sinus rhythm Nonspecific ST abnormality QTcB > 480 msec Abnormal ECG No previous ECGs available Confirmed by Marty Silva ([id number]) on 05/10/2024 2:29:36 PM [place]: Marty Silva * Event Display: EKG Authored Date: Patient Care team information Care Team Personnel Name: Chemo Zafar MD Position: [facility] Outreach Member Role: PCP Address: [address] [place] [address] Chemo [place] [address] Telecom: Care Team Related Persons Name: MARGARET BLUE Insurance Providers Guarantor name: WANDER Health Plan Information #: 1 Payer: [employer] Member Number: [id number] Policy Number: NA Group Number: [id number] Health Plan Information #: 2 Payer: [employer] Member Number: [id number] Policy Number: NA Group Number: NA
--- OUTSIDE RECORDS SUMMARY | 2024-05-30 03:35 | XMS_ITS | Continuity of Care Document ---
Author Organization [facility] ter Address [address] [place] [address]- Care Team Providers Care Integration Consultant Name Role Phone Chemo Zafar MD Primary Care Physician [phone] Encounter [facility] Date(s): 05/14/24 - 05/14/[address] [address]- Encounter Diagnosis Weakness(Final) - 05/14/24 Alcohol use(Final) - 05/14/24 Alcoholic cirrhosis(Final) - 05/14/24 Chronic pancreatitis(Final) - 05/14/24 Discharge Disposition: A-D/C Home Attending Physician: Wilma Pearson MD Admitting Physician: Wilma Pearson MD Referring Physician: Not on Staff, Referring MD Encounter Type: Disch ES Allergies, Adverse Reactions, Alerts No Known Allergies Immunizations Given and Recorded Vaccine Date Status Refusal Reason tetanus/diphtheria/pertussis, acel(Tdap) 1 12/07/21 Given 1Result Comment: [facility] [id number] Medications Methadone By Mouth, 0 Refills, Maintenance, 06/06/16 9:22:59 PM EST Start Date: 06/06/16 Status: Ordered Repeat number: 1 Results Radiology Reports * Exam Date Time Procedure Performing Provider Status 05/14/24 3:50 AM Chest Portable Miguelina Thurman; Auth (V erified) Notes: (Chest Portable) Reason For Exam: Shortness of Breath RESULT: Chest Portable Chest Portable Hx of Present Illness: 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 last use x2 weeks ago. been drinking to relieve symptoms. 10am last drink; Reason: Shortness of Breath; Clinical Question(s): Atelectasis COMPARISON: 06/06/2006 FINDINGS: LINES AND TUBES: None. LUNGS AND PLEURA: Low lung volumes. Clear lungs. Normal pulmonary vascularity. No pleural effusion. No pneumothorax. HEART, MEDIASTINUM AND DANDRE: Heart is normal in size. Normal mediastinal and hilar contour. BONES AND SOFT TISSUES: No acute abnormality. Healed deformity of posterior left fifth rib fracture and right fifth and sixth rib fractures. IMPRESSION: No acute abnormality. Low lung volumes. Healed deformity of posterior left fifth rib fracture and right fifth and sixth rib fractures. Please correlate with prior/remote interval history of trauma. WSN: [id number] Ordering Physician: Linwood Brown Dictated By: Shalonda Quiros MD Dictated Date/Time: 05/14/24 8:22 am Reviewed By: Shalonda Quiros MD Signed By: Shalonda Quiros MD Signed Date/Time: 05/14/24 8:22 am Transcribed By: GUMARO Transcribed Date/Time: 05/14/24 8:21 am Vital Signs Most recent to oldest [Reference Range]: 1 2 Height 178 cm (05/14/24 2:45 AM) Weight 68 kg (05/14/24 2:45 AM) Oxygen Saturation [94-100 %] 96 % (05/14/24 4:44 AM) 100 % (05/14/24 2:43 AM) Pulse Rate [55-90 bpm] 100 bpm *H* (05/14/24 4:44 AM) 96 bpm *H* (05/14/24 2:43 AM) Blood Pressure [90-138/55-84 mm Hg] 125/ 88mm Hg (05/14/24 4:44 AM) 135/106mm Hg (05/14/24 2:43 AM) Respiratory Rate [16-30 br/min] 18 br/mi n (05/14/24 4:44 AM) 18 br/min (05/14/24 2:43 AM) Temperature [96.8-100.4 DegF] 98.4 DegF (05/14/24 2:43 AM) Mode of Delivery (Oxygen) Room air (05/14/24 4:44 AM) Room air (05/14/24 2:43 AM) Blood pressure sites Arm, left (05/14/24 4:44 AM) Arm, left (05/14/24 2:43 AM) Temperature Route Oral (05/14/24 2:43 AM) Dry Weight 68 kg (05/14/24 2:45 AM) Weight Obtained Via Patient/family state d (05/14/24 2:45 AM) Note * Linwood Brown DO: PERFORM Event Display: Patient Education Leaflets Authored Date: [id number] Weakness or Fatigue with Uncertain Cause ?? [id number] Weakness or Fatigue with Uncertain Cause Weakness and fatigue are different conditions. Sometimes, people think they're weak, when in reality, they are fatigued. It's important to understand the difference between weakness and fatigue, so that you can get the right help for how you're feeling. ??? Weakness. This is when your muscles aren't as strong as they should be. It can develop quickly or slowly over time. It may affect all of the muscles in the body (generalized weakness) or only onepart of the body. Some causes of generalized weakness include a decrease in physical fitness, loss of muscle tissue from long periods of inactivity, abnormal electrolyte levels, and use of certain medicines, such as corticosteroids. Some causes of weakness in specific muscles include strokes, nervedamage, an injured disk in the spine, and neurological disorders, such as multiple sclerosis. Symptoms of weakness depend on which muscles are affected. ??? Fatigue. This is when you feel really tired, worn out, or low on energy. It's when you feel a strong need to rest or have so little energy that doing any activity is difficult. It can happen if you're too active or not active enough, stressed, don't get enough good quality sleep, or have an unhealthy diet. Other causes of fatigue include viral infections, emotional problems, especially depression, and severe illnesses, such as heart failure and cancer. Side effects from medicine may also cause fatigue. Fatigue is usually a sign that something else might be going on. Based on your exam today, the exact cause of your symptoms is not clear. But your symptoms do not seem to be a sign of a serious illness at this time. Keep an eye on your symptoms and get medical advice as directed below. Home care ??? Rest at home today. Don't overexert yourself. ??? Take any medicine as prescribed. ??? For the??next few days, drink extra fluids unless your healthcare provider wants you to restrict fluids for other reasons. Don't skip meals. ??? Unless otherwise directed, continue to take any prescription medicines. ??? Contact your healthcare provider if you have any questions or concerns. ?? Follow-up care Follow up with your healthcare provider, or as advised. ?? When to get medical advice Call your healthcare provider right away??if any of the following occur: ??? Symptoms get worse or new symptoms develop ??? Symptoms don't start getting better within 2 days ??? You have night sweats??? You have swollen lymph nodes ??? You have pain ??? Fever of 100.4?? F (38?? C) or higher, or as directed by your healthcare provider ?? Call 911 Call 911 if any of the following occur: ??? Pain in the chest, arm, neck, jaw, or upper back ??? Trouble breathing ??? Numbness or weakness of the face, one arm, or one leg ??? Slurred speech, confusion, or??trouble speaking, walking, or seeing ??? Blood in vomit or stool (black or red color) ??? Severe headache ??? Loss of consciousness, such as fainting ??? Loss of the ability to walk ??? Weakness that becomes severe over a few days or less ??? Difficulty raising the head while lying down ?? Last Reviewed Date: 2022 ?? [id number] The [employer]. All rights reserved. This information is not intended as a substitute for professional medical care. Always follow your healthcare professional's instructions. ?? * Linwood Brown DO: PERFORM Event Display: Patient Education Leaflets Authored Date: [id number] Outpatient Psychiatric and Social Resources ?? 263 Outpatient Psychiatric and Social Resources Help Lines ?? [place] [facility] Help Line ([facility]): ??Call or text [phone] for free, confidential support 25/10. The [facility] can provide clinical assessment, guidance, and connection to treatment. ?? Suicide and Crisis Lifeline: ??Call, text, or chat 549 25/10. Veterans can press 1, and the Bahamian line is available by pressing 2. ?? [facility] Helpline: ??Call or text for emotional support from trained volunteers. ?? [facility]: for information for members. National [place] on Mental Illness ([place]): [place] Substance Use Helpline: Parental Stress Line: for 24-hour support ? Emergency Services Mobile Crisis Team: [place] on [phone] ? National Suicide Prevention Lifeline: Bahamian Language: Deaf and Hard of Hearin1-857.123.4434 Veterans: Disaster Distress: ? Healing Abuse Working for Change: 1-402-611-970 24-Hour Hotline The [employer] Project (LGBTQ): SafeLink(Domestic Violence): ?Community Behavioral Centers ?? Center for [employer]???s [facility] ([facility]) ??Core Clinic and Crisis Services (Available ) [address] [place] [address] ?? [facility] ([facility]) ??? [place] ??Core Clinic and Crisis Services (Available ) [address] [place] [address] ?? [facility] ([facility]) ??? [place] ??[facility] Clinic and Crisis Services(Available ) [address] [place] [address] ?? Clinical Support Options [facility] ??[address] [place] [address] ?? Clinical Support Options [facility] ??? [place] ??Core Clinic and Crisis Services (Available ) [address] [place] [address] ?? [facility] ([facility]) ??Core Clinic and Crisis Services (Available ) [address] [place] [address] ?? Community Mental [facility] Centers ?? N ??Several clinics for children with virtual therapy available. Once patients are established with therapy, they can be referred to psychiatry at the clinic. Parents can refer their child by calling [phone]. Adults can call for outpatient mental health. ? [facility] ??[facility] has clinics in [place] and [place], [place]. Once patients are established with therapy they can be referred to psychiatry at the clinic. Referrals can be made for patients by calling [phone]. Children/adults coming from the hospital will be given priority. ?? [facility] ??Clinics in [facility], [place], [place], and [place]. All ages can be referred by calling [phone] ext [phone]. Psychiatry services are available once established with a therapist. ?? CHD ??[facility] has locations in [facility], and [facility]. They have individual therapy services and once you are established with therapy you can be referred to psychiatry at the clinic. Referrals can be made by calling [phone] ?? [facility] ??Clinics in [place], [facility] and [place] with therapy services for adults and kids, with psychiatry once someone has been established in therapy. Referrals can be madeby phone at [phone]. ?? [facility] ??[facility] has two urgent outpatient clinics ??? [address] [facility] and [address] [facility] in [facility]. They are open for walk ins 9-4 Tuesday-Tuesday. You will be assigned a therapist and after 4 sessions they will assign a psychiatric provider. ?? [facility] ??[facility] has affiliated with ???The [place] [facility]?? and many of their lines now say ???[place] [facility]. The [place], [place] office is located at - [address], [place] [address] but you have to call the Intake Line for [facility] and get on their waiting list first. Intake line # is ??? . ?? Partial Hospitalization Programs (PHP) (walk in) ?? [facility] ??[address] [facility], [place] [address] Phone: (referral lines) ?? Transfer Changes ??[address] [place] [address] Phone: ?? Homeless Resources ?? [facility] [employer] ??[address], Middle Floor, [place] [address] [employer], Phone: , ?? [facility] - [place], [place] ??[address] [place] [address] Phone: ?? [facility] ([place], [place], & [place]) ??[address] [place] [address] Phone: ?? Clinical & Support Options ??[address], [place] [address] Phone: ?? [place] [facility] ??[address] [place] [address] Phone: ?? [facility] ??[address] [place] [address] Phone: ?? [facility] ??[address] ([facility]. entrance)[place] Phone: ?? [facility] (women) ?? Homelessness Services ??[address] [place] [address] ?? Domestic Violence ?? [facility] ?? Domestic Violence Group Home Services & 24 Hour Hotline Program Office ??[address] [place] [address] Hotline Espa??ol ?? [facility] ?? Community Domestic Violence Services ??[address] [place] [address] ?? [facility]CA ?? Young Parent Programs ??[place] ?? [facility] ??[address], [place] [address] Phone: [phone] (9 AM to 5 PM, Tuesday to Tuesday ?? Substance Use - Detox Centers ?? Detoxes Not all of these detoxes may take your insurance. Please call ahead to check. You can also call your insurance company directly to see which detox centers would be covered. ?? [facility] [address] [place], [place] ?[facility] [address] [place], [place] [phone]?[facility] [address] [place], [place] ? [facility] [address] [place] [address] ?[facility] [address] [place], [place] [phone]?[facility] [place] [address] [place], [place] ?[facility] [address] [place], [place] ?[facility] [address] [place], [place] [phone]?[facility] [address] [place], [place] [phone]?[facility] [address] [place], [place] ?[facility] [address] [place] [address] ?[facility] [address] [place], [place] [phone]?[address] ?[place] [facility] [address] [place], [place] ?[facility] [address] [place], [place] ?[facility] [address] [place], [place] [phone]?[facility] [address] [place], [place] [phone] ?[facility] [address] [place], [place] ?N-[place] [address] [place], [place] [phone]?[facility] ([facility]) [address] [place], [place] [phone] ??[facility] [address] [place], [place] [phone]? * Kevin BARNES, Linwood Taylor: PERFORM Event Display: Patient Education Leaflets Authored Date: [id number] [facility] - If you need a Doctor or Clinic ?? 34 If You Need a Doctor or Clinic ?? Call [facility] PCP Assignment Line to help you find a doctor:?? [phone] ?? Clinics in [place], [place] For a full list of clinics:? www.[employer] ?? [facility]? [address] [phone] [facility] Internal medicine Clinic?[address] .?[phone] [facility]?[address][phone] [facility]?[address][phone] [facility]?[address] [phone] [facility]?[address][phone] [facility]?[address][phone] [facility]?[address] [phone] [facility]? [address][phone] [facility] transition social worker?[address][phone] [facility]?[address][phone] [facility]?[address][phone] [facility]?[address][phone] [facility]? [address][phone] [facility]?[address][phone] ? Patient Care team information Care Team Personnel Name: Chemo Zafar MD Position: [facility] Outreach Member Role: PCP Address: [address] [place] [address] [place] [address]- Telecom: Care Team Related Persons Name: MARGARET BLUE Insurance Providers Guarantor name: WANDER Health Plan Information #: 1 Payer: [employer] Member Number: [id number] Policy Number: NA Group Number: [id number] Health Plan Information #: 2 Payer: [employer] Member Number: [id number] Policy Number: NA Group Number: NA
--- OUTSIDE RECORDS SUMMARY | 2024-05-30 03:35 | XMS_ITS | Continuity of Care Document ---
Author Organization [facility] ter Address [address] [place] [address]- Care Team Providers Care Filling Machine Set Up Mechanic Name Role Phone Chemo Zafar MD [id number] - 05/15/[address] [address]- Discharge Disposition: A-D/C Home Attending Physician: Dk Escalera MD Admitting Physician: Dk Escalera MD Referring Physician: Not on Staff, Referring MD Encounter Type: Disch ES Allergies, Adverse Reactions, Alerts No Known Allergies Immunizations Given and Recorded Vaccine Date Status Refusal Reason tetanus/diphtheria/pertussis, acel(Tdap) 1 12/07/21 Given 1Result Comment: [facility] [id number] Medications chlordiazePOXIDE 25 mg oral capsule See [...] PM EST, 05/15/24 5:15:00 AM EST, Capsule, [facility]/pharmacy #[id number], Partial fill upon [...] AM EST, 05/15/24 10:11:00 AM EST, Capsule, [facility]/pharmacy #[id number], Partial fill upon [...] 10:35:00 AM EST, 05/15/24 10:35:00 AM EST, Capsule,[facility]/pharmacy #[id number], Partial fill upon [...] Range]: 1 2 3 Height 178 cm (05/15/24 6:00 PM) 178 cm (05/15/24 1:21 PM) Weight 68 kg (05/15/24 6:00 PM) 68 kg (05/15/24 1:21 PM) Oxygen Saturation [94-100 %] 98 % (05/15/24 10:30 PM) 98 % (05/15/24 6:00 PM) 97 % (05/15/24 1:21 PM) Pulse Rate [55-90 bpm] 89 bpm (05/15/24 10:30 PM) 103 bpm *H* (05/15/24 6:00 PM) 110 bpm *H* (05/15/24 1:21 PM) Body Mass Index [18.5-24.99 kg/m2] 21.46 kg/m2 (05/15/24 6:00 PM) Blood Pressure [90-138/55-84 mm Hg] 138/78mm Hg (05/15/24 10:30 PM) 131/101mm Hg (05/15/24 6:00 PM) 136/99mm Hg (05/15/24 1:21 PM) Respiratory Rate [16-30 br/min] 18 br/min (05/15/24 10:30 PM) 18 br/min (05/15/24 6:00 PM) 18 br/min (05/15/24 1:21 PM) Temperature [96.8-100.4 DegF] 97.5 DegF (05/15/24 6:00 PM) 98.1 DegF (05/15/24 1:21 PM) Mode of Delivery (Oxygen) Room air (05/15/24 10:30 PM) Room air (05/15/24 6:00 PM) Room air (05/15/24 1:21 PM) Temperature Route Oral (05/15/24 6:00 PM) Oral (05/15/24 1:21 PM) Dry Weight 68 kg (05/15/24 6:00 PM) 68 kg (05/15/24 1:21 PM) Weight Obtained Via Patient/family state d (05/15/24 1:21 PM) Patient Care team information Care Team Personnel Name: Chemo Zafar MD Position: [facility] Outreach Member Role: PCP Address: [address] [place] [address] [place] [address]- Telecom: Care Team Related Persons Name: MARGARET BLUE Insurance Providers Guarantor name: WANDRE Health Plan Information #: 1 Payer: [employer] Member Number: [id number] Policy Number: NA Group Number: [id number] Health Plan Information #: 2 Payer: [employer] Member Number: [id number] Policy Number: NA Group Number: NA
--- NOTE | 2024-05-30 04:13 | ED_ITS ---
HPI - Alcohol General Chief Complaint: ETOH/Substance Use Stated Complaint: ALCHOLIC WITHDRAWALS Time Seen by Provider: 05/30/24 04:12 Source: patient and family ( mother) Mode of arrival: ambulatory Limitations: no limitations History of Present Illness ED Provider: Dr. Darin Westbrook HPI narrative: 44-year-old male with a history of alcohol use disorder who presents emergency department for evaluation of abdominal pain, nausea, and alcohol withdrawal. Patient states that he has been feeling sick for approximately 6 days. Patient states that he had diffuse, cramping,abdominal pain with multiple episodes of diarrhea day. He states that his symptoms have resolved over the last 24 hours however he states that he still was not feeling completely back to normal. He states that he drink 10 shots of vodka and was concerned that he may be withdrawing from alcohol. Patient also states that he had an episode of urinary retention on 05/22/2024 -was seen at [facility] and had a Narvaez catheter placed. He states that he was supposed to follow-up with a urologist at [facility] to have the catheter removed but missed this appointment and could not get another appointment until 2 days from now. Patient states that prior to having urinary retention he did notice nocturia, urinary frequency and difficulty starting his urinary stream. He denied having dysuria prior to the Narvaez catheter insertion. Related Data Previous Rx's ?Medication ?Instructions ?Recorded tamsulosin 0.4 mg capsule 0.4 mg PO BEDTIME #30 caps 05/30/24 Allergies Allergy/AdvReac Type Severity Reaction Status Date / Time No Known Allergies Allergy Verified 05/30/24 03:10 Review of Systems Review of Systems: Yes all other systems are reviewed and are negative [facility] Past Medical History Medical History (Updated 05/30/24 @ 04:32 by Darin Westbrook MD) No known health problems Social History Social History Advance Directives: No Physical Exam ED Vital Signs: Vital Signs - 24 hr 05/30/24 03:05 05/30/24 03:08 05/30/24 04:39 Temperature 99.2 F 99.2 F 98.7 F Pulse Rate 100 100 91 Respiratory Rate 18 20 91 H Blood Pressure 128/84 128/84 109/70 Pulse Oximetry 97 97 97 Oxygen Delivery Method Room Air Room Air Room Air 05/30/24 04:47 Temperature 98.7 F Pulse Rate 91 Respiratory Rate 20 Blood Pressure 109/70 Pulse Oximetry 97 Oxygen Delivery Method Room Air BMI result Body Mass Index 21.4 Vital signs were normal Exam: General: Awake, alert in no distress Head: Normocephalic, atraumatic EENT: PERRL, Lids normal, sclera normal, conjunctiva normal, nose normal , ears normal, throat without erythema or exudates Neck: Supple, no adenopathy Lung: breath sounds symmetric, no wheezing, rales or rhonchi Chest: symmetric movement, nontender Heart: regular rate and rhythm, normal S1, S2 no murmurs or rubs Abdomen: soft, non-tender, nondistended, normal bowel sounds : Patient has a Narvaez catheter in place, the catheters draining clear, yellow urine. Back: no vertebral tenderness, no CVAT Extremities: no deformities, moves all extremities symmetrically Neuro: Awake, alert, oriented, normal speech, cranial nerves intact, moves all extremities symmetrically Psych: Pleasant, cooperative Medical Decision Making Medical Decision Making MDM Narrative: 44-year-old male with a history of alcohol use disorder who presents emergency department for evaluation of abdominal pain, nausea, diarrhea x6 days with symptoms resolving over the last 24 hours and alcohol withdrawal . The patient did drink 10 nips of vodka prior to coming to the emergency department. Patient also had a Narvaez catheter placed approximately 1 week prior for urinary retention and missed his urology appointment to have this catheter removed. Patient did have nocturia, difficulty starting his urine stream with no UTI symptoms prior to having the Narvaez catheter placed. Vital signs were unremarkable in his physical examination was unremarkable. Differential diagnosis: Includes but is not limited to Viral syndrome, alcohol intoxication, urinary retention secondary to enlarged prostate Course: The patient was observed in the emergency department for several hours and appeared to be clinically sober. At this time I suspect that the patient had a viral syndrome that caused his abdominal pain nausea and diarrhea but the symptoms have resolved. Patient was concerned that he was withdrawing from alcohol however he drink 10 shots of vodka prior to coming to the emergency department. The patient's Narvaez catheter was supposed to have been removed several days earlier but he missed his urology appointment therefore his catheters removed by nursing staff. The patient was started on tamsulosin 0.4 mg daily for possible BPH. I did tell was important to keep his Urology appointment for re-evaluation for possible BPH versus other causes of his urinary retention. The patient states that he is not interested in talking to our recovery counselor at this time but he was willing to take the outpatient detox list and states that he is also considering going to a. Patient was given printed and verbal instructions and discharged home. Admission/Observation Consideration of admission/observation: Escalation of care including admission/observation considered ( no) Independent Historian Clinical information obtained from an independent historian. History obtained from or confirmed by: Parent ( mother) Prescription Management I considered prescription management with: Other ( tamsulosin) Chronic Conditions Patient?s care impacted by: Other ( alcohol use disorder) Medications Administered Discontinued Medications Generic Name Dose Route Start Last Admin Trade Name Freq PRN Reason Stop Dose Admin Tamsulosin HCl 0.4 mg 05/30/24 04:29 05/30/24 04:43 Tamsulosin Hcl 0.4 Mg Capsule PO 05/30/24 04:30 0.4 mg ONCE ONE Administration Discharge Plan Discharge Clinical Impression: Alcohol use disorder, Viral syndrome, Encounter for Narvaez catheter removal, Urinary retention Patient Disposition: Home, Self-Care Instructions: Urinary Retention in Men (ED), Abuse of Alcohol (ED) Additional Instructions: Your symptoms of diarrhea are consistent with a viral infection. At this time I do not think that you need to keep the Narvaez catheter in and we are going to discontinue it. Sometimes urinary retention is caused by a swollen prostate, therefore I am starting you on tamsulosin 0.4 mg, take 1 pill at night. You can take your next dose tonight. I want you to keep your appointment with your urologist so they can re-evaluate you. You should call the alcohol detox programs on the list that we gave you until you can get into a detox program. You should also consider a trending daily AA meetings either online or in person. Follow-up with your doctor in 2 days. Please return to the emergency department if your symptoms get worse or if you develop any symptoms that are concerning to you. Prescriptions: New tamsulosin 0.4 mg capsule 0.4 mg PO BEDTIME Qty: 30 3RF Interventions: ED Discharge Assessment Last Done: 05/30/24 04:47 Discharge Date/Time: 05/30/24 04:47 Print Language: Grenadian
[2024-05-30 04:39] VITALS: BP 109/70; PULSE 91; RESP 91; TEMP 37.1; O2SAT 97
[2024-05-30] MEDS: Tamsulosin HCL 0.4 MG CAPSULE PO (04:43)
[2024-05-30 04:47] VITALS: BP 109/70; PULSE 91; RESP 20; TEMP 37.1; O2SAT 97
== END 2024-05-30 04:47 | disposition home or self-care (01) ==
PROVIDERS: Emergency Provider Emergency Medicine Emergency Medical Services; PCP Internal Medicine
DX: B34.9 Viral infection, unspecified (principal); F10.99 Alcohol use, unspecified with unspecified alcohol-induced disorder; Y90.9 Presence of alcohol in blood, level not specified; R33.9 Retention of urine, unspecified; Z46.6 Encounter for fitting and adjustment of urinary device
CPT/HCPCS: 99283; 99284

== ENCOUNTER 2025-01-25 10:58 | Outpatient (AMB) | payer OTHER, SELFPAY ==
--- NOTE | 2025-01-25 09:59 | MHC.PC.OV ---
Vital Signs 01/25/25 11:18 Height 5 ft 10 in Weight 181 lb 4 oz BMI 26.0 BP 120/80 Blood Pressure Location Lt brachial Position Sitting Pulse 73 Pulse Source Pulse Oximeter Temp 97.6 F Temp Source Temporal Artery Scan Pulse Oximetry (%) 99 Oxygen Delivery Method Room Air Intake Visit Reasons: [email or web address]/Dr. 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: No Accompanied by: Self / Same As Patient Allergies No Known Allergies Allergy (Verified 01/25/25 11:19) Medication List - Last Reconciled 01/25/25 by Abiel Smith MD clonidine HCl 0.1 mg PO TID multivitamin with folic acid 400 mcg (Daily-Gian (with folic acid)) 1 tab PO QAM tamsulosin 0.4 mg PO BEDTIME trazodone 50 mg PO BEDTIME Tobacco use date assessed: 01/25/25 Dental Screening Dental Screen Date: 01/25/25 Did you have a dental visit in the last 12 months?: Yes Did you have a dental problem in the last 6 months where you did not have access to dental care?: No HPI HPI Comments History of Present Illness Details The patient is a 44-year-old male presenting with a history of Alcohol Use Disorder, currently managed with Vivitrol injections. He reports being sectioned under Section 35 for alcohol treatment four times this year. He has abstained from alcohol for the past two months and is motivated to continue treatment with Vivitrol. He also reports a history of anxiety for which he has been taking clonidine but feels it is no longer effective. The patient experiences insomnia and has been taking trazodone 50 mg for sleep, but reports frequent awakenings every hour to hour and a half during the night. He notes that lifestyle adjustments, such as avoiding excessive fluid intake before bed, have been recommended to improve his sleep patterns. He recalls being diagnosed with minor pancreatitis years ago and reports experiencing acute pancreatitis once in the past. He denies current abdominal pain. 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 Father No problems noted. Social History Housing: House Patient Tobacco Use Status: Former Tobacco user e-Cigarette/Vaping Use: Former Use service: No Current occupational status: unemployed Cognitive needs: No Hearing needs: No Vision needs: Yes (Reading glasses) Questionnaire PHQ-9 Over the last 2 weeks, how often have you been bothered by any of the following problems? 1. Little interest or pleasure in doing things: not at all 2. Feeling down, depressed, or hopeless: nearly every day (anxiety) 3. Trouble falling or staying asleep, or sleeping too much: nearly every day (trouble falling asleep) 4. Feeling tired or having little energy: not at all 5. Poor appetite or overeating: not at all 6. Feeling bad about yourself - or that you are a failure or have let yourself or your family down: not at all 7. Trouble concentrating on things, such as reading the newspaper or watching television: not at all 8. Moving or speaking so slowly that other people could have noticed. Or the opposite - being so fidgety or restless that you have been moving around a lot more than usual: not at all 9. Thoughts that you would be better off or of hurting yourself in some way: not at all Total score: 6 Depression Screening Interpretation: Negative Depression Screening Done: Yes 73511 - PHQ-9 Billing: Yes Source: Developed by Drs. Med Burns, Devin Tejada and colleagues, with an educational brenda from [employer]. Thrive Questionnaire Date Thrive assessed: 01/25/25 I am a: Patient What is your living situation today?: I have a steady place to live Within the past 12 months, did the food you bought not last and you didn't have the money to get more?: Never true Within the past 12 months, did you worry whether your food would run out before you got money to buy more?: Never true Do you have trouble paying for medicines?: No Do you have trouble getting transportation to medical appointments?: No Do you have trouble paying your heating and electricity bill?: No Do you have trouble taking care of your child, family member or friend?: No Do you have trouble with day-to-day activities such as bathing, preparing meals, shopping, managing finances, etc.?: No Are you currently unemployed and looking for a job?: No Are you interested in more education?: No THRIVE Score: 0 AUDIT C Alcohol Use Questionnaire (AUDIT-C) 1. How often do you have a drink containing alcohol?: Never 3. How often do you have six or more drinks on one occasion?: Never Total Score: 0 Score Reviewed/Action Taken: Yes MICHELLE-7 AMB Questionnaire MICHELLE-7 Date MICHELLE - 7 assessed: 01/25/25 Feeling nervous, anxious, or on edge: 0 = Not at all Not being able to stop or control worryin = Not at all Worrying too much about different things: 0 = Not at all Trouble relaxin = Not at all Being so restless that it is hard to sit still: 0 = Not at all Becoming easily annoyed or irritable: 0 = Not at all Feeling afraid as if something awful might happen: 0 = Not at all Total MICHELLE-7 score (0-4 normal; 5-9 mild; 10-14 moderate; 15-21 severe): 0 Source: Developed by Drs. Med Burns, Devin Tejada and colleagues, with an educational brenda from [employer]. MICHELLE-7 Assessment Billing MICHELLE-7 Assessment Tool: MICHELLE-7 Assessment 62916 Review of Systems Narrative - Constitutional: Denies chest pain, shortness of breath, headaches - Genitourinary: Reports waking up 2-3 times nightly to urinate - Neurological/Psychiatric: Reports anxiety and insomnia; mood is stable - Gastrointestinal: Denies current abdominal pain All systems reviewed & are unremarkable except as reviewed in HPI and above Physical exam (Primary Care) Vital Signs: Last Vital Signs Temp 97.6 F 01/25/25 11:18 Pulse 73 01/25/25 11:18 BP 120/80 01/25/25 11:18 Pulse Ox 99 01/25/25 11:18 Oxygen Delivery Method Room Air 01/25/25 11:18 BMI result Body Mass Index 26.0 Tobacco/Smoking Status: Tobacco use Status Tobacco use date assessed 01/25/25 01/25/25 10:01 Patient Tobacco Use Status Former Tobacco user 01/25/25 11:26 e-Cigarette/Vaping Use Former Use 01/25/25 11:26 PHQ-9: PHQ-9 Score PHQ-9: Total score 6 01/25/25 11:26 Depression Screening Interpretation: Negative Thrive Assessment: Date of Thrive Assessment Date Thrive assessed 01/25/25 01/25/25 11:20 Narrative General: Alert and oriented, Well nourished, No acute distress. Eye: Pupils are equal, round and reactive to light, Intact accommodation, Extraocular movements are intact, Normal conjunctiva, Vision unchanged. HENT: Normocephalic, Atraumatic, Tympanic membranes are clear, Normal hearing, Oral mucosa is moist, No pharyngeal erythema, Ear canals patent. Respiratory: Lungs CTA bilaterally, No wheeze, Respirations are non-labored. Cardiovascular: Regular rate, Regular rhythm, S1 auscultated, S2 auscultated, No murmur, Good pulses equal in all extremities, Normal peripheral perfusion, No edema. Gastrointestinal: Soft, Non-tender, Non-distended, Normal bowel sounds, No organomegaly. Musculoskeletal: Normal range of motion, Normal strength, No tenderness, No swelling, No deformity, Normal gait. Integumentary: Warm, Dry, [place], Intact. Neurologic: Alert, Oriented, Normal sensory, Normal motor function, No focal defects, Cranial Nerves II-XII are grossly intact, Normal deep tendon reflexes. Psychiatric: Cooperative, Appropriate mood & affect, Normal judgment. Coding Level of Care Code New Pt Level 4 (03042) Diagnoses Alcohol use disorder in remission F10.91 Generalized anxiety disorder F41.1 Insomnia, unspecified type G47.00 Insomnia type: unspecified History of acute pancreatitis Z87.19 Tobacco use disorder F17.200 Additional Codes PHQ-9 - 78721 - PHQ-9 Billing: Yes ([id number]) MICHELLE-7 Assessment Billing - MICHELLE-7 Assessment Tool: MICHELLE-7 Assessment 98051 ([id number]) Assessment & Plan Assessment & Plan (1) Alcohol use disorder in remission: Comment: - Continue Vivitrol as it aids in maintaining sobriety - Discussed the importance of continued abstinence Code(s): F10.91 - Alcohol use, unspecified, in remission Category: Medical (2) Generalized anxiety disorder: Comment: - Introduction of buspirone 5 mg twice a day, with gradual onset expected over 2-4 weeks - Decision to maintain clonidine due to difficulty in titration Code(s): F41.1 - Generalized anxiety disorder Category: Medical (3) Insomnia: Comment: - Behavioral modifications including reducing fluid intake before bed, avoiding caffeine after 2 PM, and reducing screen time in the evenings were emphasized - Continue trazodone as previously prescribed but advised discontinuation if inefficacious Code(s): G47.00 - Insomnia, unspecified Category: Medical Qualifiers: Insomnia type: unspecified Qualified Code(s): G47.00 - Insomnia, unspecified (4) History of acute pancreatitis: Comment: - Advised to follow up with gastroenterology regarding the previously found mass Code(s): Z87.19 - Personal history of other diseases of the digestive system Category: Medical (5) Tobacco use disorder: Comment: - Commended for cessation and encouraged continued abstinence Code(s): F17.200 - Nicotine dependence, unspecified, uncomplicated Category: Medical Plan: Health Maintenance: - Emphasized lifestyle modifications for better sleep hygiene - Encouraged follow-up care for pancreas evaluation Patient was informed and verbally consented to the use of an ambient scribe for clinic note documentation during this visit. Plan During today?s visit, we discussed the management plan continuing Vivitrol to support his progress in non-alcohol use. I introduced buspirone 5 mg BID for anxiety management, explaining its delayed onset and maintaining clonidine to avoid adverse effects. For insomnia, we reviewed lifestyle modifications and decided to maintain the current trazodone dose with the option to discontinue if ineffective. We also reviewed the need for follow-up with gastroenterology regarding the previous pancreatitis and mass, urging him to stay on top of preventive care. Orders: Orders Complete Blood Count Auto Diff Today Z76.89 - Persons encountering health services in other specified circumstances Comprehensive Met. Panel Today Z76.89 - Persons encountering health services in other specified circumstances Hemoglobin A1c Today Z76.89 - Persons encountering health services in other specified circumstances Hepatitis A,B,C Profile Today Z76.89 - Persons encountering health services in other specified circumstances Lipid Panel Today Z76.89 - Persons encountering health services in other specified circumstances Vitamin D 25-OH Total Today Z76.89 - Persons encountering health services in other specified circumstances HIV Ab/Ag Today Z76.89 - Persons encountering health services in other specified circumstances Syphilis Screen Today Z76.89 - Persons encountering health services in other specified circumstances TSH reflex Free T4 Today Z76.89 - Persons encountering health services in other specified circumstances Medications: New naltrexone microspheres ER (Vivitrol) 380 mg IM QMONTH buspirone 5 mg PO BID 60 tabs 2RF 30 days Patient Instructions: - Continue Vivitrol as prescribed for alcohol use disorder - Take buspirone 5 mg twice daily as prescribed for anxiety - Follow the revised sleep hygiene strategies - Monitor any changes and contact us if needed - Schedule a follow-up appointment with gastroenterology - Return in 3-4 months for reassessment or earlier if concerns arise
[2025-01-25 11:18] VITALS: BP 120/80; PULSE 73; TEMP 36.4; O2SAT 99; BMI 26.0
--- OUTSIDE RECORDS SUMMARY | 2025-01-25 13:02 | XMS_ITS | Clinical Summary ---
Author Organization [facility] Address [address] [place] [id number] Phone Care Team Providers Care General Manager Road Production Name Role Phone Alfredo Carias MD Primary Care Provider [phone] Allergies No known active allergies Medications No known medications Active Problems Problem Noted Date Diagnosed Date Acute pancreatitis 06/14/2024 Acute urinary retention 06/14/2024 [place] [place] [facility] V28) Transaminitis Medical History Medical History Date Comments Alcohol abuse with withdrawal ([facility] V24, [facility] V28[facility] Alcohol related seizure ([facility] [place], [facility] V2 8) Transaminitis Anxiety Depression Tobacco use disorder 2024 current Social History Tobacco Use Types Packs/Day Years Used Date Smoking Tobacco: Every Day Cigarettes 0.5 0.8 Started: 2024 Smokeless Tobacco: Never Tobacco Cessation:Ready to Q uit: No; Counseling Given: Yes Interpersonal Safety Answer Date Record ed Physical Abuse Unrecognized value 05/21/2024 Verbal Abuse Unrecognized value 05/21/2024 Sex and Gender Information Value Date Recorded Sex Assigned at Male 05/20/2024 12:30 PM EST Legal Sex Male 4:44 AM EST Gender Identity Male 05/20/2024 12:30 PM EST Sexual Orientation Straight 05/20/2024 12 :30 PM EST Obstetrics History Last Filed Vital Signs Vital Sign Reading Time Taken Comments Blood Pressure 140/80 05/31/2024 5:32 AM EST Pulse 100 05/31/2024 5:32 AM EST Temperature 37.2 C (98.9 F) 05/31/2024 5:32 AM EST Respiratory Rate 20 05/31/2024 5:32 AM EST Oxygen Saturation 98% 05/31/2024 5:32 AM EST Inhaled Oxygen Concentration - - Weight 68 kg (150 lb) 05/30/2024 9:57 PM EST Height 177.8 cm (5' 10 ) 05/30/2024 9:57 PM EST Body Mass Index 21.52 05/30/2024 9:57 PM EST Plan of Treatment Health Maintenance Due Date Last Done Comments Hepatitis A Vaccines (1 of 2 - Risk 2-dose series) 2001 Hepatitis B Vaccines (1 of 3 - 19+ 3-dose series) 2001 Pneumococcal Vaccine: Pediatrics (0 to 5 Years) and At-Risk Patients (6 to 49 Years) (1 of 2 - PCV) 2001 HPV Vaccines (1 - 3-dose SCD M series) 2009 Depression Screening 04/04/2024 Cholesterol Screening (Lipid Panel) 05/18/2024 Social Influencers of Health Screening 05/18/2024 COVID-19 Vaccine (4 - 2024-2 6 season) 2024 01/14/2022, 05/01/2021, 04/09/2021 Influenza Vaccine (#1) 2024 DTaP,Tdap,and Td Vaccines (3 - Td or Tdap) 12/08/2031 12/07/2021, 11/16/2000 RSV Immunization Adult Patients (1 - 1-dose 75+ series) 2057 HIV Screening Completed 05/22/2024 Hepatitis C Screening [...] age to complete this topic Meningococcal B Vaccine Aged Out No l onger eligible based on patient's age to complete this topic RSV Immunization Patients Under 20 months Aged Out No longer eligible b ased on patient's age to complete this topic Varicella Vaccines Aged Out No longer eligible based on patient's age to complete this topic Procedures Procedure Name Priority Date/Time Associated Diagnosis Comments HEPATITIS PANEL, ACUTE WITH REFLEX TO CONFIRMATION Add-On 05/22/2024 5:59 AM EST HIV 1, 2 ANTIBODY, P24 ANTIGEN WITH REFLEX TO DIFFERENTIATION Add-On 05/22/2024 5:59 AM EST from Last 3 Months or Most Recently Relevant to Health Maintenance Results * HIV 1,2 antibody, p24 antigen with reflex to differentiation (05/22/2024 5:59 AM EST) HIV Combo AB/AG Negative Negative LAB CHEMISTRY METHOD 05/22/2024 1:45 PM EST [facility] Blood Venous blood specimen / Unknown Venipuncture / Unknown 05/22/2024 5:59 AM EST 05/22/2024 7:04 AM EST [facility] - 05/22/2024 1:45 PM EST This assay is a 4th generation assay allowing for earlier detection of HIV infection by detecting the presence of the HIV-1 p24 antigen as well as the traditional antibodies to HIV type 1 (including group O) and type 2. Use of a 4th generation assay is the current CDC recommendation for HIV screening. us Yessy [facility] LAB BLOOD ORDERABLES Final Result [facility] [address] [place] [address], [place] [phone] * Hepatitis panel, acute with reflex to confirmation (05/22/2024 5:59 AM EST) Pathologist [facility] Hepatitis B Surface Ag Negative Negative LAB CHEMISTRY METHOD 05/22/2024 1:46 PM EST [facility] Hepatitis A Antibody IgM Negative Negative LAB CHEMISTRY METHOD 05/22/2024 1:46 PM EST [facility] Hep B Core IgM Negative Negative LAB CHEMISTRY METHOD 05/22/2024 1:46 PM EST [facility] Hepatitis C Antibody Negative Negative LAB CHEMISTRY METHOD 05/22/2024 1:46 PM EST [facility] Blood Venous blood specimen / Unknown Venipuncture / Unknown 05/22/2024 5:59 AM EST 05/22/2024 7:04 AM EST us Yessy [facility] LAB BLOOD ORDERABLES Final Result [facility] [address] [place] [address], from Last 3 Months or Most Recently Relevant to Health Maintenance Additional Health Concerns Infection Onset Date Last Indicated Norovirus 05/24/2024 05/24/2024 Insurance [facility] [employer] Advance Directives * Full Code - [...] currently active code status orders. Care Teams General Manager Road Production Relationship Specialty Start Date End Date Alfredo Carias MD [address] PCP - General Internal Medicine 02/01/14
== END 2025-01-25 11:49 | disposition home or self-care (01) ==
LOC: HO.HMCHD 10:58
PROVIDERS: PCP Internal Medicine; Visit Provider Student in an Organized Health Care Education/Training Program
DX: F10.91 Alcohol use, unspecified, in remission (principal); F41.1 Generalized anxiety disorder; G47.00 Insomnia, unspecified; Z87.19 Personal history of other diseases of the digestive system; F17.200 Nicotine dependence, unspecified, uncomplicated

== ENCOUNTER 2025-01-25 11:37 | Outpatient (REF) | payer OTHER, SELFPAY ==
[2025-01-25 13:28] LABS: MANUAL DIFF FLAG NO
[2025-01-25 13:36] LABS: Hematocrit 45.0 % (42.0-52.0); Hemoglobin 14.9 g/dl (14.0-18.0); Imm Gran Abs Auto 0.02 X10*3/uL (0.00-0.03); Imm Gran Pct Auto 0.3 % (0.0-0.4); Lymphocytes Absolute Auto 2.5 X10*3/uL (1.2-4.9); Mean Corpuscular HGB Conc 33.1 g/dl (31.0-36.0); Mean Corpuscular Hemoglobin 29.3 pg (27.0-33.0); Mean Corpuscular Volume 88.6 fL (80.0-98.0); NRBC Abs Auto 0.000 X10*3/uL (0.0-0.012); NRBC Pct Auto 0.0 /100WBC (0.0-0.2); Platelet Count 360 X10*3/uL (160-400); Red Blood Count 5.08 X10*6/uL (4.60-5.80); White Blood Count 6.5 X10*3/uL (4.8-10.8)
[2025-01-25 14:20] LABS: Alanine Aminotransferase 21 U/L (0-40); Albumin Level 4.8 g/dL (3.5-5.0); Alkaline Phosphatase 80 U/L (39-117); Anion Gap 11 (12-20); Aspartate Amino Transferase 27 U/L (5-37); Blood Urea Nitrogen 13 mg/dL (9-16); Calcium 9.8 mg/dL (8.4-10.2); Carbon Dioxide 28 mmol/L (22-29); Chloride 106 mmol/L (96-108); Cholesterol 238 mg/dL (<200); Estimated Glomerular Filt Rate > 60; HDL Cholesterol 49 mg/dL (>40); Potassium 3.9 mmol/L (3.3-5.1); Sodium 141 mmol/L (135-145); Total Protein 7.4 g/dL (6.5-8.0); Triglycerides 251 mg/dL (<150)
[2025-01-26 03:35] LABS: Syphilis Screen Nonreactive (Nonreactive)
[2025-01-26 03:51] LABS: HBc Num1 0.07 S/CO (0.00-0.79); Hepatitis A Antibody IgM 0.13 Index (0-0.79); ~Hepatitis A Antibody IgM Nonreactive (Nonreactive)
[2025-01-26 04:28] LABS: HBS Num1 2.56 mIU/mL (0-7.99); HBsAGNum1 0.40 S/CO (0.00-0.99); HIV Num 1 0.06 S/CO (0.00-0.99); Hepatitis B Surface Antigen Negative (Negative); ~HepC Num1 0.06 S/CO (0.00-0.79); ~Hepatitis B Surface Antibody NONREACTIVE (Nonreactive); ~Hepatitis C Antibody Nonreactive (Nonreactive)
== END 2025-01-25 11:38 | disposition home or self-care (01) ==
LOC: HO.10HDL 11:37
PROVIDERS: Visit Provider Student in an Organized Health Care Education/Training Program
DX: F41.1 Generalized anxiety disorder (principal); F10.91 Alcohol use, unspecified, in remission; G47.00 Insomnia, unspecified; Z87.19 Personal history of other diseases of the digestive system; Z76.89 Persons encountering health services in other specified circumstances; Z87.891 Personal history of nicotine dependence
CPT/HCPCS: 36415; 80053; 80061; 82306; 83036; 84443; 85025; 86704; 86706; 86709; 86780; 86803; 87340; 87389; 96127; 99202